=== PATIENT | female | born 1955 | race American Indian/Alaskan Native ===

== ENCOUNTER 2016-09-27 07:10 | Day surgery (SDC) | payer MEDICARE ==
[2016-09-22 13:48] LABS: Basophils % (Auto) 0.9 % (0.0-1.8); Eosinophils % (Auto) 2.9 % (0.0-4.3); Hematocrit 39.9 % (30.3-42.9); Hemoglobin 13.1 gm/dl (10.1-14.3); Mean Corpuscular HGB Conc 33 % (30-34); Mean Corpuscular Hemoglobin 26 pg (28-32); Mean Corpuscular Volume 81 fl (79-97); Platelet Count 230 K/mm3 (140-440); Red Blood Count 4.96 M/mm3 (3.65-5.03)
[2016-09-22 13:58] LABS: INR 0.98 (0.87-1.13); Partial Thromboplastin Time 24.5 Sec. (24.2-36.6)
--- NOTE | 2016-09-22 13:59 | Anesthesia Consultation ---
Anesthesia Consult and Med Hx Date of service: 09/22/16 - Airway Anesthetic Teeth Evaluation: Poor (multiple missing teeth), Caps (# 25-26 payne caps) ROM Head & Neck: Adequate Mental/Hyoid Distance: Adequate Mallampati Class: Class II Intubation Access Assessment: Probably Good - Pre-Operative Health Status ASA Pre-Surgery Classification: ASA3 Proposed Anesthetic Plan: General Nerve Block: IS - Pulmonary Hx Smoking: Yes (STOPPED X 10 YRS- 1/3 PPD X 15 YRS) Hx Asthma: No COPD: No Hx Pneumonia: No Hx Sleep Apnea: No (CARRIE PRE SCREEN HIGH RISK) - Cardiovascular System Hx Hypertension: Yes (2003, high cholesterol) Hx Coronary Artery Disease: Yes (2 block arteries on left side) Hx Heart Attack/AMI: Yes (12/2015, on plavix therapy) Hx Angina: Yes (>4METS) Hx Peripheral Vascular Disease: Yes - Central Nervous System Hx Neuromuscular Disorder: Yes (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
[2016-09-22 14:05] LABS: Alanine Aminotransferase 13 units/L (7-56); Albumin 3.9 g/dL (3.9-5); Albumin/Globulin Ratio 1.3 %; Alkaline Phosphatase 77 units/L (35-129); Anion Gap 15 mmol/L; BUN/Creatinine Ratio 18.33; Bilirubin,Total 0.5 mg/dL (0.1-1.2); Blood Urea Nitrogen 11 mg/dL (7-17); Calcium 9.4 mg/dL (8.4-10.2); Carbon Dioxide 27 mmol/L (22-30); Chloride 97.1 mmol/L (98-107); Glucose 195 mg/dL (65-100); Potassium 4.3 mmol/L (3.6-5.0); Sodium 135 mmol/L (137-145); Total Protein 6.9 g/dL (6.3-8.2)
[~2016-09-27 07:10] MED LIST: MARCAINE-EPI 0.5%-1:200,000 INFILTRATI ONE; NACL 0.9% 1000 ML 1,000 ML IV SCH; NACL 0.9% IR ONE; NEOSPORIN GU IR ONE; PEPCID IV NR; VANCOMYCIN/NS 1 GM/250 ML 1 GM/250 ML BAG IV NR; VERSED IV NR
[2016-09-27] MEDS ORDERED: XYLOCAINE 1% 20 mL ONE (08:21)
[2016-09-27] MEDS ORDERED: MARCAINE-EPI 0.5%-1:200,000 INFILTRATI ONE (08:22)
[2016-09-27] MEDS ORDERED: SUBLIMAZE ONE (08:23)
[2016-09-27] MEDS ORDERED: DIPRIVAN 10 MG/ML IV ONE (08:32)
[2016-09-27] MEDS ORDERED: DILAUDID ONE (08:32)
[2016-09-27] MEDS ORDERED: XYLOCAINE MPF 2% ONE (08:32)
[2016-09-27] MEDS ORDERED: NEOSPORIN GU IR ONE (10:26)
[2016-09-27] MEDS ORDERED: NACL 0.9% IR ONE (10:26)
[2016-09-27] MEDS ORDERED: ZOFRAN ONE (10:30)
[2016-09-27] MEDS ORDERED: ROBINUL ONE (10:30)
--- NOTE | 2016-09-27 10:49 | Short Stay Summary ---
Short Stay Documentation Date of service: 09/27/16 - History H&P: obtained from office - Allergies and Medications Current Medications: Allergies aspirin Allergy (Verified 08/01/16 11:51) Shortness of Breath Penicillins Allergy (Verified 08/01/16 11:51) Swelling Home Medications Medication Instructions Recorded Confirmed Last Taken Type Gabapentin [Neurontin] 800 mg PO TID 03/13/13 09/27/16 09/26/16 History metFORMIN [Glucophage] 800 mg PO BID 03/13/13 09/27/16 09/26/16 History traMADol [Ultram 50 MG tab] 50 mg PO Q6HR PRN #40 tablet 01/18/15 09/27/1609/26 Rx Lisinopril [Zestril TAB] 40 mg PO QDAY 11/24/15 09/27/16 09/26/16 History Clopidogrel [Plavix] 75 mg PO QDAY #30 tablet 11/26/15 09/27/16 09/20/16 Rx Famotidine [Pepcid] 20 mg PO BID #60 tablet 11/26/15 09/07/16 07/01/16 Rx ISOSORBIDE MONOnitrate [Imdur ER] 30 mg PO QDAY #30 tablet 11/26/15 09/27/16 Rx Cetirizine HCl [ZyrTEC] 10 mg PO DAILY #20 capsule 02/01/16 09/27/16 09/26/16 Rx Metoprolol Xl [Metoprolol 50 mg PO QDAY #30 tablet 05/14/16 09/27/16 09/26/16 Rx SUCCINATE ER TAB] diphenhydrAMINE [Benadryl CAP] 25 mg PO Q8HR PRN #20 capsule 07/05/16 09/07/16 07/01/16 Rx AtorvaSTATin [Lipitor] 20 mg PO QHS 08/01/16 09/27/16 09/26/16 History DULoxetine [Cymbalta] 30 mg PO BID 08/01/16 09/27/16 09/26/16 History Ranolazine [Ranexa] 1,000 mg PO BID 08/01/16 09/27/16 09/26/16 History amLODIPine [Norvasc] 10 mg PO QDAY 08/12/16 09/27/16 09/26/16 History HYDROcodone/APAP 5-325 [[place] 1 each PO Q6HR PRN 09/07/16 09/27/16 09/26/16 History 5/325] Active Medications Famotidine (Pepcid) 20 mg IV PREOP NR Stop: 09/27/16 23:59 Last Admin: 09/27/16 08:08 Dose: 20 mg Vancomycin HCl (Vancomycin/Ns 1 Gm/250 Ml) 1 gm in 250 mls @ 167.007 mls/hr IV PREOP NR PRN Reason: Protocol Stop: 09/27/16 23:59 Last Admin: 09/27/16 09:30 Dose: 167.007 mls/hr Sodium Chloride (Nacl 0.9% 1000 Ml) 1,000 mls @ 75 mls/hr IV DIRECT DEBRA Last Admin: 09/27/16 08:08 Dose: 75 mls/hr Midazolam HCl (Versed) 2 mg IV PREOP NR Stop: 09/27/16 23:59 Last Admin: 09/27/16 08:26 Dose: 2 mg - Brief post op/procedure progress note Date of procedure: 09/27/16 Pre-op diagnosis: rotator cuff tear and inpingment,left shoulder Post-op diagnosis: same Procedure: Acromioplasty, rotator cuff repair Anesthesia: regional Findings: 1.5 cm tear at supraspinatus tendon. Surgeon: GABRIELA SPEARS Track Maintainer: GORDON RIVAS Estimated blood loss: minimal Pathology: none Specimen disposition: discarded Condition: stable - Disposition Condition at discharge: Stable Disposition: DISCHARGED TO HOME OR SELFCARE - Discharge Diagnoses (1) Complete rotator cuff tear of left shoulder Status: Acute Short Stay Discharge Plan Follow up with: PRIMARY CARE, [Primary Care Provider] - 7 Days
--- NOTE | 2016-09-27 12:15 | Post Anesthesia Evaluation ---
- Post Anesthesia Evaluation Patient Participated: Yes Airway Patent: Yes Stable Respiratory Function: Yes Nausea/Vomiting: No Temp > 96.8F: Yes Pain Manageable: Yes Adequeate Hydration: Yes Anesthesia Complications: No Block Receding Appropriately: Not Applicable
[2016-09-27 12:20] VITALS: BP 135/62
--- NOTE | 2016-09-27 20:51 | Operative Report ---
PREOPERATIVE DIAGNOSIS: Rotator cuff tear, left shoulder. POSTOPERATIVE DIAGNOSIS: Rotator cuff tear, left shoulder. PROCEDURE: Acromioplasty and rotator cuff repair, left shoulder, mini open approach. SURGEON: Lluvia Lopez MD BAIL BONDING AGENT: Jerzy Guardado RN ANESTHESIA: Interscalene block, general. COMPLICATIONS: None. FINDINGS: The patient had 1 to 1.5 cm tear of the rotator cuff at the supraspinatus tendon insertion without retraction. PROCEDURE IN DETAIL: Once the patient was in surgical room, a time-out was carried out to identify the patient and procedure, prepping and draping of the patient was done in usual fashion. The procedure was carried out with the patient in a semi-seated position. The procedure was carried out by making an incision about 2 cm in length in line with acromion. Dissection was carried out to subcutaneous tissues. The dissection was carried out to allow full exposure of the deltoid muscle. The interval between the anterior medial deltoid muscles was developed, this allowed for the insertion of Gelpi retractor. Once this was done, an elevator was placed underneath the acromion, release of the acromion was carried out for about distance of 5-6 mm proximally and distally. Once this was done, using a saw, resection of the acromion was carried out by making a vertical cut and also a horizontal cut removing about 8-9 mm of the anterior edge of the acromion. Once this was done, the bone fragments were removed. At this point, using Blankenship scissors and pickups, bursectomy of the shoulder was done. Once the bursectomy was carried out, the patient was found to have the above-mentioned findings. The biceps tendon was found to be intact. The procedure was continued at this point by using a small mallet and a chisel to be able to remove some of the cortex of the bone and the area of the greater tuberosity, this was cleaned out without any problems. Following that, using a FiberTape suture was placed with two limbs through the rotator cuff, this was connected to type ankle from the eSNF, this anchor was inserted into the upper portion of the shoulder using a mallet and a route driver. Once the ankle was in place, the FiberTape had been placed through the ankle prior to the insertion. The FiberTape was then twisted into the bone without any problems, creating tension and repairing the cuff. The ankle instrumentation was removed. The ankle was deep inside the shoulder, and the rotator cuff was well repaired. The procedure was terminated. The wound was irrigated using #2-0 Ethibond suture and multiple sutures were placed to reconstruct the soft tissues. Once this was carried out, the procedure was terminated. The wound was closed with 2-0 Vicryl and subcuticular closure with Steri-Strips and Dermabond. There were no complications. JOB# [id number] COURT/ELLA
== END 2016-09-27 13:06 | disposition home or self-care (01) ==
LOC: OR 07:10
DX: S46.012A Strain of muscle(s) and tendon(s) of the rotator cuff of left shoulder, initial encounter (principal); E11.9 Type 2 diabetes mellitus without complications; I10 Essential (primary) hypertension; I25.10 Atherosclerotic heart disease of native coronary artery without angina pectoris; I25.2 Old myocardial infarction; F32.9 Major depressive disorder, single episode, unspecified; K21.9 Gastro-esophageal reflux disease without esophagitis; E78.00 Pure hypercholesterolemia, unspecified; E66.9 Obesity, unspecified; Z68.36 Body mass index [BMI] 36.0-36.9, adult; Z87.891 Personal history of nicotine dependence; Z79.01 Long term (current) use of anticoagulants; Z90.710 Acquired absence of both cervix and uterus; Z83.3 Family history of diabetes mellitus; Z82.61 Family history of arthritis; Z82.3 Family history of stroke; Z82.49 Family history of ischemic heart disease and other diseases of the circulatory system; X58.XXXA Exposure to other specified factors, initial encounter
CPT/HCPCS: 23130; 23410; 36415; 80053; 82962; 85025; 85610; 85730; C1713; J1170; J2250; J2405; J2704; J3370; J7030; J3010

== ENCOUNTER 2018-03-17 15:40 | Inpatient (IN) | payer MEDICARE ==
[2018-03-17] MEDS ORDERED: ACTIDOSE-AQUA PO ONE (15:49)
[2018-03-17] MEDS ORDERED: NACL 0.9% 1000 ML 1,000 ML IV ONE ×2 (15:50→19:05)
--- NOTE | 2018-03-17 16:11 | Emergency Department Report ---
HPI - General Time Seen by Provider: 03/17/18 15:44 - HPI HPI: 62-year-old female presents to the emergency department by EMS from home after what appears to be a suicide attempt by overdose taking multiple 25 mg metoprolol and 10 mg amlodipine pills. The patient is groggy but is arousable and answering questions. When asked how many pills she took she says "a lot" and she took them just prior to presentation here. She denies any discomfort. She is tearful. It appears that family found her taking these medications and were able to pry a few of these pills out of her mouth. She does appear to have a past medical history of hypertension. These medications are from about 1 year ago but they were about half full prior to this event. ED Past Medical Hx - Past Medical History Hx Hypertension: Yes (2003, high cholesterol) Hx Heart Attack/AMI: Yes (12/2015, on plavix therapy) Hx Diabetes: Yes Hx Liver Disease: No Hx Renal Disease: No Hx Sickle Cell Disease: No Hx Arthritis: Yes Hx Seizures: No Hx Psychiatric Treatment: Yes (depression) Hx Asthma: No Hx COPD: No Hx HIV: No Additional medical history: nerve damage to hands and feet - Surgical History Additional Surgical History: hysterectomy-2002, R shoulder surgery (2014) - Social History Smoking Status: Former Smoker Substance Use Type: None - Medications Home Medications: Home Medications Medication Instructions Recorded Confirmed Last Taken Type Gabapentin [Neurontin] 800 mg PO TID 03/13/13 09/27/16 09/26/16 History metFORMIN [Glucophage] 800 mg PO BID 03/13/13 09/27/16 09/26/16 History traMADol [Ultram 50 MG tab] 50 mg PO Q6HR PRN #40 tablet 01/18/15 09/27/1609/26 Rx Lisinopril [Zestril TAB] 40 mg PO QDAY 11/24/15 09/27/16 09/26/16 History Clopidogrel [Plavix] 75 mg PO QDAY #30 tablet 11/26/15 09/27/16 09/20/16 Rx Famotidine [Pepcid] 20 mg PO BID #60 tablet 11/26/15 09/07/16 07/01/16 Rx ISOSORBIDE MONOnitrate [Imdur ER] 30 mg PO QDAY #30 tablet 11/26/15 09/27/16 Rx Cetirizine HCl [ZyrTEC] 10 mg PO DAILY #20 capsule 02/01/16 09/27/16 09/26/16 Rx Metoprolol Xl [Metoprolol 50 mg PO QDAY #30 tablet 05/14/16 09/27/16 09/26/16 Rx SUCCINATE ER TAB] diphenhydrAMINE [Benadryl CAP] 25 mg PO Q8HR PRN #20 capsule 07/05/16 09/07/16 07/01/16 Rx AtorvaSTATin [Lipitor] 20 mg PO QHS 08/01/16 09/27/16 09/26/16 History DULoxetine [Cymbalta] 30 mg PO BID 08/01/16 09/27/16 09/26/16 History Ranolazine [Ranexa] 1,000 mg PO BID 08/01/16 09/27/16 09/26/16 History amLODIPine [Norvasc] 10 mg PO QDAY 08/12/16 09/27/16 09/26/16 History HYDROcodone/APAP 5-325 [[place] 1 each PO Q6HR PRN 09/07/16 09/27/16 09/26/16 History 5/325] ED Review of Systems ROS: Stated complaint: OVERDOSE Other details as noted in HPI Comment: All other systems reviewed and negative Constitutional: other (fatigue). denies: chills, fever Eyes: denies: eye pain, eye discharge, vision change ENT: denies: ear pain, throat pain Respiratory: denies: cough, shortness of breath, wheezing Cardiovascular: denies: chest pain, palpitations Gastrointestinal: denies: abdominal pain, nausea, diarrhea Genitourinary: denies: urgency, dysuria, discharge Musculoskeletal: denies: back pain, joint swelling, arthralgia Skin: denies: rash, lesions Neurological: denies: headache, weakness, paresthesias Psychiatric: depression, suicidal thoughts Physical Exam - Physical Exam Vital Signs: Vital Signs 03/17/18 15:48 Temperature 98.4 F Pulse Rate 58 L Respiratory 14 Rate Blood Pressure 149/67 O2 Sat by Pulse 98 Oximetry Physical Exam: GENERAL: The patient is well-developed well-nourished. HENT: Normocephalic. Atraumatic. Patient has moist mucous membranes. EYES: Extraocular motions are intact. Pupils equal reactive to light bilaterally. NECK: Supple. Trachea is midline. CHEST/LUNGS: Clear to auscultation. There is no respiratory distress noted. HEART/CARDIOVASCULAR: Regular. There is some mild bradycardia. There is no murmur. ABDOMEN: Abdomen is soft, nontender. Patient has normal bowel sounds. There is no abdominal distention. SKIN: Skin is warm and dry. NEURO: Patient is very sleepy but is arousable. Once awake she is oriented to person, place and time. MUSCULOSKELETAL: There is no tenderness or deformity. There is no limitation range of motion. There is no evidence of acute injury. PSYCH: Patient is tearful. ED Course Vital Signs 03/17/18 15:48 Temperature 98.4 F Pulse Rate 58 L Respiratory 14 Rate Blood Pressure 149/67 O2 Sat by Pulse 98 Oximetry - Reevaluation(s) Reevaluation #1: 03/17/18 22:20 I called and spoke with the night time hospitalist, Dr Bailon, about increasing the insulin gtt to the high dose insulin parameters of 1 unit / kg instead of the 0.1 units per kg she had been placed at. He was also made aware about my conversations with poison control and their treatment recommendations and packet that was sent. - Consultations Consultation #1: 03/17/18 20:28 I spoke with the security officer supervisor, Dr. Day, who listened to the case presentation and feels that with this patient's current status we should be able to keep her at our facility. He recommends giving a few doses of glucagon. He agrees with the high-dose insulin therapy, IV fluid resuscitation. He will see the patient in the ICU and is open to any further follow-up calls. - Central Line Placement Right Femoral Consent Obtained: verbal consent Time Out Performed: Yes Patient Placed on Monitor/Pulse Ox: Yes MD Prep: mask, gown, gloves Central Line Prep: Chlorhexidine scrub, sterile drapes applied Local Anesthesia Used: Lidocaine 1% Amount of Anesthesia Used (mls): 3 Ultrasound Used for Placement: Yes Central Line Lumen Inserted: triple Bloods Obtained for Lab: Yes Central Line Position: good blood return, all ports aspirated, flus, sutured in place with nyl Dressing Applied: Tegaderm, sterile gauze/tape Patient Tolerated Procedure: well Complications: none ED Medical Decision Making - Lab Data Result diagrams: 03/18/18 04:40 03/18/18 04:40 - EKG Data -: EKG Interpreted by Me EKG shows normal: sinus rhythm, axis (left axis deviation), intervals, QRS complexes (LVH), ST-T waves Rate: bradycardia (43 bpm) - EKG Data When compared to previous EKG there are: previous EKG unavailable Interpretation: other (sinus bradycardia at 43 bpm, LVH) - Medical Decision Making This patient presented after taking at least 20 metoprolol and 20 over pain shortly prior to arrival. She was given some activated charcoal . The patient got nauseated and began vomiting up the charcoal and some other gastric contents. At first the patient had a normal heart rate and blood pressure but a little after arrival it appears that these medications have started to get systemic and the patient began having bradycardia and hypotension. She did not have much response to IV fluid so a central line was placed in the right femoral vein and the patient was started on Levophed. The patient had some response to the vasopressor once the Levophed was at maximum dose. We were in touch with poison control who recommended giving glucagon, high-dose insulin. They recommended looking into the ability to give lipid emulsion therapy. If available, it is recommended to give at 1.5 mL per KG. They also recommended that calcium chloride and/or gluconate to be given to aim for an ionized calcium level of 2. If necessary 1 amp to be given every 15-30 minutes to achieve this number. If all these treatments fail that it is possible the patient would require ECMO. I spoke to the security officer supervisor and admitting hospitalist who agreed that since the patient has a normal mentation and since there has been some response with the blood pressure that we do not need to transfer at this moment for ECMO but will continue to monitor. poison control gave/faxed their list of treatment options for beta blockers and calcium channel blockers. Patient was accepted for admission by the hospitalist, Dr. Bloom. When I left the hospital at the end of my shift, the patient was sleepy but easily arousable and AAO x 3. At that time she seemed to have some improvement in her vitals with a HR of 50 and a SBP of about 100. During my time in the ED with this patient, she had a median HR of about 45 and SBP of about 90. Upon reviewing the chart shortly afterwards around 10 PM, I noticed that the patient may need high dose insulin therapy instead of the standard dose she was currently receiving. Since I was no longer in the emergency department, I called and spoke with Dr Downey (ED) and Dr Bailon (Hospitalist) to ask them to re-assess the patient, explain that there is high dose insulin protocol sent by poison control that is on the chart, and to re-contact poison control if necessary. - Differential Diagnosis bradycardia, overdose BB and CCB, Dysrythmia, sepsis Critical Care Time: Yes Critical care time in (mins) excluding proc time.: 35 Critical care attestation.: If time is entered above; I have spent that time in minutes in the direct care of this critically ill patient, excluding procedure time. Critical care time was spent on this patient in doing her initial evaluation, multiple re- evaluations, ordering and interpretation of labs and imaging, discussions with family, security officer supervisor, poison control. This does not include the time spent doing the central line procedure. Critical Care Time: 35 minutes ED Disposition Clinical Impression: Bradycardia Suicide attempt by beta tr overdose Qualifiers: Encounter type: initial encounter Qualified Code(s): T44.7X2A - Poisoning by beta-adrenoreceptor antagonists, intentional self-harm, initial encounter Overdose of calcium-channel tr Qualifiers: Encounter type: initial encounter Injury intent: intentional self-harm Qualified Code(s): T46.1X2A - Poisoning by calcium-channel blockers, intentional self-harm, initial encounter Suicide attempt by drug ingestion Qualifiers: Encounter type: initial encounter Qualified Code(s): T50.902A - Poisoning by unspecified drugs, medicaments and biological substances, intentional self-harm , initial encounter Hypotension Qualifiers: Hypotension type: unspecified hypotension type Qualified Code(s): I95.9 - Hypotension, unspecified Disposition: DC-09 OP ADMIT IP TO THIS HOSP Is pt being admited?: Yes Condition: Serious
[2018-03-17] MEDS ORDERED: ATROPINE 0.1% (CARDIAC) ONE ×2 (16:21→16:49)
[2018-03-17] MEDS ORDERED: ZOFRAN ONE ×3 (16:28→20:49)
[2018-03-17] MEDS ORDERED: LEVOPHED DRIP 4 MG/NS 250 ML 4 MG/250 ML BAG IV ONE (16:34)
[2018-03-17] MEDS: LEVOPHED DRIP 4 MG/NS 250 ML 4 MG/250 ML BAG IV SCH ×3 (16:38→22:20)
[2018-03-17 16:40] LABS: Hematocrit 43.9 % (30.3-42.9); Hemoglobin 14.7 gm/dl (10.1-14.3); Mean Corpuscular HGB Conc 34 % (30-34); Mean Corpuscular Hemoglobin 27 pg (28-32); Mean Corpuscular Volume 80 fl (79-97); Platelet Count 299 K/mm3 (140-440); Red Blood Count 5.48 M/mm3 (3.65-5.03); Red Cell Distribution Width 14.1 % (13.2-15.2)
[2018-03-17 16:45] LABS: Alanine Aminotransferase 11 units/L (7-56); BUN/Creatinine Ratio 15; Blood Urea Nitrogen 12 mg/dL (7-17); Calcium 8.9 mg/dL (8.4-10.2); Hemolysis Index 6
[2018-03-17] MEDS ORDERED: ZOFRAN IV ONE (16:49)
[2018-03-17] MEDS ORDERED: ATROPINE 0.1% (CARDIAC) IV ONE ×2 (16:50→16:51)
[2018-03-17 17:21] LABS: Basophils % (Manual) 0 % (0.0-1.8); Eosinophils % (Manual) 0 % (0.0-4.3); Giant Platelets Few; RBC Morphology Normal; Total Cells Counted 100
[2018-03-17] MEDS ORDERED: GLUCAGEN IV ONE ×2 (17:28→18:23)
[2018-03-17] MEDS ORDERED: HumuLIN R IV ONE ×2 (17:50→22:37)
[2018-03-17] MEDS ORDERED: REGLAN ONE (18:30)
[2018-03-17] MEDS ORDERED: NACL 0.9% 100 ML ONE (18:30)
[2018-03-17] MEDS: HumuLIN R 100 UNITS in NACL 0.9% 99 ML IV SCH (18:32)
[2018-03-17] MEDS ORDERED: D5NS 1,000 ML IV SCH (19:00)
[2018-03-17] MEDS ORDERED: REGLAN IV ONE (19:06)
[2018-03-17] MEDS ORDERED: NACL 0.9% IV ONE (19:08)
[2018-03-17] MEDS ORDERED: CALCIUM GLUCONATE 1,000 MG in NACL 0.9% 100 ML IV ONE (20:00)
[2018-03-17] MEDS ORDERED: GLUCAGEN ONE (20:31)
[2018-03-17 21:07] LABS: Bilirubin,Urine NEG (Negative); Blood,Urine NEG (Negative); Color,Urine Yellow (Yellow); Urobilinogen,Urine < 2.0 mg/dL (<2.0)
[2018-03-17 21:14] LABS: Calcium 8.9 mg/dL (8.4-10.2)
[2018-03-17 21:16] LABS: Amphetamine Screen,Urine PRESUMPTIVE NEGATIVE; Benzodiazepines Screen,Urine PRESUMPTIVE NEGATIVE; Cannabinoid Screen,Urine PRESUMPTIVE NEGATIVE; Cocaine Screen,Urine PRESUMPTIVE NEGATIVE; Methadone Screen,Urine PRESUMPTIVE NEGATIVE; Opiate Screen,Urine PRESUMPTIVE NEGATIVE
[2018-03-17] MEDS ORDERED: NACL 0.9% 500 ML 500 ML IV ONE (21:32)
--- NOTE | 2018-03-17 22:02 | History and Physical Report ---
History of Present Illness Date of examination: 03/17/18 Date of admission: 03/17/2018 Chief complaint: Chief complaint: Overdose on lisinopril and amlodipine few hours ago History of present illness: ESTELA 62-year-old black female comes in by EMS for taking multiple tablets of metoprolol and amlodipine. Patient blood pressure was very low. Patient apparently was suicidal and it was a suicide attempt. Patient is groggy but is arousable and answering questions. Patient not able to tell the number of pills she has taken. The family found her taking these medications and were able to take a few pills out of her mouth. 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 Surgical History Additional Surgical History: hysterectomy-2002, R shoulder surgery (2014) Social History Smoking Status: Former Smoker Substance Use Type: None Family history Htn - Medications Home Medications: Home Medications Medication Instructions Recorded Confirmed Last Taken Type Gabapentin [Neurontin] 800 mg PO TID 03/13/13 09/27/16 09/26/16 History metFORMIN [Glucophage] 800 mg PO BID 03/13/13 09/27/16 09/26/16 History traMADol [Ultram 50 MG tab] 50 mg PO Q6HR PRN #40 tablet 01/18/15 09/27/1609/26 Rx Lisinopril [Zestril TAB] 40 mg PO QDAY 11/24/15 09/27/16 09/26/16 History Clopidogrel [Plavix] 75 mg PO QDAY #30 tablet 11/26/15 09/27/16 09/20/16 Rx Famotidine [Pepcid] 20 mg PO BID #60 tablet 11/26/15 09/07/16 07/01/16 Rx ISOSORBIDE MONOnitrate [Imdur ER] 30 mg PO QDAY #30 tablet 11/26/15 09/27/16 Rx Cetirizine HCl [ZyrTEC] 10 mg PO DAILY #20 capsule 02/01/16 09/27/16 09/26/16 Rx Metoprolol Xl [Metoprolol 50 mg PO QDAY #30 tablet 05/14/16 09/27/16 09/26/16 Rx SUCCINATE ER TAB] diphenhydrAMINE [Benadryl CAP] 25 mg PO Q8HR PRN #20 capsule 07/05/16 09/07/16 07/01/16 Rx AtorvaSTATin [Lipitor] 20 mg PO QHS 08/01/16 09/27/16 09/26/16 History DULoxetine [Cymbalta] 30 mg PO BID 08/01/16 09/27/16 09/26/16 History Ranolazine [Ranexa] 1,000 mg PO BID 08/01/16 09/27/16 09/26/16 History amLODIPine [Norvasc] 10 mg PO QDAY 08/12/16 09/27/16 09/26/16 History HYDROcodone/APAP 5-325 [Rosalia 1 each PO Q6HR PRN 09/07/16 09/27/16 09/26/16 History 5/325] Review of Systems ROS: Stated complaint: OVERDOSE Other details as noted in HPI Comment: All other systems reviewed and negative Constitutional: denies: chills, fever Eyes: denies: eye pain, eye discharge, vision change ENT: denies: ear pain, throat pain Respiratory: denies: cough, shortness of breath, wheezing Cardiovascular: denies: chest pain, palpitations Gastrointestinal: denies: abdominal pain, nausea, diarrhea Genitourinary: denies: urgency, dysuria, discharge Musculoskeletal: denies: back pain, joint swelling, arthralgia Skin: denies: rash, lesions Neurological: denies: headache, weakness, paresthesias Psychiatric: depression, suicidal thoughts Medications and Allergies Allergies Allergy/AdvReac Type Severity Reaction Status Date / Time aspirin Allergy Shortness Verified 08/01/16 11:51 of Breath Penicillins Allergy Swelling Verified 08/01/16 11:51 Home Medications Medication Instructions Recorded Confirmed Last Taken Type Gabapentin [Neurontin] 800 mg PO TID 03/13/13 09/27/16 09/26/16 History metFORMIN [Glucophage] 800 mg PO BID 03/13/13 09/27/16 09/26/16 History traMADol [Ultram 50 MG tab] 50 mg PO Q6HR PRN #40 tablet 01/18/15 09/27/1609/26 Rx Lisinopril [Zestril TAB] 40 mg PO QDAY 11/24/15 09/27/16 09/26/16 History Clopidogrel [Plavix] 75 mg PO QDAY #30 tablet 11/26/15 09/27/16 09/20/16 Rx Famotidine [Pepcid] 20 mg PO BID #60 tablet 11/26/15 09/07/16 07/01/16 Rx ISOSORBIDE MONOnitrate [Imdur ER] 30 mg PO QDAY #30 tablet 11/26/15 09/27/16 Rx Cetirizine HCl [ZyrTEC] 10 mg PO DAILY #20 capsule 02/01/16 09/27/16 09/26/16 Rx Metoprolol Xl [Metoprolol 50 mg PO QDAY #30 tablet 05/14/16 09/27/16 09/26/16 Rx SUCCINATE ER TAB] diphenhydrAMINE [Benadryl CAP] 25 mg PO Q8HR PRN #20 capsule 07/05/16 09/07/16 07/01/16 Rx AtorvaSTATin [Lipitor] 20 mg PO QHS 08/01/16 09/27/16 09/26/16 History DULoxetine [Cymbalta] 30 mg PO BID 08/01/16 09/27/16 09/26/16 History Ranolazine [Ranexa] 1,000 mg PO BID 08/01/16 09/27/16 09/26/16 History amLODIPine [Norvasc] 10 mg PO QDAY 08/12/16 09/27/16 09/26/16 History HYDROcodone/APAP 5-325 [Rosalia 1 each PO Q6HR PRN 09/07/16 09/27/16 09/26/16 History 5/325] Active Meds: Active Medications Sodium Chloride (Nacl 0.9% 1000 Ml) 1,000 mls @ 125 mls/hr IV ONCE ONE Stop: 03/17/18 23:49 Last Admin: 03/17/18 16:05 Dose: 125 mls/hr Norepinephrine (Levophed Drip 4 Mg/Ns 250 Ml) 4 mg in 250 mls @ 7.5 mls/hr IV TITR DEBRA; Protocol Last Admin: 03/17/18 19:08 Dose: 20 mcg/min, 75 mls/hr Insulin Human Regular 100 (units/ Sodium Chloride) 100 mls @ 8 mls/hr IV TITR DEBRA; Protocol Last Admin: 03/17/18 18:32 Dose: 8 units/hr, 8 mls/hr Dextrose/Sodium Chloride (D5ns) 1,000 mls @ 125 mls/hr IV DIRECT DEBRA Last Admin: 03/17/18 19:02 Dose: 125 mls/hr Sodium Chloride (Nacl 0.9% 500 Ml) 500 mls @ 999 mls/hr IV ONCE ONE Stop: 03/17/18 22:02 Exam - Physical Exam Narrative exam: Patient lying in bed in slight discomfort - Constitutional Vitals: Temp Pulse Resp BP Pulse Ox 98.4 F 47 L 12 89/60 96 03/17/18 15:48 03/17/18 21:10 03/17/18 21:10 03/17/18 21:10 03/17/18 21:10 General appearance: Present: mild distress, well-nourished - EENT Eyes: Present: PERRL ENT: hearing intact, clear oral mucosa - Neck Neck: Present: supple, normal ROM - Respiratory Respiratory effort: normal Respiratory: bilateral: CTA - Cardiovascular Heart rate: 96 Rhythm: regular Heart Sounds: Present: S1 & S2. Absent: rub, click - Extremities Extremities: no ischemia, pulses intact, pulses symmetrical, No edema Peripheral Pulses: within normal limits - Abdominal General gastrointestinal: Present: soft, non-tender, non-distended, normal bowel sounds Female genitourinary: Present: normal - Integumentary Integumentary: Present: clear, warm, dry - Musculoskeletal Musculoskeletal: generalized weakness - Psychiatric Psychiatric: appropriate mood/affect, intact judgment & insight - Neurologic Neurologic: CNII-XII intact, moves all extremities - Allied Health Allied health notes reviewed: nursing, case management Results - Labs CBC & Chem 7: 03/17/18 16:18 03/17/18 20:52 Labs: Laboratory Last Values WBC 12.7 K/mm3 (4.5-11.0) H 03/17/18 16:18 RBC 5.48 M/mm3 (3.65-5.03) H 03/17/18 16:18 Hgb 14.7 gm/dl (10.1-14.3) H 03/17/18 16:18 Hct 43.9 % (30.3-42.9) H 03/17/18 16:18 MCV 80 fl (79-97) 03/17/18 16:18 MCH 27 pg (28-32) L 03/17/18 16:18 MCHC 34 % (30-34) 03/17/18 16:18 RDW 14.1 % (13.2-15.2) 03/17/18 16:18 Plt Count 299 K/mm3 (140-440) 03/17/18 16:18 Lymph # Tunnel Man 03/17/18 16:18 Add Manual Diff Complete 03/17/18 16:18 Total Counted 100 03/17/18 16:18 Seg Neuts % (Manual) 40.0 % (40.0-70.0) 03/17/18 16:18 Band Neutrophils % 0 % 03/17/18 16:18 Lymphocytes % (Manual) 50.0 % (13.4-35.0) H 03/17/18 16:18 Reactive Lymphs % (Man) 0 % 03/17/18 16:18 Monocytes % (Manual) 10.0 % (0.0-7.3) H 03/17/18 16:18 Eosinophils % (Manual) 0 % (0.0-4.3) 03/17/18 16:18 Basophils % (Manual) 0 % (0.0-1.8) 03/17/18 16:18 Metamyelocytes % 0 % 03/17/18 16:18 Myelocytes % 0 % 03/17/18 16:18 Promyelocytes % 0 % 03/17/18 16:18 Blast Cells % 0 % 03/17/18 16:18 Nucleated RBC % Not Reportable 03/17/18 16:18 Seg Neutrophils # Man 5.1 K/mm3 (1.8-7.7) 03/17/18 16:18 Band Neutrophils # 0.0 K/mm3 03/17/18 16:18 Lymphocytes # (Manual) 6.4 K/mm3 (1.2-5.4) H 03/17/18 16:18 Abs React Lymphs (Man) 0.0 K/mm3 03/17/18 16:18 Monocytes # (Manual) 1.3 K/mm3 (0.0-0.8) H 03/17/18 16:18 Eosinophils # (Manual) 0.0 K/mm3 (0.0-0.4) 03/17/18 16:18 Basophils # (Manual) 0.0 K/mm3 (0.0-0.1) 03/17/18 16:18 Metamyelocytes # 0.0 K/mm3 03/17/18 16:18 Myelocytes # 0.0 K/mm3 03/17/18 16:18 Promyelocytes # 0.0 K/mm3 03/17/18 16:18 Blast Cells # 0.0 K/mm3 03/17/18 16:18 WBC Morphology Not Reportable 03/17/18 16:18 Hypersegmented Neuts Not Reportable 03/17/18 16:18 Hyposegmented Neuts Not Reportable 03/17/18 16:18 Hypogranular Neuts Not Reportable 03/17/18 16:18 Smudge Cells Not Reportable 03/17/18 16:18 Toxic Granulation Not Reportable 03/17/18 16:18 Toxic Vacuolation Not Reportable 03/17/18 16:18 Dohle Bodies Not Reportable 03/17/18 16:18 Pelger-Huet Anomaly Not Reportable 03/17/18 16:18 Deneen Rods Not Reportable 03/17/18 16:18 Platelet Estimate Appears normal 03/17/18 16:18 Clumped Platelets Not Reportable 03/17/18 16:18 Plt Clumps, EDTA Not Reportable 03/17/18 16:18 Large Platelets Not Reportable 03/17/18 16:18 Giant Platelets Few 03/17/18 16:18 Platelet Satelliting Not Reportable 03/17/18 16:18 Plt Morphology Comment Not Reportable 03/17/18 16:18 RBC Morphology Normal 03/17/18 16:18 Dimorphic RBCs Not Reportable 03/17/18 16:18 Polychromasia Not Reportable 03/17/18 16:18 Hypochromasia Not Reportable 03/17/18 16:18 Poikilocytosis Not Reportable 03/17/18 16:18 Anisocytosis Not Reportable 03/17/18 16:18 Microcytosis Not Reportable 03/17/18 16:18 Macrocytosis Not Reportable 03/17/18 16:18 Spherocytes Not Reportable 03/17/18 16:18 Pappenheimer Bodies Not Reportable 03/17/18 16:18 Sickle Cells Not Reportable 03/17/18 16:18 Target Cells Not Reportable 03/17/18 16:18 Tear Drop Cells Not Reportable 03/17/18 16:18 Ovalocytes Not Reportable 03/17/18 16:18 Helmet Cells Not Reportable 03/17/18 16:18 [place] Bodies Not Reportable 03/17/18 16:18 [place] Rings Not Reportable 03/17/18 16:18 Dale Cells Not Reportable 03/17/18 16:18 Bite Cells Not Reportable 03/17/18 16:18 Crenated Cell Not Reportable 03/17/18 16:18 Elliptocytes Not Reportable 03/17/18 16:18 Acanthocytes (Spur) Not Reportable 03/17/18 16:18 Rouleaux Not Reportable 03/17/18 16:18 Hemoglobin C Crystals Not Reportable 03/17/18 16:18 Schistocytes Not Reportable 03/17/18 16:18 Malaria parasites Not Reportable 03/17/18 16:18 Henry Bodies Not Reportable 03/17/18 16:18 Hem Pathologist Commnt No 03/17/18 16:18 VBG pH 7.341 (7.320-7.420) 03/17/18 16:18 Sodium 143 mmol/L (137-145) D 03/17/18 20:52 Potassium 4.2 mmol/L (3.6-5.0) 03/17/18 20:52 Chloride 103.2 mmol/L (98-107) 03/17/18 20:52 Carbon Dioxide 20 mmol/L (22-30) L 03/17/18 20:52 Anion Gap 24 mmol/L 03/17/18 20:52 BUN 17 mg/dL (7-17) 03/17/18 20:52 Creatinine 1.5 mg/dL (0.7-1.2) H D 03/17/18 20:52 Estimated GFR 42 ml/min 03/17/18 20:52 BUN/Creatinine Ratio 11 % 03/17/18 20:52 Glucose 247 mg/dL (65-100) H 03/17/18 20:52 POC Glucose 275 (70-105) H 03/17/18 21:05 Calcium 8.9 mg/dL (8.4-10.2) 03/17/18 20:52 Total Bilirubin 0.20 mg/dL (0.1-1.2) 03/17/18 16:18 AST 12 units/L (5-40) 03/17/18 16:18 ALT 11 units/L (7-56) 03/17/18 16:18 Alkaline Phosphatase 89 units/L (35-129) 03/17/18 16:18 Troponin T < 0.010 ng/mL (0.00-0.029) 03/17/18 16:18 Total Protein 6.8 g/dL (6.3-8.2) 03/17/18 16:18 Albumin 4.0 g/dL (3.9-5) 03/17/18 16:18 Albumin/Globulin Ratio 1.4 % 03/17/18 16:18 Urine Color Yellow (Yellow) 03/17/18 20:56 Urine Turbidity Slightly-cloudy (Clear) 03/17/18 20:56 Urine pH 5.0 (5.0-7.0) 03/17/18 20:56 Ur Specific Walls 1.007 (1.003-1.030) 03/17/18 20:56 Urine Protein 100 mg/dl mg/dL (Negative) 03/17/18 20:56 Urine Glucose (UA) >=500 mg/dL (Negative) 03/17/18 20:56 Urine Ketones Neg mg/dL (Negative) 03/17/18 20:56 Urine Blood Neg (Negative) 03/17/18 20:56 Urine Nitrite Neg (Negative) 03/17/18 20:56 Urine Bilirubin Neg (Negative) 03/17/18 20:56 Urine Urobilinogen < 2.0 mg/dL (<2.0) 03/17/18 20:56 Ur Leukocyte Esterase Neg (Negative) 03/17/18 20:56 Urine WBC (Auto) 0.0 /HPF (0.0-6.0) 03/17/18 20:56 Urine RBC (Auto) 1.0 /HPF (0.0-6.0) 03/17/18 20:56 U Epithel Cells (Auto) < 1.0 /HPF (0-13.0) 03/17/18 20:56 Salicylates < 0.3 mg/dL (2.8-20.0) L 03/17/18 16:18 Urine Opiates Screen Presumptive negative 03/17/18 20:56 Urine Methadone Screen Presumptive negative 03/17/18 20:56 Acetaminophen < 5.0 ug/mL (10.0-30.0) L 03/17/18 16:18 Ur Barbiturates Screen Presumptive negative 03/17/18 20:56 Ur Phencyclidine Scrn Presumptive negative 03/17/18 20:56 Ur Amphetamines Screen Presumptive negative 03/17/18 20:56 U Benzodiazepines Scrn Presumptive negative 03/17/18 20:56 Urine Cocaine Screen Presumptive negative 03/17/18 20:56 U Marijuana (THC) Screen Presumptive negative 03/17/18 20:56 Drugs of Abuse Note Disclamer 03/17/18 20:56 Plasma/Serum Alcohol < 0.01 % (0-0.07) 03/17/18 16:18 - Imaging and Cardiology EKG: report reviewed (sinus bradycardia heart rate of 43/m) Assessment and Plan Assessment and plan: Critical care Statement: The high probability of a clinically significant, sudden or life threatening deterioration of the [Pulmonary, cadiac, renal] system(s) required my full and direct attention, intervention and personal management. The aggregate critical care time was [35] minutes. This time is in addition to time spent performing reported procedures but includes the following: [x] Data Review and interpretation [x] Patient assessment and monitoring of vital signs [x] Documentation [x] Medication orders and management Advance Directives: Yes (full code) VTE prophylaxis?: Chemical Plan of care discussed with patient/family: Yes - Patient Problems (1) Overdose of calcium-channel tr Current Visit: Yes Status: Acute Qualifiers: Encounter type: initial encounter Injury intent: intentional self-harm Qualified Code(s): T46.1X2A - Poisoning by calcium-channel blockers, intentional self-harm, initial encounter Plan to address problem: IV fluids IV levophed IV calcium gluconate IV insulin and D50 W as per poison control (2) Suicide attempt by beta tr overdose Current Visit: Yes Status: Acute Qualifiers: Encounter type: initial encounter Qualified Code(s): T44.7X2A - Poisoning by beta-adrenoreceptor antagonists, intentional self-harm, initial encounter Plan to address problem: high dose insulin parameters of 1 unit / kg IV Fluids IV levo fed (3) Bradycardia Current Visit: Yes Status: Acute Plan to address problem: Secondary to beta blockers IV fluids Calcium gluconate And insulin drip (4) Hypotension Current Visit: Yes Status: Acute Qualifiers: Hypotension type: unspecified hypotension type Qualified Code(s): I95.9 - Hypotension, unspecified Plan to address problem: IV fluids and IV Levophed (5) Type 2 diabetes mellitus Current Visit: Yes Status: Chronic Plan to address problem: Coverage as necessary Patient currently on insulin drip as recommended by poison control for the overdose with calcium channel blockers and beta blockers (6) Hypertension Current Visit: Yes Status: Chronic Qualifiers: Hypertension type: essential hypertension Qualified Code(s): I10 - Essential (primary) hypertension Plan to address problem: We will hold her antihypertensives (7) Coronary artery disease Current Visit: Yes Status: Chronic Qualifiers: Coronary Disease-Associated Artery/Lesion type: [place] artery [place] vs. transplanted heart: [place] heart Plan to address problem: Hold the Plavix and Ranexa (8) Peripheral neuropathy Current Visit: Yes Status: Chronic Qualifiers: Peripheral neuropathy type: polyneuropathy, unspecified Qualified Code(s): G62.9 - Polyneuropathy, unspecified Plan to address problem: We will hold the gabapentin (9) DVT prophylaxis Current Visit: Yes Status: Acute Plan to address problem: On Lovenox
[2018-03-17] MEDS ORDERED: ZOFRAN IV PRN (22:03)
[2018-03-17] MEDS ORDERED: SODIUM CHLORIDE FLUSH SYRINGE 10 ML IV PRN (22:03)
[2018-03-17] MEDS ORDERED: TYLENOL PO PRN (22:03)
[2018-03-17] MEDS ORDERED: CALCIUM GLUCONATE 2,000 MG in NACL 0.9% 100 ML IV ONE (22:07)
--- NOTE | 2018-03-17 23:48 | Event Note ---
Date: 03/17/18 DR. QIU'S REQUEST TO CHANGE THE INSULIN DRIP DOSE AND GLUCOSE MONITORING WITH I.V DEXTROSE ORDER WHICH HE SAID HE MISTAKENLY PUT IN 0.1UNIT/KG/HR INSTEAD OF 0.5 -1UNIT/KG/HR RECOMMENDED BY POISON CONTROL DISCUSSED WITH DR. RENDON WHO ADMITTED PATIENT AND HE ACCEPTED TO REVALUATE PATIENT AND HANDLE THE ISSUE AND DO ALL NECESSARY ADJUSTMENTS. PLAN; I WILL CONTINUE TO MONITOR PATIENT AND TREAT ACCORDINGLY.
[2018-03-18 01:08] LABS: Calcium 7.6 mg/dL (8.4-10.2)
--- NOTE | 2018-03-18 01:42 | Emergency Department Report ---
Blank Doc - Documentation Documentation: I was contacted by my colleague Dr. Galeana who previously treated the patient in the ED. He is concerned that the patient required high-dose insulin. He mistakenly ordered IV small dose infusion. He requested that I reassess the patient. I spoke extensively with the charge nurse and the treating nurse. I arranged for therapy. Also ordered high-dose insulin 80 unit bolus. Reassessed patient. Patient was protecting airway with purposeful Movements. Oxygen Saturation Was 94% with Nasal Cannula. Patient Did Have Hypotension. Map = 63 mm Hg on Levophed drip. I was contacted by the personnel adviser who recommended addition of dopamine as needed. Also recommended cardiac pacing if necessary. I reviewed insulin dextrose protocol provided per fax. I gave the information to CCU staff. 40 minutes of critical care time excluding procedures were used in the care of the patient.
--- NOTE | 2018-03-18 01:48 | Emergency Department Report ---
Blank Doc - Documentation Documentation: I was asked by the ER charge nurse to replace femoral central line. During transfer, the CVL slipped out. Considering patient's severe illness, emergency replacement was required. Procedure note: I did not obtain consent from family members considering patient was critically ill and needed immediate central venous access Indication: Severe hypotension, intentional overdose Using sterile gown, mask, Gloves, drape, chlorhexidine, sterile ultrasound probe cover, I was able to visualize the femoral vein using ultrasound. I was able to insert triple lumen CVL using Seldinger technique. Minimal blood loss. Venous return from all 3 ports, I was able to flush all 3 ports
[2018-03-18] MEDS ORDERED: D50W (25GM) Syringe IV ONE (04:20)
[2018-03-18] MEDS ORDERED: D50W (25GM) Syringe IV PRN (04:25)
[2018-03-18 04:53] LABS: Mean Corpuscular HGB Conc 31 % (30-34); Mean Corpuscular Hemoglobin 26 pg (28-32); Mean Corpuscular Volume 86 fl (79-97); Platelet Count 191 K/mm3 (140-440); Red Cell Distribution Width 14.8 % (13.2-15.2)
[2018-03-18] MEDS ORDERED: GLUCAGEN IV STA (04:57)
[2018-03-18 04:58] LABS: Hematocrit 40.2 % (30.3-42.9); Hemoglobin 12.4 gm/dl (10.1-14.3)
--- NOTE | 2018-03-18 04:58 | Progress Note ---
Subjective Date of service: 03/18/18 Principal diagnosis: Acute respiratory failure Interval history: Called to ICU for intubation of patient admitted from ED with hypotension and bradycardia 2/2 overdose of amlodipine and metoprolol. Upon my arrival to unit, patient was noted to be bradycardic to 40s, hypotensive with MAP 50s-60s on norepinephrine gtt @ 24mcg/min, SpO2 >90%, unresponsive with agonal breathing being assisted with Ambu bag by RT. After brief review of labs/medical history, etomidate 10mg IV and succinylcholine 120mg IV were administered. Intubation was acheived with glidescope blade 3, 7.5 ETT, grade 1 view of vocal chords, x 1 attempt, dentition unchanged. Appropriate placement was confirmed with + CO2 color change and equal breath sounds bilaterally. She was placed on the ventilator by RT with settings Vt [id number], Peep 10 (increased from 8 initially) and FiO2 100% (increased from 50% initially). There was hypoxia to SpO2 87% for approx. 20 secs immediately following intubation which improved to mid-90s on the vent settings listed. Objective - Constitutional Vitals: Vital Signs - 12hr 03/17/18 03/17/18 03/17/18 17:00 17:05 17:10 Pulse Rate 49 L 41 L 42 L Respiratory 18 11 L 15 Rate Blood Pressure 83/41 93/44 93/44 O2 Sat by Pulse 94 96 Oximetry 03/17/18 03/17/18 03/17/18 17:15 17:20 17:25 Pulse Rate 41 L 41 L 42 L Respiratory 13 16 17 Rate Blood Pressure 101/53 100/46 97/50 O2 Sat by Pulse 93 93 95 Oximetry 03/17/18 03/17/18 03/17/18 17:30 17:36 17:40 Pulse Rate 50 L 41 L 41 L Respiratory 9 L 15 13 Rate Blood Pressure 115/54 93/50 89/46 O2 Sat by Pulse 95 93 88 Oximetry 03/17/18 03/17/18 03/17/18 17:46 17:50 17:56 Pulse Rate 41 L 43 L 42 L Respiratory 10 L 15 8 L Rate Blood Pressure 89/46 86/52 O2 Sat by Pulse 96 90 96 Oximetry 03/17/18 03/17/18 03/17/18 18:00 18:06 18:10 Pulse Rate 42 L 42 L 42 L Respiratory 12 16 12 Rate Blood Pressure 86/52 84/33 100/40 O2 Sat by Pulse 94 99 89 Oximetry 03/17/18 03/17/18 03/17/18 18:16 18:20 18:26 Pulse Rate 42 L 42 L 53 L Respiratory 14 20 16 Rate Blood Pressure 95/45 102/44 104/62 O2 Sat by Pulse 93 89 94 Oximetry 03/17/18 03/17/18 03/17/18 18:30 18:36 18:40 Pulse Rate 49 L 46 L 41 L Respiratory 15 15 22 Rate Blood Pressure 101/72 94/45 93/39 O2 Sat by Pulse 83 L 96 95 Oximetry 03/17/18 03/17/18 03/17/18 18:46 18:50 18:55 Pulse Rate 43 L 45 L 44 L Respiratory 11 L 13 17 Rate Blood Pressure 103/24 78/36 78/39 O2 Sat by Pulse 95 93 94 Oximetry 03/17/18 03/17/18 03/17/18 19:00 19:05 19:10 Pulse Rate 45 L 47 L 46 L Respiratory 33 H 17 10 L Rate Blood Pressure 85/41 85/42 88/46 O2 Sat by Pulse 95 93 90 Oximetry 03/17/18 03/17/18 03/17/18 19:16 19:20 19:26 Pulse Rate 47 L 47 L 48 L Respiratory 14 11 L 16 Rate Blood Pressure 88/46 88/46 91/65 O2 Sat by Pulse 95 92 97 Oximetry 03/17/18 03/17/18 03/17/18 19:30 19:35 19:40 Pulse Rate 47 L 48 L 47 L Respiratory 13 14 15 Rate Blood Pressure 80/43 81/43 82/34 O2 Sat by Pulse 96 94 93 Oximetry 03/17/18 03/17/18 03/17/18 19:46 19:50 19:56 Pulse Rate 47 L 47 L 49 L Respiratory 16 13 21 Rate Blood Pressure 105/60 105/60 105/60 O2 Sat by Pulse 93 97 Oximetry 03/17/18 03/17/18 03/17/18 20:00 20:06 20:10 Pulse Rate 46 L 46 L 46 L Respiratory 15 20 17 Rate Blood Pressure 86/45 81/27 92/56 O2 Sat by Pulse 91 95 88 Oximetry 09/03/17/18 03/17/18 20:15 20:20 20:26 Pulse Rate 46 L 45 L 46 L Respiratory 15 17 14 Rate Blood Pressure 96/45 96/45 72/36 O2 Sat by Pulse 92 97 96 Oximetry 03/17/18 03/17/18 03/17/18 20:30 20:35 20:40 Pulse Rate 46 L 46 L 47 L Respiratory 8 L 17 16 Rate Blood Pressure 72/36 106/51 109/55 O2 Sat by Pulse 92 92 92 Oximetry 03/17/18 03/17/18 03/17/18 20:45 20:50 20:56 Pulse Rate 51 L 48 L 47 L Respiratory 15 18 20 Rate Blood Pressure 109/60 100/50 95/46 O2 Sat by Pulse 93 86 Oximetry 03/17/18 03/17/18 03/17/18 21:00 21:05 21:10 Pulse Rate 46 L 46 L 47 L Respiratory 11 L 16 12 Rate Blood Pressure 86/59 94/46 89/60 O2 Sat by Pulse 93 87 96 Oximetry 03/17/18 23:04 Pulse Rate Respiratory Rate Blood Pressure O2 Sat by Pulse 96 Oximetry - Labs CBC & Chem 7: 03/18/18 04:40 03/17/18 23:40 Labs: Abnormal lab results 03/17/18 03/17/18 03/17/18 Range/Units 16:18 16:18 16:18 WBC 12.7 H (4.5-11.0) K/mm3 RBC 5.48 H (3.65-5.03) M/mm3 Hgb 14.7 H (10.1-14.3) gm/dl Hct 43.9 H (30.3-42.9) % MCH 27 L (28-32) pg Lymphocytes % (Manual) 50.0 H (13.4-35.0) % Monocytes % (Manual) 10.0 H (0.0-7.3) % Lymphocytes # (Manual) 6.4 H (1.2-5.4) K/mm3 Monocytes # (Manual) 1.3 H (0.0-0.8) K/mm3 POC ABG pH (7.35-7.45) POC ABG pO2 (80-105) Sodium 135 L (137-145) mmol/L Carbon Dioxide (22-30) mmol/L BUN (7-17) mg/dL Creatinine (0.7-1.2) mg/dL Glucose 242 H (65-100) mg/dL POC Glucose (70-105) Hemoglobin A1c (4-6) % Lactic Acid (0.7-2.0) mmol/L Calcium (8.4-10.2) mg/dL Salicylates < 0.3 L (2.8-20.0) mg/dL Acetaminophen (10.0-30.0) ug/mL 03/17/18 03/17/18 03/17/18 Range/Units 16:18 18:22 19:01 WBC (4.5-11.0) K/mm3 RBC (3.65-5.03) M/mm3 Hgb (10.1-14.3) gm/dl Hct (30.3-42.9) % MCH (28-32) pg Lymphocytes % (Manual) (13.4-35.0) % Monocytes % (Manual) (0.0-7.3) % Lymphocytes # (Manual) (1.2-5.4) K/mm3 Monocytes # (Manual) (0.0-0.8) K/mm3 POC ABG pH (7.35-7.45) POC ABG pO2 (80-105) Sodium (137-145) mmol/L Carbon Dioxide (22-30) mmol/L BUN (7-17) mg/dL Creatinine (0.7-1.2) mg/dL Glucose (65-100) mg/dL POC Glucose 351 H 469 H (70-105) Hemoglobin A1c (4-6) % Lactic Acid (0.7-2.0) mmol/L Calcium (8.4-10.2) mg/dL Salicylates (2.8-20.0) mg/dL Acetaminophen < 5.0 L (10.0-30.0) ug/mL 03/17/18 03/17/18 03/17/18 Range/Units 19:45 20:52 21:05 WBC (4.5-11.0) K/mm3 RBC (3.65-5.03) M/mm3 Hgb (10.1-14.3) gm/dl Hct (30.3-42.9) % MCH (28-32) pg Lymphocytes % (Manual) (13.4-35.0) % Monocytes % (Manual) (0.0-7.3) % Lymphocytes # (Manual) (1.2-5.4) K/mm3 Monocytes # (Manual) (0.0-0.8) K/mm3 POC ABG pH (7.35-7.45) POC ABG pO2 (80-105) Sodium (137-145) mmol/L Carbon Dioxide 20 L (22-30) mmol/L BUN (7-17) mg/dL Creatinine 1.5 H D (0.7-1.2) mg/dL Glucose 247 H (65-100) mg/dL POC Glucose 318 H 275 H (70-105) Hemoglobin A1c (4-6) % Lactic Acid (0.7-2.0) mmol/L Calcium (8.4-10.2) mg/dL Salicylates (2.8-20.0) mg/dL Acetaminophen (10.0-30.0) ug/mL 03/17/18 03/17/18 03/17/18 Range/Units 22:16 22:20 22:53 WBC (4.5-11.0) K/mm3 RBC (3.65-5.03) M/mm3 Hgb (10.1-14.3) gm/dl Hct (30.3-42.9) % MCH (28-32) pg Lymphocytes % (Manual) (13.4-35.0) % Monocytes % (Manual) (0.0-7.3) % Lymphocytes # (Manual) (1.2-5.4) K/mm3 Monocytes # (Manual) (0.0-0.8) K/mm3 POC ABG pH 7.203 L (7.35-7.45) POC ABG pO2 61 L (80-105) Sodium (137-145) mmol/L Carbon Dioxide (22-30) mmol/L BUN (7-17) mg/dL Creatinine (0.7-1.2) mg/dL Glucose (65-100) mg/dL POC Glucose 352 H (70-105) Hemoglobin A1c 11.9 H (4-6) % Lactic Acid (0.7-2.0) mmol/L Calcium (8.4-10.2) mg/dL Salicylates (2.8-20.0) mg/dL Acetaminophen (10.0-30.0) ug/mL 03/17/18 03/17/18 03/18/18 Range/Units 23:40 23:40 00:21 WBC (4.5-11.0) K/mm3 RBC (3.65-5.03) M/mm3 Hgb (10.1-14.3) gm/dl Hct (30.3-42.9) % MCH (28-32) pg Lymphocytes % (Manual) (13.4-35.0) % Monocytes % (Manual) (0.0-7.3) % Lymphocytes # (Manual) (1.2-5.4) K/mm3 Monocytes # (Manual) (0.0-0.8) K/mm3 POC ABG pH (7.35-7.45) POC ABG pO2 (80-105) Sodium (137-145) mmol/L Carbon Dioxide 18 L (22-30) mmol/L BUN 19 H (7-17) mg/dL Creatinine 1.7 H (0.7-1.2) mg/dL Glucose 251 H (65-100) mg/dL POC Glucose 283 H (70-105) Hemoglobin A1c (4-6) % Lactic Acid 4.60 H* (0.7-2.0) mmol/L Calcium 7.6 L (8.4-10.2) mg/dL Salicylates (2.8-20.0) mg/dL Acetaminophen (10.0-30.0) ug/mL 03/18/18 Range/Units 00:44 WBC (4.5-11.0) K/mm3 RBC (3.65-5.03) M/mm3 Hgb (10.1-14.3) gm/dl Hct (30.3-42.9) % MCH (28-32) pg Lymphocytes % (Manual) (13.4-35.0) % Monocytes % (Manual) (0.0-7.3) % Lymphocytes # (Manual) (1.2-5.4) K/mm3 Monocytes # (Manual) (0.0-0.8) K/mm3 POC ABG pH 7.205 L (7.35-7.45) POC ABG pO2 128 H (80-105) Sodium (137-145) mmol/L Carbon Dioxide (22-30) mmol/L BUN (7-17) mg/dL Creatinine (0.7-1.2) mg/dL Glucose (65-100) mg/dL POC Glucose (70-105) Hemoglobin A1c (4-6) % Lactic Acid (0.7-2.0) mmol/L Calcium (8.4-10.2) mg/dL Salicylates (2.8-20.0) mg/dL Acetaminophen (10.0-30.0) ug/mL
[2018-03-18] MEDS ORDERED: INTROPIN DRIP 800 MG/D5W 250 ML 800 MG/250 ML BAG IV SCH (05:00)
[2018-03-18] MEDS ORDERED: ADRENALIN ONE (05:00)
[2018-03-18] MEDS ORDERED: SODIUM BICARBONATE IV ONE ×5 (05:00→08:00)
[2018-03-18] MEDS ORDERED: QUELICIN ONE (05:00)
[2018-03-18] MEDS ORDERED: AMIDATE IV ONE (05:00)
[2018-03-18 05:03] LABS: Albumin 2.8 g/dL (3.9-5); Calcium 7.8 mg/dL (8.4-10.2)
[2018-03-18] MEDS ORDERED: VASELINE LIP THERAPY TP PRN (05:32)
[2018-03-18] MEDS ORDERED: ARTIFICIAL TEARS OPHTH OINT OU PRN (05:32)
[2018-03-18] MEDS ORDERED: NACL 0.9% 500 ML IV SCH (06:00)
[2018-03-18] MEDS ORDERED: D10W 1,000 ML IV SCH (06:00)
--- NOTE | 2018-03-18 06:09 | XRay Report ---
FINAL REPORT EXAM: XR CHEST 1V AP HISTORY: ETT placement TECHNIQUE: A portable semi-upright view the chest was obtained. FINDINGS: The tip of the ET tube is 2 cm above the debbie. The heart is mildly enlarged. The lungs appear mildly congested. There are no localized infiltrates or effusions. The bones and soft tissues reveal generalized osteoporosis. IMPRESSION: Cardiomegaly with mild congestion. Tip of the ET tube 2 cm above the debbie.
[2018-03-18 06:27] LABS: Basophils % (Manual) 0 % (0.0-1.8); Myelocytes # (Manual) 1.1 K/mm3; Platelet Estimate Consistent w Auto; RBC Morphology Normal; Total Cells Counted 100
[2018-03-18] MEDS: HumuLIN R 100 UNITS in NACL 0.9% 99 ML IV SCH (06:47)
[2018-03-18] MEDS ORDERED: VERSED IV NR (07:00)
[2018-03-18] MEDS ORDERED: CALCIUM GLUCONATE 2,000 MG in NACL 0.9% 100 ML IV ONE (07:06)
[2018-03-18] MEDS ORDERED: NACL 0.9% 1000 ML 2,000 ML IV ONE (07:18)
[2018-03-18 07:39] VITALS: BP 85/38
[2018-03-18] MEDS ORDERED: NEO-SYNEPHRINE 100 MG in NACL 0.9% 90 ML IV SCH (07:45)
[2018-03-18] MEDS ORDERED: SODIUM BICARBONATE 150 MEQ in D5W 1,000 ML IV SCH (08:00)
[2018-03-18] MEDS ORDERED: SODIUM BICARBONATE 100 MEQ in NACL 0.9% 1000 ML 1,000 ML IV SCH (08:00)
--- NOTE | 2018-03-18 09:07 | Event Note ---
Date: 03/18/18 PATIENT WENT INTO CARDIOPULMONARY ARREST WHILE RECEIVING I.V LEVOPHED, I.V INSULIN DRIP, I.V DEXTROSE SOLUTION. FULL ACLS WAS APPLIED AND PATIENT INTUBATED AND MECHANICALLY VENTILATED. CASE DISCUSSED WITH THE INTENSVIST [employer] ANALYST DR. GARZA WHO RECOMMENDED TRANSFERING PATIENT TO [facility] RECOMMENDED BY POISON CONTOL NEXT STEP TO FOLLOW IF PATIENT IS NOT RESPONDING TO THE TREATMENT FOR THE DRUG OVERDOSE. DR. PORTILLO AT [facility] CONTACTED AT ABOUT 5.25AM AND ACCEPTED TRANSFER. ORDER TO TRANSFER PATIENT GIVEN
[2018-03-18] MEDS ORDERED: SODIUM CHLORIDE FLUSH SYRINGE 10 ML IV SCH (10:00)
[2018-03-18] MEDS ORDERED: LOVENOX SUB-Q SCH (10:00)
== END 2018-03-18 13:27 | disposition short-term general hospital (02) | DRG 917 ==
LOC: ED 15:40 → CC1 22:03
PROVIDERS: ADMIT Internal Medicine; ATTEND Internal Medicine
PROC: 06HM33Z Insertion of Infusion Device into Right Femoral Vein, Percutaneous Approach (ICD-10-PCS; principal; 2018-03-18)
PROC: B54BZZA Ultrasonography of Right Lower Extremity Veins, Guidance (ICD-10-PCS; 2018-03-18)
PROC: 4A033R1 Measurement of Arterial Saturation, Peripheral, Percutaneous Approach (ICD-10-PCS; 2018-03-18)
PROC: 5A1935Z Respiratory Ventilation, Less than 24 Consecutive Hours (ICD-10-PCS; 2018-03-18)
PROC: 0BH17EZ Insertion of Endotracheal Airway into Trachea, Via Natural or Artificial Opening (ICD-10-PCS; 2018-03-18)
DX: T46.1X2A Poisoning by calcium-channel blockers, intentional self-harm, initial encounter (principal); I46.9 Cardiac arrest, cause unspecified; J96.01 Acute respiratory failure with hypoxia; T44.7X2A Poisoning by beta-adrenoreceptor antagonists, intentional self-harm, initial encounter; I10 Essential (primary) hypertension; M19.90 Unspecified osteoarthritis, unspecified site; R00.1 Bradycardia, unspecified; F32.9 Major depressive disorder, single episode, unspecified; I95.9 Hypotension, unspecified; I25.10 Atherosclerotic heart disease of native coronary artery without angina pectoris; E11.42 Type 2 diabetes mellitus with diabetic polyneuropathy; Z90.710 Acquired absence of both cervix and uterus; Z87.891 Personal history of nicotine dependence; I25.2 Old myocardial infarction; Z82.49 Family history of ischemic heart disease and other diseases of the circulatory system; Z79.899 Other long term (current) drug therapy; Z79.84 Long term (current) use of oral hypoglycemic drugs; Z88.0 Allergy status to penicillin; Z88.6 Allergy status to analgesic agent; Y92.098 Other place in other non-institutional residence as the place of occurrence of the external cause
CPT/HCPCS: 36415; 36600; 71045; 80048; 80053; 80307; 80320; 81001; 82140; 82803; 82805; 82962; 83036; 84484; 85007; 85025; 87070; 87205; 92950; 93005; 93010; 94002; 94003; 94760; 96361; 96374; 96375; G0480; J0171; J0330; J0461; J0610; J1265; J1610; J1815; J2250; J2370; J2405; J2765; J7030; J7040; J7042

== ENCOUNTER 2018-10-04 11:06 | Emergency (ER) | payer MEDICARE ==
[2018-10-04 11:20] VITALS: BP 197/78
--- NOTE | 2018-10-04 11:22 | Emergency Department Report ---
ED Recheck HPI - General Chief Complaint: Extremity Problem,Nontraumatic Stated Complaint: FEET PAIN Time Seen by Provider: 10/04/18 11:17 Source: patient Mode of arrival: Ambulatory Limitations: No Limitations - History of Present Illness Initial Comments: This is a 62-year-old female nontoxic well in appearnce with no signs of distress noted presents to the ED with complaint of generalized pain in bilateral feet. Patient stated that she takes Gabapentin and is out of her medications. Denies any injuries. Denies any calf pain or tenderness. Denies any other complaints or symptoms. Denies any fever chills, headachen, nausea vomiting chest pain or SOB. Patient stated she just took her B/P medicatoin prior to ED visit. MD Complaint: medication refill request Returns Today for: request for prescription Symptoms Since Prior Visit: no new symptoms Associated Symptoms: none. denies: fever, chills, chest pain, shortness of breath, rash, malaise, nasuea, abdominal pain - Related Data Previous Rx's Medication Instructions Recorded Last Taken Type Clopidogrel [Plavix] 75 mg PO QDAY #30 tablet 11/26/15 09/20/16 Rx AtorvaSTATin [Lipitor] 20 mg PO QHS 30 Days tablet 07/23/18 Unknown Rx DULoxetine [Cymbalta] 30 mg PO BID #60 capsule 07/23/18 Unknown Rx Lisinopril [Zestril] 10 mg PO DAILY #30 tablet 07/23/18 Unknown Rx Metoprolol Xl [Metoprolol 50 mg PO QDAY #30 tablet 07/23/18 Unknown Rx SUCCINATE ER TAB] Metoprolol [Lopressor TAB] 25 mg PO BID #60 tablet 07/23/18 Unknown Rx Ranolazine [Ranexa] 1,000 mg PO BID #60 tab.er.12h 07/23/18 Unknown Rx amLODIPine [Norvasc] 10 mg PO QDAY #30 tablet 07/23/18 Unknown Rx metFORMIN [Glucophage] 500 mg PO BID #60 tablet 07/23/18 Unknown Rx Gabapentin [Neurontin] 800 mg PO QHS #20 cap 10/04/18 Unknown Rx Allergies Allergy/AdvReac Type Severity Reaction Status Date / Time aspirin Allergy Shortness Verified 08/01/16 11:51 of Breath Penicillins Allergy Swelling Verified 08/01/16 11:51 ED Review of Systems ROS: Stated complaint: FEET PAIN Other details as noted in HPI Constitutional: denies: chills, fever Eyes: denies: eye pain, eye discharge, vision change ENT: denies: ear pain, throat pain Respiratory: denies: cough, shortness of breath, wheezing Cardiovascular: denies: chest pain, palpitations Endocrine: no symptoms reported Gastrointestinal: denies: abdominal pain, nausea, diarrhea Genitourinary: denies: urgency, dysuria, discharge Musculoskeletal: arthralgia. denies: back pain, joint swelling Skin: denies: rash, lesions Neurological: denies: headache, weakness, paresthesias Psychiatric: denies: anxiety, depression Hematological/Lymphatic: denies: easy bleeding, easy bruising ED Past Medical Hx - Past Medical History Hx Hypertension: Yes (2003, high cholesterol) Hx CVA: Yes (03-20) Hx Heart Attack/AMI: Yes (12/2015, on plavix therapy) Hx Congestive Heart Failure: Yes (on ranexa) Hx Diabetes: Yes Hx Deep Vein Thrombosis: Yes (thrombus RLE) Hx GERD: Yes Hx Liver Disease: No Hx Renal Disease: No Hx Sickle Cell Disease: No Hx Arthritis: Yes Hx Seizures: No Hx Psychiatric Treatment: Yes (depression w SI) Hx Asthma: No Hx COPD: No Hx Tuberculosis: No Hx Dementia: No Hx HIV: No Additional medical history: 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 BLE stent placement - Social History Smoking Status: Never Smoker Substance Use Type: None - Medications Home Medications: Home Medications Medication Instructions Recorded Confirmed Last Taken Type Clopidogrel [Plavix] 75 mg PO QDAY #30 tablet 11/26/15 09/27/16 09/20/16 Rx AtorvaSTATin [Lipitor] 20 mg PO QHS 30 Days tablet 07/23/18 Unknown Rx DULoxetine [Cymbalta] 30 mg PO BID #60 capsule 07/23/18 Unknown Rx Lisinopril [Zestril] 10 mg PO DAILY #30 tablet 07/23/18 Unknown Rx Metoprolol Xl [Metoprolol 50 mg PO QDAY #30 tablet 07/23/18 Unknown Rx SUCCINATE ER TAB] Metoprolol [Lopressor TAB] 25 mg PO BID #60 tablet 07/23/18 Unknown Rx Ranolazine [Ranexa] 1,000 mg PO BID #60 tab.er.12h 07/23/18 Unknown Rx amLODIPine [Norvasc] 10 mg PO QDAY #30 tablet 07/23/18 Unknown Rx metFORMIN [Glucophage] 500 mg PO BID #60 tablet 07/23/18 Unknown Rx Gabapentin [Neurontin] 800 mg PO QHS #20 cap 10/04/18 Unknown Rx ED Physical Exam - General Limitations: No Limitations General appearance: alert, in no apparent distress - Head Head exam: Present: atraumatic, normocephalic - Eye Eye exam: Present: normal appearance - Neck Neck exam: Present: normal inspection, full ROM. Absent: tenderness, meningismus, lymphadenopathy - Respiratory Respiratory exam: Present: normal lung sounds bilaterally. Absent: respiratory distress, wheezes, rales, rhonchi, stridor, chest wall tenderness, accessory muscle use, decreased breath sounds, prolonged expiratory - Cardiovascular Cardiovascular Exam: Present: regular rate, normal rhythm, normal heart sounds. Absent: bradycardia, tachycardia, irregular rhythm, systolic murmur, diastolic murmur, rubs, gallop - GI/Abdominal GI/Abdominal exam: Present: soft, normal bowel sounds. Absent: distended, tenderness, guarding, rebound, rigid, diminished bowel sounds - Extremities Exam Extremities exam: Present: normal inspection, full ROM, normal capillary refill. Absent: tenderness, joint swelling, calf tenderness - Back Exam Back exam: Present: normal inspection, full ROM - Neurological Exam Neurological exam: Present: alert, oriented X3 - Psychiatric Psychiatric exam: Present: normal affect, normal mood - Skin Skin exam: Present: warm, dry, intact, normal color. Absent: rash ED Course Vital Signs 10/04/18 11:10 Temperature 98.3 F Pulse Rate 86 Respiratory 16 Rate Blood Pressure 192/79 O2 Sat by Pulse 98 Oximetry - Reevaluation(s) Reevaluation #1: 10/04/18 11:20 Patient is speaking in full sentences with no signs of distress nmoted. Critical care attestation.: If time is entered above; I have spent that time in minutes in the direct care of this critically ill patient, excluding procedure time. ED Disposition Clinical Impression: Medication refill Diabetic nephropathy Qualifiers: Diabetes mellitus type: type 2 Qualified Code(s): E11.21 - Type 2 diabetes mellitus with diabetic nephropathy Disposition: TO HOME OR SELFCARE Is pt being admited?: No Does the pt Need Aspirin: No Condition: Stable Instructions: Gabapentin (By mouth) Additional Instructions: Follow-up with a primary care doctor in 3-5 days or if symptoms worsen and continue return to emergency room as soon as possible. Prescriptions: Gabapentin [Neurontin] 800 mg PO QHS #20 cap Referrals: PRIMARY CARE, [Referring] - 3-5 Days KATHRIN MCCAIN MD [Staff Physician] - 3-5 Days [facility] [Outside] - 3-5 Days [facility] [Outside] - 3-5 Days
== END 2018-10-04 11:32 | disposition home or self-care (01) ==
LOC: ED 11:06
DX: E11.21 Type 2 diabetes mellitus with diabetic nephropathy (principal); M79.672 Pain in left foot; M79.671 Pain in right foot; Z76.0 Encounter for issue of repeat prescription; I11.0 Hypertensive heart disease with heart failure; I50.9 Heart failure, unspecified; E11.9 Type 2 diabetes mellitus without complications; F32.9 Major depressive disorder, single episode, unspecified
CPT/HCPCS: 99282

== ENCOUNTER 2018-12-28 09:35 | Inpatient (IN) | payer MEDICARE ==
[2018-12-28] MEDS ORDERED: TESSALON PERLES PO ONE (09:56)
[2018-12-28] MEDS ORDERED: ATROVENT IH ONE ×2 (09:56→09:57)
[2018-12-28] MEDS ORDERED: PROVENTIL IH ONE ×2 (09:56→09:57)
[2018-12-28] MEDS ORDERED: SOLU-Medrol IV ONE (09:56)
--- NOTE | 2018-12-28 10:16 | XRay Report ---
PORTABLE CHEST INDICATION: Shortness of breath. COMPARISON: 03/18/2018 FINDINGS: Portable, frontal chest radiograph demonstrates interval extubation with resolution of perihilar prominence/congestion. Improved cardiomediastinal silhouette. Clear lungs without pleural effusions or CHF. Stay suture overlies the left shoulder. CONCLUSION: No acute chest process at this time with various other findings, as detailed above. Please correlate. Thank you for the opportunity to participate in this patient's care.
[2018-12-28 10:32] LABS: INR 0.97 (0.87-1.13); Partial Thromboplastin Time 23.3 Sec. (24.2-36.6)
[2018-12-28 10:38] LABS: Alanine Aminotransferase 10 units/L (7-56); Albumin 4.2 g/dL (3.9-5); BUN/Creatinine Ratio 15; Blood Urea Nitrogen 15 mg/dL (7-17); Calcium 9.6 mg/dL (8.4-10.2); Hemolysis Index 6
[2018-12-28 10:47] LABS: Hemoglobin 12.4 gm/dl (10.1-14.3); Mean Corpuscular HGB Conc 34 % (30-34); Mean Corpuscular Volume 82 fl (79-97); Platelet Count 339 K/mm3 (140-440); Red Blood Count 4.49 M/mm3 (3.65-5.03)
--- NOTE | 2018-12-28 10:47 | Emergency Department Report ---
ED Shortness of Breath HPI - General Chief Complaint: Dyspnea/Respdistress Stated Complaint: SOB Time Seen by Provider: 12/28/18 09:43 Source: patient Mode of arrival: Ambulatory Limitations: No Limitations - History of Present Illness Initial Comments: 63-year-old female with a past medical history of CHF, CVA, previous DVT, diabetes, GERD, CAD, elevated cholesterol, hypertension, and PAD with bilateral leg stent placement visits to the hospital with complaints of shortness of breath since being discharged from rehabilitation facility in August. Patient states she has been prescribed an inhaler and has been using the medication without improvement. She denies a diagnosis of COPD, asthma, or current smoking. Patient is noted to have a frequent dry cough at the bedside. She reports a cough productive of white sputum. She denies chest pain or fever. Shortness of breath worsened today. She is compliant with her medications and takes Plavix. She is not currently on steroids. Patient also requested medication for "neuropathy pain" because she ran out of her gabapentin 800 mg qhs 2 days ago. PMD: Dr. 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 - Related Data Previous Rx's Medication Instructions Recorded Last Taken Type RX: Clopidogrel [Plavix] 75 mg PO QDAY #30 tablet 11/26/15 09/20/16 Rx DULoxetine [Cymbalta] 30 mg PO BID #60 capsule 07/23/18 Unknown Rx RX: AtorvaSTATin [Lipitor] 20 mg PO QHS 30 Days tablet 07/23/18 Unknown Rx RX: Lisinopril [Zestril] 10 mg PO DAILY #30 tablet 07/23/18 Unknown Rx RX: Metoprolol Xl [Metoprolol 50 mg PO QDAY #30 tablet 07/23/18 Unknown Rx SUCCINATE ER TAB] RX: Metoprolol [Lopressor TAB] 25 mg PO BID #60 tablet 07/23/18 Unknown Rx RX: amLODIPine [Norvasc] 10 mg PO QDAY #30 tablet 07/23/18 Unknown Rx RX: metFORMIN [Glucophage] 500 mg PO BID #60 tablet 07/23/18 Unknown Rx Ranolazine [Ranexa] 1,000 mg PO BID #60 tab.er.12h 07/23/18 Unknown Rx RX: Gabapentin [Neurontin] 800 mg PO QHS #20 cap 10/04/18 Unknown Rx Allergies Allergy/AdvReac Type Severity Reaction Status Date / Time aspirin Allergy Shortness Verified 12/28/18 09:36 of Breath Penicillins Allergy Swelling Verified 12/28/18 09:36 ED Review of Systems ROS: Stated complaint: SOB Other details as noted in HPI Comment: All other systems reviewed and negative ED Past Medical Hx - Past Medical History Hx Hypertension: Yes (2003, high cholesterol) Hx CVA: Yes (03-20) Hx Heart Attack/AMI: Yes (12/2015, on plavix therapy) Hx Congestive Heart Failure: Yes (on ranexa) Hx Diabetes: Yes Hx Deep Vein Thrombosis: Yes (thrombus RLE) Hx GERD: Yes Hx Liver Disease: No Hx Renal Disease: No Hx Sickle Cell Disease: No Hx Arthritis: Yes Hx Seizures: No Hx Psychiatric Treatment: Yes (depression w SI) Hx Asthma: No Hx COPD: No Hx Tuberculosis: No Hx Dementia: No Hx HIV: No Additional medical history: 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 BLE stent placement - Social History Smoking Status: Never Smoker - Medications Home Medications: Home Medications Medication Instructions Recorded Confirmed Last Taken Type RX: Clopidogrel [Plavix] 75 mg PO QDAY #30 tablet 11/26/15 09/27/16 09/20/16 Rx DULoxetine [Cymbalta] 30 mg PO BID #60 capsule 07/23/18 Unknown Rx RX: AtorvaSTATin [Lipitor] 20 mg PO QHS 30 Days tablet 07/23/18 Unknown Rx RX: Lisinopril [Zestril] 10 mg PO DAILY #30 tablet 07/23/18 Unknown Rx RX: Metoprolol Xl [Metoprolol 50 mg PO QDAY #30 tablet 07/23/18 Unknown Rx SUCCINATE ER TAB] RX: Metoprolol [Lopressor TAB] 25 mg PO BID #60 tablet 07/23/18 Unknown Rx RX: amLODIPine [Norvasc] 10 mg PO QDAY #30 tablet 07/23/18 Unknown Rx RX: metFORMIN [Glucophage] 500 mg PO BID #60 tablet 07/23/18 Unknown Rx Ranolazine [Ranexa] 1,000 mg PO BID #60 tab.er.12h 07/23/18 Unknown Rx RX: Gabapentin [Neurontin] 800 mg PO QHS #20 cap 04/04/19 Unknown Rx ED Physical Exam - General Limitations: No Limitations - Other Other exam information: General: Mild respiratory distress Head exam: Atraumatic, normocephalic Eyes exam: Normal appearance ENT: Moist mucous membrane Neck exam: Normal inspection, full range of motion, no meningismus nontender Respiratory exam: Tachypnea, bilateral wheezing, frequent dry cough, mild accessory muscle use Cardiovascular: Normal rate and rhythm Abdomen: Soft, nondistended, and nontender, with normal bowel sounds, no rebound, or guarding Extremity: Full range of motion normal inspection no deformity, tenderness or edema Back: Normal Inspection, full range of motion, no tenderness Neurologic: Alert, oriented x3, cranial nerves intact, no motor or sensory deficit Psychiatric: normal affect, normal mood Skin: Warm, dry, intact ED Course Vital Signs 12/28/18 12/28/18 12/28/18 09:39 10:01 10:38 Temperature 97.7 F Pulse Rate 75 108 H Pulse Rate [ 69 Anterior Bilateral Throughout] Respiratory 20 Rate Respiratory 22 Rate [Anterior Bilateral Throughout] Blood Pressure 161/75 O2 Sat by Pulse 98 Oximetry ED Medical Decision Making - Lab Data Result diagrams: 12/28/18 09:52 12/28/18 09:52 Lab Results 12/28/18 12/28/18 12/28/18 Range/Units 09:52 09:52 09:52 WBC 9.7 (4.5-11.0) K/mm3 RBC 4.49 (3.65-5.03) M/mm3 Hgb 12.4 (10.1-14.3) gm/dl Hct 37.0 (30.3-42.9) % MCV 82 (79-97) fl MCH 28 (28-32) pg MCHC 34 (30-34) % RDW 15.0 (13.2-15.2) % Plt Count 339 (140-440) K/mm3 Lymph # Front End Architect Add Manual Diff Complete Total Counted 100 Seg Neuts % (Manual) 43.0 (40.0-70.0) % Band Neutrophils % 0 % Lymphocytes % (Manual) 50.0 H (13.4-35.0) % Reactive Lymphs % (Man) 0 % Monocytes % (Manual) 4.0 (0.0-7.3) % Eosinophils % (Manual) 3.0 (0.0-4.3) % Basophils % (Manual) 0 (0.0-1.8) % Metamyelocytes % 0 % Myelocytes % 0 % Promyelocytes % 0 % Blast Cells % 0 % Nucleated RBC % Not Reportable Seg Neutrophils # Man 4.2 (1.8-7.7) K/mm3 Band Neutrophils # 0.0 K/mm3 Lymphocytes # (Manual) 4.9 (1.2-5.4) K/mm3 Abs React Lymphs (Man) 0.0 K/mm3 Monocytes # (Manual) 0.4 (0.0-0.8) K/mm3 Eosinophils # (Manual) 0.3 (0.0-0.4) K/mm3 Basophils # (Manual) 0.0 (0.0-0.1) K/mm3 Metamyelocytes # 0.0 K/mm3 Myelocytes # 0.0 K/mm3 Promyelocytes # 0.0 K/mm3 Blast Cells # 0.0 K/mm3 WBC Morphology Not Reportable Hypersegmented Neuts Not Reportable Hyposegmented Neuts Not Reportable Hypogranular Neuts Not Reportable Smudge Cells Not Reportable Toxic Granulation Not Reportable Toxic Vacuolation Not Reportable Dohle Bodies Not Reportable Pelger-Huet Anomaly Not Reportable Deneen Rods Not Reportable Platelet Estimate Consistent w auto Clumped Platelets Not Reportable Plt Clumps, EDTA Not Reportable Large Platelets Not Reportable Giant Platelets Not Reportable Platelet Satelliting Not Reportable Plt Morphology Comment Not Reportable RBC Morphology Normal Dimorphic RBCs Not Reportable Polychromasia Not Reportable Hypochromasia Not Reportable Poikilocytosis Not Reportable Anisocytosis Not Reportable Microcytosis Not Reportable Macrocytosis Not Reportable Spherocytes Not Reportable Pappenheimer Bodies Not Reportable Sickle Cells Not Reportable Target Cells Not Reportable Tear Drop Cells Not Reportable Ovalocytes Not Reportable Helmet Cells Not Reportable [place] Bodies Not Reportable [place] Rings Not Reportable [place] Cells Not Reportable Bite Cells Not Reportable Crenated Cell Not Reportable Elliptocytes Not Reportable Acanthocytes (Spur) Not Reportable Rouleaux Not Reportable Hemoglobin C Crystals Not Reportable Schistocytes Not Reportable Malaria parasites Not Reportable Henry Bodies Not Reportable Hem Pathologist Commnt No PT 12.6 (12.2-14.9) Sec. INR 0.97 (0.87-1.13) APTT 23.3 L (24.2-36.6) Sec. Sodium 141 (137-145) mmol/L Potassium 3.7 (3.6-5.0) mmol/L Chloride 105.3 (98-107) mmol/L Carbon Dioxide 22 (22-30) mmol/L Anion Gap 17 mmol/L BUN 15 (7-17) mg/dL Creatinine 1.0 (0.7-1.2) mg/dL Estimated GFR > 60 ml/min BUN/Creatinine Ratio 15 % Glucose 134 H (65-100) mg/dL Calcium 9.6 (8.4-10.2) mg/dL Total Bilirubin 0.30 (0.1-1.2) mg/dL AST 11 (5-40) units/L ALT 10 (7-56) units/L Alkaline Phosphatase 63 (35-129) units/L Troponin T < 0.010 (0.00-0.029) ng/mL NT-Pro-B Natriuret Pep (0-900) pg/mL Total Protein 7.1 (6.3-8.2) g/dL Albumin 4.2 (3.9-5) g/dL Albumin/Globulin Ratio 1.4 % 12/28/18 Range/Units 09:52 WBC (4.5-11.0) K/mm3 RBC (3.65-5.03) M/mm3 Hgb (10.1-14.3) gm/dl Hct (30.3-42.9) % MCV (79-97) fl MCH (28-32) pg MCHC (30-34) % RDW (13.2-15.2) % Plt Count (140-440) K/mm3 Lymph # Add Manual Diff Total Counted Seg Neuts % (Manual) (40.0-70.0) % Band Neutrophils % % Lymphocytes % (Manual) (13.4-35.0) % Reactive Lymphs % (Man) % Monocytes % (Manual) (0.0-7.3) % Eosinophils % (Manual) (0.0-4.3) % Basophils % (Manual) (0.0-1.8) % Metamyelocytes % % Myelocytes % % Promyelocytes % % Blast Cells % % Nucleated RBC % Seg Neutrophils # Man (1.8-7.7) K/mm3 Band Neutrophils # K/mm3 Lymphocytes # (Manual) (1.2-5.4) K/mm3 Abs React Lymphs (Man) K/mm3 Monocytes # (Manual) (0.0-0.8) K/mm3 Eosinophils # (Manual) (0.0-0.4) K/mm3 Basophils # (Manual) (0.0-0.1) K/mm3 Metamyelocytes # K/mm3 Myelocytes # K/mm3 Promyelocytes # K/mm3 Blast Cells # K/mm3 WBC Morphology Hypersegmented Neuts Hyposegmented Neuts Hypogranular Neuts Smudge Cells Toxic Granulation Toxic Vacuolation Dohle Bodies Pelger-Huet Anomaly Deneen Rods Platelet Estimate Clumped Platelets Plt Clumps, EDTA Large Platelets Giant Platelets Platelet Satelliting Plt Morphology Comment RBC Morphology Dimorphic RBCs Polychromasia Hypochromasia Poikilocytosis Anisocytosis Microcytosis Macrocytosis Spherocytes Pappenheimer Bodies Sickle Cells Target Cells Tear Drop Cells Ovalocytes Helmet Cells [place] Bodies [place] Rings [place] Cells Bite Cells Crenated Cell Elliptocytes Acanthocytes (Spur) Rouleaux Hemoglobin C Crystals Schistocytes Malaria parasites Henry Bodies Hem Pathologist Commnt PT (12.2-14.9) Sec. INR (0.87-1.13) APTT (24.2-36.6) Sec. Sodium (137-145) mmol/L Potassium (3.6-5.0) mmol/L Chloride (98-107) mmol/L Carbon Dioxide (22-30) mmol/L Anion Gap mmol/L BUN (7-17) mg/dL Creatinine (0.7-1.2) mg/dL Estimated GFR ml/min BUN/Creatinine Ratio % Glucose (65-100) mg/dL Calcium (8.4-10.2) mg/dL Total Bilirubin (0.1-1.2) mg/dL AST (5-40) units/L ALT (7-56) units/L Alkaline Phosphatase (35-129) units/L Troponin T (0.00-0.029) ng/mL NT-Pro-B Natriuret Pep 1177 H (0-900) pg/mL Total Protein (6.3-8.2) g/dL Albumin (3.9-5) g/dL Albumin/Globulin Ratio % - EKG Data -: EKG Interpreted by Me EKG shows normal: sinus rhythm, axis (qrs -23), QRS complexes (qrsd 90), ST-T waves (no stemi) Rate: normal (73) - Radiology Data Radiology results: report reviewed PORTABLE CHEST INDICATION: Shortness of breath. COMPARISON: 03/18/2018 FINDINGS: Portable, frontal chest radiograph demonstrates interval extubation with resolution of perihilar prominence/congestion. Improved cardiomediastinal silhouette. Clear lungs without pleural effusions or CHF. Stay suture overlies the left shoulder. CONCLUSION: No acute chest process at this time with various other findings, as detailed above. Please correlate. - Medical Decision Making Pt is improving with mild persistant wheezing Treated with Solu-Medrol and nebs. Will be admitted to the hospital for further management - Differential Diagnosis COPD, asthma, CHF, pneumonia, bronchitis Critical Care Time: No Critical care attestation.: If time is entered above; I have spent that time in minutes in the direct care of this critically ill patient, excluding procedure time. ED Disposition Clinical Impression: Reactive airway disease with wheezing with acute exacerbation Disposition: OP ADMIT IP TO THIS HOSP Is pt being admited?: Yes Condition: Stable Time of Disposition: 12:27 (Dr Renae/hosp)
[2018-12-28] MEDS ORDERED: NEURONTIN PO ONE (11:03)
[2018-12-28 11:25] LABS: Basophils % (Manual) 0 % (0.0-1.8); Total Cells Counted 100
[2018-12-28 11:26] LABS: Platelet Estimate Consistent w Auto; RBC Morphology Normal
--- NOTE | 2018-12-28 12:37 | History and Physical Report ---
History of Present Illness Chief complaint: I cant breathe History of present illness: 63 YO Female with HTN, AR, DM, CHF, OA, Depression, DVT not currently on therapeutic anticoagulation, Neuropathy,HLD presents to ED for evaluation. Pt states that she has experienced shortness of breath over the past 1 week with worsening symptoms over the past 2 days. Pt acknowledges increased productive cough with clear sputum, increased nebulizer use without improvement in symptoms, decreased exercise tolerance, dypsnea on exertion, and dypsnea at rest. Pt is short of breath with audible wheezing, and cannot speak in complete sentences. Pt transported to [facility] via private vehicle. Pt seen and evaluated in ED and found to have COPD Exacerbation complicated by Acute Hypoxemic Respiratory Failure. Pt treated with supportive care with mild improvement in ED. Pt denies fever, chills, CP, Palpitations, NVD, Skin rash, unilateral leg swelling, calf pain, or recent ill contacts. PMD: Dr. Kendell Phillips . Prior admission on 03/17/18 reviewed. All listed mediation reconciled at time of admission. Past History Past Medical History: acute AR, arthritis, diabetes, DVT, GERD, heart failure, hypertension, hyperlipidemia, PVD, other (Neuropathy, Depression) Past Surgical History: hysterectomy Social history: , lives with family. denies: smoking, alcohol abuse, prescription drug abuse Family history: diabetes, hypertension Medications and Allergies Allergies Allergy/AdvReac Type Severity Reaction Status Date / Time aspirin Allergy Shortness Verified 12/28/18 09:36 of Breath Penicillins Allergy Swelling Verified 12/28/18 09:36 Home Medications Medication Instructions Recorded Confirmed Last Taken Type Clopidogrel [Plavix] 75 mg PO QDAY #30 tablet 11/26/15 12/28/18 12/27/18 Rx Ranolazine [Ranexa] 1,000 mg PO BID #60 tab.er.12h 07/23/18 12/28/18 12/27/18 Rx metFORMIN [Glucophage] 500 mg PO BID #60 tablet 07/23/18 12/28/18 12/27/18 Rx Gabapentin [Neurontin] 800 mg PO QHS #20 cap 10/04/18 12/28/18 12/27/18 Rx ALBUTEROL Inhaler (OR & NICU) 2 puff IH QID PRN 06/28/19 06/28/19 06/27/19 Histo ry [Proair] Lisinopril [Zestril] 20 mg PO QDAY 12/28/18 12/28/18 12/27/18 History traMADol [Ultram] 50 mg PO Q6HR PRN 12/28/18 12/28/18 12/27/18 History Review of Systems Constitutional: no weight loss, no weight gain, no fever, no chills Ears, nose, mouth and throat: no ear pain, no ear discharge, no tinnitis, no decreased hearing, no nose pain Breasts: no change in shape, no swelling, no mass Cardiovascular: no chest pain, no orthopnea, no palpitations, no rapid/irregular heart beat, no edema Respiratory: cough, cough with sputum, excessive sputum, shortness of breath Gastrointestinal: no abdominal pain, no nausea, no vomiting, no diarrhea, no constipation Genitourinary Female: no pelvic pain, no flank pain, no menorrhagia, no dysuria, no urinary frequency, no urgency Rectal: no pain, no incontinence, no bleeding Musculoskeletal: no neck stiffness, no neck pain, no shooting arm pain, no arm numbness/tingling, no low back pain, no shooting leg pain Integumentary: no rash, no pruritis, no redness, no sores, no wounds Neurological: no transient paralysis, no paralysis, no weakness, no parathesias, no numbness, no tingling Psychiatric: no anxiety, no memory loss, no change in sleep habits, no sleep disturbances, no hypersomnia Endocrine: no cold intolerance, no heat intolerance, no excessive thirst, no polydipsia, no polyuria Hematologic/Lymphatic: no easy bruising, no easy bleeding, no lymphadenopathy Allergic/Immunologic: no urticaria, no allergic rhinitis, no wheezing, no persistent infections Exam - Constitutional Vitals: Temp Pulse Resp BP Pulse Ox 97.7 F 79 17 166/74 99 12/28/18 09:39 12/28/18 12:29 12/28/18 12:29 12/28/18 12:29 12/28/18 12:29 General appearance: Present: no acute distress, well-nourished - EENT Eyes: Present: PERRL ENT: hearing intact, clear oral mucosa - Neck Neck: Present: supple, normal ROM - Respiratory Respiratory effort: normal Respiratory: bilateral: CTA - Cardiovascular Heart Sounds: Present: S1 & S2. Absent: rub, click - Extremities Extremities: pulses symmetrical, No edema Peripheral Pulses: within normal limits - Abdominal General gastrointestinal: Present: soft, non-tender, non-distended, normal bowel sounds Female genitourinary: Present: normal - Integumentary Integumentary: Present: clear, warm, dry - Musculoskeletal Musculoskeletal: gait normal, strength equal bilaterally - Psychiatric Psychiatric: appropriate mood/affect, intact judgment & insight - Neurologic Neurologic: CNII-XII intact, moves all extremities Results - Labs CBC & Chem 7: 12/28/18 09:52 12/28/18 09:52 Labs: Abnormal lab results 12/28/18 12/28/18 12/28/18 Range/Units 09:52 09:52 09:52 Lymphocytes % (Manual) 50.0 H (13.4-35.0) % APTT 23.3 L (24.2-36.6) Sec. Glucose 134 H (65-100) mg/dL NT-Pro-B Natriuret Pep (0-900) pg/mL 12/28/18 Range/Units 09:52 Lymphocytes % (Manual) (13.4-35.0) % APTT (24.2-36.6) Sec. Glucose (65-100) mg/dL NT-Pro-B Natriuret Pep 1177 H (0-900) pg/mL Assessment and Plan - Patient Problems (1) COPD with exacerbation Current Visit: Yes Status: Acute Plan to address problem: Admit to medical floor, supplemental oxygen, nebulizer therapy, IV steroid therapy, IV antibiotic therapy, NIPPV as clinically indicated, [place]xt x ray, pulse oximetry, ABG. (2) Respiratory failure Current Visit: Yes Status: Acute Qualifiers: Chronicity: acute Respiratory failure complication: hypoxia Qualified Code(s): J96.01 - Acute respiratory failure with hypoxia Plan to address problem: Chest x ray, ABG, supplemental oxygen, nebulizer therapy, NIPPV as clinically indicated, (3) HTN (hypertension) Current Visit: Yes Status: Acute Qualifiers: Hypertension type: essential hypertension Qualified Code(s): I10 - [place] l (primary) hypertension Plan to address problem: Monitor BP q shift, continue medical management (4) CHF (congestive heart failure) Current Visit: Yes Status: Acute Qualifiers: Heart failure type: diastolic Plan to address problem: Blood pressure control, strict I/O, daily weight, afterload reduction, supplemental oxygen, continue medical management, (5) Depression Current Visit: Yes Status: Acute Qualifiers: Depression Type: other depression Qualified Code(s): F32.89 - Other specified depressive episodes Plan to address problem: Supportive care, Outpatient Physhiatry F/U. POA. (6) Osteoarthritis Current Visit: Yes Status: Acute Qualifiers: Laterality: unspecified laterality Plan to address problem: Pain control, supportive care, POA (7) DVT (deep venous thrombosis) Current Visit: Yes Status: Chronic Plan to address problem: Not currently on anticoagulation, supportive care. POA (8) DVT prophylaxis Current Visit: Yes Status: Acute Plan to address problem: SCD to BLE while in bed,
[2018-12-28] MEDS ORDERED: SODIUM CHLORIDE FLUSH SYRINGE 10 ML IV PRN (12:40)
[2018-12-28] MEDS ORDERED: ZOFRAN IV PRN (12:40)
[2018-12-28] MEDS ORDERED: PROVENTIL IH PRN (12:40)
--- NOTE | 2018-12-28 14:04 | Cat Scan Report ---
CTA CHEST INDICATION: Dyspnea. COMPARISON: None similar at this institution. FINDINGS: Chest CTA performed following intravenous administration of 100 cc of Omnipaque 350. Rotational MIP's also obtained. Normal heart size. No effusions. No aortic aneurysm or dissection. Few coronary and aortic atherosclerotic changes. Borderline pulmonary arterial hypertension without definite focal suspicious filling defect centrally, to the extent assessed with evaluation of some peripheral lower lobe branches technically suboptimal. Patent central airway. No size significant adenopathy. Grossly normal size thyroid with approximately 1.2 cm bulbous prominence on the right inferiorly, axial image 11, series 2. Approximately 3.5 cm left lower lobe opacity/infiltrate as on axial image 90, not entirely excluded old/scarring, though of uncertain etiology or chronicity. Nonspecific distal esophageal wall prominence/thickening, not excluded for gastroesophageal reflux and/or hiatal hernia, amongst others. No significant abnormality in the imaged upper abdomen. Demineralized bones with few mild degenerative changes. Left humeral head post surgical density also noted. CONCLUSION: 1. Approximately 3.5 cm left lower lobe infiltrate, not excluded old/scarring. Please also correlate clinically and with prior relevant imaging, if available. 2. Few other incidental findings, as above. Thank you for the opportunity to participate in this patient's care.
[2018-12-28] MEDS: TYLENOL PO PRN (19:55)
[2018-12-28] MEDS ORDERED: NON-FORMULARY (Ranolazine [Ranexa] 1,000 MG) PO SCH (22:00)
[2018-12-28] MEDS: CYMBALTA PO SCH (22:41)
[2018-12-28] MEDS: NEURONTIN PO SCH (22:41)
[2018-12-28] MEDS: SODIUM CHLORIDE FLUSH SYRINGE 10 ML IV SCH (22:42)
[2018-12-28] MEDS: RANEXA ER PO SCH (22:42)
[2018-12-29] MEDS ORDERED: APRESOLINE IV PRN (02:54)
[2018-12-29 05:55] LABS: Basophils # (Auto) 0.1 K/mm3 (0.0-0.1); Basophils % (Auto) 0.6 % (0.0-1.8); Eosinophils # (Auto) 0.1 K/mm3 (0.0-0.4); Eosinophils % (Auto) 0.5 % (0.0-4.3); Hematocrit 36.9 % (30.3-42.9); Hemoglobin 12.3 gm/dl (10.1-14.3); Lymphocytes # (Auto) 4.4 K/mm3 (1.2-5.4); Lymphocytes % (Auto) 29.3 % (13.4-35.0); Mean Corpuscular HGB Conc 33 % (30-34); Mean Corpuscular Volume 82 fl (79-97); Monocytes # (Auto) 1.2 K/mm3 (0.0-0.8); Monocytes % (Auto) 7.8 % (0.0-7.3); Platelet Count 320 K/mm3 (140-440); Red Blood Count 4.51 M/mm3 (3.65-5.03); Red Cell Distribution Width 15.2 % (13.2-15.2)
[2018-12-29 06:19] LABS: Alanine Aminotransferase 8 units/L (7-56); BUN/Creatinine Ratio 20; Blood Urea Nitrogen 14 mg/dL (7-17); Calcium 9.6 mg/dL (8.4-10.2); Hemolysis Index 19
[2018-12-29] MEDS ORDERED: ZITHROMAX 500 MG in NACL 0.9% 250ML 250 ML IV SCH (08:00)
[2018-12-29] MEDS: ZESTRIL PO SCH (09:12)
[2018-12-29] MEDS: PLAVIX PO SCH (09:12)
[2018-12-29] MEDS: NORVASC PO SCH (09:12)
[2018-12-29] MEDS: CYMBALTA PO SCH ×2 (09:12→21:26)
[2018-12-29] MEDS: SODIUM CHLORIDE FLUSH SYRINGE 10 ML IV SCH ×2 (09:13→22:30)
[2018-12-29] MEDS: RANEXA ER PO SCH ×2 (09:15→21:26)
[2018-12-29] MEDS ORDERED: SOLU-Medrol IV SCH (10:00)
--- NOTE | 2018-12-29 15:46 | Consultation ---
History of Present Illness Consult date: 12/29/18 Requesting physician: JETT WALLACE Reason for consult: dyspnea History of present illness: 63 y/o female, who was recently seen in our ED in [place] for overdose, transferred to [facility] given the nature of the overdose and certain therapies that we could not provide. Per patient went from [place] to rehab and during that time she was placed on oxygen. Per patient she has on and off periods of shortness of breath. Yesterday was different as she started coughing and was not able to catch her breath. Cough is productive of white sputum. Denies hempotysis or actual chest pain. Patient smoked for greater than 20 years but quit about 10 years ago. She has never seen a lung physician and has never been hospitalized because of breathing. Remainder of the review is negative. Past History Past Medical History: acute OH, arthritis, diabetes, DVT, GERD, heart failure, hypertension, hyperlipidemia, PVD, other (Neuropathy, Depression) Past Surgical History: hysterectomy Social history: , lives with family. denies: smoking, alcohol abuse, prescription drug abuse Family history: diabetes, hypertension Medications and Allergies Allergies Allergy/AdvReac Type Severity Reaction Status Date / Time aspirin Allergy Shortness Verified 12/28/18 09:36 of Breath Penicillins Allergy Swelling Verified 12/28/18 09:36 Home Medications Medication Instructions Recorded Confirmed Last Taken Type Clopidogrel [Plavix] 75 mg PO QDAY #30 tablet 11/26/15 12/28/18 12/27/18 Rx Ranolazine [Ranexa] 1,000 mg PO BID #60 tab.er.12h 07/23/18 12/28/18 12/27/18 Rx metFORMIN [Glucophage] 500 mg PO BID #60 tablet 07/23/18 12/28/18 12/27/18 Rx Gabapentin [Neurontin] 800 mg PO QHS #20 cap 10/04/18 12/28/18 12/27/18 Rx ALBUTEROL Inhaler (OR & NICU) 2 puff IH QID PRN 12/28/18 12/28/18 12/27/18 History [Proair] Lisinopril [Zestril] 20 mg PO QDAY 12/28/18 12/28/18 12/27/18 History traMADol [Ultram] 50 mg PO Q6HR PRN 12/28/18 12/28/18 12/27/18 History Active Meds: Active Medications Acetaminophen (Tylenol) 650 mg PO Q4H PRN PRN Reason: Pain MILD(1-3)/Fever >100.5/BARBOZA Last Admin: 12/28/18 19:55 Dose: 650 mg Documented by: Albuterol (Proventil) 2.5 mg IH Q4HRT PRN PRN Reason: Shortness Of Breath Amlodipine Besylate (Norvasc) 10 mg PO QDAY [facility] Last Admin: 12/29/18 09:12 Dose: 10 mg Documented by: Atorvastatin Calcium (Lipitor) 20 mg PO QHS [facility] Clopidogrel Bisulfate (Plavix) 75 mg PO QDAY [facility] Last Admin: 12/29/18 09:12 Dose: 75 mg Documented by: Duloxetine HCl (Cymbalta) 30 mg PO BID [facility] Last Admin: 12/29/18 09:12 Dose: 30 mg Documented by: Furosemide (Lasix) 40 mg IV ONCE ONE Stop: 12/29/18 16:01 Gabapentin (Neurontin) 800 mg PO QHS [facility] Last Admin: 12/28/18 22:41 Dose: 800 mg Documented by: Hydralazine HCl (Apresoline) 10 mg IV Q4H PRN PRN Reason: Hypertension Last Admin: 12/29/18 03:48 Dose: 10 mg Documented by: Azithromycin 500 mg/ Sodium (Chloride) 250 mls @ 250 mls/hr IV Q24H [facility]; Protocol Last Infusion: 12/29/18 10:21 Dose: Infused Documented by: Lisinopril (Zestril) 10 mg PO DAILY [facility] Last Admin: 12/29/18 09:12 Dose: 10 mg Documented by: Ondansetron HCl (Zofran) 4 mg IV Q8H PRN PRN Reason: Nausea And Vomiting Ranolazine (Ranexa Er) 1,000 mg PO BID [facility] Last Admin: 12/29/18 09:15 Dose: 1,000 mg Documented by: Sodium Chloride (Sodium Chloride Flush Syringe 10 Ml) 10 ml IV BID [facility] Last Admin: 12/29/18 09:13 Dose: 10 ml Documented by: Sodium Chloride (Sodium Chloride Flush Syringe 10 Ml) 10 ml IV PRN PRN PRN Reason: LINE FLUSH Review of Systems All systems: negative Physical Examination Vital signs: Vital Signs Temp Pulse Resp BP Pulse Ox 97.7 F 75 20 161/75 98 12/28/18 09:39 12/28/18 09:39 12/28/18 09:39 12/28/18 09:39 12/28/18 09:39 General appearance: no acute distress, alert Eyes: non-icteric ENT: oropharynx moist Neck: supple, no lymphadenopathy, no JVD Effort: normal Ascultation: Bilateral: diminished breath sounds, rales (faint at the bases) Percussion: Bilateral: not dull Tactile fremitus: Bilateral: normal Cardiovascular: regular rate and rhythm Gastrointestinal: normoactive bowel sounds, soft Extremities: no edema, pink and warm, pulses normal normal mental status other (flat affect) Results - Laboratory Findings CBC and BMP: 12/29/18 05:20 12/29/18 05:20 ABG POC ABG pH 7.399 (7.35-7.45) 12/28/18 14:02 POC ABG pCO2 31.5 (35-45) L 12/28/18 14:02 POC ABG pO2 59 (80-105) L 12/28/18 14:02 POC ABG HCO3 19.5 (22-26 mml/L) 12/28/18 14:02 POC ABG Total CO2 20 (23-27mmol/L) 12/28/18 14:02 POC ABG O2 Sat 90 12/28/18 14:02 PT/INR, D-dimer PT 12.6 Sec. (12.2-14.9) 12/28/18 09:52 INR 0.97 (0.87-1.13) 12/28/18 09:52 Abnormal lab findings: Abnormal Labs 12/28/18 12/28/18 12/28/18 09:52 09:52 09:52 WBC MCH [place] % (Auto) [place] # Lymphocytes % (Manual) 50.0 H Seg Neutrophils # APTT 23.3 L POC ABG pCO2 POC ABG pO2 Chloride Carbon Dioxide Glucose 134 H NT-Pro-B Natriuret Pep 12/28/18 12/28/18 12/29/18 09:52 14:02 05:20 WBC 15.2 H MCH 27 L [place] % (Auto) 7.8 H [place] # 1.2 H Lymphocytes % (Manual) Seg Neutrophils # 9.4 H APTT POC ABG pCO2 31.5 L POC ABG pO2 59 L Chloride Carbon Dioxide Glucose NT-Pro-B Natriuret Pep 1177 H 12/29/18 05:20 WBC MCH [place] % (Auto) [place] # Lymphocytes % (Manual) Seg Neutrophils # APTT POC ABG pCO2 POC ABG pO2 Chloride 109.5 H Carbon Dioxide 20 L Glucose 115 H NT-Pro-B Natriuret Pep - Diagnostic Findings CT scan - chest: image reviewed (no radiographic evidence of COPD. Does appear to be some GGO's present throughout, relatively uniform, some atelectasis as well, no PE) Assessment and Plan 63 y/o female, former smoker, admitted with hypoxic respiratory failure and acute on chronic respiratory failure based on history. 1. Poor historian but does not appear very consistent with COPD. Currently no wheeze on my exam and patient states that her breathing does not feel any better today. Given elevated BNP and evidence of GGO's. Will give a one time dose of IV lasix 40. Stop steroids. Abx are +/- but I dont feel the patient is i nfected. Her white count today can be explained by steroids given yesterday. 2. Patient needs outpatient follow up with full PFT. Will arrange prior to discharge. 3. BP control per primary 4. Would be reasonable to obtain an echo to evaluate for pulmonary hypertension as well. Thanks for the consult.
[2018-12-29] MEDS ORDERED: LASIX IV ONE (16:00)
[2018-12-29] MEDS: NEURONTIN PO SCH (21:26)
[2018-12-29] MEDS: TYLENOL PO PRN (21:27)
--- NOTE | 2018-12-30 07:31 | Progress Note ---
Assessment and Plan Assessment and plan: 3 YO Female with HTN, ME, DM, CHF, OA, Depression, DVT not currently on therapeutic anticoagulation, Neuropathy,HLD presents to ED for evaluation. Pt states that she has experienced shortness of breath over the past 1 week with worsening symptoms over the past 2 days. Pt acknowledges increased productive cough with clear sputum, increased nebulizer use without improvement in symptoms, decreased exercise tolerance, dypsnea on exertion, and dypsnea at rest. Pt is short of breath with audible wheezing, and cannot speak in complete sentences. Pt transported to [facility] via private vehicle. Pt seen and evaluated in ED and found to have COPD Exacerbation complicated by Acute Hypoxemic Respiratory Failure. Pt denies fever, chills, CP, Palpitations, NVD, Skin rash, unilateral leg swelling, calf pain, or recent ill contacts. * Pt treated with supportive care and steriods in the ED with mild improvement in ED. * PMD: Dr. Kendell Phillips . * On presentation patient is requesting refill of her Gabapentin which she ran out of 2 days ago. Reivew of prior ED visit includes noted pre-occupation for the said medication for neuropathic pain * Labs show elevated Pro BNP * CT chest shows Approximately 3.5 cm left lower lobe infiltrate, not excluded old/scarring. Please also correlate clinically and with prior relevant imaging, if available. unfortunately not noted on xray and no prior CT is available for my review Acute Hypoxic Respiratory failure-Present on admission- PO2 of 57-POA: Differential include Congestive heart failure, likely diastolic. Prior cath in 2016 showed preseved EF and Medical management recommended Also possible Underlying COPD with exacerbation, however will be a new diagnosis, Pulmonary thinks not for the purpose of this admissioN Diabeties Mellitus-poa: Diabetic Neuropathy with aggravated pain: HTN: Leukocytosis Lung lesion: ? SCARING. Depression-POA: Hx of DVT: PLAN Continue supportive care Pulmonary and cardiology consult Continue current management Reassess in AM Will discontinue abx after today, No evidence of Sepsis or SIRS Will discuss lung lesion with Pulmonary, This needs to be followed. Check Echocardiogram Plan discussed with the patient History Interval history: Late entry. Patient seen and examined this afternoon, reports some improvement but not quite, when seen patient was with slight wheezing and was lying supine, encouraged to raise head of bed up. She denies any fever but reports cough and some rhinorrhea. She reports prior tobacco use but quit more than 7 years ago. Hospitalist Physical - Constitutional Vitals: Temp Pulse Resp BP Pulse Ox 98.9 F 64 20 127/56 99 12/30/18 07:09 12/30/18 07:09 12/30/18 07:09 12/30/18 07:09 12/30/18 07:09 General appearance: Present: mild distress, well-nourished - EENT Eyes: Present: PERRL, EOM intact ENT: hearing intact, clear oral mucosa - Neck Neck: Present: supple, normal ROM - Respiratory Respiratory effort: normal Respiratory: bilateral: wheezing (mild expiratory) - Cardiovascular Rhythm: regular Heart Sounds: Present: S1 & S2. Absent: systolic murmur - Extremities Extremities: no ischemia, pulses intact, pulses symmetrical, No edema, Full ROM Peripheral Pulses: within normal limits - Abdominal General gastrointestinal: soft, non-tender, non-distended, normal bowel sounds, other (enlarged pannus) - Integumentary Integumentary: Present: clear, warm - Psychiatric Psychiatric: appropriate mood/affect, intact judgment & insight - Neurologic Neurologic: CNII-XII intact, moves all extremities - Allied Health Allied health notes reviewed: nursing Results - Labs CBC & Chem 7: 12/29/18 05:20 12/29/18 05:20 Labs: Laboratory Last Values WBC 15.2 K/mm3 (4.5-11.0) H 12/29/18 05:20 RBC 4.51 M/mm3 (3.65-5.03) 12/29/18 05:20 Hgb 12.3 gm/dl (10.1-14.3) 12/29/18 05:20 Hct 36.9 % (30.3-42.9) 12/29/18 05:20 MCV 82 fl (79-97) 12/29/18 05:20 MCH 27 pg (28-32) L 12/29/18 05:20 MCHC 33 % (30-34) 12/29/18 05:20 RDW 15.2 % (13.2-15.2) 12/29/18 05:20 Plt Count 320 K/mm3 (140-440) 12/29/18 05:20 Lymph % (Auto) 29.3 % (13.4-35.0) 12/29/18 05:20 [place] % (Auto) 7.8 % (0.0-7.3) H 12/29/18 05:20 Eos % (Auto) 0.5 % (0.0-4.3) 12/29/18 05:20 Baso % (Auto) 0.6 % (0.0-1.8) 12/29/18 05:20 Lymph # 4.4 K/mm3 (1.2-5.4) 12/29/18 05:20 [place] # 1.2 K/mm3 (0.0-0.8) H 12/29/18 05:20 Eos # 0.1 K/mm3 (0.0-0.4) 12/29/18 05:20 Baso # 0.1 K/mm3 (0.0-0.1) 12/29/18 05:20 Add Manual Diff Complete 12/28/18 09:52 Total Counted 100 12/28/18 09:52 Seg Neutrophils % 61.8 % (40.0-70.0) 12/29/18 05:20 Seg Neuts % (Manual) 43.0 % (40.0-70.0) 12/28/18 09:52 0 % 12/28/18 09:52 50.0 % (13.4-35.0) H 12/28/18 09:52 Reactive Lymphs % (Man) 0 % 12/28/18 09:52 4.0 % (0.0-7.3) 12/28/18 09:52 3.0 % (0.0-4.3) 12/28/18 09:52 0 % (0.0-1.8) 12/28/18 09:52 0 % 12/28/18 09:52 0 % 12/28/18 09:52 0 % 12/28/18 09:52 0 % 12/28/18 09:52 Nucleated RBC % Not Reportable 12/28/18 09:52 Seg Neutrophils # 9.4 K/mm3 (1.8-7.7) H 12/29/18 05:20 Seg Neutrophils # Man 4.2 K/mm3 (1.8-7.7) 12/28/18 09:52 Band Neutrophils # 0.0 K/mm3 12/28/18 09:52 4.9 K/mm3 (1.2-5.4) 12/28/18 09:52 Abs React Lymphs (Man) 0.0 K/mm3 12/28/18 09:52 0.4 K/mm3 (0.0-0.8) 12/28/18 09:52 0.3 K/mm3 (0.0-0.4) 12/28/18 09:52 0.0 K/mm3 (0.0-0.1) 12/28/18 09:52 0.0 K/mm3 12/28/18 09:52 0.0 K/mm3 12/28/18 09:52 0.0 K/mm3 12/28/18 09:52 Blast Cells # 0.0 K/mm3 12/28/18 09:52 WBC Morphology Not Reportable 12/28/18 09:52 Hypersegmented Neuts Not Reportable 12/28/18 09:52 Hyposegmented Neuts Not Reportable 12/28/18 09:52 Hypogranular Neuts Not Reportable 12/28/18 09:52 Not Reportable 12/28/18 09:52 Not Reportable 12/28/18 09:52 Not Reportable 12/28/18 09:52 Not Reportable 12/28/18 09:52 Not Reportable 12/28/18 09:52 Not Reportable 12/28/18 09:52 Consistent w auto 12/28/18 09:52 Not Reportable 12/28/18 09:52 Plt Clumps, EDTA Not Reportable 12/28/18 09:52 Not Reportable 12/28/18 09:52 Not Reportable 12/28/18 09:52 Not Reportable 12/28/18 09:52 Plt Morphology Comment Not Reportable 12/28/18 09:52 RBC Morphology Normal 12/28/18 09:52 Dimorphic RBCs Not Reportable 12/28/18 09:52 Not Reportable 12/28/18 09:52 Not Reportable 12/28/18 09:52 Not Reportable 12/28/18 09:52 Not Reportable 12/28/18 09:52 Not Reportable 12/28/18 09:52 Not Reportable 12/28/18 09:52 Not Reportable 12/28/18 09:52 Not Reportable 12/28/18 09:52 Not Reportable 12/28/18 09:52 Not Reportable 12/28/18 09:52 Not Reportable 12/28/18 09:52 Not Reportable 12/28/18 09:52 Not Reportable 12/28/18 09:52 Not Reportable 12/28/18 09:52 Not Reportable 12/28/18 09:52 Not Reportable 12/28/18 09:52 Not Reportable 12/28/18 09:52 Not Reportable 12/28/18 09:52 Not Reportable 12/28/18 09:52 Acanthocytes (Spur) Not Reportable 12/28/18 09:52 Rouleaux Not Reportable 12/28/18 09:52 Not Reportable 12/28/18 09:52 Not Reportable 12/28/18 09:52 Not Reportable 12/28/18 09:52 Not Reportable 12/28/18 09:52 Hem Pathologist Commnt No 12/28/18 09:52 PT 12.6 Sec. (12.2-14.9) 12/28/18 09:52 INR 0.97 (0.87-1.13) 12/28/18 09:52 APTT 23.3 Sec. (24.2-36.6) L 12/28/18 09:52 POC ABG pH 7.399 (7.35-7.45) 12/28/18 14:02 POC ABG pCO2 31.5 (35-45) L 12/28/18 14:02 POC ABG pO2 59 (80-105) L 12/28/18 14:02 POC ABG HCO3 19.5 (22-26 mml/L) 12/28/18 14:02 POC ABG Total CO2 20 (23-27mmol/L) 12/28/18 14:02 POC ABG O2 Sat 90 12/28/18 14:02 POC ABG Base Excess -5 ((-2) - (+3)mmol/L) 12/28/18 14:02 21 % 12/28/18 14:02 Sodium 141 mmol/L (137-145) 12/29/18 05:20 Potassium 4.1 mmol/L (3.6-5.0) 12/29/18 05:20 Chloride 109.5 mmol/L (98-107) H 12/29/18 05:20 Carbon Dioxide 20 mmol/L (22-30) L 12/29/18 05:20 16 mmol/L 12/29/18 05:20 BUN 14 mg/dL (7-17) 12/29/18 05:20 0.7 mg/dL (0.7-1.2) 12/29/18 05:20 Estimated GFR > 60 ml/min 12/29/18 05:20 20 % 12/29/18 05:20 Glucose 115 mg/dL (65-100) H 12/29/18 05:20 Calcium 9.6 mg/dL (8.4-10.2) 12/29/18 05:20 0.30 mg/dL (0.1-1.2) 12/29/18 05:20 AST 11 units/L (5-40) 12/29/18 05:20 ALT 8 units/L (7-56) 12/29/18 05:20 60 units/L (35-129) 12/29/18 05:20 < 0.010 ng/mL (0.00-0.029) 12/28/18 16:01 NT-Pro-B Natriuret Pep 1177 pg/mL (0-900) H 12/28/18 09:52 6.8 g/dL (6.3-8.2) 12/29/18 05:20 4.0 g/dL (3.9-5) 12/29/18 05:20 1.4 % 12/29/18 05:20 Active Medications - Current Medications Current Medications: Generic Name Dose Route Start Last Admin Trade Name Freq PRN Reason Stop Dose Admin Acetaminophen 650 mg 12/28/18 12:40 12/29/18 21:27 Tylenol PO 650 mg Q4H PRN Administration Pain MILD(1-3)/Fever >100.5/BARBOZA Albuterol 2.5 mg 12/28/18 12:40 Proventil IH Q4HRT PRN Shortness Of Breath Amlodipine Besylate 10 mg 12/29/18 10:00 12/29/18 09:12 Norvasc PO 10 mg QDAY DEBRA Administration Atorvastatin Calcium 20 mg 12/29/18 22:00 12/29/18 21:26 Lipitor PO 20 mg QHS DEB[facility] Administration Clopidogrel Bisulfate 75 mg 12/29/18 10:00 12/29/18 09:12 Plavix PO 75 mg QDAY DEBRA Administration Duloxetine HCl 30 mg 12/28/18 22:00 12/29/18 21:26 Cymbalta PO 30 mg BID DEBRA Administration Gabapentin 800 mg 12/28/18 22:00 12/29/18 21:26 Neurontin PO 800 mg QHS DEB[facility] Administration Hydralazine HCl 10 mg 12/29/18 02:54 12/29/18 03:48 Apresoline IV 10 mg Q4H PRN Administration Hypertension Azithromycin 500 mg/ Sodium 250 mls @ 250 mls/hr 12/29/18 08:00 12/29/18 10:21 Chloride IV Infused Q24H DEB[facility] Infusion Protocol Lisinopril 10 mg 12/29/18 10:00 12/29/18 09:12 Zestril PO 10 mg DAILY [facility] Administration Ondansetron HCl 4 mg 12/28/18 12:40 Zofran IV Q8H PRN Nausea And Vomiting Ranolazine 1,000 mg 12/28/18 22:00 12/29/18 21:26 Ranexa Er PO 1,000 mg BID DEBRA Administration Sodium Chloride 10 ml 12/28/18 22:00 12/29/18 22:30 Sodium Chloride Flush Syringe 10 Ml IV Not Given BID DEBRA Sodium Chloride 10 ml 12/28/18 12:40 Sodium Chloride Flush Syringe 10 Ml IV PRN PRN LINE FLUSH Nutrition/Malnutrition Assess - Dietary Evaluation Nutrition/Malnutrition Findings: Nutrition Notes Start: 12/29/18 12:59 Freq: Status: Active Protocol: Document 12/29/18 12:59 JUSTIN (Rec: 12/29/18 13:07 JUSTIN [email or web address]) Nutrition Notes Need for Assessment generated from: MD Order,customer account specialist,MST Initial or Follow up Assessment Current Diagnosis Diabetes,Hypertension,Heart Failure,Hyperlipidemia Other Pertinent Diagnosis COPD exacerbation Current Diet Cardiac/Consistent CHO Labs/Tests Reviewed Pertinent Medications Solumedrol Height 5 ft 4 in Weight 72.5 kg Usual Body Weight 95.45 kg [place] Body Weight (kg) 54.54 BMI 27.4 Intake Prior to Admission Poor Weight change and time frame Pt reports unintentional 24% wt loss over past five months Weight Status Overweight Subjective/Other Information RD consulted for poor oral intake and recent wt loss; pt also screened for malnutrition risk (wt loss, poor appetite) . Pt reports slowly improving appetite; consumed 100% dinner last pm. Has been drinking Glucerna and wants to continue. She reports she takes Megace to increase appetite, but she has not been taking it lately. 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 No Is Patient Ambulatory and/or Out of Bed Yes REE-([facility]-ambulatory/OOB) [ 1631.500 [id number]] Calculation Used for Recommendations [facility] Additional Notes Pro needs 1-1.2g/k-87g/ day Fluid needs 1ml/kcal Nutrition Intervention Change Diet Order: Continue current diet order Education Handouts Provided Pt given D/C instruction sheet for ONS Goal #1 PO intake of meals plus ONS to meet at least 75% energy and pro needs Anticipated Discharge Needs: Continue Glucerna (or equivalent) once daily if PO intake suboptimal Follow-Up By: 01/02/19 Additional Comments F/U: intakes - Attestation Statement I have reviewed and agreed w/ Malnutrition eval & tx plan: Yes
--- NOTE | 2018-12-30 07:53 | Progress Note ---
Assessment and Plan Assessment and plan: 3 YO Female with HTN, DE, DM, CHF, OA, Depression, DVT not currently on therapeutic anticoagulation, Neuropathy,HLD presents to ED for evaluation. Pt states that she has experienced shortness of breath over the past 1 week with worsening symptoms over the past 2 days. Pt acknowledges increased productive cough with clear sputum, increased nebulizer use without improvement in symptoms, decreased exercise tolerance, dypsnea on exertion, and dypsnea at rest. Pt is short of breath with audible wheezing, and cannot speak in complete sentences. Pt transported to [facility] via private vehicle. Pt seen and evaluated in ED and found to have COPD Exacerbation complicated by Acute Hypoxemic Respiratory Failure. Pt denies fever, chills, CP, Palpitations, NVD, Skin rash, unilateral leg swelling, calf pain, or recent ill contacts. * Pt treated with supportive care and steriods in the ED with mild improvement in ED. * PMD: Dr. Kendell Phillips . * On presentation patient is requesting refill of her Gabapentin which she ran out of 2 days ago. Reivew of prior ED visit includes noted pre-occupation for the said medication for neuropathic pain * Labs show elevated Pro BNP * CT chest shows Approximately 3.5 cm left lower lobe infiltrate, not excluded old/scarring. Please also correlate clinically and with prior relevant imaging, if available. unfortunately not noted on xray and no prior CT is available for my review * Occluded RCA with collateral was being treated medically with antianginal Unstable Angina Acute Hypoxic Respiratory failure-Present on admission- PO2 of 57-POA: Differential include Congestive heart failure, likely diastolic. Prior cath in 2016 showed preserved EF and Medical management recommended Also possible Underlying COPD with exacerbation, however will be a new diag nosis, Pulmonary thinks not for the purpose of this admission Diabeties Mellitus-poa: Diabetic Neuropathy with aggravated pain: poa. Continue gabapentin HTN: CONTROLLED Leukocytosis- Secondary to steroids Lung lesion: ? SCARING. Depression-POA: Hx of DVT: PLAN Continue supportive care Pulmonary and cardiology consult- Per cardiology, UNSTABLE angina, Heparin drip started, CATH PLANNED FOR AM Continue current management Reassess in AM Will discontinue abx after today, No evidence of Sepsis or SIRS Will discuss lung lesion with Pulmonary, This needs to be followed. Check Echocardiogram dvt/gi PROPHY Plan discussed with the patient History Interval history: Patient seen and examined this afternoon, reports some improvement today with the lasix yesterday. Hospitalist Physical - Physical exam Narrative exam: General appearance: Present: mild distress, well-nourished - EENT Eyes: Present: PERRL, EOM intact ENT: hearing intact, clear oral mucosa - Neck Neck: Present: supple, normal ROM - Respiratory Respiratory effort: normal Respiratory: bilateral: wheezing (mild expiratory) - Cardiovascular Rhythm: regular Heart Sounds: Present: S1 & S2. Absent: systolic murmur - Extremities Extremities: no ischemia, pulses intact, pulses symmetrical, No edema, Full ROM Peripheral Pulses: within normal limits - Abdominal General gastrointestinal: soft, non-tender, non-distended, normal bowel sounds, other (enlarged pannus) - Integumentary Integumentary: Present: clear, warm - Psychiatric Psychiatric: appropriate mood/affect, intact judgment & insight - Neurologic Neurologic: CNII-XII intact, moves all extremities - Allied Health Allied health notes reviewed: nursing - Constitutional Vitals: Temp Pulse Resp BP Pulse Ox 98.9 F 64 20 127/56 99 12/30/18 07:09 12/30/18 07:09 12/30/18 07:38 12/30/18 07:09 12/30/18 07:09 General appearance: Present: mild distress, well-nourished Results - Labs CBC & Chem 7: 12/30/18 10:25 12/29/18 05:20 Labs: Laboratory Last Values WBC 15.2 K/mm3 (4.5-11.0) H 12/29/18 05:20 RBC 4.51 M/mm3 (3.65-5.03) 12/29/18 05:20 Hgb 12.3 gm/dl (10.1-14.3) 12/29/18 05:20 Hct 36.9 % (30.3-42.9) 12/29/18 05:20 MCV 82 fl (79-97) 12/29/18 05:20 MCH 27 pg (28-32) L 12/29/18 05:20 MCHC 33 % (30-34) 12/29/18 05:20 RDW 15.2 % (13.2-15.2) 12/29/18 05:20 Plt Count 320 K/mm3 (140-440) 12/29/18 05:20 Lymph % (Auto) 29.3 % (13.4-35.0) 12/29/18 05:20 Henry % (Auto) 7.8 % (0.0-7.3) H 12/29/18 05:20 Eos % (Auto) 0.5 % (0.0-4.3) 12/29/18 05:20 Baso % (Auto) 0.6 % (0.0-1.8) 12/29/18 05:20 Lymph # 4.4 K/mm3 (1.2-5.4) 12/29/18 05:20 Henry # 1.2 K/mm3 (0.0-0.8) H 12/29/18 05:20 Eos # 0.1 K/mm3 (0.0-0.4) 12/29/18 05:20 Baso # 0.1 K/mm3 (0.0-0.1) 12/29/18 05:20 Add Manual Diff Complete 12/28/18 09:52 Total Counted 100 12/28/18 09:52 Seg Neutrophils % 61.8 % (40.0-70.0) 12/29/18 05:20 Seg Neuts % (Manual) 43.0 % (40.0-70.0) 12/28/18 09:52 0 % 12/28/18 09:52 50.0 % (13.4-35.0) H 12/28/18 09:52 Reactive Lymphs % (Man) 0 % 12/28/18 09:52 4.0 % (0.0-7.3) 12/28/18 09:52 3.0 % (0.0-4.3) 12/28/18 09:52 0 % (0.0-1.8) 12/28/18 09:52 0 % 12/28/18 09:52 0 % 12/28/18 09:52 0 % 12/28/18 09:52 0 % 12/28/18 09:52 Nucleated RBC % Not Reportable 12/28/18 09:52 Seg Neutrophils # 9.4 K/mm3 (1.8-7.7) H 12/29/18 05:20 Seg Neutrophils # Man 4.2 K/mm3 (1.8-7.7) 12/28/18 09:52 Band Neutrophils # 0.0 K/mm3 12/28/18 09:52 4.9 K/mm3 (1.2-5.4) 12/28/18 09:52 Abs React Lymphs (Man) 0.0 K/mm3 12/28/18 09:52 0.4 K/mm3 (0.0-0.8) 12/28/18 09:52 0.3 K/mm3 (0.0-0.4) 12/28/18 09:52 0.0 K/mm3 (0.0-0.1) 12/28/18 09:52 0.0 K/mm3 12/28/18 09:52 0.0 K/mm3 12/28/18 09:52 0.0 K/mm3 12/28/18 09:52 Blast Cells # 0.0 K/mm3 12/28/18 09:52 WBC Morphology Not Reportable 12/28/18 09:52 Hypersegmented Neuts Not Reportable 12/28/18 09:52 Hyposegmented Neuts Not Reportable 12/28/18 09:52 Hypogranular Neuts Not Reportable 12/28/18 09:52 Not Reportable 12/28/18 09:52 Not Reportable 12/28/18 09:52 Not Reportable 12/28/18 09:52 Not Reportable 12/28/18 09:52 Not Reportable 12/28/18 09:52 Not Reportable 12/28/18 09:52 Consistent w auto 12/28/18 09:52 Not Reportable 12/28/18 09:52 Plt Clumps, EDTA Not Reportable 12/28/18 09:52 Not Reportable 12/28/18 09:52 Not Reportable 12/28/18 09:52 Not Reportable 12/28/18 09:52 Plt Morphology Comment Not Reportable 12/28/18 09:52 RBC Morphology Normal 12/28/18 09:52 Dimorphic RBCs Not Reportable 12/28/18 09:52 Not Reportable 12/28/18 09:52 Not Reportable 12/28/18 09:52 Not Reportable 12/28/18 09:52 Not Reportable 12/28/18 09:52 Not Reportable 12/28/18 09:52 Not Reportable 12/28/18 09:52 Not Reportable 12/28/18 09:52 Not Reportable 12/28/18 09:52 Not Reportable 12/28/18 09:52 Not Reportable 12/28/18 09:52 Not Reportable 12/28/18 09:52 Not Reportable 12/28/18 09:52 Not Reportable 12/28/18 09:52 Not Reportable 12/28/18 09:52 Not Reportable 12/28/18 09:52 Not Reportable 12/28/18 09:52 Not Reportable 12/28/18 09:52 Not Reportable 12/28/18 09:52 Not Reportable 12/28/18 09:52 Acanthocytes (Spur) Not Reportable 12/28/18 09:52 Rouleaux Not Reportable 12/28/18 09:52 Not Reportable 12/28/18 09:52 Not Reportable 12/28/18 09:52 Not Reportable 12/28/18 09:52 Not Reportable 12/28/18 09:52 Hem Pathologist Commnt No 12/28/18 09:52 PT 12.6 Sec. (12.2-14.9) 12/28/18 09:52 INR 0.97 (0.87-1.13) 12/28/18 09:52 APTT 23.3 Sec. (24.2-36.6) L 12/28/18 09:52 POC ABG pH 7.399 (7.35-7.45) 12/28/18 14:02 POC ABG pCO2 31.5 (35-45) L 12/28/18 14:02 POC ABG pO2 59 (80-105) L 12/28/18 14:02 POC ABG HCO3 19.5 (22-26 mml/L) 12/28/18 14:02 POC ABG Total CO2 20 (23-27mmol/L) 12/28/18 14:02 POC ABG O2 Sat 90 12/28/18 14:02 POC ABG Base Excess -5 ((-2) - (+3)mmol/L) 12/28/18 14:02 21 % 12/28/18 14:02 Sodium 141 mmol/L (137-145) 12/29/18 05:20 Potassium 4.1 mmol/L (3.6-5.0) 12/29/18 05:20 Chloride 109.5 mmol/L (98-107) H 12/29/18 05:20 Carbon Dioxide 20 mmol/L (22-30) L 12/29/18 05:20 16 mmol/L 12/29/18 05:20 BUN 14 mg/dL (7-17) 12/29/18 05:20 0.7 mg/dL (0.7-1.2) 12/29/18 05:20 Estimated GFR > 60 ml/min 12/29/18 05:20 20 % 12/29/18 05:20 Glucose 115 mg/dL (65-100) H 12/29/18 05:20 Calcium 9.6 mg/dL (8.4-10.2) 12/29/18 05:20 0.30 mg/dL (0.1-1.2) 12/29/18 05:20 AST 11 units/L (5-40) 12/29/18 05:20 ALT 8 units/L (7-56) 12/29/18 05:20 60 units/L (35-129) 12/29/18 05:20 < 0.010 ng/mL (0.00-0.029) 12/28/18 16:01 NT-Pro-B Natriuret Pep 1177 pg/mL (0-900) H 12/28/18 09:52 6.8 g/dL (6.3-8.2) 12/29/18 05:20 4.0 g/dL (3.9-5) 12/29/18 05:20 1.4 % 12/29/18 05:20 Active Medications - Current Medications Current Medications: Generic Name Dose Route Start Last Admin Trade Name Freq PRN Reason Stop Dose Admin Acetaminophen 650 mg 12/28/18 12:40 12/29/18 21:27 Tylenol PO 650 mg Q4H PRN Administration Pain MILD(1-3)/Fever >100.5/BARBOZA Albuterol 2.5 mg 12/28/18 12:40 Proventil IH Q4HRT PRN Shortness Of Breath Amlodipine Besylate 10 mg 12/29/18 10:00 12/29/18 09:12 Norvasc PO 10 mg QDAY DEBRA Administration Atorvastatin Calcium 20 mg 12/29/18 22:00 12/29/18 21:26 Lipitor PO 20 mg QHS DEBRA Administration Clopidogrel Bisulfate 75 mg 12/29/18 10:00 12/29/18 09:12 Plavix PO 75 mg QDAY DEBRA Administration Duloxetine HCl 30 mg 12/28/18 22:00 12/29/18 21:26 Cymbalta PO 30 mg BID DEBRA Administration Gabapentin 800 mg 12/28/18 22:00 12/29/18 21:26 Neurontin PO 800 mg QHS DEBRA Administration Heparin Sodium (Porcine) 5,000 unit 12/30/18 10:00 Heparin SUB-Q Q12HR DEBRA Hydralazine HCl 10 mg 12/29/18 02:54 12/29/18 03:48 Apresoline IV 10 mg Q4H PRN Administration Hypertension Lisinopril 10 mg 12/29/18 10:00 12/29/18 09:12 Zestril PO 10 mg DAILY DEBRA Administration Ondansetron HCl 4 mg 12/28/18 12:40 Zofran IV Q8H PRN Nausea And Vomiting Ranolazine 1,000 mg 12/28/18 22:00 12/29/18 21:26 Ranexa Er PO 1,000 mg BID DEBRA Administration Sodium Chloride 10 ml 12/28/18 22:00 12/29/18 22:30 Sodium Chloride Flush Syringe 10 Ml IV Not Given BID DEBRA Sodium Chloride 10 ml 12/28/18 12:40 Sodium Chloride Flush Syringe 10 Ml IV PRN PRN LINE FLUSH Nutrition/Malnutrition Assess - Dietary Evaluation Nutrition/Malnutrition Findings: Nutrition Notes Start: 12/29/18 12:59 Freq: Status: Active Protocol: Document 12/29/18 12:59 JUSTIN (Rec: 12/29/18 13:07 JUSTIN [email or web address]) Nutrition Notes Need for Assessment generated from: 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,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,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 Initial or Follow up Assessment Current Diagnosis Diabetes,Hypertension,Heart Failure,Hyperlipidemia Other Pertinent Diagnosis COPD exacerbation Current Diet Cardiac/Consistent CHO Labs/Tests Reviewed Pertinent Medications Solumedrol Height 5 ft 4 in Weight 72.5 kg Usual Body Weight 95.45 kg [place] Body Weight (kg) 54.54 BMI 27.4 Intake Prior to Admission Poor Weight change and time frame Pt reports unintentional 24% wt loss over past five months Weight Status Overweight Subjective/Other Information RD consulted for poor oral intake and recent wt loss; pt also screened for malnutrition risk (wt loss, poor appetite) . Pt reports slowly improving appetite; consumed 100% dinner last pm. Has been drinking Glucerna and wants to continue. She reports she takes Megace to increase appetite, but she has not been taking it lately. 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 No Is Patient Ambulatory and/or Out of Bed Yes REE-([facility]-ambulatory/OOB) [ 1631.500 [id number]] Calculation Used for Recommendations [facility] Additional Notes Pro needs 1-1.2g/k-87g/ day Fluid needs 1ml/kcal Nutrition Intervention Change Diet Order: Continue current diet order Education Handouts Provided Pt given D/C instruction sheet for ONS Goal #1 PO intake of meals plus ONS to meet at least 75% energy and pro needs Anticipated Discharge Needs: Continue Glucerna (or equivalent) once daily if PO intake suboptimal Follow-Up By: 01/02/19 Additional Comments F/U: intakes
[2018-12-30] MEDS: ZESTRIL PO SCH (09:49)
[2018-12-30] MEDS: NORVASC PO SCH (09:49)
[2018-12-30] MEDS: RANEXA ER PO SCH ×2 (09:49→21:44)
[2018-12-30] MEDS: PLAVIX PO SCH (09:49)
[2018-12-30] MEDS: CYMBALTA PO SCH ×2 (09:49→21:45)
[2018-12-30] MEDS: SODIUM CHLORIDE FLUSH SYRINGE 10 ML IV SCH ×2 (09:50→21:46)
--- NOTE | 2018-12-30 09:56 | Consultation ---
History of Present Illness Consult date: 12/30/18 Consult reason: chest pain History of present illness: 63 year old female presenting with worsening shortness of breath and shoulder pain. Patient is known to have chronic angina type symptoms but according to her these symptoms have worsened. ECG showing no ischemic changes and troponin is negative. Past History Past Medical History: acute NH, arthritis, diabetes, DVT, GERD, heart failure, hypertension, hyperlipidemia, PVD, other (Neuropathy, Depression) Past Surgical History: hysterectomy Social history: , lives with family. denies: smoking, alcohol abuse, prescription drug abuse Family history: diabetes, hypertension Medications and Allergies Allergies Allergy/AdvReac Type Severity Reaction Status Date / Time aspirin Allergy Shortness Verified 12/28/18 09:36 of Breath Penicillins Allergy Swelling Verified 12/28/18 09:36 Home Medications Medication Instructions Recorded Confirmed Last Taken Type Clopidogrel [Plavix] 75 mg PO QDAY #30 tablet 11/26/15 12/28/18 12/27/18 Rx Ranolazine [Ranexa] 1,000 mg PO BID #60 tab.er.12h 07/23/18 12/28/18 12/27/18 Rx metFORMIN [Glucophage] 500 mg PO BID #60 tablet 07/23/18 12/28/18 12/27/18 Rx Gabapentin [Neurontin] 800 mg PO QHS #20 cap 10/04/18 12/28/18 12/27/18 Rx ALBUTEROL Inhaler (OR & NICU) 2 puff IH QID PRN 12/28/18 12/28/18 12/27/18 History [Proair] Lisinopril [Zestril] 20 mg PO QDAY 12/28/18 12/28/18 12/27/18 History traMADol [Ultram] 50 mg PO Q6HR PRN 12/28/18 12/28/18 12/27/18 History Active Meds: Active Medications Acetaminophen (Tylenol) 650 mg PO Q4H PRN PRN Reason: Pain MILD(1-3)/Fever >100.5/BARBOZA Last Admin: 12/29/18 21:27 Dose: 650 mg Documented by: Albuterol (Proventil) 2.5 mg IH Q4HRT PRN PRN Reason: Shortness Of Breath Amlodipine Besylate (Norvasc) 10 mg PO QDAY [facility] Last Admin: 12/30/18 09:49 Dose: 10 mg Documented by: Atorvastatin Calcium (Lipitor) 20 mg PO QHS [facility] Last Admin: 12/29/18 21:26 Dose: 20 mg Documented by: Clopidogrel Bisulfate (Plavix) 75 mg PO QDAY [facility] Last Admin: 12/30/18 09:49 Dose: 75 mg Documented by: Duloxetine HCl (Cymbalta) 30 mg PO BID [facility] Last Admin: 12/30/18 09:49 Dose: 30 mg Documented by: Gabapentin (Neurontin) 800 mg PO QHS [facility] Last Admin: 12/29/18 21:26 Dose: 800 mg Documented by: Heparin Sodium (Porcine) (Heparin) 5,000 unit SUB-Q Q12HR [facility] Hydralazine HCl (Apresoline) 10 mg IV Q4H PRN PRN Reason: Hypertension Last Admin: 12/29/18 03:48 Dose: 10 mg Documented by: Lisinopril (Zestril) 10 mg PO DAILY [facility] Last Admin: 12/30/18 09:49 Dose: 10 mg Documented by: Ondansetron HCl (Zofran) 4 mg IV Q8H PRN PRN Reason: Nausea And Vomiting Ranolazine (Ranexa Er) 1,000 mg PO BID [facility] Last Admin: 12/30/18 09:49 Dose: 1,000 mg Documented by: Sodium Chloride (Sodium Chloride Flush Syringe 10 Ml) 10 ml IV BID [facility] Last Admin: 12/29/18 22:30 Dose: Not Given Documented by: Sodium Chloride (Sodium Chloride Flush Syringe 10 Ml) 10 ml IV PRN PRN PRN Reason: LINE FLUSH Review of Systems All systems: negative Physical Examination Vital Signs Temp Pulse Resp BP Pulse Ox 97.7 F 75 20 161/75 98 12/28/18 09:39 12/28/18 09:39 12/28/18 09:39 12/28/18 09:39 12/28/18 09:39 General appearance: no acute distress HEENT: Positive: PERRL Neck: Positive: neck supple Cardiac: Positive: Reg Rate and Rhythm Lungs: Positive: Normal Exam Neuro: Positive: Grossly Intact Abdomen: Positive: Soft Extremities: Present: normal Results 12/29/18 05:20 12/29/18 05:20 - EKG Interpretation EKG: sinus rhythm EKG interpretations - Telemetry EKG Rhythm: Sinus Rhythm Assessment and Plan Unstable angina Coronary artery disease 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 left sided infiltrates noted on CT yet pulmonary doubts that patient has pneumonia or is infected. WBC explained by the dose of steroids she received yesterday Recommendations: Continue current management Start IV heparin Coronary angio in am
[2018-12-30] MEDS ORDERED: HEPARIN SUB-Q SCH (10:00)
[2018-12-30] MEDS ORDERED: HEPARIN/ 0.45% NACL-25,000 UNIT/500 ML 25,000 UNIT/500 ML BAG IV SCH (10:00)
[2018-12-30 10:46] LABS: Hematocrit 35.8 % (30.3-42.9); Hemoglobin 12.1 gm/dl (10.1-14.3)
[2018-12-30 10:56] LABS: INR 1.08 (0.87-1.13); Partial Thromboplastin Time 21.7 Sec. (24.2-36.6)
[2018-12-30] MEDS ORDERED: NACL 0.9% 500 ML 500 ML IV SCH (11:00)
[2018-12-30] MEDS ORDERED: HEPARIN 10,000 UNITS/10 ML IV ONE (11:00)
--- NOTE | 2018-12-30 13:25 | Progress Note ---
Assessment and Plan 63 y/o female, former smoker, admitted with hypoxic respiratory failure and acute on chronic respiratory failure based on history. Today: Will given an additional 40 of lasix and check Stat labs to follow up cr and k levels. 1. Poor historian but does not appear very consistent with COPD. Currently no wheeze on my exam and patient states that her breathing does not feel any better today. Given elevated BNP and evidence of GGO's. Will give a one time dose of IV lasix 40. Stop steroids. Abx are +/- but I dont feel the patient is infected. Her white count today can be explained by steroids given yesterday. 2. Patient needs outpatient follow up with full PFT. Will arrange prior to discharge. 3. BP control per primary 4. Would be reasonable to obtain an echo to evaluate for pulmonary hypertension as well. Thanks for the consult. Subjective Date of service: 12/30/18 Interval history: Feels better today after lasix. I/O not accurate in chart. Cards has seen and plan for cath in am. No labs drawn today. Objective Vital Signs - 12hr 12/30/18 12/30/18 12/30/18 02:22 07:09 07:38 Temperature 99.3 F 98.9 F Pulse Rate 64 64 Respiratory 18 20 20 Rate Blood Pressure 147/61 127/56 O2 Sat by Pulse 100 99 Oximetry Constitutional: no acute distress, alert Eyes: non-icteric ENT: oropharynx moist Neck: supple, no lymphadenopathy, no JVD Effort: normal Ascultation: Bilateral: diminished breath sounds, rales (faint at the bases) Percussion: Bilateral: not dull Tactile fremitus: Bilateral: normal Cardiovascular: regular rate and rhythm Gastrointestinal: normoactive bowel sounds, soft Extremities: no edema, pink and warm, pulses normal Neurologic: normal mental status Psychiatric: other (flat affect) CBC and BMP: 12/30/18 10:25 12/29/18 05:20 ABG, PT/INR, D-dimer: ABG POC ABG pH 7.399 (7.35-7.45) 12/28/18 14:02 POC ABG pCO2 31.5 (35-45) L 12/28/18 14:02 POC ABG pO2 59 (80-105) L 12/28/18 14:02 POC ABG HCO3 19.5 (22-26 mml/L) 12/28/18 14:02 POC ABG Total CO2 20 (23-27mmol/L) 12/28/18 14:02 POC ABG O2 Sat 90 12/28/18 14:02 PT/INR, D-dimer PT 13.7 Sec. (12.2-14.9) 12/30/18 10:25 INR 1.08 (0.87-1.13) 12/30/18 10:25 Abnormal lab findings: Abnormal Labs 12/28/18 12/28/18 12/28/18 09:52 09:52 09:52 WBC MCH [place] % (Auto) [place] # Lymphocytes % (Manual) 50.0 H Seg Neutrophils # APTT 23.3 L POC ABG pCO2 POC ABG pO2 Chloride Carbon Dioxide Glucose 134 H POC Glucose NT-Pro-B Natriuret Pep 12/28/18 12/28/18 12/29/18 09:52 14:02 05:20 WBC 15.2 H MCH 27 L [place] % (Auto) 7.8 H [place] # 1.2 H Lymphocytes % (Manual) Seg Neutrophils # 9.4 H APTT POC ABG pCO2 31.5 L POC ABG pO2 59 L Chloride Carbon Dioxide Glucose POC Glucose NT-Pro-B Natriuret Pep 1177 H 12/29/18 12/30/18 12/30/18 05:20 10:14 10:25 WBC MCH [place] % (Auto) [place] # Lymphocytes % (Manual) Seg Neutrophils # APTT 21.7 L POC ABG pCO2 POC ABG pO2 Chloride 109.5 H Carbon Dioxide 20 L Glucose 115 H POC Glucose 163 H NT-Pro-B Natriuret Pep
[2018-12-30] MEDS ORDERED: LASIX IV ONE (14:00)
[2018-12-30 14:01] LABS: Hematocrit 35.9 % (30.3-42.9); Hemoglobin 11.9 gm/dl (10.1-14.3); Mean Corpuscular HGB Conc 33 % (30-34); Mean Corpuscular Volume 82 fl (79-97); Platelet Count 305 K/mm3 (140-440); Red Blood Count 4.37 M/mm3 (3.65-5.03); Red Cell Distribution Width 15.1 % (13.2-15.2)
[2018-12-30 14:20] LABS: BUN/Creatinine Ratio 23; Blood Urea Nitrogen 23 mg/dL (7-17); Hemolysis Index 9
[2018-12-30] MEDS: NEURONTIN PO SCH (21:45)
[2018-12-31] MEDS: PLAVIX PO SCH ×2 (08:16→09:33)
[2018-12-31] MEDS: ZESTRIL PO SCH ×2 (08:16→09:33)
[2018-12-31] MEDS: NORVASC PO SCH ×2 (08:17→09:33)
[2018-12-31] MEDS: SODIUM CHLORIDE FLUSH SYRINGE 10 ML IV SCH ×2 (09:34→21:28)
[2018-12-31] MEDS ORDERED: HEPARIN/NS 5000 UNIT/500ML(CATH LAB) 1,000 ML IR ONE ×2 (09:55→11:25)
[2018-12-31] MEDS ORDERED: CALAN ONE (09:56)
[2018-12-31] MEDS ORDERED: NITROGLYCERIN SYRINGE 3 ML ONE (09:57)
[2018-12-31] MEDS ORDERED: NACL 0.9% 500 ML 500 ML ONE (09:58)
[2018-12-31] MEDS: XYLOCAINE 2% INFILTRATI ONE ×3 (10:36→10:57)
[2018-12-31] MEDS: SUBLIMAZE ONE ×2 (10:36→10:54)
[2018-12-31] MEDS: VERSED ONE ×2 (10:36→10:54)
[2018-12-31] MEDS: HEPARIN 10,000 UNITS/10 ML ONE ×3 (11:20→11:53)
--- NOTE | 2018-12-31 12:07 | Progress Note ---
Assessment and Plan 63 y/o female, former smoker, admitted with hypoxic respiratory failure and acute on chronic respiratory failure based on history. TODAY: Follow up cath results. Would check labs today. Will not give lasix today as patient will receive a contrast load. Will reassess tomorrow or later this afternoon. Otherwise continue current medical therapy from a pulmonary standpoint. Follow up echo results as well. 1. Poor historian but does not appear very consistent with COPD. Currently no wheeze on my exam and patient states that her breathing does not feel any better today. Given elevated BNP and evidence of GGO's. Will give a one time dose of IV lasix 40. Stop steroids. Abx are +/- but I dont feel the patient is infected. Her white count today can be explained by steroids given yesterday. 2. Patient needs outpatient follow up with full PFT. Will arrange prior to discharge. 3. BP control per primary 4. Would be reasonable to obtain an echo to evaluate for pulmonary hypertension as well. Thanks for the consult. Subjective Date of service: 12/31/18 Interval history: Patient off floor for cath. Labs I ordered yesterday were stable. none drawn this morning. I/O still not accurate. No calls about worsening breathing overnight. Objective Vital Signs - 12hr 12/31/18 12/31/18 12/31/18 01:50 07:31 08:16 Temperature 98.9 F 98.9 F Pulse Rate 66 66 66 Respiratory 18 20 Rate Blood Pressure 138/64 146/62 146/62 O2 Sat by Pulse 97 99 Oximetry 12/31/18 12/31/18 08:44 09:15 Temperature Pulse Rate Respiratory 20 Rate Blood Pressure O2 Sat by Pulse 100 100 Oximetry Constitutional: no acute distress, alert Eyes: non-icteric ENT: oropharynx moist Neck: supple, no lymphadenopathy, no JVD Effort: normal Ascultation: Bilateral: diminished breath sounds, rales (faint at the bases) Percussion: Bilateral: not dull Tactile fremitus: Bilateral: normal Cardiovascular: regular rate and rhythm Gastrointestinal: normoactive bowel sounds, soft Extremities: no edema, pink and warm, pulses normal Neurologic: normal mental status Psychiatric: other (flat affect) CBC and BMP: 12/30/18 13:42 12/30/18 13:42 ABG, PT/INR, D-dimer: ABG POC ABG pH 7.399 (7.35-7.45) 12/28/18 14:02 POC ABG pCO2 31.5 (35-45) L 12/28/18 14:02 POC ABG pO2 59 (80-105) L 12/28/18 14:02 POC ABG HCO3 19.5 (22-26 mml/L) 12/28/18 14:02 POC ABG Total CO2 20 (23-27mmol/L) 12/28/18 14:02 POC ABG O2 Sat 90 12/28/18 14:02 PT/INR, D-dimer PT 13.7 Sec. (12.2-14.9) 12/30/18 10:25 INR 1.08 (0.87-1.13) 12/30/18 10:25 Abnormal lab findings: Abnormal Labs 12/28/18 12/28/18 12/28/18 09:52 09:52 09:52 WBC MCH [place] % (Auto) [place] # Lymphocytes % (Manual) 50.0 H Seg Neutrophils # APTT 23.3 L Heparin Anti-Xa Level POC ABG pCO2 POC ABG pO2 Chloride Carbon Dioxide BUN Glucose 134 H POC Glucose NT-Pro-B Natriuret Pep 12/28/18 12/28/18 12/29/18 09:52 14:02 05:20 WBC 15.2 H MCH 27 L [place] % (Auto) 7.8 H [place] # 1.2 H Lymphocytes % (Manual) Seg Neutrophils # 9.4 H APTT Heparin Anti-Xa Level POC ABG pCO2 31.5 L POC ABG pO2 59 L Chloride Carbon Dioxide BUN Glucose POC Glucose NT-Pro-B Natriuret Pep 1177 H 12/29/18 12/30/18 12/30/18 05:20 10:14 10:25 WBC MCH [place] % (Auto) [place] # Lymphocytes % (Manual) Seg Neutrophils # APTT 21.7 L Heparin Anti-Xa Level POC ABG pCO2 POC ABG pO2 Chloride 109.5 H Carbon Dioxide 20 L BUN Glucose 115 H POC Glucose 163 H NT-Pro-B Natriuret Pep 12/30/18 12/30/18 12/30/18 13:42 13:42 15:06 WBC 13.5 H MCH 27 L [place] % (Auto) [place] # Lymphocytes % (Manual) Seg Neutrophils # APTT Heparin Anti-Xa Level POC ABG pCO2 POC ABG pO2 Chloride Carbon Dioxide BUN 23 H Glucose 154 H POC Glucose 127 H NT-Pro-B Natriuret Pep 12/30/18 12/30/18 18:32 19:08 WBC MCH [place] % (Auto) [place] # Lymphocytes % (Manual) Seg Neutrophils # APTT Heparin Anti-Xa Level 0.26 L POC ABG pCO2 POC ABG pO2 Chloride Carbon Dioxide BUN Glucose POC Glucose 232 H NT-Pro-B Natriuret Pep
[2018-12-31] MEDS ORDERED: PLAVIX ONE (12:09)
--- NOTE | 2018-12-31 12:16 | Event Note ---
Date: 12/31/18 Left heart catheterization performed, with successful angioplasty and stenting of the proximal LAD. Please see dictated cardiac catheterization report for details.
[2018-12-31] MEDS ORDERED: ALUM-MAG HYDROX-SIMETH 200-200-20MG/5ML ONE (12:18)
--- NOTE | 2018-12-31 12:54 | Cardiac Catherization Report ---
CARDIAC CATHETERIZATION AND CORONARY ANGIOPLASTY REPORT REASON FOR PROCEDURE: The patient is a 63-year-old woman with coronary artery disease, several years ago, determined to have a chronic total occlusion of the right coronary artery, with moderate nonocclusive disease of the LAD, recommended for medical therapy. Due to recurrent and worsening chest pain, she was referred for a re-cardiac catheterization at this time. The patient also has shortness of breath, with underlying COPD, we elected to perform a right and left heart catheterization. PROCEDURES: 1. Right heart catheterization. 2. Left heart catheterization. 3. Selective left and right coronary angiography. 4. Left ventricular angiography. 5. Intravascular ultrasound interrogation of the proximal left anterior descending artery. 6. Coronary angioplasty and stenting of the LAD. The patient was prepped and draped in a sterile fashion after informed consent. Right femoral artery and vein were both entered using Seldinger technique. A 6-Iraqi sheath was placed in the artery and an 8-Iraqi sheath in the vein. [place] catheter was then advanced to the pulmonary artery position. The pigtail catheter was advanced into the left ventricle. Simultaneous right and left heart filling pressures were measured. Following this, cardiac output was measured using the thermodilution method. A [place] catheter was then withdrawn and right heart pressures recorded on pullback. We then performed a left ventricle angiography, following which the pigtail catheter was withdrawn across the aortic valve and transaortic pressures recorded. Selective left and right coronary angiography was then performed using #4 left Alex and #4 right Alex. The angiograms were then reviewed. FINDINGS: HEMODYNAMICS: The mean right atrial pressure was 8. Right ventricular pressure 38/10. Pulmonary artery pressure 35/20. The mean pulmonary artery wedge pressure was 10. Left ventricular end-diastolic pressure was 12. Ascending aortic pressure was 143/61. There was no significant pressure gradient on pullback across the aortic valve. Cardiac output was 5.3 liters per minute. CORONARY ANGIOGRAPHY: There was moderate diffuse calcification, chiefly of the left coronary system. Left main coronary artery was short, free of significant disease. The left anterior descending artery contained a hazy irregular stenosis of its proximal segment, difficult to quantify angiographically on multiple views, but appeared significant. Following that, there was diffuse mild to moderate atherosclerosis of the mid and distal segments of the LAD. The circumflex artery and its obtuse marginal branches contained mild luminal irregularities. The right coronary artery was a small caliber vessel, chronically totally occluded in its mid segment. There was faint collateralization of small vessel distal right coronary segments. There was very mild left ventricular systolic dysfunction, ejection fraction 45-50%. INTRAVASCULAR ULTRASOUND: After review of the angiograms, we elected to perform intravascular ultrasound interrogation of the hazy proximal LAD. We selected a #3.5 XB LAD guiding catheter and advanced to the left coronary ostium. A 0.014 inch [employer] guidewire was transitioned into the LAD, across the lesional segment. After wire placement in the distal LAD, an intravascular ultrasound catheter was then introduced into the lesional segment of the proximal LAD. We found severe concentric plaque, with a 75% area stenosis, minimum lumen diameter of the LAD was 2.2 mm. This appeared to be consistent with a severe stenosis, not readily apparent on angiographic views. CORONARY ANGIOPLASTY: After intravascular ultrasound, we then proceeded with coronary intervention, selected a 3.0 mm drug-eluting stent, in a primary stenting maneuver, deployed across the lesional segment of the LAD. This stent was inflated to optimal pressures and sized to a 3.5 mm diameter. Following stenting, there was an excellent angiographic result at the treated site, we found mild ostial narrowing of a medium sized diagonal branch, which originated from the lesional segment. Procedure was well tolerated by the patient, the catheters and the wires were removed, and she was returned to the postprocedure unit in stable condition. There were no complications. CONCLUSIONS: 1. Normal right and left heart filling pressures, mild pulmonary hypertension with pulmonary artery systolic pressure of 35. 2. Multivessel coronary artery disease with chronic total occlusion of the right coronary artery, previously described on a cardiac catheterization 3 years ago. 3. Severe disease of the proximal LAD as revealed on intravascular ultrasound imaging. 4. Mild left ventricular systolic dysfunction, ejection fraction 45-50%. 5. Successful angioplasty and stenting of the proximal LAD, following deployment of a 3.0 mm drug-eluting stent, inflated to a 3.5 mm diameter. JOB# [id number] CA/NTS
[2018-12-31] MEDS ORDERED: NACL 0.9% 1000 ML 1,000 ML IV SCH (13:00)
--- NOTE | 2018-12-31 14:46 | Progress Note ---
Assessment and Plan Assessment and plan: 3 YO Female with HTN, SD, DM, CHF, OA, Depression, DVT not currently on therapeutic anticoagulation, Neuropathy,HLD presents to ED for evaluation. Pt states that she has experienced shortness of breath over the past 1 week with worsening symptoms over the past 2 days. Pt acknowledges increased productive cough with clear sputum, increased nebulizer use without improvement in symptoms, decreased exercise tolerance, dypsnea on exertion, and dypsnea at rest. Pt is short of breath with audible wheezing, and cannot speak in complete sentences. Pt transported to [facility] via private vehicle. Pt seen and evaluated in ED and found to have COPD Exacerbation complicated by Acute Hypoxemic Respiratory Failure. Pt denies fever, chills, CP, Palpitations, NVD, Skin rash, unilateral leg swelling, calf pain, or recent ill contacts. * Pt treated with supportive care and steriods in the ED with mild improvement in ED. * PMD: Dr. Kendell Phillips . * On presentation patient is requesting refill of her Gabapentin which she ran out of 2 days ago. Reivew of prior ED visit includes noted pre-occupation for the said medication for neuropathic pain * Labs show elevated Pro BNP * CT chest shows Approximately 3.5 cm left lower lobe infiltrate, not excluded old/scarring. Please also correlate clinically and with prior relevant imaging, if available. unfortunately not noted on xray and no prior CT is available for my review * Occluded RCA with collateral was being treated medically with antianginal- on prior cath. * Patient underwent repeat cardiac cath today 12/31/18 Left heart catheterization performed, with successful angioplasty and stenting of the proximal LAD. POST PCI management per cardiology Unstable Angina s/p PCI to Proximal LAD Acute Hypoxic Respiratory failure-Present on admission- PO2 of 57-POA: Differential include Congestive heart failure, likely diastolic. Prior cath in 2016 showed preserved EF and Medical management recommended Also possible Underlying COPD with exacerbation, however will be a new diagnosis, Pulmonary thinks not for the purpose of this admission Diabeties Mellitus-poa: Diabetic Neuropathy with aggravated pain: poa. Continue gabapentin HTN: CONTROLLED Leukocytosis- Secondary to steroids Lung lesion: ? SCARING. Depression-POA: Hx of DVT: PLAN Continue supportive care Pulmonary and cardiology consult- Transfer to Telemetry for post PCI management Plavix, ASA, STain on discharge. Discussed Lung lesion with Pulmonary, Not of concern at this time. Advised cong ent to have follow up in 6 -8 weeks for repeat study dvt/gi PROPHY Plan discussed with the patient Anticipate discharge in am History Interval history: Patient seen and examined continues to report improvement, she was going for cardiac cath today Hospitalist Physical - Physical exam Narrative exam: General appearance: Present: well-nourished - EENT Eyes: Present: PERRL, EOM intact ENT: hearing intact, clear oral mucosa - Neck Neck: Present: supple, normal ROM - Respiratory Respiratory effort: normal Respiratory: bilateral: wheezing (mild expiratory) - Cardiovascular Rhythm: regular Heart Sounds: Present: S1 & S2. Absent: systolic murmur - Extremities Extremities: no ischemia, pulses intact, pulses symmetrical, No edema, Full ROM Peripheral Pulses: within normal limits - Abdominal General gastrointestinal: soft, non-tender, non-distended, normal bowel sounds, other (enlarged pannus) - Integumentary Integumentary: Present: clear, warm - Psychiatric Psychiatric: appropriate mood/affect, intact judgment & insight - Neurologic Neurologic: CNII-XII intact, moves all extremities - Allied Health Allied health notes reviewed: nursing - Constitutional Vitals: Temp Pulse Resp BP Pulse Ox 98.4 F 69 12 125/55 97 12/31/18 12:15 12/31/18 13:45 12/31/18 13:45 12/31/18 13:45 12/31/18 13:45 General appearance: Present: mild distress, well-nourished Results - Labs CBC & Chem 7: 12/30/18 13:42 12/30/18 13:42 Labs: Laboratory Last Values WBC 13.5 K/mm3 (4.5-11.0) H 12/30/18 13:42 RBC 4.37 M/mm3 (3.65-5.03) 12/30/18 13:42 Hgb 11.9 gm/dl (10.1-14.3) 12/30/18 13:42 Hct 35.9 % (30.3-42.9) 12/30/18 13:42 MCV 82 fl (79-97) 12/30/18 13:42 MCH 27 pg (28-32) L 12/30/18 13:42 MCHC 33 % (30-34) 12/30/18 13:42 RDW 15.1 % (13.2-15.2) 12/30/18 13:42 Plt Count 305 K/mm3 (140-440) 12/30/18 13:42 Lymph % (Auto) 29.3 % (13.4-35.0) 12/29/18 05:20 [place] % (Auto) 7.8 % (0.0-7.3) H 12/29/18 05:20 Eos % (Auto) 0.5 % (0.0-4.3) 12/29/18 05:20 Baso % (Auto) 0.6 % (0.0-1.8) 12/29/18 05:20 Lymph # 4.4 K/mm3 (1.2-5.4) 12/29/18 05:20 [place] # 1.2 K/mm3 (0.0-0.8) H 12/29/18 05:20 Eos # 0.1 K/mm3 (0.0-0.4) 12/29/18 05:20 Baso # 0.1 K/mm3 (0.0-0.1) 12/29/18 05:20 Add Manual Diff Complete 12/28/18 09:52 Total Counted 100 12/28/18 09:52 Seg Neutrophils % 61.8 % (40.0-70.0) 12/29/18 05:20 Seg Neuts % (Manual) 43.0 % (40.0-70.0) 12/28/18 09:52 0 % 12/28/18 09:52 50.0 % (13.4-35.0) H 12/28/18 09:52 Reactive Lymphs % (Man) 0 % 12/28/18 09:52 4.0 % (0.0-7.3) 12/28/18 09:52 3.0 % (0.0-4.3) 12/28/18 09:52 0 % (0.0-1.8) 12/28/18 09:52 0 % 12/28/18 09:52 0 % 12/28/18 09:52 0 % 12/28/18 09:52 0 % 12/28/18 09:52 Nucleated RBC % Not Reportable 12/28/18 09:52 Seg Neutrophils # 9.4 K/mm3 (1.8-7.7) H 12/29/18 05:20 Seg Neutrophils # Man 4.2 K/mm3 (1.8-7.7) 12/28/18 09:52 Band Neutrophils # 0.0 K/mm3 12/28/18 09:52 4.9 K/mm3 (1.2-5.4) 12/28/18 09:52 Abs React Lymphs (Man) 0.0 K/mm3 12/28/18 09:52 0.4 K/mm3 (0.0-0.8) 12/28/18 09:52 0.3 K/mm3 (0.0-0.4) 12/28/18 09:52 0.0 K/mm3 (0.0-0.1) 12/28/18 09:52 0.0 K/mm3 12/28/18 09:52 0.0 K/mm3 12/28/18 09:52 0.0 K/mm3 12/28/18 09:52 Blast Cells # 0.0 K/mm3 12/28/18 09:52 WBC Morphology Not Reportable 12/28/18 09:52 Hypersegmented Neuts Not Reportable 12/28/18 09:52 Hyposegmented Neuts Not Reportable 12/28/18 09:52 Hypogranular Neuts Not Reportable 12/28/18 09:52 Not Reportable 12/28/18 09:52 Not Reportable 12/28/18 09:52 Not Reportable 12/28/18 09:52 Not Reportable 12/28/18 09:52 Not Reportable 12/28/18 09:52 Not Reportable 12/28/18 09:52 Consistent w auto 12/28/18 09:52 Not Reportable 12/28/18 09:52 Plt Clumps, EDTA Not Reportable 12/28/18 09:52 Not Reportable 12/28/18 09:52 Not Reportable 12/28/18 09:52 Not Reportable 12/28/18 09:52 Plt Morphology Comment Not Reportable 12/28/18 09:52 RBC Morphology Normal 12/28/18 09:52 Dimorphic RBCs Not Reportable 12/28/18 09:52 Not Reportable 12/28/18 09:52 Not Reportable 12/28/18 09:52 Not Reportable 12/28/18 09:52 Not Reportable 12/28/18 09:52 Not Reportable 12/28/18 09:52 Not Reportable 12/28/18 09:52 Not Reportable 12/28/18 09:52 Not Reportable 12/28/18 09:52 Not Reportable 12/28/18 09:52 Not Reportable 12/28/18 09:52 Not Reportable 12/28/18 09:52 Not Reportable 12/28/18 09:52 Not Reportable 12/28/18 09:52 Not Reportable 12/28/18 09:52 Not Reportable 12/28/18 09:52 Not Reportable 12/28/18 09:52 Not Reportable 12/28/18 09:52 Not Reportable 12/28/18 09:52 Not Reportable 12/28/18 09:52 Acanthocytes (Spur) Not Reportable 12/28/18 09:52 Rouleaux Not Reportable 12/28/18 09:52 Not Reportable 12/28/18 09:52 Not Reportable 12/28/18 09:52 Not Reportable 12/28/18 09:52 Not Reportable 12/28/18 09:52 Hem Pathologist Commnt No 12/28/18 09:52 PT 13.7 Sec. (12.2-14.9) 12/30/18 10:25 INR 1.08 (0.87-1.13) 12/30/18 10:25 APTT 21.7 Sec. (24.2-36.6) L 12/30/18 10:25 Heparin Anti-Xa Level 0.43 U.I./ml (0.3-0.7) 12/31/18 03:56 POC ABG pH 7.399 (7.35-7.45) 12/28/18 14:02 POC ABG pCO2 31.5 (35-45) L 12/28/18 14:02 POC ABG pO2 59 (80-105) L 12/28/18 14:02 POC ABG HCO3 19.5 (22-26 mml/L) 12/28/18 14:02 POC ABG Total CO2 20 (23-27mmol/L) 12/28/18 14:02 POC ABG O2 Sat 90 12/28/18 14:02 POC ABG Base Excess -5 ((-2) - (+3)mmol/L) 12/28/18 14:02 21 % 12/28/18 14:02 Sodium 138 mmol/L (137-145) 12/30/18 13:42 Potassium 3.8 mmol/L (3.6-5.0) 12/30/18 13:42 Chloride 100.8 mmol/L (98-107) 12/30/18 13:42 Carbon Dioxide 25 mmol/L (22-30) 12/30/18 13:42 16 mmol/L 12/30/18 13:42 BUN 23 mg/dL (7-17) H 12/30/18 13:42 1.0 mg/dL (0.7-1.2) 12/30/18 13:42 Estimated GFR > 60 ml/min 12/30/18 13:42 23 % 12/30/18 13:42 Glucose 154 mg/dL (65-100) H 12/30/18 13:42 POC Glucose 119 (70-105) H 12/31/18 12:59 Calcium 9.0 mg/dL (8.4-10.2) 12/30/18 13:42 Phosphorus 3.90 mg/dL (2.5-4.5) 12/30/18 13:42 Magnesium 1.90 mg/dL (1.7-2.3) 12/30/18 13:42 0.30 mg/dL (0.1-1.2) 12/29/18 05:20 AST 11 units/L (5-40) 12/29/18 05:20 ALT 8 units/L (7-56) 12/29/18 05:20 60 units/L (35-129) 12/29/18 05:20 < 0.010 ng/mL (0.00-0.029) 12/28/18 16:01 NT-Pro-B Natriuret Pep 1177 pg/mL (0-900) H 12/28/18 09:52 6.8 g/dL (6.3-8.2) 12/29/18 05:20 4.0 g/dL (3.9-5) 12/29/18 05:20 1.4 % 12/29/18 05:20 Active Medications - Current Medications Current Medications: Generic Name Dose Route Start Last Admin Trade Name Nisha PRN Reason Stop Dose Admin Acetaminophen 650 mg 12/28/18 12:40 12/29/18 21:27 Tylenol PO 650 mg Q4H PRN Administration Pain MILD(1-3)/Fever >100.5/BARBOZA Albuterol 2.5 mg 12/28/18 12:40 Proventil IH Q4HRT PRN Shortness Of Breath Amlodipine Besylate 10 mg 12/29/18 10:00 12/31/18 09:33 Norvasc PO Not Given QDAY [facility] Atorvastatin Calcium 40 mg 12/31/18 22:00 Lipitor PO QHS [facility] Clopidogrel Bisulfate 75 mg 12/29/18 10:00 12/31/18 09:33 Plavix PO Not Given QDAY [facility] Duloxetine HCl 30 mg 12/28/18 22:00 12/30/18 21:45 Cymbalta PO 30 mg BID DEBRA Administration Gabapentin 800 mg 12/28/18 22:00 12/30/18 21:45 Neurontin PO 800 mg QHS DEBRA Administration Hydralazine HCl 10 mg 12/29/18 02:54 12/29/18 03:48 Apresoline IV 10 mg Q4H PRN Administration Hypertension Sodium Chloride 1,000 mls @ 100 mls/hr 12/31/18 13:00 Nacl 0.9% 1000 Ml IV 01/01/19 00:59 DIRECT [facility] Isosorbide Mononitrate 30 mg 12/31/18 13:00 Imdur PO QDAY [facility] Lisinopril 10 mg 12/29/18 10:00 12/31/18 09:33 Zestril PO Not Given DAILY [facility] Ondansetron HCl 4 mg 12/28/18 12:40 Zofran IV Q8H PRN Nausea And Vomiting Ranolazine 1,000 mg 12/28/18 22:00 12/30/18 21:44 Ranexa Er PO 1,000 mg BID DEBRA Administration Sodium Chloride 10 ml 12/28/18 22:00 12/31/18 09:34 Sodium Chloride Flush Syringe 10 Ml IV 10 ml BID DEBRA Administration Sodium Chloride 10 ml 12/28/18 12:40 Sodium Chloride Flush Syringe 10 Ml IV PRN PRN LINE FLUSH Nutrition/Malnutrition Assess - Dietary Evaluation Nutrition/Malnutrition Findings: Nutrition Notes Start: 12/29/18 12 :59 Freq: Status: Active Protocol: Document 12/29/18 12:59 NHALL (Rec: 12/29/18 13:07 JUSTIN [email or web address]) Nutrition Notes Need for Assessment generated from: MD Order,lead java programmer,MST Initial or Follow up Assessment Current Diagnosis Diabetes,Hypertension,Heart Failure,Hyperlipidemia Other Pertinent Diagnosis COPD exacerbation Current Diet Cardiac/Consistent CHO Labs/Tests Reviewed Pertinent Medications Solumedrol Height 5 ft 4 in Weight 72.5 kg Usual Body Weight 95.45 kg [place] Body Weight (kg) 54.54 BMI 27.4 Intake Prior to Admission Poor Weight change and time frame Pt reports unintentional 24% wt loss over past five months Weight Status Overweight Subjective/Other Information RD consulted for poor oral intake and recent wt loss; pt also screened for malnutrition risk (wt loss, poor appetite) . Pt reports slowly improving appetite; consumed 100% dinner last pm. Has been drinking Glucerna and wants to continue. She reports she takes Megace to increase appetite, but she has not been taking it lately. 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 No Is Patient Ambulatory and/or Out of Bed Yes REE-([facility]-ambulatory/OOB) [ 1631.500 [id number]] Calculation Used for Recommendations [facility] Additional Notes Pro needs 1-1.2g/k-87g/ day Fluid needs 1ml/kcal Nutrition Intervention Change Diet Order: Continue current diet order Education Handouts Provided Pt given D/C instruction sheet for ONS Goal #1 PO intake of meals plus ONS to meet at least 75% energy and pro needs Anticipated Discharge Needs: Continue Glucerna (or equivalent) once daily if PO intake suboptimal Follow-Up By: 01/02/19 Additional Comments F/U: intakes
[2018-12-31 17:22] LABS: BUN/Creatinine Ratio 23; Blood Urea Nitrogen 18 mg/dL (7-17); Hemolysis Index 8
[2018-12-31] MEDS: CYMBALTA PO SCH ×2 (17:44→21:28)
[2018-12-31] MEDS: RANEXA ER PO SCH ×2 (17:44→21:28)
[2018-12-31] MEDS: IMDUR PO SCH (17:45)
[2018-12-31] MEDS: NEURONTIN PO SCH (21:28)
[2019-01-01 06:00] LABS: Basophils # (Auto) 0.1 K/mm3 (0.0-0.1); Basophils % (Auto) 1.1 % (0.0-1.8); Eosinophils # (Auto) 0.4 K/mm3 (0.0-0.4); Eosinophils % (Auto) 3.8 % (0.0-4.3); Hematocrit 38.2 % (30.3-42.9); Hemoglobin 12.7 gm/dl (10.1-14.3); Lymphocytes # (Auto) 3.6 K/mm3 (1.2-5.4); Lymphocytes % (Auto) 36.9 % (13.4-35.0); Mean Corpuscular HGB Conc 33 % (30-34); Mean Corpuscular Volume 82 fl (79-97); Monocytes % (Auto) 9.7 % (0.0-7.3); Platelet Count 327 K/mm3 (140-440); Red Blood Count 4.65 M/mm3 (3.65-5.03)
[2019-01-01 06:23] LABS: BUN/Creatinine Ratio 24; Blood Urea Nitrogen 19 mg/dL (7-17); Calcium 9.3 mg/dL (8.4-10.2); Hemolysis Index 9
[2019-01-01 06:26] LABS: Creatine Kinase MB < 1.0 ng/mL (0.0-4.0)
--- NOTE | 2019-01-01 09:22 | Progress Note ---
Assessment and Plan 63 y/o female, former smoker, admitted with hypoxic respiratory failure and acute on chronic respiratory failure based on history. TODAY: Echo unremarkable from a lung standpoint. But evidence of pulmonary hypertension on RHC. Mild. Also multivessel coronary disease. Patient will need follow up in our office for full PFT and base line CXR. Can see one-two weeks post discharge. Ok to send with PRN rescue inhaler (albuterol). Call if questions. Will sign off now. 1. Poor historian but does not appear very consistent with COPD. Currently no wheeze on my exam and patient states that her breathing does not feel any better today. Given elevated BNP and evidence of GGO's. Will give a one time dose of IV lasix 40. Stop steroids. Abx are +/- but I dont feel the patient is infected. Her white count today can be explained by steroids given yesterday. 2. Patient needs outpatient follow up with full PFT. Will arrange prior to discharge. 3. BP control per primary 4. Would be reasonable to obtain an echo to evaluate for pulmonary hypertension as well. Thanks for the consult. Subjective Date of service: 01/01/19 Interval history: patient s/p left and right heart cath on yesterday. Found to have multi-vessel coronary disease with stent to LAD. Also found to have mild pulmonary hypertension. No acute events. Cr is normal on labs this am. Was satting 99% on room air last night. Current sats not documented yet for today. Objective Vital Signs - 12hr 12/31/18 01/01/19 01/01/19 22:47 03:09 06:00 Temperature 99.0 F 99.1 F Pulse Rate 72 69 82 Respiratory 20 18 Rate Blood Pressure 143/56 135/62 O2 Sat by Pulse 94 94 Oximetry 01/01/19 07:26 Temperature 98.6 F Pulse Rate 77 Respiratory 18 Rate Blood Pressure 128/57 O2 Sat by Pulse 97 Oximetry Constitutional: no acute distress, alert Eyes: non-icteric ENT: oropharynx moist Neck: supple, no lymphadenopathy, no JVD Effort: normal Ascultation: Bilateral: diminished breath sounds, rales (faint at the bases) Percussion: Bilateral: not dull Tactile fremitus: Bilateral: normal Cardiovascular: regular rate and rhythm Gastrointestinal: normoactive bowel sounds, soft Extremities: no edema, pink and warm, pulses normal Neurologic: normal mental status Psychiatric: other (flat affect) CBC and BMP: 01/01/19 05:20 01/01/19 05:20 ABG, PT/INR, D-dimer: ABG POC ABG pH 7.399 (7.35-7.45) 12/28/18 14:02 POC ABG pCO2 31.5 (35-45) L 12/28/18 14:02 POC ABG pO2 59 (80-105) L 12/28/18 14:02 POC ABG HCO3 19.5 (22-26 mml/L) 12/28/18 14:02 POC ABG Total CO2 20 (23-27mmol/L) 12/28/18 14:02 POC ABG O2 Sat 90 12/28/18 14:02 PT/INR, D-dimer PT 13.7 Sec. (12.2-14.9) 12/30/18 10:25 INR 1.08 (0.87-1.13) 12/30/18 10:25 Abnormal lab findings: Abnormal Labs 12/28/18 12/28/18 12/28/18 09:52 09:52 09:52 WBC MCH Lymph % (Auto) [place] % (Auto) [place] # Lymphocytes % (Manual) 50.0 H Seg Neutrophils # APTT 23.3 L Activated Clotting Time Heparin Anti-Xa Level POC ABG pCO2 POC ABG pO2 Chloride Carbon Dioxide BUN Glucose 134 H POC Glucose NT-Pro-B Natriuret Pep 12/28/18 12/28/18 12/29/18 09:52 14:02 05:20 WBC 15.2 H MCH 27 L Lymph % (Auto) [place] % (Auto) 7.8 H [place] # 1.2 H Lymphocytes % (Manual) Seg Neutrophils # 9.4 H APTT Activated Clotting Time Heparin Anti-Xa Level POC ABG pCO2 31.5 L POC ABG pO2 59 L Chloride Carbon Dioxide BUN Glucose POC Glucose NT-Pro-B Natriuret Pep 1177 H 12/29/18 12/30/18 12/30/18 05:20 10:14 10:25 WBC MCH Lymph % (Auto) [place] % (Auto) [place] # Lymphocytes % (Manual) Seg Neutrophils # APTT 21.7 L Activated Clotting Time Heparin Anti-Xa Level POC ABG pCO2 POC ABG pO2 Chloride 109.5 H Carbon Dioxide 20 L BUN Glucose 115 H POC Glucose 163 H NT-Pro-B Natriuret Pep 12/30/18 12/30/18 12/30/18 13:42 13:42 15:06 WBC 13.5 H MCH 27 L Lymph % (Auto) [place] % (Auto) [place] # Lymphocytes % (Manual) Seg Neutrophils # APTT Activated Clotting Time Heparin Anti-Xa Level POC ABG pCO2 POC ABG pO2 Chloride Carbon Dioxide BUN 23 H Glucose 154 H POC Glucose 127 H NT-Pro-B Natriuret Pep 12/30/18 12/30/18 12/31/18 18:32 19:08 12:59 WBC MCH Lymph % (Auto) [place] % (Auto) [place] # Lymphocytes % (Manual) Seg Neutrophils # APTT Activated Clotting Time Heparin Anti-Xa Level 0.26 L POC ABG pCO2 POC ABG pO2 Chloride Carbon Dioxide BUN Glucose POC Glucose 232 H 119 H NT-Pro-B Natriuret Pep 12/31/18 12/31/18 01/01/19 13:51 16:41 05:20 WBC MCH 27 L Lymph % (Auto) 36.9 H [place] % (Auto) 9.7 H [place] # 1.0 H Lymphocytes % (Manual) Seg Neutrophils # APTT Activated Clotting Time 180 H Heparin Anti-Xa Level POC ABG pCO2 POC ABG pO2 Chloride Carbon Dioxide BUN 18 H Glucose 140 H POC Glucose NT-Pro-B Natriuret Pep 01/01/19 01/01/19 05:20 05:20 WBC MCH Lymph % (Auto) [place] % (Auto) [place] # Lymphocytes % (Manual) Seg Neutrophils # APTT Activated Clotting Time Heparin Anti-Xa Level 0.10 L POC ABG pCO2 POC ABG pO2 Chloride Carbon Dioxide BUN 19 H Glucose 122 H POC Glucose NT-Pro-B Natriuret Pep
[2019-01-01] MEDS: RANEXA ER PO SCH (09:51)
[2019-01-01] MEDS: CYMBALTA PO SCH (09:51)
[2019-01-01] MEDS: NORVASC PO SCH (09:51)
[2019-01-01] MEDS: ZESTRIL PO SCH (09:51)
[2019-01-01] MEDS: PLAVIX PO SCH (09:51)
[2019-01-01] MEDS: SODIUM CHLORIDE FLUSH SYRINGE 10 ML IV SCH (09:52)
[2019-01-01] MEDS: IMDUR PO SCH (09:52)
--- NOTE | 2019-01-01 10:50 | Progress Note ---
Assessment and Plan Unstable angina s/p PCI of the proximal LAD using JASON. normal LVEF 50-55% by echo this admission. ASA allergy (hives, itching) Hx of CAD Hx of Diabetes Recommendations: Resume metformin 48hr post cardiac cath. Due to aspirin allergy, we recommend the patient take plavix 75mg twice a day. Continue medical therapy for coronary artery disease. Stable for discharge home today. Patient will follow up with [facility]. as scheduled January 09. Subjective Date of service: 01/01/19 Interval history: Patient is resting comfortably in bed. She denies chest pain and shortness of breath. Cardiac cath site is soft and intact. No hematoma noted. Objective Vital Signs Temp Pulse Resp BP Pulse Ox 01/01/19 09:52 77 128/57 01/01/19 09:51 77 128/57 01/01/19 07:26 98.6 F 77 18 128/57 97 01/01/19 06:00 82 01/01/19 03:09 99.1 F 69 18 135/62 94 12/31/18 22:47 99.0 F 72 20 143/56 94 12/31/18 19:53 99 12/31/18 18:59 98.4 F 72 16 153/53 96 12/31/18 15:39 67 100 12/31/18 15:38 98.5 F 67 18 141/42 99 12/31/18 14:15 68 12 112/39 99 12/31/18 14:00 70 12 151/55 100 12/31/18 13:45 69 12 125/55 97 12/31/18 13:30 67 11 L 115/67 98 12/31/18 13:14 72 11 L 118/64 98 12/31/18 13:03 66 14 150/58 96 12/31/18 12:45 67 10 L 146/70 97 12/31/18 12:30 66 13 157/70 97 12/31/18 12:15 98.4 F 67 15 157/78 100 - Physical Examination General: No Apparent Distress HEENT: Positive: PERRL Neck: Positive: neck supple Cardiac: Positive: Reg Rate and Rhythm Lungs: Positive: Decreased Breath Sounds Neuro: Positive: Grossly Intact Abdomen: Positive: Soft Extremities: Present: normal - Labs and Meds Cardiac Enzymes 01/01/19 Range/Units 05:20 CK-MB (CK-2) < 1.0 (0.0-4.0) ng/mL CBC 01/01/19 Range/Units 05:20 WBC 9.8 (4.5-11.0) K/mm3 RBC 4.65 (3.65-5.03) M/mm3 Hgb 12.7 (10.1-14.3) gm/dl Hct 38.2 (30.3-42.9) % Plt Count 327 (140-440) K/mm3 Lymph # 3.6 (1.2-5.4) K/mm3 [place] # 1.0 H (0.0-0.8) K/mm3 Eos # 0.4 (0.0-0.4) K/mm3 Baso # 0.1 (0.0-0.1) K/mm3 Comprehensive Metabolic Panel 12/31/18 01/01/19 Range/Units 16:41 05:20 Sodium 137 140 (137-145) mmol/L Potassium 4.0 4.7 (3.6-5.0) mmol/L Chloride 102.5 102.4 (98-107) mmol/L Carbon Dioxide 25 24 (22-30) mmol/L BUN 18 H 19 H (7-17) mg/dL Creatinine 0.8 0.8 (0.7-1.2) mg/dL Glucose 140 H 122 H (65-100) mg/dL Calcium 9.0 9.3 (8.4-10.2) mg/dL
--- NOTE | 2019-01-01 12:12 | Discharge Summary ---
Providers - Providers Date of Admission: 12/28/18 12:40 Date of discharge: 01/01/19 Attending physician: ALOK LAM 12/28/18 16:30 Consult to Dietitian/Nutrition [CONS] Routine Physician Instructions: Reason For Exam: recent weight lost. Reason for Consult: Poor oral intake 12/29/18 11:46 Consult to Physician [CONS] Routine Comment: Consulting Provider: EDMAR THAPA Physician Instructions: Reason For Exam: CHF 12/29/18 11:49 Consult to Physician [CONS] Routine Comment: Consulting Provider: SHASHA DAY Physician Instructions: Reason For Exam: COPD EXACERBATION 12/31/18 Consult to Cardiac Rehabilitation [CONS] Routine Reason For Exam: post pci Primary care physician: KATHRIN SMITH Hospitalization Condition: Fair Hospital course: patient is 63 YO Female with HTN, IN, DM, CHF, OA, Depression, DVT not currently on therapeutic anticoagulation, Neuropathy,HLD presents to ED for evaluation of shortness of breath over the past 1 week with worsening symptoms over the past 2 days. Pt acknowledges increased productive cough with clear sputum, increased nebulizer use without improvement in symptoms, decreased exercise tolerance, dypsnea on exertion, and dypsnea at rest. Pt is short of breath with audible wheezing, and cannot speak in complete sentences. Patient transported to [facility] via private vehicle. Patient seen and evaluated in ED and found to have COPD Exacerbation complicated by Acute Hypoxemic Respiratory Failure. She was admitted and diagnosed with unstable angina and had PCI to proximal LAD. She is re-evaluated 01/01/19 and cardiology recommends stable to discharge home. * CT chest shows Approximately 3.5 cm left lower lobe infiltrate, not excluded old/scarring. Please also correlate clinically and with prior relevant imaging, if available. unfortunately not noted on xray and no prior CT is available for my review * Occluded RCA with collateral was being treated medically with antianginal- on prior cath. * Patient underwent repeat cardiac cath 12/31/18 Left heart catheterization performed, with successful angioplasty and stenting of the proximal LAD. POST PCI management per cardiology Unstable Angina s/p PCI to Proximal LAD - aspirin, Plavix,statin Acute Hypoxic Respiratory failure-Present on admission- PO2 of 57-POA: Diabeties Mellitus Type 2 Diabetic Neuropathy with aggravated pain: poa. Continue gabapentin HTN: CONTROLLED Leukocytosis- Secondary to steroids Lung lesion: ? SCARING. to follow up with Pulm as outpatient Depression-POA: Hx of DVT: Disposition: DC/TX-06 HOME UNDER HOME HLTH - Discharge Diagnoses (1) HTN (hypertension) Status: Acute Qualifiers: Hypertension type: essential hypertension Qualified Code(s): I10 - Essential (primary) hypertension (2) Unstable angina Status: Acute (3) CAD (coronary artery disease) Status: Acute (4) Hyperlipidemia Status: Acute (5) Diabetes mellitus type 2 in obese Status: Chronic (6) Hypertension Status: Chronic Qualifiers: (7) Obesity (BMI 30-39.9) Status: Chronic (8) Lung anomaly Status: Acute (9) Acute respiratory failure Status: Acute Core Measure Documentation - Palliative Care Palliative Care/ Comfort Measures: Not Applicable - Core Measures Any of the following diagnoses?: none Exam - Constitutional Vitals: Temp Pulse Resp BP Pulse Ox 98.6 F 77 18 128/57 98 01/01/19 07:26 01/01/19 09:52 01/01/19 10:00 01/01/19 09:52 01/01/19 10:00 Plan Activity: advance as tolerated Diet: low fat, low cholesterol, low salt Additional Instructions: 1.Follow up with Dr. Smith in 1 week. 2.Follow up with Dr. Rabago in 1 week. 3.Resume Metformin on 01/03/19. 4.Follow up with Dr. Day, Pulmonology in 2 weeks Follow up with: SHERWIN RABAGO MD [Staff Physician] - 7 Days KATHRIN SMITH MD [Primary Care Provider] - 3-5 Days Prescriptions: ISOSORBIDE MONOnitrate [Imdur ER] 30 mg PO QDAY #30 tablet AtorvaSTATin [Lipitor] 40 mg PO QHS #30 tablet Metoprolol Xl [Metoprolol SUCCINATE ER TAB] 25 mg PO QDAY #30 tablet Clopidogrel [Plavix] 75 mg PO BID #60 tablet Lisinopril [Zestril TAB] 10 mg PO DAILY #30 tablet
[2019-01-01 12:26] VITALS: BP 111/52
[2019-01-01] MEDS ORDERED: TOPROL XL PO SCH (13:00)
[2019-01-01] MEDS ORDERED: PLAVIX PO SCH (22:00)
== END 2019-01-01 17:20 | disposition home health service (06) | DRG 246 ==
LOC: ED 09:35 → 2B-ACE 12:40 → 4A 12-31 15:40
PROVIDERS: ADMIT Internal Medicine; ATTEND Internal Medicine
PROC: 4A033R1 Measurement of Arterial Saturation, Peripheral, Percutaneous Approach (ICD-10-PCS; 2018-12-28)
PROC: 027034Z Dilation of Coronary Artery, One Artery with Drug-eluting Intraluminal Device, Percutaneous Approach (ICD-10-PCS; principal; 2018-12-31)
PROC: 4A023N8 Measurement of Cardiac Sampling and Pressure, Bilateral, Percutaneous Approach (ICD-10-PCS; 2018-12-31)
PROC: B2111ZZ Fluoroscopy of Multiple Coronary Arteries using Low Osmolar Contrast (ICD-10-PCS; 2018-12-31)
PROC: B2151ZZ Fluoroscopy of Left Heart using Low Osmolar Contrast (ICD-10-PCS; 2018-12-31)
PROC: B241ZZ3 Ultrasonography of Multiple Coronary Arteries, Intravascular (ICD-10-PCS; 2018-12-31)
DX: I25.110 Atherosclerotic heart disease of native coronary artery with unstable angina pectoris (principal); J96.01 Acute respiratory failure with hypoxia; I50.31 Acute diastolic (congestive) heart failure; J44.1 Chronic obstructive pulmonary disease with (acute) exacerbation; I11.0 Hypertensive heart disease with heart failure; M19.90 Unspecified osteoarthritis, unspecified site; F32.9 Major depressive disorder, single episode, unspecified; E11.40 Type 2 diabetes mellitus with diabetic neuropathy, unspecified; K21.9 Gastro-esophageal reflux disease without esophagitis; D72.829 Elevated white blood cell count, unspecified; I25.2 Old myocardial infarction; Z86.718 Personal history of other venous thrombosis and embolism; Z90.710 Acquired absence of both cervix and uterus; Z82.49 Family history of ischemic heart disease and other diseases of the circulatory system; Z83.3 Family history of diabetes mellitus; Z88.6 Allergy status to analgesic agent; Z88.0 Allergy status to penicillin; Z79.899 Other long term (current) drug therapy; Z86.73 Personal history of transient ischemic attack (TIA), and cerebral infarction without residual deficits
CPT/HCPCS: 36415; 36600; 71045; 71275; 80048; 80053; 82550; 82553; 82803; 82962; 83735; 83880; 84100; 84484; 85007; 85014; 85018; 85025; 85027; 85049; 85347; 85520; 85610; 85730; 92928; 92978; 93005; 93010; 93306; 93460; 94640; 94760; 96374; G0378; A9270-GY; C1725; C1753; C1769; C1874; C1887; C1894; C9600; J0360; J0456; J1644; J1940; J2250; J2920; J2930; J3010; J7040; J7050; Q9967

== ENCOUNTER 2019-05-05 15:37 | Emergency (ER) | payer MEDICARE ==
[2019-05-05] MEDS ORDERED: dexAMETHasone 20 MG/5 ML VIAL IV ONE (16:53)
[2019-05-05] MEDS ORDERED: HYDROmorphone 1 MG/1 ML INJ IM ONE (16:53)
[2019-05-05] MEDS ORDERED: ONDANSETRON 4 MG/2 ML INJ IV ONE (16:53)
[2019-05-05] MEDS ORDERED: CLINDAMYCIN 600 MG/50 mL 600 MG/50 ML BAG IV ONE (16:54)
--- NOTE | 2019-05-05 17:03 | Emergency Department Report ---
<CHASE SANDOVAL - Last Filed: 05/05/19 16:58> ED General Adult HPI - General Chief complaint: Dyspnea/Respdistress Stated complaint: YULI/SOB/WEAK Time Seen by Provider: 05/05/19 16:52 Source: patient Mode of arrival: Wheelchair Limitations: No Limitations - History of Present Illness Initial comments: 63-year-old -Mac[place] female presents to the emergency room for shortness of breath for 3 days. Patient reports that she has sore throat with pain on her right ear and worsening with swallowing. Patient has a past medical history of IL, hypertension, diabetes, CHF, osteoarthritis. Patient denies any fever or chills no nausea no vomiting. Onset/Timin -: days(s) Location: neck Radiation: neck (right side of neck just under the neck) Severity scale (0 -10): 9 Quality: stabbing, aching, sharp, constant Consistency: constant Improves with: none Worsens with: other (swallowing) Associated Symptoms: shortness of breath. denies: chest pain, cough, diaphoresi s, fever/chills, headaches, loss of appetite, nausea/vomiting Treatments Prior to Arrival: none - Related Data Home Medications Medication Instructions Recorded Confirmed Last Taken ALBUTEROL Inhaler (OR & NICU) 2 puff IH QID PRN 12/28/18 12/28/18 12/27/18 [ProAir HFA Inhaler] traMADol [Ultram 50 MG tab] 50 mg PO Q6HR PRN 12/28/18 12/28/18 12/27/18 Previous Rx's Medication Instructions Recorded Last Taken Type Ranolazine [Ranexa] 1,000 mg PO BID #60 tab.er.12h 07/23/18 12/27/18 Rx metFORMIN [Glucophage] 500 mg PO BID #60 tablet 07/23/18 12/27/18 Rx Gabapentin 800 mg PO QHS #20 cap 10/04/18 12/27/18 Rx AtorvaSTATin [Lipitor] 40 mg PO QHS #30 tablet 01/01/19 Unknown Rx Clopidogrel [Plavix] 75 mg PO BID #60 tablet 01/01/19 Unknown Rx DULoxetine [Cymbalta] 30 mg PO BID capsule 01/01/19 Unknown Rx ISOSORBIDE MONOnitrate [Imdur ER] 30 mg PO QDAY #30 tablet 01/01/19 Unknown Rx Lisinopril [Zestril TAB] 10 mg PO DAILY #30 tablet 01/01/19 Unknown Rx Metoprolol Xl [Metoprolol 25 mg PO QDAY #30 tablet 01/01/19 Unknown Rx SUCCINATE ER TAB] Allergies Allergy/AdvReac Type Severity Reaction Status Date / Time aspirin Allergy Shortness Verified 05/05/19 15:37 of Breath Penicillins Allergy Swelling Verified 05/05/19 15:37 ED Review of Systems Comment: All other systems reviewed and negative ED Past Medical Hx - Past Medical History Hx Hypertension: Yes (2003, high cholesterol) Hx CVA: Yes (-) Hx Heart Attack/AMI: Yes Hx Congestive Heart Failure: Yes (on ranexa) Hx Diabetes: Yes Hx Deep Vein Thrombosis: Yes (thrombus RLE) Hx GERD: Yes Hx Liver Disease: No Hx Renal Disease: No Hx Sickle Cell Disease: No Hx Arthritis: Yes Hx Seizures: No Hx Psychiatric Treatment: Yes (depression w SI) Hx Asthma: No Hx COPD: No Hx Tuberculosis: No Hx Dementia: No Hx HIV: No Additional medical history: 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 BLE stent placement - Social History Smoking Status: Never Smoker Substance Use Type: None - Medications Home Medications: Home Medications Medication Instructions Recorded Confirmed Last Taken Type Ranolazine [Ranexa] 1,000 mg PO BID #60 tab.er.12h 07/23/18 12/28/18 12/27/18 Rx metFORMIN [Glucophage] 500 mg PO BID #60 tablet 07/23/18 12/28/18 12/27/18 Rx Gabapentin 800 mg PO QHS #20 cap 10/04/18 12/28/18 12/27/18 Rx ALBUTEROL Inhaler (OR & NICU) 2 puff IH QID PRN 12/28/18 12/28/18 12/27/18 History [ProAir HFA Inhaler] traMADol [Ultram 50 MG tab] 50 mg PO Q6HR PRN 12/28/18 12/28/18 12/27/18 History AtorvaSTATin [Lipitor] 40 mg PO QHS #30 tablet 01/01/19 Unknown Rx Clopidogrel [Plavix] 75 mg PO BID #60 tablet 01/01/19 Unknown Rx DULoxetine [Cymbalta] 30 mg PO BID capsule 01/01/19 Unknown Rx ISOSORBIDE MONOnitrate [Imdur ER] 30 mg PO QDAY #30 tablet 01/01/19 Unknown Rx Lisinopril [Zestril TAB] 10 mg PO DAILY #30 tablet 01/01/19 Unknown Rx Metoprolol Xl [Metoprolol 25 mg PO QDAY #30 tablet 01/01/19 Unknown Rx SUCCINATE ER TAB] ED Physical Exam - General Limitations: No Limitations General appearance: alert, in no apparent distress - Head Head exam: Present: atraumatic, normocephalic - Eye Eye exam: Present: normal appearance - Expanded ENT Exam Expanded Throat exam: Positive: R peritonsillar mass - Neck Neck exam: Present: tenderness, lymphadenopathy (right side) - Respiratory Respiratory exam: Present: rhonchi. Absent: respiratory distress - Cardiovascular Cardiovascular Exam: Present: regular rate, normal rhythm. Absent: systolic murmur, diastolic murmur, rubs, gallop - GI/Abdominal GI/Abdominal exam: Present: soft, normal bowel sounds - Neurological Exam Neurological exam: Present: alert, oriented X3 - Psychiatric Psychiatric exam: Present: normal affect, normal mood - Skin Skin exam: Present: warm, dry, intact, normal color. Absent: rash ED Medical Decision Making - Medical Decision Making 63-year-old -Macanese female presents to the emergency room for shortness of breath for 3 days. Patient reports that she has sore throat with pain on her right ear and worsening with swallowing. Patient has a past medical history of IL, hypertension, diabetes, CHF, osteoarthritis. Patient denies any fever or chills no nausea no vomiting. Labs have been ordered CT with contrast of neck, dexamethasone 10 mg IV, Dilaudid 0.5 mg, clindamycin 600 mg IV, Zofran 4 mg IV. ED Disposition Clinical Impression: Tonsillar abscess, Narrowing of airway Disposition: DC/TX-70 ANOTHER TYPE HLTHCARE Condition: Stable <MARIA DEL ROSARIO VIVEROS - Last Filed: 05/05/19 22:14> ED Review of Systems ROS: Stated complaint: YULI/SOB/WEAK Other details as noted in HPI ED Course Vital Signs 05/05/19 05/05/19 05/05/19 15:55 18:41 19:15 Temperature 98.6 F Pulse Rate 77 84 79 Respiratory 32 H 19 20 Rate Blood Pressure 185/72 Blood Pressure 175/67 170/73 [Left] O2 Sat by Pulse 99 97 97 Oximetry 05/05/19 05/05/19 21:00 21:17 Temperature 98.0 F Pulse Rate 77 Respiratory 18 20 Rate Blood Pressure Blood Pressure 177/74 [Left] O2 Sat by Pulse 98 98 Oximetry - Reevaluation(s) Reevaluation #1: 05/05/19 19:29 pt stable, received Decadron, clindamycin, dilaudid, and zofran. Reevaluation #2: 05/05/19 21:48 ambulance is here to take pt to [place] pt states she had an episode of sharp cp cp left lower chest no distress noted ekg ordered med record reviewed. pt had a cath 01/18 and had stening of proximal LAD. report will be included with transfer paperwork incase pt continues to c/o cp. 05/05/19 21:58 EKG reviewed and shows LVH there is a T-wave inversion in I and aVL which is new compared to previous. Patient states she had one episodic episode left-sided sharp chest pain that then went away. She denies shortness of breath, nausea, vomiting, or diaphoresis. She also states that this is different from from previous cardiac chest pain and is currently pain-free. - Consultations Consultation #1: 05/05/19 19:28 case d/w Dr Eric Mercado ENT with [facility]. Pt will be transferred to [facility] [place] ED for 23 hrs obs. 05/05/19 19:[address] [facility] ED MD [address] Sierra ED accepted pt 05/05/19 22:10 Case we discussed with [facility] ED [place]. They were updated about patient's episodic sharp chest pain EKG. Patient will be sent with cath report can be reassessed upon arrival. ED Medical Decision Making - Lab Data Result diagrams: 05/05/19 17:01 05/05/19 17:01 Lab Results 05/05/19 05/05/19 05/05/19 Range/Units 17:01 17:01 17:01 WBC 20.2 H (4.5-11.0) K/mm3 RBC 4.59 (3.65-5.03) M/mm3 Hgb 12.5 (10.1-14.3) gm/dl Hct 38.4 (30.3-42.9) % MCV 84 (79-97) fl MCH 27 L (28-32) pg MCHC 33 (30-34) % RDW 15.2 (13.2-15.2) % Plt Count 249 (140-440) K/mm3 Add Manual Diff Complete Total Counted 100 Seg Neuts % (Manual) 72.0 H (40.0-70.0) % Band Neutrophils % 0 % Lymphocytes % (Manual) 14.0 (13.4-35.0) % Reactive Lymphs % (Man) 0 % Monocytes % (Manual) 12.0 H (0.0-7.3) % Eosinophils % (Manual) 1.0 (0.0-4.3) % Basophils % (Manual) 1.0 (0.0-1.8) % Metamyelocytes % 0 % Myelocytes % 0 % Promyelocytes % 0 % Blast Cells % 0 % Nucleated RBC % Not Reportable Seg Neutrophils # Man 14.5 H (1.8-7.7) K/mm3 Band Neutrophils # 0.0 K/mm3 Lymphocytes # (Manual) 2.8 (1.2-5.4) K/mm3 Abs React Lymphs (Man) 0.0 K/mm3 Monocytes # (Manual) 2.4 H (0.0-0.8) K/mm3 Eosinophils # (Manual) 0.2 (0.0-0.4) K/mm3 Basophils # (Manual) 0.2 H (0.0-0.1) K/mm3 Metamyelocytes # 0.0 K/mm3 Myelocytes # 0.0 K/mm3 Promyelocytes # 0.0 K/mm3 Blast Cells # 0.0 K/mm3 WBC Morphology Not Reportable Hypersegmented Neuts Not Reportable Hyposegmented Neuts Not Reportable Hypogranular Neuts Not Reportable Smudge Cells Not Reportable Toxic Granulation Not Reportable Toxic Vacuolation Not Reportable Dohle Bodies Not Reportable Pelger-Huet Anomaly Not Reportable Deneen Rods Not Reportable Platelet Estimate Not Reportable Clumped Platelets Not Reportable Plt Clumps, EDTA Not Reportable Large Platelets Not Reportable Giant Platelets Not Reportable Platelet Satelliting Not Reportable Plt Morphology Comment Not Reportable RBC Morphology Normal Dimorphic RBCs Not Reportable Polychromasia Not Reportable Hypochromasia Not Reportable Poikilocytosis Not Reportable Anisocytosis Not Reportable Microcytosis Not Reportable Macrocytosis Not Reportable Spherocytes Not Reportable Pappenheimer Bodies Not Reportable Sickle Cells Not Reportable Target Cells Not Reportable Tear Drop Cells Not Reportable Ovalocytes Not Reportable Helmet Cells Not Reportable [place] Bodies Not Reportable [place] Rings Not Reportable [place]angel[place] Cells Not Reportable Bite Cells Not Reportable Crenated Cell Not Reportable Elliptocytes Not Reportable Acanthocytes (Spur) Not Reportable Rouleaux Not Reportable Hemoglobin C Crystals Not Reportable Schistocytes Not Reportable Malaria parasites Not Reportable Henry Bodies Not Reportable Hem Pathologist Commnt No Sodium 140 (137-145) mmol/L Potassium 4.6 (3.6-5.0) mmol/L Chloride 108.3 H (98-107) mmol/L Carbon Dioxide 18 L (22-30) mmol/L Anion Gap 18 mmol/L BUN 17 (7-17) mg/dL Creatinine 0.9 (0.7-1.2) mg/dL Estimated GFR > 60 ml/min BUN/Creatinine Ratio 19 % Glucose 190 H (65-100) mg/dL Calcium 9.4 (8.4-10.2) mg/dL Total Bilirubin 0.30 (0.1-1.2) mg/dL Direct Bilirubin < 0.2 (0-0.2) mg/dL Indirect Bilirubin 0.1 mg/dL AST 20 (5-40) units/L ALT 17 (7-56) units/L Alkaline Phosphatase 74 (35-129) units/L Total Protein 7.3 (6.3-8.2) g/dL Albumin 3.7 L (3.9-5) g/dL Albumin/Globulin Ratio 1.0 % - EKG Data -: EKG Interpreted by Mo EKG shows normal: sinus rhythm, ST-T waves (t wave inv I and AVL) - Radiology Data Radiology results: report reviewed INDICATION / CLINICAL INFORMATION: 63 years Female; . Difficulty breathing for the last 3 days; right peritonsillar swelling TECHNIQUE: Contiguous thin cut axial images obtained through the neck following IV injection of 100 mL of Omnipaque 300. Sagittal and coronal reconstructions performed by the technologist. All CT scans at this location are performed using CT dose reduction for ALARA by means of automated exposure control. COMPARISON: None available. FINDINGS: Both faucial tonsils are markedly enlarged more on the right side than the left side. Low density area measuring 13 mm (sagittal) x 7 mm (transverse) x 9 mm (height) sized low density areas seen laterally within the enlarged right tonsil,. I do not see enhancing rim around this low density area. Though it has progressed from the phlegmon stage, it has not yet totally matured into right tonsillar abscess. Left tonsil is more in the phlegmon stage. Airway is narrowed. Reactive lymph nodes are seen in the internal jugular chain bilaterally. LARYNX: Supraglottic, glottic and subglottic larynx are normal LYMPH NODES: Reactive lymph nodes SALIVARY GLANDS: Parotid, submandibular, and visualized sublingual glands are within normal limits. THYROID GLAND: Unremarkable. PARANASAL SINUSES: Visualized paranasal sinuses and mastoid air cells are essentially clear. SPINE: No significant abnormality of the cervical spine appreciated. BLOOD VESSELS IN THE CAROTID SPACE: Vascular structures are grossly normal in appearance. OTHER: Patchy opacities seen in the left upper lung field. Surrounding soft tissues are otherwise grossly normal. IMPRESSION: 1. Both faucial tonsils are markedly enlarged. The right tonsil is larger than the left tonsil, low density areas seen; I do not see definite rim enhancement to suggest peritonsillar abscess on the right Phlegmon in the left tonsil Airway is narrowed in oropharynx CHEST 1 VIEW, 05/05/2019 7:36 PM CLINICAL INFORMATION/INDICATION: Shortness of breath for 3 days COMPARISON: Chest radiograph, 12/28/2018 FINDINGS: SUPPORT DEVICES: None. HEART: The cardiac silhouette is within normal limits in size. LUNGS/PLEURA: There is faint bilateral interstitial prominence without evidence of overt pulmonary edema. ADDITIONAL FINDINGS: No additional acute findings. IMPRESSION: 1. Mild interstitial prominence suggesting mild venous hypertension. No evidence of overt pulmonary edema. - Medical Decision Making Pt was evaluated by MD. Able to swallow secretions and airway stable at this time [facility] ED MD Dr Sierra ED accepted pt IVF ordered by midlevel canceled due to chf hx and htn in ed. - Differential Diagnosis tonsillar abscess, tonsillar abscess, strep pharyngitis Critical Care Time: No Critical care attestation.: If time is entered above; I have spent that time in minutes in the direct care of this critically ill patient, excluding procedure time. ED Disposition Is pt being admited?: No Time of Disposition: 19:34 (tx to [facility] ED)
[2019-05-05 17:21] LABS: Hematocrit 38.4 % (30.3-42.9); Hemoglobin 12.5 gm/dl (10.1-14.3); Mean Corpuscular HGB Conc 33 % (30-34); Mean Corpuscular Volume 84 fl (79-97); Platelet Count 249 K/mm3 (140-440); Red Blood Count 4.59 M/mm3 (3.65-5.03); Red Cell Distribution Width 15.2 % (13.2-15.2)
[2019-05-05 17:44] LABS: BUN/Creatinine Ratio 19; Blood Urea Nitrogen 17 mg/dL (7-17); Calcium 9.4 mg/dL (8.4-10.2); Hemolysis Index 113
[2019-05-05 17:53] LABS: Alanine Aminotransferase 17 units/L (7-56); Albumin 3.7 g/dL (3.9-5)
[2019-05-05 17:55] LABS: Bilirubin,Direct < 0.2 mg/dL (0-0.2)
[2019-05-05] MEDS ORDERED: SODIUM CHLORIDE 0.9% 100 ML IVPB IV ONE (18:12)
[2019-05-05 18:20] LABS: RBC Morphology Normal; Total Cells Counted 100
--- NOTE | 2019-05-05 18:49 | Cat Scan Report ---
Contrast-enhanced CT scan of the neck: INDICATION / CLINICAL INFORMATION: 63 years Female; . Difficulty breathing for the last 3 days; right peritonsillar swelling TECHNIQUE: Contiguous thin cut axial images obtained through the neck following IV injection of 100 mL of Omnipa que 300. Sagittal and coronal reconstructions performed by the technologist. All CT scans at this [facility] ation are performed using CT dose reduction for ALARA by means of automated exposure control. COMPARISON: None available. FINDINGS: Both faucial tonsils are markedly enlarged more on the right side than the left side. Low d ensity area measuring 13 mm (sagittal) x 7 mm (transverse) x 9 mm (height) sized low density areas se en laterally within the enlarged right tonsil,. I do not see enhancing rim around this low density ar ea. Though it has progressed from the phlegmon stage, it has not yet totally matured into right tons illar abscess. Left tonsil is more in the phlegmon stage. Airway is narrowed. Reactive lymph nodes are seen in the internal jugular chain bilaterally. LARYNX: Supraglottic, glottic and subglottic larynx are normal LYMPH NODES: Reactive lymph nodes SALIVARY GLANDS: Parotid, submandibular, and visualized sublingual glands are within normal limits. THYROID GLAND: Unremarkable. PARANASAL SINUSES: Visualized paranasal sinuses and mastoid air cells are essentially clear. SPINE: No significant abnormality of the cervical spine appreciated. BLOOD VESSELS IN THE CAROTID SPACE: Vascular structures are grossly normal in appearance. OTHER: Patchy opacities seen in the left upper lung field. Surrounding soft tissues are otherwise grossly normal. IMPRESSION: 1. Both faucial tonsils are markedly enlarged. The right tonsil is larger than the left tonsil, low density areas seen; I do not see definite rim en hancement to suggest peritonsillar abscess on the right Phlegmon in the left tonsil Airway is narrowed in oropharynx Signer Name: Stan Flores MD Signed: 05/05/2019 6:42 PM Workstation Name: [id number]
--- NOTE | 2019-05-05 20:15 | XRay Report ---
CHEST 1 VIEW, 05/05/2019 7:36 PM CLINICAL INFORMATION/INDICATION: Shortness of breath for 3 days COMPARISON: Chest radiograph, 12/28/2018 FINDINGS: SUPPORT DEVICES: None. HEART: The cardiac silhouette is within normal limits in size. LUNGS/PLEURA: There is faint bilateral interstitial prominence without evidence of overt pulmonary ed zaida. ADDITIONAL FINDINGS: No additional acute findings. IMPRESSION: 1. Mild interstitial prominence suggesting mild venous hypertension. No evidence of overt pulmonary e divina. Signer Name: Lydia Kee MD Signed: 05/05/2019 8:11 PM Workstation Name: [id number]
[2019-05-05 21:06] VITALS: BP 177/74
== END 2019-05-05 22:31 | disposition other institution (70) ==
LOC: ED 15:37
DX: J36 Peritonsillar abscess (principal); I11.0 Hypertensive heart disease with heart failure; I50.9 Heart failure, unspecified; E11.9 Type 2 diabetes mellitus without complications; M19.90 Unspecified osteoarthritis, unspecified site; Z90.710 Acquired absence of both cervix and uterus
CPT/HCPCS: 36415; 70491; 71045; 80048; 80076; 85007; 85025; 93005; 93010; 96365; 96372; 96375; 99285; J1100; J1170; J2405; Q9967

== ENCOUNTER 2019-07-21 14:56 | Observation (INO) | payer MEDICARE ==
--- NOTE | 2019-07-21 15:10 | Emergency Department Report ---
Blank Doc - Documentation Documentation: 63-year-old female that presents with chest pain and SOB. This initial assessment/diagnostic orders/clinical plan/treatment(s) is/are subject to change based on patient's health status, clinical progression and re- assessment by fellow clinical providers in the ED. Further treatment and workup at subsequent clinical providers discretion. Patient/guardians urged not to elope from the ED as their condition may be serious if not clinically assessed and managed. Initial orders include: 1- Patient sent to MAIN ED for further evaluation and treatment 2- labs 3- EKG 4- cXR
--- NOTE | 2019-07-21 15:38 | XRay Report ---
CHEST 2 VIEWS INDICATION / CLINICAL INFORMATION: Chest Pain. COMPARISON: 05/05/2019 FINDINGS: SUPPORT DEVICES: None. HEART / MEDIASTINUM: No significant abnormality. LUNGS / PLEURA: No significant pulmonary or pleural abnormality. No pneumothorax. ADDITIONAL FINDINGS: No significant additional findings. IMPRESSION: 1. No acute findings. Signer Name: Warner Barroso MD Signed: 07/21/2019 3:34 PM Workstation Name: [id number]
--- NOTE | 2019-07-21 17:14 | Emergency Department Report ---
ED Chest Pain HPI - General Chief Complaint: Chest Pain Stated Complaint: CP/NEPHROPATHY Time Seen by Provider: 07/21/19 15:08 Source: patient Mode of arrival: Ambulatory Limitations: No Limitations - History of Present Illness Initial Comments: 63-year-old female with history of hypertension, CAD with stents, diabetes, CHF, depression, neuropathy, DVT, COPD presents to ED with chest pain since last night. Patient states pain is left-sided, radiating into the left neck and arm. She denies nausea, vomiting. Reports mild shortness of breath. Denies cough or fever. Patient had LAD stent placed 6 months ago. Currently takes Plavix. Followed by Dr Trujillo. Pt also complaining of neuropathic pain to her feet because she ran out of gabapentin. PCP: Dr Alan DSOUZA Complaint: chest pain -: Last night Onset: during rest Pain Location: left chest Pain Radiation: LUE, neck Severity: moderate Quality: tightness Consistency: now resolved Worsens With: nothing re: dyspnea. denies: nausea, vomting, diaphoresis Other Symptoms: denies: cough, fever, leg swelling - Related Data Home Medications Medication Instructions Recorded Confirmed Last Taken Albuterol INH(or & Nicu Only) 2 puff IH QID PRN 12/28/18 07/21/19 12/27/18 [ProAir HFA Inhaler] traMADoL [Ultram 50 MG tab] 50 mg PO Q6HR PRN 12/28/18 07/21/19 12/27/18 Clopidogrel [Plavix] 75 mg PO DAILY 07/21/19 Unknown Gabapentin 800 mg PO BID 07/21/19 Unknown Allergies Allergy/AdvReac Type Severity Reaction Status Date / Time aspirin Allergy Shortness Verified 05/05/19 15:37 of Breath Penicillins Allergy Swelling Verified 05/05/19 15:37 Heart Score - HEART Score History: Moderately suspicious EKG: Normal Age: 45-65 Risk factors: > 3 risk factors or hx of atherosclerotic disease Troponin: < normal limit HEART Score: 4 ED Review of Systems ROS: Stated complaint: CP/NEPHROPATHY Other details as noted in HPI Comment: All other systems reviewed and negative Constitutional: denies: chills, fever Respiratory: shortness of breath. denies: cough Cardiovascular: chest pain ED Past Medical Hx - Past Medical History Hx Hypertension: Yes (2003, high cholesterol) Hx CVA: Yes (-18) Hx Heart Attack/AMI: Yes Hx Congestive Heart Failure: Yes (on ranexa) Hx Diabetes: Yes Hx Deep Vein Thrombosis: Yes (thrombus RLE) Hx GERD: Yes Hx Liver Disease: No Hx Renal Disease: No Hx Sickle Cell Disease: No Hx Arthritis: Yes Hx Seizures: No Hx Psychiatric Treatment: Yes (depression w SI) Hx Asthma: No Hx COPD: No Hx Tuberculosis: No Hx Dementia: No Hx HIV: No Additional medical history: 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 BLE stent placement - Social History Smoking Status: Former Smoker Substance Use Type: None - Medications Home Medications: Home Medications Medication Instructions Recorded Confirmed Last Taken Type Albuterol INH(or & Nicu Only) 2 puff IH QID PRN 12/28/18 07/21/19 12/27/18 History [ProAir HFA Inhaler] traMADoL [Ultram 50 MG tab] 50 mg PO Q6HR PRN 12/28/18 07/21/19 12/27/18 History Clopidogrel [Plavix] 75 mg PO DAILY 07/21/19 Unknown History Gabapentin 800 mg PO BID 07/21/19 Unknown History ED Physical Exam - General Limitations: No Limitations General appearance: alert, in no apparent distress - Head Head exam: Present: atraumatic, normocephalic - Eye Eye exam: Present: normal appearance, EOMI - ENT ENT exam: Present: mucous membranes moist - Neck Neck exam: Present: normal inspection - Respiratory Respiratory exam: Present: normal lung sounds bilaterally. Absent: respiratory distress - Cardiovascular Cardiovascular Exam: Present: regular rate, normal rhythm - GI/Abdominal GI/Abdominal exam: Present: soft. Absent: distended, tenderness - Extremities Exam Extremities exam: Present: normal inspection - Neurological Exam Neurological exam: Present: alert, oriented X3 - Psychiatric Psychiatric exam: Present: normal affect, normal mood - Skin Skin exam: Present: warm, dry, intact, normal color ED Course Vital Signs 07/21/19 07/21/19 07/21/19 15:08 16:46 16:58 Temperature 98.7 F 98.3 F Pulse Rate 74 65 64 Respiratory 18 10 L 14 Rate Blood Pressure 192/94 Blood Pressure 176/74 [Left] O2 Sat by Pulse 100 96 Oximetry 07/21/19 07/21/19 07/21/19 17:01 17:15 17:31 Temperature Pulse Rate 64 63 64 Respiratory 15 15 13 Rate Blood Pressure 176/74 168/74 176/66 Blood Pressure [Left] O2 Sat by Pulse 96 95 92 Oximetry 07/21/19 07/21/19 07/21/19 17:45 18:01 18:15 Temperature Pulse Rate 64 63 64 Respiratory 12 15 12 Rate Blood Pressure 195/79 178/67 189/72 Blood Pressure [Left] O2 Sat by Pulse 96 95 96 Oximetry 07/21/19 07/21/19 07/21/19 18:31 18:53 19:26 Temperature Pulse Rate 64 Respiratory 13 20 Rate Blood Pressure 199/71 189/72 Blood Pressure [Left] O2 Sat by Pulse 93 Oximetry 07/21/19 07/21/19 07/21/19 19:31 19:45 20:01 Temperature Pulse Rate 74 76 79 Respiratory 13 16 12 Rate Blood Pressure 173/78 170/57 164/68 Blood Pressure [Left] O2 Sat by Pulse 94 98 95 Oximetry 07/21/19 07/21/19 07/21/19 20:15 20:30 20:45 Temperature Pulse Rate 76 76 74 Respiratory 15 19 16 Rate Blood Pressure 172/77 164/67 154/58 Blood Pressure [Left] O2 Sat by Pulse 91 96 94 Oximetry SHLOMO score - Shlomo Score Age > 65: (0) No Aspirin use within the Past 7 Days: (0) No 3 or more CAD Risk Factors: (0) No 2 or more Angina events in past 24 hrs: (0) No Known CAD with more than 50% Stenosis: (0) No Elevated Cardiac Markers: (0) No ST Deviation Greater than 0.5mm: (0) No SHLOMO Score: 0 ED Medical Decision Making - Lab Data Result diagrams: 07/21/19 17:16 07/21/19 17:16 - EKG Data -: EKG Interpreted by Nm EKG shows normal: sinus rhythm, axis, intervals, QRS complexes, ST-T waves Rate: normal - EKG Data Interpretation: no acute changes, LVH - Radiology Data Radiology results: report reviewed, image reviewed - Medical Decision Making 63 yo F w/ CAD, LAD stent placed 6 months ago. Pt complaining of chest pain. EKG shows no ST elevations, first troponin normal. BNP elevated, however, CXR normal. Will admit to hospitalist , Dr Bloom, for further evaluation. - Differential Diagnosis ACS, CHF, COPD Critical care attestation.: If time is entered above; I have spent that time in minutes in the direct care of this critically ill patient, excluding procedure time. ED Disposition Clinical Impression: Acute chest pain Disposition: DC-[id number] OP ADMIT IP TO THIS HOSP Is pt being admited?: Yes Condition: Stable Time of Disposition: 18:42
[2019-07-21 17:45] LABS: Basophils # (Auto) 0.1 K/mm3 (0.0-0.1); Basophils % (Auto) 0.9 % (0.0-1.8); Eosinophils # (Auto) 0.2 K/mm3 (0.0-0.4); Eosinophils % (Auto) 1.7 % (0.0-4.3); Hematocrit 38.5 % (30.3-42.9); Hemoglobin 12.8 gm/dl (10.1-14.3); Lymphocytes # (Auto) 3.7 K/mm3 (1.2-5.4); Lymphocytes % (Auto) 40.8 % (13.4-35.0); Mean Corpuscular HGB Conc 33 % (30-34); Mean Corpuscular Volume 81 fl (79-97); Monocytes # (Auto) 0.7 K/mm3 (0.0-0.8); Monocytes % (Auto) 7.3 % (0.0-7.3); Platelet Count 292 K/mm3 (140-440); Red Blood Count 4.77 M/mm3 (3.65-5.03); Red Cell Distribution Width 14.8 % (13.2-15.2)
[2019-07-21 17:55] LABS: INR 0.96 (0.87-1.13)
[2019-07-21 17:56] LABS: Partial Thromboplastin Time 26.7 Sec. (24.2-36.6)
[2019-07-21 18:04] LABS: Alanine Aminotransferase 6 units/L (7-56); BUN/Creatinine Ratio 20; Blood Urea Nitrogen 16 mg/dL (7-17); Calcium 9.8 mg/dL (8.4-10.2); Hemolysis Index 6
--- NOTE | 2019-07-21 18:07 | XRay Report ---
CHEST 1 VIEW 07/21/2019 5:14 PM INDICATION / CLINICAL INFORMATION: chest pain. COMPARISON: 3:26 PM FINDINGS: SUPPORT DEVICES: None. HEART / MEDIASTINUM: Heart is upper normal size for AP portable technique and stable. LUNGS / PLEURA: No significant pulmonary or pleural abnormality. No pneumothorax. ADDITIONAL FINDINGS: No significant additional findings. IMPRESSION: 1. No acute findings. No significant change. Signer Name: Basia Bates MD Signed: 07/21/2019 6:02 PM Workstation Name: [id number]
[2019-07-21] MEDS ORDERED: GABAPENTIN 400 MG CAP ONE (19:47)
[2019-07-21] MEDS ORDERED: GABAPENTIN 400 MG CAP PO ONE (19:56)
[2019-07-21] MEDS ORDERED: ALBUTEROL 2.5 MG/3 ML NEBU IH PRN (20:12)
[2019-07-21] MEDS ORDERED: ACETAMINOPHEN 325 MG TAB PO PRN (20:12)
[2019-07-21] MEDS ORDERED: oxyCODONE /ACETAMINOPHEN 5-325MG TAB PO PRN (20:12)
[2019-07-21] MEDS ORDERED: DEXTROSE 50% IN WATER (25GM) 50 ML SYRINGE IV PRN (20:12)
[2019-07-21] MEDS ORDERED: ONDANSETRON 4 MG/2 ML INJ IV PRN (20:12)
[2019-07-21] MEDS ORDERED: NITROGLYCERIN 0.4 MG TAB SUBL SL PRN (20:21)
--- NOTE | 2019-07-21 20:39 | History and Physical Report ---
History of Present Illness Date of examination: 07/21/19 Date of admission: 07/21/19 18:43 Chief complaint: chest pain History of present illness: 63-year-old -[place] female with history of arthritis, CHF with EF 50 to 55%, CVA, DVT, DM, GERD, [place], HTN, HLD, depression with SI who presents to [facility] ED with complaints of chest pain x1 day. Patient states she started experiencing left-sided chest pain last night (07/20/2019). The pain radiates to her back and she describes it as sharp. She rates the pain 6/10. Patient admits to mild shortness of breath with chest pain. She denies nausea, emesis, or diaphoresis. Additionally patient complains of neuropathic foot pain after running out of her gabapentin 1 week ago. Review of medical record shows p atient had echo done on 12/30/2018 with a EF of 50 to 55%, and [facility] with stent x1 to proximal LAD on 12/31/2018. Her insurance assistant is Dr. Trujillo. Past History Past Medical History: arthritis, diabetes (with neuropathy), DVT, GERD, heart failure (EF 50-55%), hypertension, hyperlipidemia, PVD, stroke (03/2018), other (depression with SI) Past Surgical History: hysterectomy (2002), Other (s/p stent x1, R shoulder surgery (2014). BLE stent placement) Social history: lives with family Family history: no significant family history Medications and Allergies Allergies Allergy/AdvReac Type Severity Reaction Status Date / Time aspirin Allergy Shortness Verified 05/05/19 15:37 of Breath Penicillins Allergy Swelling Verified 05/05/19 15:37 Home Medications Medication Instructions Recorded Confirmed Last Taken Type Albuterol INH(or & Nicu Only) 2 puff IH QID PRN 12/28/18 07/21/19 12/27/18 Histo ry [ProAir HFA Inhaler] traMADoL [Ultram 50 MG tab] 50 mg PO Q6HR PRN 12/28/18 07/21/19 12/27/18 History Clopidogrel [Plavix] 75 mg PO DAILY 07/21/19 Unknown History Gabapentin 800 mg PO BID 07/21/19 Unknown History Review of Systems All systems: negative Cardiovascular: chest pain, shortness of breath (mild ) Psychiatric: no suicidal ideation Exam - Physical Exam Narrative exam: Physical exam General appearance: Present: No acute distress, alert and oriented 3, adult female - EENT Eyes: Present: PERRL, EOM intact ENT: hearing intact, missing teeth - Neck Neck: Present: supple, normal ROM - Respiratory Respiratory effort: Non-labored Respiratory: Diminished bases - Cardiovascular Heart rate: 64 (bpm) Rhythm: Sinus rhythm Heart Sounds: Present: S1 & S2. Absent: rub, click - Extremities Extremities: no ischemia, pulses intact, - Peripheral Assessment Peripheral Pulses: within normal limits - Abdominal General gastrointestinal: soft, non-tender, normal bowel sounds - Integumentary Integumentary: Present: warm, dry - Musculoskeletal Musculoskeletal: Able to move all extremities -Neurological Neurological: CN II-XII intact - Psychiatric Psychiatric: cooperative - Constitutional Vitals: Temp Pulse Resp BP Pulse Ox 98.3 F 64 20 176/74 96 07/21/19 16:58 07/21/19 16:58 07/21/19 18:53 07/21/19 16:58 07/21/19 16:58 SHLOMO score - Shlomo Score Age > 65: (0) No Aspirin use within the Past 7 Days: (0) No 3 or more CAD Risk Factors: (0) No 2 or more Angina events in past 24 hrs: (0) No Known CAD with more than 50% Stenosis: (0) No Elevated Cardiac Markers: (0) No ST Deviation Greater than 0.5mm: (0) No SHLOMO Score: 0 Results - Labs CBC & Chem 7: 07/21/19 17:16 07/21/19 17:16 Labs: Laboratory Last Values WBC 9.0 K/mm3 (4.5-11.0) 07/21/19 17:16 RBC 4.77 M/mm3 (3.65-5.03) 07/21/19 17:16 Hgb 12.8 gm/dl (10.1-14.3) 07/21/19 17:16 Hct 38.5 % (30.3-42.9) 07/21/19 17:16 MCV 81 fl (79-97) 07/21/19 17:16 MCH 27 pg (28-32) L 07/21/19 17:16 MCHC 33 % (30-34) 07/21/19 17:16 RDW 14.8 % (13.2-15.2) 07/21/19 17:16 Plt Count 292 K/mm3 (140-440) 07/21/19 17:16 Lymph % (Auto) 40.8 % (13.4-35.0) H 07/21/19 17:16 [place] % (Auto) 7.3 % (0.0-7.3) 07/21/19 17:16 Eos % (Auto) 1.7 % (0.0-4.3) 07/21/19 17:16 Baso % (Auto) 0.9 % (0.0-1.8) 07/21/19 17:16 Lymph # 3.7 K/mm3 (1.2-5.4) 07/21/19 17:16 [place] # 0.7 K/mm3 (0.0-0.8) 07/21/19 17:16 Eos # 0.2 K/mm3 (0.0-0.4) 07/21/19 17:16 Baso # 0.1 K/mm3 (0.0-0.1) 07/21/19 17:16 Seg Neutrophils % 49.3 % (40.0-70.0) 07/21/19 17:16 Seg Neutrophils # 4.5 K/mm3 (1.8-7.7) 07/21/19 17:16 PT 12.9 Sec. (12.2-14.9) 07/21/19 17:16 INR 0.96 (0.87-1.13) 07/21/19 17:16 APTT 26.7 Sec. (24.2-36.6) 07/21/19 17:16 Sodium 141 mmol/L (137-145) 07/21/19 17:16 Potassium 3.8 mmol/L (3.6-5.0) 07/21/19 17:16 Chloride 104.7 mmol/L (98-107) 07/21/19 17:16 Carbon Dioxide 24 mmol/L (22-30) 07/21/19 17:16 Anion Gap 16 mmol/L 07/21/19 17:16 BUN 16 mg/dL (7-17) 07/21/19 17:16 Creatinine 0.8 mg/dL (0.7-1.2) 07/21/19 17:16 Estimated GFR > 60 ml/min 07/21/19 17:16 BUN/Creatinine Ratio 20 % 07/21/19 17:16 Glucose 93 mg/dL (65-100) 07/21/19 17:16 Calcium 9.8 mg/dL (8.4-10.2) 07/21/19 17:16 Total Bilirubin 0.20 mg/dL (0.1-1.2) 07/21/19 17:16 AST 11 units/L (5-40) 07/21/19 17:16 ALT 6 units/L (7-56) L 07/21/19 17:16 Alkaline Phosphatase 72 units/L (35-129) 07/21/19 17:16 Troponin T < 0.010 ng/mL (0.00-0.029) 07/21/19 17:16 NT-Pro-B Natriuret Pep 1129 pg/mL (0-900) H 07/21/19 17:16 Total Protein 6.9 g/dL (6.3-8.2) 07/21/19 17:16 Albumin 4.0 g/dL (3.9-5) 07/21/19 17:16 Albumin/Globulin Ratio 1.4 % 07/21/19 17:16 - Imaging and Cardiology Imaging and Cardiology: CXR: FINDINGS: SUPPORT DEVICES: None. HEART / MEDIASTINUM: Heart is upper normal size for AP portable technique and stable. LUNGS / PLEURA: No significant pulmonary or pleural abnormality. No pneumothorax. ADDITIONAL FINDINGS: No significant additional findings. IMPRESSION: 1. No acute findings. No significant change. Assessment and Plan Assessment and plan: 63-year-old -[place] female with history of arthritis, CHF with EF 50 to 55%, CVA, DVT, DM, GERD, [place], HTN, HLD, depression with SI who presents to [facility] ED with complaints of chest pain x1 day. Acute Atypical Chest Pain -Hx CHF with EF 50-55% on Echo 12/30/18 -Initiate chest pain protocol -Continuous telemetry monitoring -Continue supportive care -Pain mgmt -Troponin negative x2 , will continue to trend -EKG unrevealing for acute ischemic abnormalities -Will defer additional cardiac workup to cardiology -Cardiology consulted Hypertensive urgency -BP on admission 192/94 -Hx Hypertension -Continue to monitor BP -Resume home antihypertensive meds to optimize BP once medication reconciliation has been completed -IV antihypertensive when necessary DM -with neuropathy -Continue gabapentin -POC BG monitoring -SSI coverage prn CHF -S/p LHC with stent x1 (12/31/18) -EF 50-55% on Echo 12/30/18 -BNP 1129 -CXR shows No significant pulmonary or pleural abnormality -ASA allergy on Plavix -Cardiology consulted GERD -PPI BID DVT PPX -on Plavix and SCD's Advance Directives: No VTE prophylaxis?: Chemical Plan of care discussed with patient/family: Yes
[2019-07-21] MEDS ORDERED: hydrALAZINE 20 MG/1 ML INJ IV PRN (21:16)
[2019-07-21] MEDS: DOCUSATE SODIUM 100 MG CAP PO SCH (23:00)
[2019-07-21] MEDS: GABAPENTIN 400 MG CAP PO SCH (23:00)
[2019-07-21] MEDS: PANTOPRAZOLE 40 MG TAB PO SCH (23:00)
[2019-07-21] MEDS: INSULIN LISPRO 100 UNIT/ML SUB-Q SCH (23:30)
[2019-07-22 06:24] LABS: Basophils # (Auto) 0.1 K/mm3 (0.0-0.1); Basophils % (Auto) 0.6 % (0.0-1.8); Eosinophils # (Auto) 0.2 K/mm3 (0.0-0.4); Eosinophils % (Auto) 1.8 % (0.0-4.3); Hematocrit 37.6 % (30.3-42.9); Hemoglobin 12.5 gm/dl (10.1-14.3); Lymphocytes # (Auto) 3.6 K/mm3 (1.2-5.4); Lymphocytes % (Auto) 37.9 % (13.4-35.0); Mean Corpuscular HGB Conc 33 % (30-34); Mean Corpuscular Volume 82 fl (79-97); Monocytes # (Auto) 0.7 K/mm3 (0.0-0.8); Monocytes % (Auto) 6.9 % (0.0-7.3); Platelet Count 301 K/mm3 (140-440); Red Blood Count 4.59 M/mm3 (3.65-5.03); Red Cell Distribution Width 14.8 % (13.2-15.2)
[2019-07-22 06:45] LABS: BUN/Creatinine Ratio 21; Blood Urea Nitrogen 17 mg/dL (7-17); Calcium 9.5 mg/dL (8.4-10.2); Hemolysis Index 10
--- NOTE | 2019-07-22 08:26 | Progress Note ---
Assessment and Plan Assessment and plan: 63-year-old -[place] female with history of arthritis, CHF with EF 50 to 55%, CVA, DVT, DM, GERD, [place], HTN, HLD, depression with SI who presents to [facility] ED with complaints of chest pain x1 day. Patient states she started experiencing left-sided chest pain last night (07/20/2019). The pain radiates to her back and she describes it as sharp. She rates the pain 6/10. Patient admits to mild shortness of breath with chest pain. She denies nausea, emesis, or diaphoresis. Additionally patient complains of neuropathic foot pain after running out of her gabapentin 1 week ago. Review of medical record shows patient had echo done on 12/30/2018 with a EF of 50 to 55%, and C with stent x1 to proximal LAD on 12/31/2018. Her drum printer is Dr. Trujillo. Past History Past Medical History: arthritis, diabetes (with neuropathy), DVT, GERD, heart failure (EF 50-55%), hypertension, hyperlipidemia, PVD, stroke (03/2018), other (depression with SI) 63-year-old -[place] female with history of arthritis, CHF with EF 50 to 55%, CVA, DVT, DM, GERD, [place], HTN, HLD, depression with SI who presents to [facility] ED with complaints of chest pain x1 day. Acute Atypical Chest Pain, history of CAD -Hx CHF with EF 50-55% on Echo 12/30/18 Cardiology consult pending -Unclear if patient has a history of CHF. Preserved EF on echo however is been documented multiple times. Defer to cardiology Hypertensive urgency Improving with meds\ DM -with neuropathy Continue insulins and gabapentin GERD -PPI BID DVT PPX -on Plavix and SCD's History Interval history: Review of systems Constitutional: No fevers, no malaise, no joint pains CVS: No chest pain, no orthopnea, no pedal edema GI: No abdominal pain, no diarrhea, no vomiting, no constipation Respiratory: , no wheezing, no coughing Hospitalist Physical - Physical exam Narrative exam: General.: Appears well, no distress, nontoxic HEENT: Moist mucous membranes, extraocular muscles intact, no lymphadenopathy Neck: supple Cardiac: S1-S2 heard Lungs: clear to auscultation bilaterally Abdomen: soft , nontender, nondistended, bowel sounds positive Extremities: no edema clubbing or cyanosis Skin: no rash or lesions Neurologic: no gross focal deficits Psych: calm, and cooperative - Constitutional Vitals: Temp Pulse Resp BP Pulse Ox 98.0 F 61 18 171/53 98 07/22/19 08:06 07/22/19 08:06 07/22/19 08:06 07/22/19 08:06 07/22/19 08:06 SHLOMO score - Shlomo Score Age > 65: (0) No Aspirin use within the Past 7 Days: (0) No 3 or more CAD Risk Factors: (0) No 2 or more Angina events in past 24 hrs: (0) No Known CAD with more than 50% Stenosis: (0) No Elevated Cardiac Markers: (0) No ST Deviation Greater than 0.5mm: (0) No SHLOMO Score: 0 Results - Labs CBC & Chem 7: 07/22/19 06:01 07/22/19 06:01 Labs: Laboratory Last Values WBC 9.5 K/mm3 (4.5-11.0) 07/22/19 06:01 RBC 4.59 M/mm3 (3.65-5.03) 07/22/19 06:01 Hgb 12.5 gm/dl (10.1-14.3) 07/22/19 06:01 Hct 37.6 % (30.3-42.9) 07/22/19 06:01 MCV 82 fl (79-97) 07/22/19 06:01 MCH 27 pg (28-32) L 07/22/19 06:01 MCHC 33 % (30-34) 07/22/19 06:01 RDW 14.8 % (13.2-15.2) 07/22/19 06:01 Plt Count 301 K/mm3 (140-440) 07/22/19 06:01 Lymph % (Auto) 37.9 % (13.4-35.0) H 07/22/19 06:01 [place] % (Auto) 6.9 % (0.0-7.3) 07/22/19 06:01 Eos % (Auto) 1.8 % (0.0-4.3) 07/22/19 06:01 Baso % (Auto) 0.6 % (0.0-1.8) 07/22/19 06:01 Lymph # 3.6 K/mm3 (1.2-5.4) 07/22/19 06:01 [place] # 0.7 K/mm3 (0.0-0.8) 07/22/19 06:01 Eos # 0.2 K/mm3 (0.0-0.4) 07/22/19 06:01 Baso # 0.1 K/mm3 (0.0-0.1) 07/22/19 06:01 Seg Neutrophils % 52.8 % (40.0-70.0) 07/22/19 06:01 Seg Neutrophils # 5.0 K/mm3 (1.8-7.7) 07/22/19 06:01 PT 12.9 Sec. (12.2-14.9) 07/21/19 17:16 INR 0.96 (0.87-1.13) 07/21/19 17:16 APTT 26.7 Sec. (24.2-36.6) 07/21/19 17:16 Sodium 142 mmol/L (137-145) 07/22/19 06:01 Potassium 3.7 mmol/L (3.6-5.0) 07/22/19 06:01 Chloride 103.5 mmol/L (98-107) 07/22/19 06:01 Carbon Dioxide 24 mmol/L (22-30) 07/22/19 06:01 Anion Gap 18 mmol/L 07/22/19 06:01 BUN 17 mg/dL (7-17) 07/22/19 06:01 Creatinine 0.8 mg/dL (0.7-1.2) 07/22/19 06:01 Estimated GFR > 60 ml/min 07/22/19 06:01 BUN/Creatinine Ratio 21 % 07/22/19 06:01 Glucose 98 mg/dL (65-100) 07/22/19 06:01 POC Glucose 154 (70-105) H 07/22/19 08:13 Calcium 9.5 mg/dL (8.4-10.2) 07/22/19 06:01 Total Bilirubin 0.20 mg/dL (0.1-1.2) 07/21/19 17:16 AST 11 units/L (5-40) 07/21/19 17:16 ALT 6 units/L (7-56) L 07/21/19 17:16 Alkaline Phosphatase 72 units/L (35-129) 07/21/19 17:16 Troponin T < 0.010 ng/mL (0.00-0.029) 07/21/19 22:57 NT-Pro-B Natriuret Pep 1129 pg/mL (0-900) H 07/21/19 17:16 Total Protein 6.9 g/dL (6.3-8.2) 07/21/19 17:16 Albumin 4.0 g/dL (3.9-5) 07/21/19 17:16 Albumin/Globulin Ratio 1.4 % 07/21/19 17:16 Active Medications - Current Medications Current Medications: Generic Name Dose Route Start Last Admin Trade Name Freq PRN Reason Stop Dose Admin Acetaminophen 650 mg 07/21/19 20:12 Tylenol PO Q4H PRN Pain MILD(1-3)/Fever >100.5/BARBOZA Albuterol 2.5 mg 07/21/19 20:12 Proventil IH Q3HRT PRN Shortness Of Breath Clopidogrel Bisulfate 75 mg 07/22/19 10:00 Plavix PO DAILY DEBRA Dextrose 50 ml 07/21/19 20:12 D50w (25gm) Syringe IV Q30MIN PRN Hypoglycemia Protocol Docusate Sodium 100 mg 07/21/19 22:00 07/21/19 23:00 Colace PO 100 mg BID DEBRA Administration Gabapentin 800 mg 07/21/19 22:00 07/21/19 23:00 Gabapentin PO 800 mg BID DEBRA Administration Hydralazine HCl 10 mg 07/21/19 21:16 Apresoline IV Q4HR PRN Blood Pressure Insulin Human Lispro 0 unit 07/21/19 22:00 07/21/19 23:30 Humalog SUB-Q Not Given ACHS DEBRA Protocol Nitroglycerin 0.4 mg 07/21/19 20:21 Nitrostat SL .Q5MIN PRN Chest Pain Ondansetron HCl 4 mg 07/21/19 20:12 Zofran IV Q6H PRN Nausea And Vomiting Oxycodone/Acetaminophen 1 tab 07/21/19 20:12 Percocet 5/325 PO Q6H PRN Pain, Moderate (4-6) Pantoprazole Sodium 40 mg 07/21/19 22:00 07/21/19 23:00 Protonix PO 40 mg BID DEBRA Administration Sodium Chloride 10 ml 07/21/19 22:00 07/21/19 23:01 Sodium Chloride Flush Syringe 10 Ml IV 10 ml BID DEBRA Administration Sodium Chloride 10 ml 07/21/19 20:12 Sodium Chloride Flush Syringe 10 Ml IV PRN PRN LINE FLUSH
[2019-07-22] MEDS: INSULIN LISPRO 100 UNIT/ML SUB-Q SCH ×4 (09:38→22:09)
[2019-07-22] MEDS: PANTOPRAZOLE 40 MG TAB PO SCH ×2 (09:38→22:11)
[2019-07-22] MEDS: GABAPENTIN 400 MG CAP PO SCH ×2 (09:39→22:10)
[2019-07-22] MEDS: DOCUSATE SODIUM 100 MG CAP PO SCH ×2 (09:39→22:10)
[2019-07-22] MEDS: METOPROLOL SUCCINATE XL 25 MG TAB PO SCH (09:51)
[2019-07-22] MEDS: CLOPIDOGREL 75 MG TAB PO SCH ×2 (09:51→22:10)
[2019-07-22] MEDS: LISINOPRIL 10 MG TAB PO SCH (09:52)
[2019-07-22] MEDS: RANOLAZINE ER 500 MG TAB 12HR PO SCH ×2 (09:52→22:10)
[2019-07-22] MEDS ORDERED: CLOPIDOGREL 75 MG TAB PO SCH (10:00)
--- NOTE | 2019-07-22 11:31 | Consultation ---
History of Present Illness Consult date: 07/22/19 Consult reason: chest pain History of present illness: Patient is a 63-year old woman with a coronary artery disease. 6 months ago a re-cardiac catheterization showed multi-vessel coronary artery disease with chronic total occlusion of the RCA and severe disease of the proximal LAD. Ejection fraction 45-50%. Patient underwent angioplasty and stenting of the proximal LAD using drug eluting stents. Due to aspirin allergy patient was recommended mono-therapy with plavix twice a day. Patient presents to this hospital with complaints of chest pain. Patient associates chest pain with coughs. Patient denies unusual shortness of breath and palpitations. She remains afebrile. A chest x-ray done the the emergency department is normal. Cycled troponins are normal. An ECG is sinus rhythm with LVH. A cardiac consultation has been requested for further evaluation. Past History Past Medical History: arthritis, diabetes (with neuropathy), DVT, GERD, hypertension, hyperlipidemia, PVD, stroke (03/2018), other (depression with SI) Past Surgical History: hysterectomy (2002), Other (R shoulder surgery (2014). BLE stent placement) Social history: lives with family Family history: no significant family history Medications and Allergies Allergies Allergy/AdvReac Type Severity Reaction Status Date / Time aspirin Allergy Shortness Verified 05/05/19 15:37 of Breath Penicillins Allergy Swelling Verified 05/05/19 15:37 Home Medications Medication Instructions Recorded Confirmed Last Taken Type Albuterol INH(or & Nicu Only) 2 puff IH QID PRN 12/28/18 07/21/19 12/27/18 History [ProAir HFA Inhaler] traMADoL [Ultram 50 MG tab] 50 mg PO Q6HR PRN 12/28/18 07/21/19 12/27/18 History Clopidogrel [Plavix] 75 mg PO DAILY 07/21/19 Unknown History Gabapentin 800 mg PO BID 07/21/19 Unknown History Active Meds: Active Medications Acetaminophen (Tylenol) 650 mg PO Q4H PRN PRN Reason: Pain MILD(1-3)/Fever >100.5/BARBOZA Albuterol (Proventil) 2.5 mg IH Q3HRT PRN PRN Reason: Shortness Of Breath Atorvastatin Calcium (Lipitor) 40 mg PO QHS DEBRA Clopidogrel Bisulfate (Plavix) 75 mg PO BID [facility] Last Admin: 07/22/19 09:51 Dose: 75 mg Documented by: Dextrose (D50w (25gm) Syringe) 50 ml IV Q30MIN PRN; Protocol PRN Reason: Hypoglycemia Docusate Sodium (Colace) 100 mg PO BID [facility] Last Admin: 07/22/19 09:39 Dose: 100 mg Documented by: Gabapentin (Gabapentin) 800 mg PO BID [facility] Last Admin: 07/22/19 09:39 Dose: 800 mg Documented by: Hydralazine HCl (Apresoline) 10 mg IV Q4HR PRN PRN Reason: Blood Pressure Insulin Human Lispro (Humalog) 0 unit SUB-Q ACHS [facility]; Protocol Last Admin: 07/22/19 09:38 Dose: 2 unit Documented by: Isosorbide Mononitrate (Imdur) 30 mg PO QDAY [facility] Last Admin: 07/22/19 09:52 Dose: 30 mg Documented by: Lisinopril (Zestril) 10 mg PO QDAY [facility] Last Admin: 07/22/19 09:52 Dose: 10 mg Documented by: Metoprolol Succinate (Metoprolol Xl) 25 mg PO QDAY [facility] Last Admin: 07/22/19 09:51 Dose: 25 mg Documented by: Nitroglycerin (Nitrostat) 0.4 mg SL .Q5MIN PRN PRN Reason: Chest Pain Ondansetron HCl (Zofran) 4 mg IV Q6H PRN PRN Reason: Nausea And Vomiting Oxycodone/Acetaminophen (Percocet 5/325) 1 tab PO Q6H PRN PRN Reason: Pain, Moderate (4-6) Pantoprazole Sodium (Protonix) 40 mg PO BID [facility] Last Admin: 07/22/19 09:38 Dose: 40 mg Documented by: Ranolazine (Ranexa Er) 1,000 mg PO BID [facility] Last Admin: 07/22/19 09:52 Dose: 1,000 mg Documented by: Sodium Chloride (Sodium Chloride Flush Syringe 10 Ml) 10 ml IV BID [facility] Last Admin: 07/22/19 09:40 Dose: 10 ml Documented by: Sodium Chloride (Sodium Chloride Flush Syringe 10 Ml) 10 ml IV PRN PRN PRN Reason: LINE FLUSH Physical Examination Vital Signs Temp Pulse Resp BP Pulse Ox 98.7 F 74 18 192/94 100 07/21/19 15:08 07/21/19 15:08 07/21/19 15:08 07/21/19 15:08 07/21/19 15:08 General appearance: no acute distress HEENT: Positive: PERRL Neck: Positive: trachea midline Cardiac: Positive: Reg Rate and Rhythm Lungs: Positive: Decreased Breath Sounds Neuro: Positive: Grossly Intact Extremities: Absent: edema Results 07/22/19 06:01 07/22/19 06:01 Cardiac Enzymes 07/21/19 Range/Units 17:16 AST 11 (5-40) units/L Coagulation 07/21/19 Range/Units 17:16 PT 12.9 (12.2-14.9) Sec. INR 0.96 (0.87-1.13) APTT 26.7 (24.2-36.6) Sec. CBC 07/21/19 07/22/19 Range/Units 17:16 06:01 WBC 9.0 9.5 (4.5-11.0) K/mm3 RBC 4.77 4.59 (3.65-5.03) M/mm3 Hgb 12.8 12.5 (10.1-14.3) gm/dl Hct 38.5 37.6 (30.3-42.9) % Plt Count 292 301 (140-440) K/mm3 Lymph # 3.7 3.6 (1.2-5.4) K/mm3 [place] # 0.7 0.7 (0.0-0.8) K/mm3 Eos # 0.2 0.2 (0.0-0.4) K/mm3 Baso # 0.1 0.1 (0.0-0.1) K/mm3 Comprehensive Metabolic Panel 07/21/19 07/22/19 Range/Units 17:16 06:01 Sodium 141 142 (137-145) mmol/L Potassium 3.8 3.7 (3.6-5.0) mmol/L Chloride 104.7 103.5 (98-107) mmol/L Carbon Dioxide 24 24 (22-30) mmol/L BUN 16 17 (7-17) mg/dL Creatinine 0.8 0.8 (0.7-1.2) mg/dL Glucose 93 98 (65-100) mg/dL Calcium 9.8 9.5 (8.4-10.2) mg/dL AST 11 (5-40) units/L ALT 6 L (7-56) units/L Alkaline Phosphatase 72 (35-129) units/L Total Protein 6.9 (6.3-8.2) g/dL Albumin 4.0 (3.9-5) g/dL Assessment and Plan Chest pain Hx of CAD s/p PCI of the proximal LAD using JASON 12/2018. CARDIOTHORACIC PHYSIOTHERAPIST of the RCA recommended for medical therapy. normal LVEF 50-55% by echo 12/2018. ASA allergy (hives, itching). On plavix twice a day. Hx of Diabetes Hypertension Stress thallium test for further cardiac evaluation. This will be done tomorrow morning.
[2019-07-22] MEDS ORDERED: FLU VACC QUAD 2019-20 (3 YR UP)/PF 60 MCG/0.5 ML SYRINGE IM ONE (12:00)
[2019-07-23] MEDS ORDERED: REGADENOSON 0.4 MG/5 ML INJ IV ONE (08:40)
[2019-07-23] MEDS: INSULIN LISPRO 100 UNIT/ML SUB-Q SCH ×2 (09:22→14:39)
--- NOTE | 2019-07-23 10:49 | Discharge Summary ---
Providers - Providers Date of Admission: 07/21/19 18:43 Attending physician: BOSTON ROLLINS MD 07/21/19 20:12 Consult to Physician [CONS] Routine Comment: Consulting Provider: SHERWIN RABAGO Physician Instructions: Reason For Exam: chest pain, est pt with CHF s/p stent Primary care physician: KATHRIN SMITH Hospitalization Condition: Stable Hospital course: 63-year-old -Swiss female with history of arthritis, CHF with EF 50 to 55%, CVA, DVT, DM, GERD, [place], HTN, HLD, depression with SI who presents to [facility] ED with complaints of chest pain x1 day. Past History Past Medical History: arthritis, diabetes (with neuropathy), DVT, GERD, heart failure (EF 50-55%), hypertension, hyperlipidemia, PVD, stroke (03/2018), other (depression with SI) 63-year-old -Swiss female with history of arthritis, CHF with EF 50 to 55%, CVA, DVT, DM, GERD, [place], HTN, HLD, depression with SI who presents to [facility] ED with complaints of chest pain x1 day. Acute Atypical Chest Pain likely due to stable angina, history of CAD -Hx CHF with EF 50-55% on Echo 12/30/18 Cardiology consult appreciated, mpi showed only a small defect. Medical management was recommended. Preventative health counseling performed for 17 minutes Mild chronic sytolic CHF, ef 50 meds optimized, judy and bb Hypertensive urgency Improving with meds DM -with neuropathy Continue insulins and gabapentin Disposition: TO HOME OR SELFCARE Time spent for discharge: 33 mins Core Measure Documentation - Palliative Care Palliative Care/ Comfort Measures: Not Applicable - Core Measures Any of the following diagnoses?: heart failure - Heart Failure Discharge Requirements JUDY/ARB for LVSD if EF <40%: Not Applicable Beta tr at discharge: Yes Exam - Constitutional Vitals: Temp Pulse Resp BP Pulse Ox 98.0 F 63 18 113/83 97 07/23/19 07:51 07/23/19 03:29 07/23/19 07:51 07/23/19 07:51 07/23/19 03:29 General appearance: Present: no acute distress, well-nourished - EENT Eyes: Present: PERRL ENT: hearing intact, clear oral mucosa - Neck Neck: Present: supple, normal ROM - Respiratory Respiratory effort: normal Respiratory: bilateral: CTA - Cardiovascular Heart Sounds: Present: S1 & S2. Absent: rub, click - Extremities Extremities: pulses symmetrical, No edema Peripheral Pulses: within normal limits - Abdominal General gastrointestinal: Present: soft, non-tender, non-distended, normal bowel sounds Female genitourinary: Present: normal - Integumentary Integumentary: Present: clear, warm, dry - Musculoskeletal Musculoskeletal: gait normal, strength equal bilaterally - Psychiatric Psychiatric: appropriate mood/affect, intact judgment & insight - Neurologic Neurologic: CNII-XII intact, moves all extremities Plan Follow up with: KATHRIN SMITH MD [Primary Care Provider] - 3-5 Days Prescriptions: ISOSORBIDE MONOnitrate [Imdur ER] 30 mg PO QDAY #30 tablet Metoprolol Xl [Metoprolol SUCCINATE ER TAB] 25 mg PO QDAY #30 tablet Nitroglycerin [Nitrostat] 0.4 mg SL .Q5MIN PRN #30 tablet PRN Reason: Chest Pain Ranolazine ER [Ranexa ER] 1,000 mg PO BID #120 tablet lisinopriL [Zestril TAB] 10 mg PO QDAY #30 tablet
--- NOTE | 2019-07-23 11:31 | Event Note ---
Date: 07/23/19 Patient underwent a Lexiscan thallium stress test, test has been completed and the results are pending. Otherwise, no cardiac complaints, patient looks and feels well.
--- NOTE | 2019-07-23 13:14 | Event Note ---
Date: 07/23/19 Thallium perfusion images show a small fixed basal inferior defect with minimal reversibility. These findings appear consistent with her chronic total occlusion of the right coronary artery which is under medical management. No perfusion defects identified in the left anterior descending artery distribution. Patient is stable for cardiac discharge on guideline directed medical therapy for coronary artery disease including dual oral antiplatelet therapy.
[2019-07-23] MEDS: RANOLAZINE ER 500 MG TAB 12HR PO SCH (13:52)
[2019-07-23] MEDS: DOCUSATE SODIUM 100 MG CAP PO SCH (13:53)
[2019-07-23] MEDS: METOPROLOL SUCCINATE XL 25 MG TAB PO SCH (13:53)
[2019-07-23] MEDS: CLOPIDOGREL 75 MG TAB PO SCH (13:53)
[2019-07-23] MEDS: LISINOPRIL 10 MG TAB PO SCH (13:53)
[2019-07-23] MEDS: PANTOPRAZOLE 40 MG TAB PO SCH (13:53)
[2019-07-23] MEDS: GABAPENTIN 400 MG CAP PO SCH (13:53)
[2019-07-23 15:29] VITALS: BP 157/60
--- NOTE | 2019-07-23 20:04 | Treadmill Report ---
THALLIUM STRESS TEST LEFT VENTRICLE: Left ventricular chamber size at the upper limits of normal. Perfusion study demonstrates a small, mostly fixed basal inferior defect. On the resting study, there is a minimal degree of reversibility. Gated analysis suggests mild left ventricular systolic dysfunction with ejection fraction calculated at 47%. CONCLUSION: Evidence of a mild cardiomyopathy, fixed basal inferior defect appears consistent with prior inferior myocardial infarction. Cannot exclude a minimal degree of periinfarct reversible ischemia. Clinical correlation is recommended. JOB# [id number] CA/NTS
== END 2019-07-23 15:15 | disposition home or self-care (01) ==
LOC: ED 14:56 → 4A 18:43
PROVIDERS: ADMIT Internal Medicine; ATTEND Internal Medicine
DX: R07.89 Other chest pain (principal); I16.0 Hypertensive urgency; E11.9 Type 2 diabetes mellitus without complications; I11.0 Hypertensive heart disease with heart failure; I50.9 Heart failure, unspecified; K21.9 Gastro-esophageal reflux disease without esophagitis; M19.90 Unspecified osteoarthritis, unspecified site; Z79.02 Long term (current) use of antithrombotics/antiplatelets; Z86.73 Personal history of transient ischemic attack (TIA), and cerebral infarction without residual deficits; Z86.718 Personal history of other venous thrombosis and embolism; Z90.710 Acquired absence of both cervix and uterus
CPT/HCPCS: 36415; 71045; 71046; 78452; 80048; 80053; 82962; 83880; 84484; 85025; 85610; 85730; 90686; 93005; 93010; 93017; 94760; 96372; 99284; A9270; A9502; G0378; J2785; J1815

== ENCOUNTER 2019-07-28 21:07 | Emergency (ER) | payer MEDICARE ==
[2019-07-28 22:08] LABS: Basophils # (Auto) 0.2 K/mm3 (0.0-0.1); Basophils % (Auto) 1.6 % (0.0-1.8); Eosinophils # (Auto) 0.2 K/mm3 (0.0-0.4); Eosinophils % (Auto) 1.5 % (0.0-4.3); Hematocrit 39.5 % (30.3-42.9); Lymphocytes # (Auto) 3.9 K/mm3 (1.2-5.4); Lymphocytes % (Auto) 38.5 % (13.4-35.0); Mean Corpuscular HGB Conc 33 % (30-34); Mean Corpuscular Volume 83 fl (79-97); Monocytes # (Auto) 0.7 K/mm3 (0.0-0.8); Monocytes % (Auto) 6.5 % (0.0-7.3); Platelet Count 272 K/mm3 (140-440); Red Blood Count 4.76 M/mm3 (3.65-5.03); Red Cell Distribution Width 14.8 % (13.2-15.2)
--- NOTE | 2019-07-28 22:26 | XRay Report ---
CHEST 2 VIEWS 2207 INDICATION / CLINICAL INFORMATION: Chest Pain COMPARISON: 07/21/2019 FINDINGS: SUPPORT DEVICES: None. HEART / MEDIASTINUM: Cardiomegaly LUNGS / PLEURA: Pulmonary vascularity appears within normal limits. No pleural effusions are seen. No areas of consolidation are noted. Mild chronic changes are again seen. No pneumothorax. ADDITIONAL FINDINGS: No significant additional findings. IMPRESSION: No significant acute abnormality Signer Name: Corey Pérez MD Signed: 07/28/2019 10:21 PM Workstation Name: Why Not Give [id number]
[2019-07-28 22:31] LABS: Alanine Aminotransferase 11 units/L (7-56); Albumin 3.9 g/dL (3.9-5); BUN/Creatinine Ratio 16; Blood Urea Nitrogen 14 mg/dL (7-17); Calcium 9.2 mg/dL (8.4-10.2); Hemolysis Index 13
--- NOTE | 2019-07-28 23:21 | Emergency Department Report ---
ED Chest Pain HPI - General Chief Complaint: Chest Pain Stated Complaint: YULI Time Seen by Provider: 07/28/19 22:13 Source: EMS, old records reviewed Mode of arrival: Ambulatory Limitations: No Limitations - History of Present Illness Initial Comments: 63-year-old female with a past medical history CAD less than, CHF with EF of 45- 50%, DVT (not on anticoagulation), GERD, hypertension, diabetes, hyperlipidemia, and CVA presents with complaints of left-sided chest pain started 20 minutes prior to arrival. Pain is described as a toothache that started in the left shoulder, left jaw, left-sided chest radiating to the back. No Aggravating factors reported. Positive shortness of breath without nausea, vomiting, diaphoresis, calf tenderness tenderness, or leg edema. Patient does not currently smoke cigarettes. Patient received a albuterol 5 mg neb treatment in route to the hospital with improvement in symptoms and states she is currently pain-free. Mild productive cough reported. Patient was recently admitted to the hospital and discharged on July 23 for chest pain complaints and had a stress test. Patient states that the chest pain today is similar in character but more severe. As per medical record she had a cardiac cath in December 2018 with stent placement. Pt is compliant with her meds. cardiogist Dr Rabago, PMD: Dr Hans haines She had a stress test 07/23/19. As per Dr Rabago note: Thallium perfusion images show a small fixed basal inferior defect with minimal reversibility. These findings appear consistent with her chronic total occlusion of the right coronary artery which is under medical management. No perfusion defects identified in the left anterior descending artery distribution. Patient is stable for cardiac discharge on guideline directed medical therapy for coronary artery disease including dual oral antiplatelet therapy. Severity scale (0 -10): 6 - Related Data Home Medications Medication Instructions Recorded Confirmed Last Taken Albuterol INH(or & Nicu Only) 2 puff IH QID PRN 12/28/18 07/21/19 12/27/18 [ProAir HFA Inhaler] traMADoL [Ultram 50 MG tab] 50 mg PO Q6HR PRN 12/28/18 07/21/19 12/27/18 Clopidogrel [Plavix] 75 mg PO DAILY 07/21/19 Unknown Gabapentin 800 mg PO BID 07/21/19 Unknown Previous Rx's Medication Instructions Recorded Last Taken Type ISOSORBIDE MONOnitrate [Imdur ER] 30 mg PO QDAY #30 tablet 07/23/19 Unknown Rx Metoprolol Xl [Metoprolol 25 mg PO QDAY #30 tablet 07/23/19 Unknown Rx SUCCINATE ER TAB] Nitroglycerin [Nitrostat] 0.4 mg SL .Q5MIN PRN #30 tablet 07/23/19 Unknown Rx Ranolazine ER [Ranexa ER] 1,000 mg PO BID #120 tablet 07/23/19 Unknown Rx lisinopriL [Zestril TAB] 10 mg PO QDAY #30 tablet 07/23/19 Unknown Rx Allergies Allergy/AdvReac Type Severity Reaction Status Date / Time aspirin Allergy Shortness Verified 05/05/19 15:37 of Breath Penicillins Allergy Swelling Verified 05/05/19 15:37 Heart Score - HEART Score History: Slightly suspicious EKG: Non-specific Age: 45-65 Risk factors: > 3 risk factors or hx of atherosclerotic disease Troponin: < normal limit HEART Score: 4 ED Review of Systems ROS: Stated complaint: YULI Other details as noted in HPI Comment: All other systems reviewed and negative ED Past Medical Hx - Past Medical History Hx Hypertension: Yes Hx CVA: Yes (-18) Hx Heart Attack/AMI: Yes Hx Congestive Heart Failure: Yes (on ranexa) Hx Diabetes: Yes Hx Deep Vein Thrombosis: Yes (thrombus RLE) Hx GERD: Yes Hx Liver Disease: No Hx Renal Disease: No Hx Sickle Cell Disease: No Hx Arthritis: Yes Hx Seizures: No Hx Psychiatric Treatment: Yes (depression w SI) Hx Asthma: No Hx COPD: No Hx Tuberculosis: No Hx Dementia: No Hx HIV: No Additional medical history: 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 BLE stent placement - Social History Smoking Status: Never Smoker Substance Use Type: None - Medications Home Medications: Home Medications Medication Instructions Recorded Confirmed Last Taken Type Albuterol INH(or & Nicu Only) 2 puff IH QID PRN 12/28/18 07/21/19 12/27/18 History [ProAir HFA Inhaler] traMADoL [Ultram 50 MG tab] 50 mg PO Q6HR PRN 12/28/18 07/21/19 12/27/18 History Clopidogrel [Plavix] 75 mg PO DAILY 07/21/19 Unknown History Gabapentin 800 mg PO BID 07/21/19 Unknown History ISOSORBIDE MONOnitrate [Imdur ER] 30 mg PO QDAY #30 tablet 07/23/19 Unknown Rx Metoprolol Xl [Metoprolol 25 mg PO QDAY #30 tablet 07/23/19 Unknown Rx SUCCINATE ER TAB] Nitroglycerin [Nitrostat] 0.4 mg SL .Q5MIN PRN #30 tablet 07/23/19 Unknown Rx Ranolazine ER [Ranexa ER] 1,000 mg PO BID #120 tablet 07/23/19 Unknown Rx lisinopriL [Zestril TAB] 10 mg PO QDAY #30 tablet 07/23/19 Unknown Rx ED Physical Exam - General Limitations: No Limitations - Other Other exam information: General: No limitations, patient is alert in no acute distress Head exam: Atraumatic, normocephalic Eyes exam: Normal appearance ENT: Moist mucous membrane Neck exam: Normal inspection, full range of motion Respiratory exam: Clear to auscultation bilateral, no wheezes, rales, crackles Cardiovascular: Normal rate and rhythm Abdomen: Soft, nondistended, and nontender, with normal bowel sounds, no rebound, or guarding, Extremity: No deformity, no calf tenderness or leg edema Back: Normal Inspection Neurologic: Alert, oriented x3, speech clear, no gross motor or sensory deficit Psychiatric: Normal mood, affect Skin: No rash ED Course Vital Signs 07/28/19 07/28/19 07/28/19 21:09 21:44 22:37 Temperature 98.1 F Pulse Rate 72 67 Respiratory 20 16 14 Rate Blood Pressure 171/73 135/77 [Left] O2 Sat by Pulse 98 97 97 Oximetry 07/29/19 01:45 Temperature Pulse Rate 59 L Respiratory 14 Rate Blood Pressure 135/65 [Left] O2 Sat by Pulse 99 Oximetry - Reevaluation(s) Reevaluation #1: 07/29/19 01:44 pt remains pain free since breathing treatment. - Consultations Consultation #1: 07/29/19 01:49 case d/w DR Yanez cardiolgy, given recent cardiac workup and unremakable ed workup, rec outpt f/u with Dr rabago PALOMO score - Palomo Score Age > 65: (1) Yes Aspirin use within the Past 7 Days: (0) No 3 or more CAD Risk Factors: (1) Yes 2 or more Angina events in past 24 hrs: (0) No Known CAD with more than 50% Stenosis: (1) Yes Elevated Cardiac Markers: (0) No ST Deviation Greater than 0.5mm: (0) No PALOMO Score: 3 ED Medical Decision Making - Lab Data Result diagrams: 07/28/19 21:51 07/28/19 21:51 Lab Results 07/28/19 07/28/19 07/28/19 Range/Units 21:51 21:51 22:50 WBC 10.1 (4.5-11.0) K/mm3 RBC 4.76 (3.65-5.03) M/mm3 Hgb 13.0 (10.1-14.3) gm/dl Hct 39.5 (30.3-42.9) % MCV 83 (79-97) fl MCH 27 L (28-32) pg MCHC 33 (30-34) % RDW 14.8 (13.2-15.2) % Plt Count 272 (140-440) K/mm3 Lymph % (Auto) 38.5 H (13.4-35.0) % [place] % (Auto) 6.5 (0.0-7.3) % Eos % (Auto) 1.5 (0.0-4.3) % Baso % (Auto) 1.6 (0.0-1.8) % Lymph # 3.9 (1.2-5.4) K/mm3 [place] # 0.7 (0.0-0.8) K/mm3 Eos # 0.2 (0.0-0.4) K/mm3 Baso # 0.2 H (0.0-0.1) K/mm3 Seg Neutrophils % 51.9 (40.0-70.0) % Seg Neutrophils # 5.2 (1.8-7.7) K/mm3 D-Dimer 278.82 H (0-234) ng/mlDDU Sodium 141 (137-145) mmol/L Potassium 3.6 (3.6-5.0) mmol/L Chloride 103.6 (98-107) mmol/L Carbon Dioxide 23 (22-30) mmol/L Anion Gap 18 mmol/L BUN 14 (7-17) mg/dL Creatinine 0.9 (0.7-1.2) mg/dL Estimated GFR > 60 ml/min BUN/Creatinine Ratio 16 % Glucose 188 H (65-100) mg/dL Calcium 9.2 (8.4-10.2) mg/dL Total Bilirubin 0.20 (0.1-1.2) mg/dL AST 14 (5-40) units/L ALT 11 (7-56) units/L Alkaline Phosphatase 75 (35-129) units/L Troponin T < 0.010 (0.00-0.029) ng/mL Total Protein 6.6 (6.3-8.2) g/dL Albumin 3.9 (3.9-5) g/dL Albumin/Globulin Ratio 1.4 % 07/29/19 Range/Units 00:47 WBC (4.5-11.0) K/mm3 RBC (3.65-5.03) M/mm3 Hgb (10.1-14.3) gm/dl Hct (30.3-42.9) % MCV (79-97) fl MCH (28-32) pg MCHC (30-34) % RDW (13.2-15.2) % Plt Count (140-440) K/mm3 Lymph % (Auto) (13.4-35.0) % [place] % (Auto) (0.0-7.3) % Eos % (Auto) (0.0-4.3) % Baso % (Auto) (0.0-1.8) % Lymph # (1.2-5.4) K/mm3 [place] # (0.0-0.8) K/mm3 Eos # (0.0-0.4) K/mm3 Baso # (0.0-0.1) K/mm3 Seg Neutrophils % (40.0-70.0) % Seg Neutrophils # (1.8-7.7) K/mm3 D-Dimer (0-234) ng/mlDDU Sodium (137-145) mmol/L Potassium (3.6-5.0) mmol/L Chloride (98-107) mmol/L Carbon Dioxide (22-30) mmol/L Anion Gap mmol/L BUN (7-17) mg/dL Creatinine (0.7-1.2) mg/dL Estimated GFR ml/min BUN/Creatinine Ratio % Glucose (65-100) mg/dL Calcium (8.4-10.2) mg/dL Total Bilirubin (0.1-1.2) mg/dL AST (5-40) units/L ALT (7-56) units/L Alkaline Phosphatase (35-129) units/L Troponin T < 0.010 (0.00-0.029) ng/mL Total Protein (6.3-8.2) g/dL Albumin (3.9-5) g/dL Albumin/Globulin Ratio % - EKG Data -: EKG Interpreted by [facility] EKG shows normal: sinus rhythm, ST-T waves (no stemi) Rate: normal - EKG Data When compared to previous EKG there are: no significant change 07/29/19 01:46 repeat ekg 1:41a without acute findings. similar to previous - Radiology Data Radiology results: report reviewed CHEST 2 VIEWS 2207 INDICATION / CLINICAL INFORMATION: Chest Pain COMPARISON: 07/21/2019 FINDINGS: SUPPORT DEVICES: None. HEART / MEDIASTINUM: Cardiomegaly LUNGS / PLEURA: Pulmonary vascularity appears within normal limits. No pleural effusions are seen. No areas of consolidation are noted. Mild chronic changes are again seen. No pneumothorax. ADDITIONAL FINDINGS: No significant additional findings. IMPRESSION: No significant acute abnormality CTA of the chest with 3D Reconstruction Indication: ,left cp, sob, mild ddimer elevation Technique: TECHNIQUE: Axial CT images were obtained through the chest after injection of 100 cc of Omnipaque 350 IV contrast. 3 plane MIP reconstructions were produced. All CT scans at this location are performed using CT dose reduction for ALARA by means of automated exposure control. COMPARISON: CT scan dated 12/28/2018 Automatic exposure control was utilized in an attempt to reduce radiation dose. Findings: Pulmonary arteries: The main pulmonary artery and right and left pulmonary artery branches fill satisfactorily with contrast. No pulmonary embolus is seen. Lungs: There is mild peripheral interstitial disease. No focal infiltrate is seen. No pneumothorax is seen. Mediastinum: Heart size is normal. No adenopathy is seen. Aorta: Normal in diameter. No dissection seen within limits of this exam. There is cholelithiasis. Impression: No pulmonary embolus is seen There is cholelithiasis - Medical Decision Making Patient presents to the hospital was sharp left-sided chest pain radiating to n alexandro and jaw similar to previous episode of chest pain when she was admitted here last week. Patient had a stress test at that time which was consistent with her known coronary artery disease as per cardiology note. During ED evaluation here patient has 2 EKGs that are similar without ischemic changes in her similar to previous EKG on record. She also has troponins that are negative 2 and has been pain-free since arrival and after receiving a nebulized treatment. Lungs clear upon arrival. Patient had mild elevation of d-dimer with history of DVT. CT angiogram negative for pulmonary embolism or acute pathology. Case discussed with cardiology and patient be discharged home to continue her current medications and follow with Dr. Rabago as an outpatient. - Differential Diagnosis mi, pe, unstable angina, copd, pneumonia Critical Care Time: No Critical care attestation.: If time is entered above; I have spent that time in minutes in the direct care of this critically ill patient, excluding procedure time. ED Disposition Clinical Impression: Atypical chest pain, CAD (coronary artery disease) Disposition: TO HOME OR SELFCARE Is pt being admited?: No Does the pt Need Aspirin: No Condition: Stable Instructions: Chest Pain (ED) Additional Instructions: Continue your current medication as prescribed. Follow-up with your doctor or with the doctor/clinic provided. Return if symptoms worsen as indicated by your discharge instructions. Referrals: KATHRIN HAINES MD [Staff Physician] - 3-5 Days SHERWIN RABAGO MD [Staff Physician] - 2-3 Days Time of Disposition: 01:54
--- NOTE | 2019-07-29 00:45 | Cat Scan Report ---
CTA of the chest with 3D Reconstruction Indication: ,left cp, sob, mild ddimer elevation Technique: TECHNIQUE: Axial CT images were obtained through the chest after injection of 100 cc of Omnipaque 350 IV contrast. 3 plane MIP reconstructions were produced. All CT scans at this location are performed using CT dose reduction for ALARA by means of automated exposure control. COMPARISON: CT scan dated 12/28/2018 Automatic exposure control was utilized in an attempt to reduce radiation dose. Findings: Pulmonary arteries: The main pulmonary artery and right and left pulmonary artery branches fill satis factorily with contrast. No pulmonary embolus is seen. Lungs: There is mild peripheral interstitial disease. No focal infiltrate is seen. No pneumothorax is seen. Mediastinum: Heart size is normal. No adenopathy is seen. Aorta: Normal in diameter. No dissection seen within limits of this exam. There is cholelithiasis. Impression: No pulmonary embolus is seen There is cholelithiasis Signer Name: Tyrell Ly MD Signed: 07/29/2019 12:41 AM Workstation Name: [id number]
[2019-07-29 01:46] VITALS: BP 135/65
== END 2019-07-29 01:00 | disposition home or self-care (01) ==
LOC: ED 21:07
DX: I25.10 Atherosclerotic heart disease of native coronary artery without angina pectoris (principal); R07.89 Other chest pain; I11.0 Hypertensive heart disease with heart failure; I50.9 Heart failure, unspecified; F32.9 Major depressive disorder, single episode, unspecified; E11.51 Type 2 diabetes mellitus with diabetic peripheral angiopathy without gangrene; K21.9 Gastro-esophageal reflux disease without esophagitis; Z86.73 Personal history of transient ischemic attack (TIA), and cerebral infarction without residual deficits; Z90.710 Acquired absence of both cervix and uterus; Z95.5 Presence of coronary angioplasty implant and graft; Z98.890 Other specified postprocedural states; Z79.899 Other long term (current) drug therapy; Z88.8 Allergy status to other drugs, medicaments and biological substances; Z88.0 Allergy status to penicillin
CPT/HCPCS: 36415; 71046; 71275; 80048; 80053; 84484; 85025; 85379; 93005; 93010; 99284; Q9967

== ENCOUNTER 2020-02-21 13:59 | Outpatient (CLI) | payer MEDICARE ==
--- NOTE | 2020-02-21 15:56 | Vascular Lab Report ---
DUPLEX DOPPLER LOWER EXTREMITY VEINS, BILATERAL INDICATION / CLINICAL INFORMATION: EDEMA. TECHNIQUE: Duplex doppler imaging was performed through the veins of both lower extremities using venous migel renan and other maneuvers. COMPARISON: None available. FINDINGS: RIGHT COMMON FEMORAL VEIN: Negative. RIGHT FEMORAL VEIN: Negative. RIGHT POPLITEAL VEIN: Negative. RIGHT CALF VEINS: Negative. LEFT COMMON FEMORAL VEIN: Negative. LEFT FEMORAL VEIN: Negative. LEFT POPLITEAL VEIN: Negative. LEFT CALF VEINS: Negative. ADDITIONAL FINDINGS: None. IMPRESSION: 1. No sonographic evidence for DVT in either lower extremity. Signer Name: Nader Francis MD Signed: 02/21/2020 3:51 PM Workstation Name: [id number]
== END 2020-02-21 14:00 | disposition home or self-care (01) ==
LOC: VAS 13:59
PROVIDERS: ATTEND Internal Medicine Cardiovascular Disease
DX: R60.0 Localized edema (principal)
CPT/HCPCS: 93970

== ENCOUNTER 2020-08-17 01:16 | Emergency (ER) | payer MEDICARE ==
--- NOTE | 2020-08-17 01:47 | Emergency Department Report ---
ED Shortness of Breath HPI - General Chief Complaint: Dyspnea/Respdistress Stated Complaint: YULI Time Seen by Provider: 08/17/20 01:41 Source: patient, EMS Mode of arrival: Stretcher Limitations: No Limitations - History of Present Illness Initial Comments: 64-year-old female, history of COPD, CHF, presents to ED with chest pain or shortness of breath, onset this evening. Patient reports tightness in her chest shortness of breath while watching TV. Patient states she used her inhaler without relief. EMS was called by patient's daughter. Per EMS, O2 sats 87% on room air. Patient states she does not wear home O2. Patient was given albuterol 7.5 mg. Patient currently reports resolution of her chest pain and improvement of her difficulty breathing. Patient denies any cough, fever, loss of smell or taste. MD Complaint: shortness of breath, chest pain -: This evening Severity: moderate Consistency: constant, now resolved Improves With: nothing Worsens With: exertion Known History Of: COPD Associated Symptoms: chest pain Treatments Prior to Arrival: bronchodilator - Related Data Home Oxygen Therapy: No Home Medications Medication Instructions Recorded Confirmed Last Taken Albuterol Mdi (or & Nicu Only) 2 puff IH QID PRN 12/28/18 07/21/19 12/27/18 [ProAir HFA Inhaler] traMADoL [Ultram 50 MG tab] 50 mg PO Q6HR PRN 12/28/18 07/21/19 12/27/18 Clopidogrel [Plavix] 75 mg PO DAILY 07/21/19 Unknown Gabapentin 800 mg PO BID 07/21/19 Unknown Previous Rx's Medication Instructions Recorded Last Taken Type ISOSORBIDE MONOnitrate [Imdur ER] 30 mg PO QDAY #30 tablet 07/23/19 Unknown Rx Metoprolol Xl [Metoprolol 25 mg PO QDAY #30 tablet 07/23/19 Unknown Rx SUCCINATE ER TAB] Nitroglycerin [Nitrostat] 0.4 mg SL .Q5MIN PRN #30 tablet 07/23/19 Unknown Rx Ranolazine ER [Ranexa ER] 1,000 mg PO BID #120 tablet 07/23/19 Unknown Rx lisinopriL [Zestril TAB] 10 mg PO QDAY #30 tablet 07/23/19 Unknown Rx Albuterol Sulfate [Proventil Hfa] 2 puff IH Q4HR PRN #1 hfa.aer.ad 08/17/20 Unknown Rx predniSONE [Deltasone] 50 mg PO QDAY #5 tab 08/17/20 Unknown Rx Allergies Allergy/AdvReac Type Severity Reaction Status Date / Time aspirin Allergy Shortness Verified 05/05/19 15:37 of Breath Penicillins Allergy Swelling Verified 05/05/19 15:37 ED Review of Systems ROS: Stated complaint: YULI Other details as noted in HPI Comment: All other systems reviewed and negative Constitutional: denies: fever Respiratory: shortness of breath. denies: cough Cardiovascular: chest pain. denies: edema Musculoskeletal: other (Denies lower extremity pain or swelling) ED Past Medical Hx - Past Medical History Previous Medical History?: Yes Hx Hypertension: Yes Hx CVA: Yes (03-20) Hx Heart Attack/AMI: Yes Hx Congestive Heart Failure: Yes (on ranexa) Hx Diabetes: Yes Hx Deep Vein Thrombosis: Yes (thrombus RLE) Hx GERD: Yes Hx Liver Disease: No Hx Renal Disease: No Hx Sickle Cell Disease: No Hx Arthritis: Yes Hx Seizures: No Hx Psychiatric Treatment: Yes (depression w SI) Hx Asthma: No Hx COPD: No Hx Tuberculosis: No Hx Dementia: No Hx HIV: No Additional medical history: neuropathy secondary to her DM; PVD - Surgical History Past Surgical History?: Yes Additional Surgical History: hysterectomy-2002, R shoulder surgery (2014). BLE stent placement - Social History Smoking Status: Never Smoker - Medications Home Medications: Home Medications Medication Instructions Recorded Confirmed Last Taken Type Albuterol Mdi (or & Nicu Only) 2 puff IH QID PRN 12/28/18 07/21/19 12/27/18 History [ProAir HFA Inhaler] traMADoL [Ultram 50 MG tab] 50 mg PO Q6HR PRN 12/28/18 07/21/19 12/27/18 History Clopidogrel [Plavix] 75 mg PO DAILY 07/21/19 Unknown History Gabapentin 800 mg PO BID 07/21/19 Unknown History ISOSORBIDE MONOnitrate [Imdur ER] 30 mg PO QDAY #30 tablet 07/23/19 Unknown Rx Metoprolol Xl [Metoprolol 25 mg PO QDAY #30 tablet 07/23/19 Unknown Rx SUCCINATE ER TAB] Nitroglycerin [Nitrostat] 0.4 mg SL .Q5MIN PRN #30 tablet 07/23/19 Unknown Rx Ranolazine ER [Ranexa ER] 1,000 mg PO BID #120 tablet 07/23/19 Unknown Rx lisinopriL [Zestril TAB] 10 mg PO QDAY #30 tablet 07/23/19 Unknown Rx Albuterol Sulfate [Proventil Hfa] 2 puff IH Q4HR PRN #1 hfa.aer.ad 08/17/20 Unknown Rx predniSONE [Deltasone] 50 mg PO QDAY #5 tab 08/17/20 Unknown Rx ED Physical Exam - General Limitations: No Limitations General appearance: alert, in no apparent distress - Head Head exam: Present: atraumatic, normocephalic - Eye Eye exam: Present: normal appearance, EOMI - ENT ENT exam: Present: mucous membranes moist - Neck Neck exam: Present: normal inspection - Respiratory Respiratory exam: Present: normal lung sounds bilaterally. Absent: respiratory distress - Cardiovascular Cardiovascular Exam: Present: regular rate, normal rhythm - GI/Abdominal GI/Abdominal exam: Present: soft. Absent: distended, tenderness - Extremities Exam Extremities exam: Present: normal inspection. Absent: pedal edema - Neurological Exam Neurological exam: Present: alert, oriented X3 - Psychiatric Psychiatric exam: Present: normal affect, normal mood - Skin Skin exam: Present: warm, dry, intact, normal color ED Course Vital Signs 08/17/20 08/17/20 08/17/20 01:32 02:15 03:00 Temperature 98.2 F Pulse Rate 75 74 Respiratory 19 16 17 Rate Blood Pressure 164/73 166/68 Blood Pressure 200/83 [Left] O2 Sat by Pulse 94 94 96 Oximetry 08/17/20 08/17/20 08/17/20 04:00 05:00 05:44 Temperature 98 F Pulse Rate 74 75 64 Respiratory 15 14 20 Rate Blood Pressure 155/71 160/76 Blood Pressure 162/72 [Left] O2 Sat by Pulse 96 93 94 Oximetry ED Medical Decision Making - Lab Data Result diagrams: 08/17/20 01:46 08/17/20 01:46 - Radiology Data Radiology results: report reviewed, image reviewed - Medical Decision Making Patient presents to the ED with COPD exacerbation. Albuterol nebulizer treatment given by EMS prior to ED arrival. Patient received another 5 mg-year-old treatment here in the ED. Along with oral prednisone. Patient feeling much better at this time. Has been sleeping comfortably during most of her ED stay. O2 sats 94% on room air. Chest x-ray is negative for any acute findings. EKG shows no ST changes. Troponin is negative. Patient reports chest pain relieved with nebs. Will discharge at this time. Outpatient follow- up advised, return precautions given. - Differential Diagnosis COPD, pneumonia, ACS Critical care attestation.: If time is entered above; I have spent that time in minutes in the direct care of this critically ill patient, excluding procedure time. ED Disposition Clinical Impression: COPD with acute exacerbation Disposition: TO HOME OR SELFCARE Is pt being admited?: No Condition: Stable Instructions: Chronic Obstructive Pulmonary Disease Exacerbation, Ibun-[id number], Chronic Obstructive Pulmonary Disease (ED) Prescriptions: predniSONE [Deltasone] 50 mg PO QDAY #5 tab Albuterol Sulfate [Proventil Hfa] 2 puff IH Q4HR PRN #1 hfa.aer.ad PRN Reason: Wheezing Referrals: KATHRIN SMITH MD [Primary Care Provider] - 3-5 Days Time of Disposition: 05:34
--- NOTE | 2020-08-17 02:20 | XRay Report ---
CHEST 1 VIEW 08/17/2020 1:58 AM INDICATION / CLINICAL INFORMATION: chest pain, SOB. COMPARISON: 07/28/2019 FINDINGS: SUPPORT DEVICES: None. HEART / MEDIASTINUM: Borderline cardiomegaly, unchanged. LUNGS / PLEURA: No significant pulmonary or pleural abnormality. No pneumothorax. ADDITIONAL FINDINGS: No significant additional findings. IMPRESSION: 1. No acute findings. Signer Name: Nader Francis MD Signed: 08/17/2020 2:15 AM Workstation Name: [id number]
[2020-08-17 02:29] LABS: Basophils # (Auto) 0.1 K/mm3 (0.0-0.1); Basophils % (Auto) 0.6 % (0.0-1.8); Eosinophils # (Auto) 0.2 K/mm3 (0.0-0.4); Eosinophils % (Auto) 1.7 % (0.0-4.3); Hematocrit 41.9 % (30.3-42.9); Hemoglobin 13.5 gm/dl (10.1-14.3); Lymphocytes # (Auto) 3.3 K/mm3 (1.2-5.4); Lymphocytes % (Auto) 30.1 % (13.4-35.0); Mean Corpuscular HGB Conc 32 % (30-34); Mean Corpuscular Volume 81 fl (79-97); Monocytes # (Auto) 0.8 K/mm3 (0.0-0.8); Monocytes % (Auto) 7.6 % (0.0-7.3); Platelet Count 204 K/mm3 (140-440); Red Blood Count 5.16 M/mm3 (3.65-5.03); Red Cell Distribution Width 15.5 % (13.2-15.2)
[2020-08-17 02:40] LABS: INR 0.91 (0.87-1.13)
[2020-08-17 02:41] LABS: Partial Thromboplastin Time 24.2 Sec. (24.2-36.6)
[2020-08-17 02:51] LABS: BUN/Creatinine Ratio 17; Blood Urea Nitrogen 19 mg/dL (7-17); Calcium 9.1 mg/dL (8.4-10.2); Hemolysis Index 4
[2020-08-17] MEDS ORDERED: predniSONE 20 MG TAB PO ONE (02:56)
[2020-08-17] MEDS ORDERED: IPRATROPIUM 0.02% NEBU 2.5 ML IH ONE (03:12)
[2020-08-17] MEDS ORDERED: ALBUTEROL 2.5 MG/3 ML NEBU IH ONE (03:12)
[2020-08-17 05:45] VITALS: BP 162/72
== END 2020-08-17 05:47 | disposition home or self-care (01) ==
LOC: ED 01:16
DX: J44.1 Chronic obstructive pulmonary disease with (acute) exacerbation (principal); I11.0 Hypertensive heart disease with heart failure; I50.9 Heart failure, unspecified; E11.9 Type 2 diabetes mellitus without complications; K21.9 Gastro-esophageal reflux disease without esophagitis; M19.91 Primary osteoarthritis, unspecified site; F32.9 Major depressive disorder, single episode, unspecified; Z86.73 Personal history of transient ischemic attack (TIA), and cerebral infarction without residual deficits; Z90.710 Acquired absence of both cervix and uterus; Z98.890 Other specified postprocedural states; Z79.899 Other long term (current) drug therapy; Z88.0 Allergy status to penicillin; Z88.6 Allergy status to analgesic agent
CPT/HCPCS: 36415; 71045; 80048; 83880; 84484; 85025; 85610; 85730; 93005; 94640; 99284; J7512

== ENCOUNTER 2020-10-27 00:40 | Emergency (ER) | payer MEDICARE ==
[2020-10-27] MEDS ORDERED: ACETAMINOPHEN 500 MG TAB PO ONE ×2 (01:03→03:30)
[2020-10-27 01:30] LABS: Basophils # (Auto) 0.1 K/mm3 (0.0-0.1); Basophils % (Auto) 1.2 % (0.0-1.8); Eosinophils # (Auto) 0.3 K/mm3 (0.0-0.4); Eosinophils % (Auto) 2.9 % (0.0-4.3); Hematocrit 39.6 % (30.3-42.9); Hemoglobin 13.2 gm/dl (10.1-14.3); Lymphocytes # (Auto) 3.4 K/mm3 (1.2-5.4); Lymphocytes % (Auto) 35.6 % (13.4-35.0); Mean Corpuscular HGB Conc 33 % (30-34); Mean Corpuscular Volume 78 fl (79-97); Monocytes # (Auto) 0.6 K/mm3 (0.0-0.8); Monocytes % (Auto) 6.7 % (0.0-7.3); Platelet Count 265 K/mm3 (140-440); Red Blood Count 5.05 M/mm3 (3.65-5.03); Red Cell Distribution Width 14.6 % (13.2-15.2)
[2020-10-27 02:18] LABS: Alanine Aminotransferase 7 units/L (7-56); Albumin 3.7 g/dL (3.9-5); BUN/Creatinine Ratio 15; Blood Urea Nitrogen 17 mg/dL (7-17); Calcium 8.9 mg/dL (8.4-10.2); Hemolysis Index 2
--- NOTE | 2020-10-27 02:21 | XRay Report ---
PA CHEST AND RIGHT RIB DETAIL INDICATION / CLINICAL INFORMATION: Fall with right lateral rib pain. Difficulty breathing. COMPARISON: 08/17/20. FINDINGS: The heart size is borderline. There is mild chronic interstitial lung disease. I see no evidence of p leural effusion or pneumothorax. There is no evidence of acute rib fracture or other abnormality. Signer Name: Benny Diamond MD Signed: 10/27/2020 2:16 AM Workstation Name: [id number]
--- NOTE | 2020-10-27 02:37 | Emergency Department Report ---
ED Fall HPI - General Chief Complaint: Fall Stated Complaint: FELL/PAIN RT SIDE Source: patient Mode of arrival: Ambulatory - History of Present Illness Initial Comments: Patient is a 64-year-old -Malaysian female with a history of hypertension, CVA, CHF, zer-sekkckb-axyhdfcdh diabetes, anxiety and depression, DVT, chronic diabetic lower extremity neuropathy, GERD and chronic osteoarthritis who p resents to the ED with complaint of acute onset severe right lateral rib pain after she tripped on a curb and fell down landing on her right lateral rib cage 5 days ago. Patient states that the pain has been constant and worse with any deep inhalation or any movement. Patient states that she has also had shortness of breath due to severe right lateral rib pain. Patient denies dizziness, syncope, seizures, headache, neck injury, back pain, abdominal pain, hip pain, numbness and tingling or weakness of upper and lower extremities bilaterally, mopped assist, change in vision or loss of consciousness. MD Complaint: fall, other (right lateral rib pain; dyspnea) -: Sudden, days(s) (5) Fall From: standing, other (tripped on a cub and fell down on her right side) When Fall Occurred: # days [employer] (5) Fall Witnessed: yes, by family, yes, by bystander Place Fall Occurred: street Loss of Consciousness: none Prolonged Down Time?: no Symptoms Prior to Fall: none Location: chest (right lateral chest pain) Severity: severe Severity scale (0 -10): 8 Quality: sharp, aching Context: tripped/slipped Associated Symptoms: chest paint (right lateral rib pain), shortness of breath. denies: headache, neck pain, numbness, weakness, abdominal pain, hematuria, unable to walk, lightheaded, vertigo, confusion, other - Related Data Home Medications Medication Instructions Recorded Confirmed Last Taken Albuterol Mdi (or & Nicu Only) 2 puff IH QID PRN 12/28/18 07/21/19 12/27/18 [ProAir HFA Inhaler] traMADoL [Ultram 50 MG tab] 50 mg PO Q6HR PRN 12/28/18 07/21/19 12/27/18 Clopidogrel [Plavix] 75 mg PO DAILY 07/21/19 Unknown Gabapentin 800 mg PO BID 07/21/19 Unknown Previous Rx's Medication Instructions Recorded Last Taken Type ISOSORBIDE MONOnitrate [Imdur ER] 30 mg PO QDAY #30 tablet 07/23/19 Unknown Rx Metoprolol Xl [Metoprolol 25 mg PO QDAY #30 tablet 07/23/19 Unknown Rx SUCCINATE ER TAB] Nitroglycerin [Nitrostat] 0.4 mg SL .Q5MIN PRN #30 tablet 07/23/19 Unknown Rx Ranolazine ER [Ranexa ER] 1,000 mg PO BID #120 tablet 07/23/19 Unknown Rx lisinopriL [Zestril TAB] 10 mg PO QDAY #30 tablet 07/23/19 Unknown Rx Albuterol Sulfate [Proventil Hfa] 2 puff IH Q4HR PRN #1 hfa.aer.ad 08/17/20 Unknown Rx predniSONE [Deltasone] 50 mg PO QDAY #5 tab 08/17/20 Unknown Rx Acetaminophen [Tylenol] 500 mg PO Q6HR PRN #30 tablet 10/27/20 Unknown Rx Allergies Allergy/AdvReac Type Severity Reaction Status Date / Time aspirin Allergy Shortness Verified 05/05/19 15:37 of Breath Penicillins Allergy Swelling Verified 05/05/19 15:37 ED Review of Systems ROS: Stated complaint: FELL/PAIN RT SIDE Other details as noted in HPI Constitutional: denies: chills, fever Eyes: denies: eye pain, eye discharge, vision change ENT: denies: ear pain, throat pain Respiratory: shortness of breath. denies: cough, wheezing Cardiovascular: chest pain (right lateral rib pain ). denies: palpitations Endocrine: no symptoms reported Gastrointestinal: denies: abdominal pain, nausea, vomiting, diarrhea Genitourinary: denies: urgency, dysuria, discharge Musculoskeletal: denies: back pain, joint swelling, arthralgia Skin: denies: rash, lesions Neurological: denies: headache, weakness, paresthesias Psychiatric: denies: anxiety, depression Hematological/Lymphatic: denies: easy bleeding, easy bruising ED Past Medical Hx - Past Medical History Previous Medical History?: Yes Hx Hypertension: Yes Hx CVA: Yes (9-18) Hx Heart Attack/AMI: Yes Hx Congestive Heart Failure: Yes (on ranexa) Hx Diabetes: Yes Hx Deep Vein Thrombosis: Yes (thrombus RLE) Hx GERD: Yes Hx Liver Disease: No Hx Renal Disease: No Hx Sickle Cell Disease: No Hx Arthritis: Yes Hx Seizures: No Hx Psychiatric Treatment: Yes (depression w SI) Hx Asthma: No Hx COPD: No Hx Tuberculosis: No Hx Dementia: No Hx HIV: No Additional medical history: neuropathy secondary to her DM; PVD - Surgical History Past Surgical History?: Yes Additional Surgical History: hysterectomy-2002, R shoulder surgery (2014). BLE stent placement - Social History Smoking Status: Former Smoker Substance Use Type: None - Medications Home Medications: Home Medications Medication Instructions Recorded Confirmed Last Taken Type Albuterol Mdi (or & Nicu Only) 2 puff IH QID PRN 12/28/18 07/21/19 12/27/18 History [ProAir HFA Inhaler] traMADoL [Ultram 50 MG tab] 50 mg PO Q6HR PRN 12/28/18 07/21/19 12/27/18 History Clopidogrel [Plavix] 75 mg PO DAILY 07/21/19 Unknown History Gabapentin 800 mg PO BID 07/21/19 Unknown History ISOSORBIDE MONOnitrate [Imdur ER] 30 mg PO QDAY #30 tablet 07/23/19 Unknown Rx Metoprolol Xl [Metoprolol 25 mg PO QDAY #30 tablet 07/23/19 Unknown Rx SUCCINATE ER TAB] Nitroglycerin [Nitrostat] 0.4 mg SL .Q5MIN PRN #30 tablet 07/23/19 Unknown Rx Ranolazine ER [Ranexa ER] 1,000 mg PO BID #120 tablet 07/23/19 Unknown Rx lisinopriL [Zestril TAB] 10 mg PO QDAY #30 tablet 07/23/19 Unknown Rx Albuterol Sulfate [Proventil Hfa] 2 puff IH Q4HR PRN #1 hfa.aer.ad 08/17/20 Unknown Rx predniSONE [Deltasone] 50 mg PO QDAY #5 tab 08/17/20 Unknown Rx Acetaminophen [Tylenol] 500 mg PO Q6HR PRN #30 tablet 10/27/20 Unknown Rx ED Physical Exam - General Limitations: No Limitations General appearance: alert, in no apparent distress - Head Head exam: Present: atraumatic, normocephalic, normal inspection - Eye Eye exam: Present: normal appearance, PERRL, EOMI Pupils: Present: normal accommodation - ENT ENT exam: Present: normal exam, normal orophraynx, mucous membranes moist, TM's normal bilaterally, normal external ear exam - Neck Neck exam: Present: normal inspection, full ROM. Absent: tenderness - Respiratory Respiratory exam: Present: wheezes (Mildly diffuse coarse wheezes throughout), c hest wall tenderness (Palpable reproducible severe right lateral rib tenderness). Absent: respiratory distress, rales, rhonchi, accessory muscle use, decreased breath sounds, prolonged expiratory - Cardiovascular Cardiovascular Exam: Present: regular rate, normal rhythm, normal heart sounds. Absent: systolic murmur, diastolic murmur, rubs, gallop - GI/Abdominal GI/Abdominal exam: Present: soft, normal bowel sounds. Absent: tenderness, guarding, hyperactive bowel sounds, hypoactive bowel sounds, organomegaly - Extremities Exam Extremities exam: Present: normal inspection, full ROM, normal capillary refill - Back Exam Back exam: Present: normal inspection, full ROM. Absent: tenderness, CVA tenderness (R), muscle spasm, paraspinal tenderness - Neurological Exam Neurological exam: Present: alert, oriented X3, CN II-XII intact, normal gait, reflexes normal - Psychiatric Psychiatric exam: Present: normal affect, normal mood, anxious - Skin Skin exam: Present: warm, dry, intact, normal color. Absent: rash ED Course Vital Signs 10/27/20 00:56 Temperature 98.7 F Pulse Rate 76 Respiratory 20 Rate Blood Pressure 198/88 O2 Sat by Pulse 96 Oximetry ED Medical Decision Making - Lab Data Result diagrams: 10/27/20 01:14 10/27/20 01:14 - Radiology Data Radiology results: report reviewed, image reviewed [facility] [address] [place] [address] XRay Report Signed Patient: SOURAV RECIO MR#: [id number] : 1955 Acct:[id number] Age/Sex: 64 / F ADM Date: 10/27/20 Loc: ED Attending Dr: Ordering Physician: ARUNA HATFIELD Date of Service: 10/27/20 Procedure(s): XR ribs UNI w PA Chest 3+V RT Accession Number(s): [id number] cc: ARUNA HATFIELD Fluoro Time In Minutes: PA CHEST AND RIGHT RIB DETAIL INDICATION / CLINICAL INFORMATION: Fall with right lateral rib pain. Difficulty breathing. COMPARISON: 08/17/20. FINDINGS: The heart size is borderline. There is mild chronic interstitial lung disease. I see no evidence of pleural effusion or pneumothorax. There is no evidence of acute rib fracture or other abnormality. Signer Name: Benny Diamond MD Signed: 10/27/2020 2:16 AM Workstation Name: [id number] Transcribed By: RT Dictated By: Benny Diamond MD Electronically Authenticated By: Benny Diamond MD Signed Date/Time: 10/27/20215 DD/ 3 TD/TT: - Medical Decision Making This is a 64-year-old -Malaysian female with a history of hypertension, CVA, CHF, [id number]-esdhyqufo diabetes, anxiety and depression, DVT, chronic diabetic lower extremity neuropathy, GERD and chronic osteoarthritis who presents to the ED with complaint of acute onset severe right lateral rib pain after she tripped on a curb and fell down landing on her right lateral rib cage 5 days ago. Patient states that the pain has been constant and worse with any deep inhalation or any movement. Patient states that she has also had shortness of breath due to severe right lateral rib pain. In the ED, patient is alert and oriented x3 and is not in any distress but appears to be in significant pain which is reproducible on physical exam on the right lateral rib cage. Patient was treated for pain in the ED and also given DuoNeb treatment in the ED. Right rib x-ray with 1 view of chest showed no evidence of pleural effusion or pneumothorax, acute rib fracture or other abnormality. On reevaluation, patient's pain is well controlled with medication. Patient wheezing resolved with treatment, and patient's oxygen saturation ranged from 96% to 97% in room air. Patient was therefore discharged home on pain medications and advised to follow-up with her primary care physician in 7 to 10 days for reevaluation. Patient was advised to return to the emergency department immediately if her symptoms get worse especially if she develops hemoptysis, worsening chest pain, cough with thick sputum, fever and chills, dizziness, or palpitations and syn cope. - Differential Diagnosis Rib fracture; rib contusion; muscle strain; pneumothorax; pleural effusion Critical care attestation.: If time is entered above; I have spent that time in minutes in the direct care of this critically ill patient, excluding procedure time. ED Disposition Clinical Impression: Right-sided chest wall pain, Contusion of right back wall of thorax, initial encounter Contusion of rib on right side Qualifiers: Encounter type: initial encounter Qualified Code(s): S20.211A - Contusion of right front wall of thorax, initial encounter Disposition: TO HOME OR SELFCARE Is pt being admited?: No Does the pt Need Aspirin: No Condition: Stable Instructions: Contusion, Ibsb-at-Hoqo, Chest Wall Pain, Wxva-sk-Aibe, Nonspecific Chest Pain, Adult, Teyr-fj-Yjny, Rib Contusion Additional Instructions: The chest x-ray showed no acute rib fractures or subluxations, pneumothorax, pleural effusion or any acute cardiopulmonary abnormalities or pneumonitis. Therefore your injury is due to rib or chest wall contusion from the fall. Therefore take medications as needed for pain, drink plenty of fluids and follow-up with your primary care physician in 5 to 7 days for reevaluation. Return to the ED immediately if symptoms get worse. Prescriptions: Acetaminophen [Tylenol] 500 mg PO Q6HR PRN #30 tablet PRN Reason: Pain , Severe (7-10) Referrals: [facility] [Provider Group] - 3-5 Days Time of Disposition: 02:43 Print Language: SINHALA
[2020-10-27 04:43] VITALS: BP 187/77
== END 2020-10-27 03:50 | disposition home or self-care (01) ==
LOC: ED 00:40
DX: S20.221A Contusion of right back wall of thorax, initial encounter (principal); S20.211A Contusion of right front wall of thorax, initial encounter; R07.89 Other chest pain; I11.0 Hypertensive heart disease with heart failure; I50.9 Heart failure, unspecified; E11.40 Type 2 diabetes mellitus with diabetic neuropathy, unspecified; F41.9 Anxiety disorder, unspecified; F32.9 Major depressive disorder, single episode, unspecified; K21.9 Gastro-esophageal reflux disease without esophagitis; I25.2 Old myocardial infarction; M19.90 Unspecified osteoarthritis, unspecified site; Z86.73 Personal history of transient ischemic attack (TIA), and cerebral infarction without residual deficits; Z79.899 Other long term (current) drug therapy; Z90.710 Acquired absence of both cervix and uterus; Z98.890 Other specified postprocedural states; Z87.891 Personal history of nicotine dependence; Z88.0 Allergy status to penicillin; Z88.6 Allergy status to analgesic agent; W18.39XA Other fall on same level, initial encounter; Y92.410 Unspecified street and highway as the place of occurrence of the external cause; Y93.89 Activity, other specified; Y99.8 Other external cause status
CPT/HCPCS: 36415; 80053; 84484; 85025; 99283

== ENCOUNTER 2021-02-13 08:25 | Emergency (ER) | payer MEDICARE ==
[2021-02-13 08:50] VITALS: BP 206/74
== END 2021-02-13 11:29 | disposition home or self-care (01) ==
LOC: ED 08:25
DX: M25.531 Pain in right wrist (principal); I11.0 Hypertensive heart disease with heart failure; I50.9 Heart failure, unspecified; E11.9 Type 2 diabetes mellitus without complications; K21.9 Gastro-esophageal reflux disease without esophagitis; M19.90 Unspecified osteoarthritis, unspecified site; F32.9 Major depressive disorder, single episode, unspecified; Z98.891 History of uterine scar from previous surgery; Z88.0 Allergy status to penicillin; Z88.6 Allergy status to analgesic agent; Z79.899 Other long term (current) drug therapy
CPT/HCPCS: 99283

== ENCOUNTER 2021-04-08 20:24 | Observation (INO) | payer MEDICARE ==
[2021-04-08] MEDS ORDERED: IPRATROPIUM/ALBUTEROL SULFATE 3 ML AMPUL.NEB IH ONE (22:46)
[2021-04-08] MEDS ORDERED: methylPREDNISolone Sod Succinate 125 MG/2 ML INJ IV ONE (22:46)
--- NOTE | 2021-04-08 22:48 | Emergency Department Report ---
ED Chest Pain HPI - General Chief Complaint: Chest Pain Stated Complaint: CHEST PAIN/COPD PUI?: No Time Seen by Provider: 04/08/21 22:22 Source: patient, EMS Mode of arrival: Stretcher Limitations: No Limitations - History of Present Illness Initial Comments: Patient is a 65-year-old female who presents emergency room with complaints of substernal chest pain. Patient states that she is also having shortness of breath. Patient dates her symptoms started at 630. Patient states her symptoms are worsening. Patient states they are worsening that she needs to call EMS. Patient brought in by EMS. Patient states they gave her nitro in route and her pain went from a 8 out of 10 down to a 3 out of 10. Patient's states right now her pain is a 5 out of 10. Patient states he is also having wheezing and cough. Patient states she feels like her COPD is also acting up. Patient states that her chest pain and shortness of breath are better with rest and worse with nursing. Patient states that her cough is better with rest and worse with exertion. Patient denies recent travel. Patient denies recent international travel. Patient denies exposure to the novel coronavirus. Patient denies sick contacts. Patient denies fever and chills. Patient denies cough. Patient denies diarrhea. Patient denies coming in contact with anybody with symptoms of the novel coronavirus. MD Complaint: chest pain -: Sudden Onset: during rest Pain Location: left chest Severity scale (0 -10): 5 Quality: heaviness, sharp Consistency: constant Improves With: rest Worsens With: exertion re: dyspnea, sense of impending doom. denies: nausea, vomting, diaphoresis Other Symptoms: cough. denies: fever, syncope, rash, acid taste in mouth, leg swelling, palpitations, burping Treatments Prior to Arrival: nitroglycerin Aspirin use within the Past 7 Days: (0) No - Related Data On Oral Contraceptives: No Home Medications Medication Instructions Recorded Confirmed Last Taken Clopidogrel [Plavix] 75 mg PO DAILY 07/21/19 03/12/21 02/23/21 Gabapentin 800 mg PO BID 07/21/19 03/12/21 02/23/21 Previous Rx's Medication Instructions Recorded Last Taken Type Metoprolol Xl [Metoprolol 25 mg PO QDAY #30 tablet 07/23/19 02/23/21 Rx SUCCINATE ER TAB] Albuterol Sulfate [Proventil Hfa] 2 puff IH Q4HR PRN #1 hfa.aer.ad 08/17/20 Unknown Rx Albuterol Mdi (or & Nicu Only) 2 puff IH QID PRN #1 03/13/21 Unknown Rx [ProAir HFA Inhaler] AtorvaSTATin [Lipitor] 40 mg PO QHS #30 tablet 03/13/21 Unknown Rx Clopidogrel [Plavix] 75 mg PO BID #60 tablet 03/13/21 Unknown Rx ISOSORBIDE MONOnitrate [Imdur ER] 30 mg PO QDAY #30 tablet 03/13/21 Unknown Rx Insulin NPH/Regular [NovoLIN 70/30] 25 unit SUB-Q BIDDIAB #7 units 03/13/21 Unknown Rx Metoprolol Xl [Metoprolol 50 mg PO BID #60 tablet 03/13/21 Unknown Rx SUCCINATE ER TAB] Nitroglycerin [Nitrostat] 0.4 mg SL .Q5MIN PRN #30 tablet 03/13/21 Unknown Rx Ranolazine ER [Ranexa ER] 1,000 mg PO BID #120 tablet 03/13/21 Unknown Rx amLODIPine 10 mg PO QDAY #30 tablet 03/13/21 Unknown Rx lisinopriL [Zestril TAB] 10 mg PO QDAY #30 tablet 03/13/21 Unknown Rx predniSONE [Deltasone] 40 mg PO QDAY #20 tablet 03/13/21 Unknown Rx traMADoL [Ultram 50 MG tab] 50 mg PO Q6HR PRN #12 tab 03/13/21 Unknown Rx Allergies Allergy/AdvReac Type Severity Reaction Status Date / Time aspirin Allergy Shortness Verified 05/05/19 15:37 of Breath Penicillins Allergy Swelling Verified 05/05/19 15:37 Heart Score - HEART Score History: Moderately suspicious EKG: Non-specific Age: > 65 Risk factors: > 3 risk factors or hx of atherosclerotic disease Troponin: < normal limit HEART Score: 6 - EKG Read Time Time EKG Completed: 23:59 EKG Read Time: 23:59 ED Review of Systems ROS: Stated complaint: CHEST PAIN/COPD Other details as noted in HPI Constitutional: denies: chills, fever Eyes: denies: eye pain, eye discharge, vision change ENT: denies: ear pain, throat pain Respiratory: see HPI, cough, shortness of breath, wheezing Cardiovascular: as per HPI, chest pain, dyspnea on exertion. denies: palpi tations Endocrine: no symptoms reported Gastrointestinal: denies: abdominal pain, nausea, diarrhea Genitourinary: denies: urgency, dysuria, discharge Musculoskeletal: denies: back pain, joint swelling, arthralgia Skin: denies: rash, lesions Neurological: denies: headache, weakness, paresthesias Psychiatric: denies: anxiety, depression Hematological/Lymphatic: denies: easy bleeding, easy bruising ED Past Medical Hx - Past Medical History Previous Medical History?: Yes Hx Hypertension: Yes Hx CVA: Yes (9-18) Hx Heart Attack/AMI: Yes Hx Congestive Heart Failure: Yes Hx Diabetes: Yes Hx Deep Vein Thrombosis: Yes Hx GERD: Yes Hx Liver Disease: No Hx Renal Disease: No Hx Sickle Cell Disease: No Hx Arthritis: Yes Hx Seizures: No Hx Psychiatric Treatment: Yes (depression w SI) Hx Asthma: No Hx COPD: No Hx Tuberculosis: No Hx Dementia: No Hx HIV: No Additional medical history: 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 BLE stent placement - Family History Family history: no significant - Social History Smoking Status: Never Smoker Substance Use Type: None - Medications Home Medications: Home Medications Medication Instructions Recorded Confirmed Last Taken Type Clopidogrel [Plavix] 75 mg PO DAILY 07/21/19 03/12/21 02/23/21 History Gabapentin 800 mg PO BID 07/21/19 03/12/21 02/23/21 History Metoprolol Xl [Metoprolol 25 mg PO QDAY #30 tablet 07/23/19 03/12/21 02/23/21 Rx SUCCINATE ER TAB] Albuterol Sulfate [Proventil Hfa] 2 puff IH Q4HR PRN #1 hfa.aer.ad 08/17/20 03/12/21 Unknown Rx Albuterol Mdi (or & Nicu Only) 2 puff IH QID PRN #1 03/13/21 Unknown Rx [ProAir HFA Inhaler] AtorvaSTATin [Lipitor] 40 mg PO QHS #30 tablet 03/13/21 Unknown Rx Clopidogrel [Plavix] 75 mg PO BID #60 tablet 03/13/21 Unknown Rx ISOSORBIDE MONOnitrate [Imdur ER] 30 mg PO QDAY #30 tablet 03/13/21 Unknown Rx Insulin NPH/Regular [NovoLIN 70/30] 25 unit SUB-Q BIDDIAB #7 units 03/13/21 Unknown Rx Metoprolol Xl [Metoprolol 50 mg PO BID #60 tablet 03/13/21 Unknown Rx SUCCINATE ER TAB] Nitroglycerin [Nitrostat] 0.4 mg SL .Q5MIN PRN #30 tablet 03/13/21 Unknown Rx Ranolazine ER [Ranexa ER] 1,000 mg PO BID #120 tablet 03/13/21 Unknown Rx amLODIPine 10 mg PO QDAY #30 tablet 03/13/21 Unknown Rx lisinopriL [Zestril TAB] 10 mg PO QDAY #30 tablet 03/13/21 Unknown Rx predniSONE [Deltasone] 40 mg PO QDAY #20 tablet 03/13/21 Unknown Rx traMADoL [Ultram 50 MG tab] 50 mg PO Q6HR PRN #12 tab 03/13/21 Unknown Rx ED Physical Exam - General Limitations: No Limitations General appearance: alert, in no apparent distress - Head Head exam: Present: atraumatic, normocephalic - Eye Eye exam: Present: normal appearance - ENT ENT exam: Present: mucous membranes moist - Neck Neck exam: Present: normal inspection - Respiratory Respiratory exam: Present: wheezes. Absent: respiratory distress - Cardiovascular Cardiovascular Exam: Present: regular rate, normal rhythm. Absent: systolic murmur, diastolic murmur, rubs, gallop - GI/Abdominal GI/Abdominal exam: Present: soft, normal bowel sounds - Extremities Exam Extremities exam: Present: normal inspection - Back Exam Back exam: Present: normal inspection - Neurological Exam Neurological exam: Present: alert, oriented X3 - Psychiatric Psychiatric exam: Present: normal affect, normal mood - Skin Skin exam: Present: warm, dry, intact, normal color. Absent: rash ED Course Vital Signs 04/08/21 20:57 Temperature 98.7 F Pulse Rate 68 Respiratory 18 Rate Blood Pressure 140/53 [Left] O2 Sat by Pulse 96 Oximetry - Reevaluation(s) Reevaluation #1: Patient wheezing has improved with DuoNeb and steroids. Patient states feeling a little bit better. But states she still short of breath. 04/08/21 23:18 Reevaluation #2: I discussed all results with patient. I discussed plan of care with patient. Patient agrees with plan of care and admission. Patient to be admitted to the hospitalist service. 04/09/21 00:18 - Consultations Consultation #1: Hospitalist consulted for admission. Hospitalist to admit patient. 04/09/21 00:18 SHLOMO score - Hslomo Score Age > 65: (1) Yes Aspirin use within the Past 7 Days: (0) No 3 or more CAD Risk Factors: (1) Yes 2 or more Angina events in past 24 hrs: (0) No Known CAD with more than 50% Stenosis: (1) Yes Elevated Cardiac Markers: (0) No ST Deviation Greater than 0.5mm: (0) No SHLOMO Score: 3 ED Medical Decision Making - Lab Data Result diagrams: 04/08/21 22:50 04/08/21 22:50 - EKG Data -: EKG Interpreted by Me EKG shows normal: sinus rhythm, axis, intervals, QRS complexes, ST-T waves Rate: normal - Radiology Data Radiology results: report reviewed, image reviewed interpreted by me: Chest x-ray: No pneumonia, no pneumothorax, no foreign body, no osseous findings, no acute findings CHEST 1 VIEW 04/08/2021 11:01 PM INDICATION / CLINICAL INFORMATION: Chest Pain. COMPARISON: 03/13/2021 FINDINGS: SUPPORT DEVICES: None. HEART / MEDIASTINUM: No significant abnormality. LUNGS / PLEURA: No significant pulmonary or pleural abnormality. No pneumothorax. ADDITIONAL FINDINGS: No significant additional findings. IMPRESSION: 1. No acute findings. - Medical Decision Making Patient is 65-year-old female who presents emergency room with complaints of chest pain shortness of breath. Patient was given nitro by this and her chest pain improved. Patient on exam found to have wheezing throughout. Patient given Solu-Medrol and DuoNeb and her shortness of breath and wheezing improved. Patient has significant cardiac history. Patient had a chest x-ray which was negative for acute finding. Personally reviewed the chest x-ray. Patient had an EKG which shows normal ST segment. Patient EKG is negative for STEMI. I personally reviewed the EKG. Patient had labs done which were essentially un remarkable except for hyperglycemia. Patient's troponin was negative. Patient admitted to the hospital service for further evaluation treatment and treatment of her COPD exacerbation and rule out ACS. Critical care time documented due to the multiple reassessments, prolonged time at the bedside, interpretation of diagnostics and labs. Critical care time documented due to the multiple reassessments, prolonged time at the bedside, interpretation of diagnostics and labs. - Differential Diagnosis ACS, chest pain, shortness of breath, COPD exacerbation, CHF, Critical Care Time: Yes Critical care time in (mins) excluding proc time.: 35 Critical care attestation.: If time is entered above; I have spent that time in minutes in the direct care of this critically ill patient, excluding procedure time. Critical Care Time: 35 minutes ED Disposition Clinical Impression: Shortness of breath, COPD exacerbation Chest pain Qualifiers: Chest pain type: unspecified Qualified Code(s): R07.9 - Chest pain, unspecified Disposition: 09 ADMITTED INPATIENT Is pt being admited?: Yes Does the pt Need Aspirin: No Condition: Critical Instructions: Chronic Obstructive Pulmonary Disease (ED) Time of Disposition: 00:18
--- NOTE | 2021-04-08 23:06 | XRay Report ---
CHEST 1 VIEW 04/08/2021 11:01 PM INDICATION / CLINICAL INFORMATION: Chest Pain. COMPARISON: 03/13/2021 FINDINGS: SUPPORT DEVICES: None. HEART / MEDIASTINUM: No significant abnormality. LUNGS / PLEURA: No significant pulmonary or pleural abnormality. No pneumothorax. ADDITIONAL FINDINGS: No significant additional findings. IMPRESSION: 1. No acute findings. Signer Name: Shayne Calixto DO Signed: 04/08/2021 11:02 PM Workstation Name: [id number]
[2021-04-08 23:15] LABS: Hematocrit 35.4 % (30.3-42.9); Hemoglobin 11.7 gm/dl (10.1-14.3); Mean Corpuscular HGB Conc 33 % (30-34); Mean Corpuscular Volume 78 fl (79-97); Platelet Count 232 K/mm3 (140-440); Red Blood Count 4.55 M/mm3 (3.65-5.03); Red Cell Distribution Width 17.1 % (13.2-15.2)
[2021-04-08 23:23] LABS: INR 0.88 (0.87-1.13); Partial Thromboplastin Time 24.9 Sec. (24.2-36.6)
[2021-04-08 23:38] LABS: Alanine Aminotransferase 13 units/L (7-56); Albumin 3.8 g/dL (3.9-5); BUN/Creatinine Ratio 17; Blood Urea Nitrogen 17 mg/dL (7-17); Calcium 9.6 mg/dL (8.4-10.2); Hemolysis Index 0
[2021-04-09 01:59] LABS: Total Cells Counted 100
[2021-04-09 02:00] LABS: Platelet Estimate Consistent w Auto; RBC Morphology Normal
[2021-04-09] MEDS ORDERED: ACETAMINOPHEN 325 MG TAB PO PRN (02:37)
[2021-04-09] MEDS ORDERED: NITROGLYCERIN 0.4 MG TAB SUBL SL PRN ×2 (02:37→02:41)
[2021-04-09] MEDS ORDERED: DEXTROSE 50% IN WATER (25GM) 50 ML SYRINGE IV PRN (02:37)
[2021-04-09] MEDS ORDERED: traMADol 50 MG TAB PO PRN ×2 (02:37→02:41)
[2021-04-09] MEDS ORDERED: MORPHINE 4 MG/1 ML INJ IV PRN (02:37)
[2021-04-09] MEDS ORDERED: ALBUTEROL 8.5 GM MDI INHALATION IH PRN ×2 (02:41)
[2021-04-09] MEDS ORDERED: SODIUM CHLORIDE 0.9% 1000 ML 1,000 ML IV SCH (02:45)
--- NOTE | 2021-04-09 02:47 | History and Physical Report ---
History of Present Illness Date of examination: 04/09/21 Date of admission: 04/09/21 02:32 Chief complaint: Chest pain History of present illness: 65 years old female with past medical history of COPD coronary artery disease was brought to the emergency room because of substernal chest pain which is left chest feels like heaviness sharp constant 02/09 Patient states that she is also having shortness of breath. Patient dates her symptoms started at 630. Patient states her symptoms are worsening. Patient states they are worsening that she needs to call EMS. Patient brought in by EMS. Patient states they gave her nitro in route and and her pain improves. P atient states he is also having wheezing and cough. Patient states she feels like her COPD is also acting up. Patient states that her chest pain and shortness of breath are better with rest and worse with exertion In the emergency room initial troponin is 0.010. Glucose 362 so going to put the patient on chest pain pathway will consult cardiology Med rec is done Past History Past Medical History: acute MA, arthritis, CAD, diabetes, GERD, heart failure, PVD, stroke Medications and Allergies Allergies Allergy/AdvReac Type Severity Reaction Status Date / Time aspirin Allergy Shortness Verified 05/05/19 15:37 of Breath Penicillins Allergy Swelling Verified 05/05/19 15:37 Home Medications Medication Instructions Recorded Confirmed Last Taken Type Clopidogrel [Plavix] 75 mg PO DAILY 07/21/19 03/12/21 02/23/21 History Gabapentin 800 mg PO BID 07/21/19 03/12/21 02/23/21 History Metoprolol Xl [Metoprolol 25 mg PO QDAY #30 tablet 07/23/19 03/12/21 02/23/21 Rx SUCCINATE ER TAB] Albuterol Sulfate [Proventil Hfa] 2 puff IH Q4HR PRN #1 hfa.aer.ad 08/17/20 03/12/21 Unknown Rx Albuterol Mdi (or & Nicu Only) 2 puff IH QID PRN #1 03/13/21 Unknown Rx [ProAir HFA Inhaler] AtorvaSTATin [Lipitor] 40 mg PO QHS #30 tablet 03/13/21 Unknown Rx Clopidogrel [Plavix] 75 mg PO BID #60 tablet 03/13/21 Unknown Rx ISOSORBIDE MONOnitrate [Imdur ER] 30 mg PO QDAY #30 tablet 03/13/21 Unknown Rx Insulin NPH/Regular [NovoLIN 70/30] 25 unit SUB-Q BIDDIAB #7 units 03/13/21 Unknown Rx Metoprolol Xl [Metoprolol 50 mg PO BID #60 tablet 03/13/21 Unknown Rx SUCCINATE ER TAB] Nitroglycerin [Nitrostat] 0.4 mg SL .Q5MIN PRN #30 tablet 03/13/21 Unknown Rx Ranolazine ER [Ranexa ER] 1,000 mg PO BID #120 tablet 03/13/21 Unknown Rx amLODIPine 10 mg PO QDAY #30 tablet 03/13/21 Unknown Rx lisinopriL [Zestril TAB] 10 mg PO QDAY #30 tablet 03/13/21 Unknown Rx predniSONE [Deltasone] 40 mg PO QDAY #20 tablet 03/13/21 Unknown Rx traMADoL [Ultram 50 MG tab] 50 mg PO Q6HR PRN #12 tab 03/13/21 Unknown Rx Review of Systems All systems: negative Cardiovascular: chest pain, shortness of breath, dyspnea on exertion Respiratory: shortness of breath, dyspnea on exertion Exam - Constitutional Vitals: Temp Pulse Resp BP Pulse Ox 98.7 F 63 17 133/85 95 04/08/21 20:57 04/09/21 01:01 04/09/21 01:01 04/09/21 01:01 04/09/21 01:01 General appearance: Present: no acute distress, mild distress, well-nourished - EENT Eyes: Present: PERRL ENT: hearing intact, clear oral mucosa - Neck Neck: Present: supple, normal ROM - Respiratory Respiratory effort: normal Respiratory: bilateral: diminished - Cardiovascular Heart Sounds: Present: S1 & S2. Absent: rub, click - Extremities Extremities: pulses symmetrical, No edema Peripheral Pulses: within normal limits - Abdominal General gastrointestinal: Present: soft, non-tender, non-distended, normal bowel sounds Female genitourinary: Present: normal - Integumentary Integumentary: Present: clear, warm, dry - Musculoskeletal Musculoskeletal: gait normal, strength equal bilaterally - Psychiatric Psychiatric: appropriate mood/affect, intact judgment & insight - Neurologic Neurologic: CNII-XII intact, moves all extremities HEART Score - HEART Score EKG: Non-specific Age: > 65 Risk factors: > 3 risk factors or hx of atherosclerotic disease Troponin: Troponin T < 0.010 ng/mL (0.00-0.029) 04/09/21 01:42 Troponin: < normal limit Results - Labs CBC & Chem 7: 04/08/21 22:50 04/08/21 22:50 Labs: Laboratory Last Values WBC 13.1 K/mm3 (4.5-11.0) H 04/08/21 22:50 RBC 4.55 M/mm3 (3.65-5.03) 04/08/21 22:50 Hgb 11.7 gm/dl (10.1-14.3) 04/08/21 22:50 Hct 35.4 % (30.3-42.9) 04/08/21 22:50 MCV 78 fl (79-97) L 04/08/21 22:50 MCH 26 pg (28-32) L 04/08/21 22:50 MCHC 33 % (30-34) 04/08/21 22:50 RDW 17.1 % (13.2-15.2) H 04/08/21 22:50 Plt Count 232 K/mm3 (140-440) 04/08/21 22:50 Add Manual Diff Complete 04/08/21 22:50 Total Counted 100 04/08/21 22:50 Seg Neuts % (Manual) 71.0 % (40.0-70.0) H 04/08/21 22:50 Lymphocytes % (Manual) 28.0 % (13.4-35.0) 04/08/21 22:50 Monocytes % (Manual) 1.0 % (0.0-7.3) 04/08/21 22:50 Nucleated RBC % Not Reportable 04/08/21 22:50 Seg Neutrophils # Man 9.3 K/mm3 (1.8-7.7) H 04/08/21 22:50 Band Neutrophils # 0.0 K/mm3 04/08/21 22:50 Lymphocytes # (Manual) 3.7 K/mm3 (1.2-5.4) 04/08/21 22:50 Abs React Lymphs (Man) 0.0 K/mm3 04/08/21 22:50 Monocytes # (Manual) 0.1 K/mm3 (0.0-0.8) 04/08/21 22:50 Eosinophils # (Manual) 0.0 K/mm3 (0.0-0.4) 04/08/21 22:50 Basophils # (Manual) 0.0 K/mm3 (0.0-0.1) 04/08/21 22:50 Metamyelocytes # 0.0 K/mm3 04/08/21 22:50 Myelocytes # 0.0 K/mm3 04/08/21 22:50 Promyelocytes # 0.0 K/mm3 04/08/21 22:50 Blast Cells # 0.0 K/mm3 04/08/21 22:50 WBC Morphology Not Reportable 04/08/21 22:50 Hypersegmented Neuts Not Reportable 04/08/21 22:50 Hyposegmented Neuts Not Reportable 04/08/21 22:50 Hypogranular Neuts Not Reportable 04/08/21 22:50 Smudge Cells Not Reportable 04/08/21 22:50 Toxic Granulation Not Reportable 04/08/21 22:50 Toxic Vacuolation Not Reportable 04/08/21 22:50 Dohle Bodies Not Reportable 04/08/21 22:50 Pelger-Huet Anomaly Not Reportable 04/08/21 22:50 Deneen Rods Not Reportable 04/08/21 22:50 Platelet Estimate Consistent w auto 04/08/21 22:50 Clumped Platelets Not Reportable 04/08/21 22:50 Plt Clumps, EDTA Not Reportable 04/08/21 22:50 Large Platelets Not Reportable 04/08/21 22:50 Giant Platelets Not Reportable 04/08/21 22:50 Platelet Satelliting Not Reportable 04/08/21 22:50 Plt Morphology Comment Not Reportable 04/08/21 22:50 RBC Morphology Normal 04/08/21 22:50 Dimorphic RBCs Not Reportable 04/08/21 22:50 Polychromasia Not Reportable 04/08/21 22:50 Hypochromasia Not Reportable 04/08/21 22:50 Poikilocytosis Not Reportable 04/08/21 22:50 Anisocytosis Not Reportable 04/08/21 22:50 Microcytosis Not Reportable 04/08/21 22:50 Macrocytosis Not Reportable 04/08/21 22:50 Spherocytes Not Reportable 04/08/21 22:50 Pappenheimer Bodies Not Reportable 04/08/21 22:50 Sickle Cells Not Reportable 04/08/21 22:50 Target Cells Not Reportable 04/08/21 22:50 Tear Drop Cells Not Reportable 04/08/21 22:50 Ovalocytes Not Reportable 04/08/21 22:50 Helmet Cells Not Reportable 04/08/21 22:50 [place] Bodies Not Reportable 04/08/21 22:50 [place] Rings Not Reportable 04/08/21 22:50 Dale Cells Not Reportable 04/08/21 22:50 Bite Cells Not Reportable 04/08/21 22:50 Crenated Cell Not Reportable 04/08/21 22:50 Elliptocytes Not Reportable 04/08/21 22:50 Acanthocytes (Spur) Not Reportable 04/08/21 22:50 Rouleaux Not Reportable 04/08/21 22:50 Hemoglobin C Crystals Not Reportable 04/08/21 22:50 Schistocytes Not Reportable 04/08/21 22:50 Malaria parasites Not Reportable 04/08/21 22:50 Henry Bodies Not Reportable 04/08/21 22:50 Hem Pathologist Commnt No 04/08/21 22:50 PT 12.4 Sec. (12.2-14.9) 04/08/21 22:50 INR 0.88 (0.87-1.13) 04/08/21 22:50 APTT 24.9 Sec. (24.2-36.6) 04/08/21 22:50 Sodium 138 mmol/L (137-145) 04/08/21 22:50 Potassium 4.1 mmol/L (3.6-5.0) 04/08/21 22:50 Chloride 100.2 mmol/L (98-107) 04/08/21 22:50 Carbon Dioxide 24 mmol/L (22-30) 04/08/21 22:50 Anion Gap 18 mmol/L 04/08/21 22:50 BUN 17 mg/dL (7-17) 04/08/21 22:50 Creatinine 1.0 mg/dL (0.6-1.2) 04/08/21 22:50 Estimated GFR > 60 ml/min 04/08/21 22:50 BUN/Creatinine Ratio 17 % 04/08/21 22:50 Glucose 362 mg/dL (65-100) H 04/08/21 22:50 Calcium 9.6 mg/dL (8.4-10.2) 04/08/21 22:50 Total Bilirubin 0.20 mg/dL (0.1-1.2) 04/08/21 22:50 AST 9 units/L (5-40) 04/08/21 22:50 ALT 13 units/L (7-56) 04/08/21 22:50 Alkaline Phosphatase 90 units/L (35-129) 04/08/21 22:50 Troponin T < 0.010 ng/mL (0.00-0.029) 04/09/21 01:42 Total Protein 6.3 g/dL (6.3-8.2) 04/08/21 22:50 Albumin 3.8 g/dL (3.9-5) L 04/08/21 22:50 Albumin/Globulin Ratio 1.5 % 04/08/21 22:50 - Imaging and Cardiology Chest x-ray: report reviewed Assessment and Plan VTE prophylaxis?: Chemical Plan of care discussed with patient/family: Yes - Patient Problems (1) Acute coronary syndrome Current Visit: Yes Status: Acute Plan to address problem: Admit the patient to the medical telemetry. Aspirin 81 mg p.o. daily. Plavix 75 mg p.o. daily. Lipitor 40 mg p.o. daily. Nitroglycerin as needed. Serial cardiac enzymes. Echocardiogram. Cardiology consult (2) CHF (congestive heart failure) Current Visit: No Status: Acute Qualifiers: Heart failure type: diastolic Plan to address problem: Stable. We'll continue the home medication. We'll monitor the patient closely. Echocardiogram. Cardiology consult (3) Diabetes mellitus type 2 in obese Current Visit: No Status: Chronic Plan to address problem: Put the patient on Humalog sliding scale moderate dose. Diabetic education. BMP in the morning (4) HTN (hypertension) Current Visit: No Status: Chronic Qualifiers: Hypertension type: essential hypertension Qualified Code(s): I10 - Essential (primary) hypertension Plan to address problem: Amlodipine 10 mg p.o. daily. Lisinopril 10 mg p.o. daily. Metoprolol 25 mg p.o. daily. We'll monitor the blood pressure closely (5) Shortness of breath Current Visit: Yes Status: Acute Plan to address problem: Oxygen by nasal cannula 3 L/min DuoNeb by nebulizer every 4 hours. Albuterol via nebulizer every 4 hours as needed (6) DVT prophylaxis Current Visit: No Status: Acute Plan to address problem: Heparin 5000 units subcu every 8 hours for DVT prophylaxis. Protonix 40 mg p.o. daily for GI prophylaxis (7) Full code status Current Visit: No Status: Acute Plan to address problem: Patient is a full code
[2021-04-09] MEDS ORDERED: ALBUTEROL 2.5 MG/3 ML NEBU IH PRN (02:57)
[2021-04-09] MEDS ORDERED: NITROGLYCERIN 0.4 MG TAB SUBL SL ONE (03:56)
[2021-04-09] MEDS ORDERED: LORazepam 2 MG/ML VIAL IV ONE (04:06)
[2021-04-09 05:44] LABS: Basophils # (Auto) 0.1 K/mm3 (0.0-0.1); Basophils % (Auto) 0.5 % (0.0-1.8); Hematocrit 39.1 % (30.3-42.9); Hemoglobin 12.9 gm/dl (10.1-14.3); Lymphocytes # (Auto) 1.1 K/mm3 (1.2-5.4); Lymphocytes % (Auto) 9.7 % (13.4-35.0); Mean Corpuscular HGB Conc 33 % (30-34); Mean Corpuscular Volume 79 fl (79-97); Monocytes # (Auto) 0.1 K/mm3 (0.0-0.8); Monocytes % (Auto) 0.7 % (0.0-7.3); Platelet Count 239 K/mm3 (140-440); Red Blood Count 4.94 M/mm3 (3.65-5.03)
[2021-04-09 05:55] LABS: BUN/Creatinine Ratio 20; Blood Urea Nitrogen 16 mg/dL (7-17); Calcium 9.5 mg/dL (8.4-10.2); Hemolysis Index 1
[2021-04-09 06:15] LABS: Creatine Kinase MB 1.6 ng/mL (0.0-4.0)
[2021-04-09] MEDS: HEPARIN 5,000 UNIT/1 ML VIAL SUB-Q SCH ×3 (06:46→23:39)
[2021-04-09] MEDS: INSULIN LISPRO 100 UNIT/ML SUB-Q SCH ×3 (06:46→18:54)
--- NOTE | 2021-04-09 08:35 | Electrocardiograph Report ---
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
[2021-04-09] MEDS ORDERED: METOPROLOL SUCCINATE XL 25 MG TAB PO SCH (10:00)
[2021-04-09] MEDS ORDERED: CLOPIDOGREL 75 MG TAB PO SCH ×2 (10:00→14:00)
[2021-04-09] MEDS: amLODIPine 10 MG TAB PO SCH (10:20)
[2021-04-09] MEDS: LISINOPRIL 10 MG TAB PO SCH (10:20)
[2021-04-09] MEDS: predniSONE 20 MG TAB PO SCH (10:20)
[2021-04-09] MEDS: GABAPENTIN 400 MG CAP PO SCH ×2 (10:20→23:38)
[2021-04-09] MEDS: PANTOPRAZOLE 40 MG TAB PO SCH (11:10)
[2021-04-09] MEDS: RANOLAZINE ER 500 MG TAB 12HR PO SCH ×2 (11:10→23:40)
--- NOTE | 2021-04-09 12:49 | Consultation ---
History of Present Illness Consult date: 04/09/21 Consult reason: chest pain History of present illness: Patient is a 65-year-old woman who presents to the with chest pain. She desc ribes a brief episode of chest pain which was not exertional, and had no associated symptoms. There was no shortness of breath or diaphoresis or nausea and vomiting. In the emergency room, her ECG was a mild sinus tachycardia, with no acute ischemic changes. Chest x-ray revealed borderline cardiomegaly, with clear lungs. Serial troponin levels x4 were negative. Patient has an extensive history of coronary artery disease. Her most a recent invasive evaluation was 2 years ago, when a cardiac catheterization revealed moderately severe disease of the LAD, that was treated with IVUS-guided in tervention with drug-eluting stents. At that time, she was described with a chronic total occlusion of the right coronary artery, unchanged on conservative medical therapy. 8 months ago, a thallium stress test done at this hospital showed an inferior wall defect consistent with the right coronary [employer], but no perfusion defects in the LAD territory. Last month, an echocardiogram showed well-preserved left ventricular systolic function with ejection fraction 50 to 55%. The patient is on medical therapy for chronic stable angina pectoris. Currently she remains in the emergency room, feels comfortable with no further chest pain, and is sinus rhythm with stable hemodynamics. Past History Past Medical History: arthritis, CAD, diabetes, GERD, heart failure, PVD, stroke Past Surgical History: PTCA Medications and Allergies Allergies Allergy/AdvReac Type Severity Reaction Status Date / Time aspirin Allergy ITCHING/HIV Verified 04/09/21 11:52 ES Penicillins Allergy ITCHING/HIV Verified 04/09/21 11:52 ES Home Medications Medication Instructions Recorded Confirmed Last Taken Type Clopidogrel [Plavix] 75 mg PO DAILY 07/21/19 04/09/21 02/23/21 History Gabapentin 800 mg PO BID 07/21/19 04/09/21 02/23/21 History Metoprolol Xl [Metoprolol 25 mg PO QDAY #30 tablet 07/23/19 04/09/21 02/23/21 Rx SUCCINATE ER TAB] Albuterol Mdi (or & Nicu Only) 2 puff IH QID PRN #1 03/13/21 04/09/21 Unknown Rx [ProAir HFA Inhaler] AtorvaSTATin [Lipitor] 40 mg PO QHS #30 tablet 03/13/21 04/09/21 Unknown Rx Insulin NPH/Regular [NovoLIN 70/30] 25 unit SUB-Q BIDDIAB #7 units 03/13/21 04/09/21 Unknown Rx Metoprolol Xl [Metoprolol 50 mg PO BID #60 tablet 03/13/21 04/09/21 Unknown Rx SUCCINATE ER TAB] Nitroglycerin [Nitrostat] 0.4 mg SL .Q5MIN PRN #30 tablet 03/13/21 04/09/21 04/08/21 Rx Ranolazine ER [Ranexa ER] 1,000 mg PO BID #120 tablet 03/13/21 04/09/21 04/08/21 Rx amLODIPine 10 mg PO QDAY #30 tablet 03/13/21 04/09/21 Unknown Rx lisinopriL [Zestril TAB] 10 mg PO QDAY #30 tablet 03/13/21 04/09/21 Unknown Rx predniSONE [Deltasone] 40 mg PO QDAY #20 tablet 03/13/21 04/09/21 Unknown Rx traMADoL [Ultram 50 MG tab] 50 mg PO Q6HR PRN #12 tab 03/13/21 04/09/21 04/08/21 Rx Advair Diskus 250-50 mcg 250 mcg IH BID 04/09/21 04/09/21 Unknown History ISOSORBIDE MONOnitrate [Imdur ER] 120 mg PO QDAY 04/09/21 04/09/21 04/08/21 History Pregabalin [Lyrica] 200 mg PO BID 04/09/21 04/09/21 Unknown History Active Meds: Active Medications Acetaminophen (Acetaminophen 325 Mg Tab) 650 mg PO Q6H PRN PRN Reason: Pain, Mild (1-3) Albuterol (Albuterol 2.5 Mg/3 Ml Nebu) 2.5 mg IH Q4HRT PRN PRN Reason: Wheezing/ SOB Amlodipine Besylate (Amlodipine 10 Mg Tab) 10 mg PO QDAY ON LICENSE OF [facility] Last Admin: 04/09/21 10:20 Dose: 10 mg Documented by: Atorvastatin Calcium (Atorvastatin 40 Mg Tab) 40 mg PO QHS DEBRA Clopidogrel Bisulfate (Clopidogrel 75 Mg Tab) 75 mg PO BID ON LICENSE OF [facility] Last Admin: 04/09/21 10:20 Dose: 75 mg Documented by: Dextrose (Dextrose 50% In Water (25gm) 50 Ml Syringe) 50 ml IV Q30MIN PRN; Protocol PRN Reason: Hypoglycemia Gabapentin (Gabapentin 400 Mg Cap) 800 mg PO BID ON LICENSE OF [facility] Last Admin: 04/09/21 10:20 Dose: 800 mg Documented by: Heparin Sodium (Porcine) (Heparin 5,000 Unit/1 Ml Vial) 5,000 unit SUB-Q Q8HR ON LICENSE OF [facility] Last Admin: 04/09/21 06:46 Dose: 5,000 unit Documented by: Sodium Chloride (Nacl 0.9% 1000 Ml) 1,000 mls @ 100 mls/hr IV DIRECT ON LICENSE OF [facility] Last Admin: 04/09/21 11:30 Dose: 100 mls/hr Documented by: Insulin Human Lispro (Insulin Lispro 100 Unit/Ml) 0 unit SUB-Q Q6HR ON LICENSE OF [facility]; Protocol Last Admin: 04/09/21 06:46 Dose: 8 unit Documented by: Isosorbide Mononitrate (Isosorbide Mononitrate Er 60 Mg Tab) 60 mg PO QDAY ON LICENSE OF [facility] Lisinopril (Lisinopril 10 Mg Tab) 10 mg PO QDAY ON LICENSE OF [facility] Last Admin: 04/09/21 10:20 Dose: 10 mg Documented by: Metoprolol Succinate (Metoprolol Succinate Xl 50 Mg Tab) 50 mg PO QDAY ON LICENSE OF [facility] Morphine Sulfate (Morphine 4 Mg/1 Ml Inj) 2 mg IV Q5MIN PRN PRN Reason: Chest Pain unrelieved by NTG Last Admin: 04/09/21 04:00 Dose: 2 mg Documented by: Nitroglycerin (Nitroglycerin 0.4 Mg Tab Subl) 0.4 mg SL Q5M PRN PRN Reason: Chest Pain Pantoprazole Sodium (Pantoprazole 40 Mg Tab) 40 mg PO QDAY ON LICENSE OF [facility] Last Admin: 04/09/21 11:10 Dose: 40 mg Documented by: Prednisone (Prednisone 20 Mg Tab) 40 mg PO QDAY ON LICENSE OF [facility] Last Admin: 04/09/21 10:20 Dose: 40 mg Documented by: Ranolazine (Ranolazine Er 500 Mg Tab 12hr) 1,000 mg PO BID ON LICENSE OF [facility] Last Admin: 04/09/21 11:10 Dose: 1,000 mg Documented by: Sodium Chloride (Sodium Chloride 0.9% 10 Ml Flush Syringe) 10 ml IV PRN PRN PRN Reason: LINE FLUSH Tramadol HCl (Tramadol 50 Mg Tab) 50 mg PO Q6H PRN PRN Reason: Pain, Moderate (4-6) Review of Systems Cardiovascular: chest pain, shortness of breath, no orthopnea, no palpitations, no rapid/irregular heart beat, no edema, no syncope, no lightheadedness Physical Examination Vital Signs Temp Pulse Resp BP Pulse Ox 98.7 F 68 18 140/53 96 04/08/21 20:57 04/08/21 20:57 04/08/21 20:57 04/08/21 20:57 04/08/21 20:57 General appearance: no acute distress HEENT: Positive: PERRL Neck: Positive: neck supple Cardiac: Positive: Reg Rate and Rhythm Lungs: Positive: Decreased Breath Sounds Neuro: Positive: Grossly Intact Abdomen: Positive: Soft Female genitourinary: deferred Skin: Positive: Clear Extremities: Absent: edema Results 04/09/21 04:23 04/09/21 04:23 Cardiac Enzymes 04/08/21 04/09/21 Range/Units 22:50 04:23 AST 9 (5-40) units/L CK-MB (CK-2) 1.6 (0.0-4.0) ng/mL Coagulation 04/08/21 Range/Units 22:50 PT 12.4 (12.2-14.9) Sec. INR 0.88 (0.87-1.13) APTT 24.9 (24.2-36.6) Sec. CBC 04/08/21 04/09/21 Range/Units 22:50 04:23 WBC 13.1 H 11.2 H (4.5-11.0) K/mm3 RBC 4.55 4.94 (3.65-5.03) M/mm3 Hgb 11.7 12.9 (10.1-14.3) gm/dl Hct 35.4 39.1 (30.3-42.9) % Plt Count 232 239 (140-440) K/mm3 Lymph # (Auto) 1.1 L (1.2-5.4) K/mm3 [place] # (Auto) 0.1 (0.0-0.8) K/mm3 Eos # (Auto) 0.0 (0.0-0.4) K/mm3 Baso # (Auto) 0.1 (0.0-0.1) K/mm3 Comprehensive Metabolic Panel 04/08/21 04/09/21 Range/Units 22:50 04:23 Sodium 138 137 (137-145) mmol/L Potassium 4.1 4.1 (3.6-5.0) mmol/L Chloride 100.2 99.6 (98-107) mmol/L Carbon Dioxide 24 24 (22-30) mmol/L BUN 17 16 (7-17) mg/dL Creatinine 1.0 0.8 (0.6-1.2) mg/dL Glucose 362 H 389 H (65-100) mg/dL Calcium 9.6 9.5 (8.4-10.2) mg/dL AST 9 (5-40) units/L ALT 13 (7-56) units/L Alkaline Phosphatase 90 (35-129) units/L Total Protein 6.3 (6.3-8.2) g/dL Albumin 3.8 L (3.9-5) g/dL EKG interpretations - Telemetry EKG Rhythm: Sinus Rhythm Assessment and Plan - Patient Problems (1) Chest pain Current Visit: Yes Status: Acute Qualifiers: Chest pain type: unspecified Qualified Code(s): R07.9 - Chest pain, unspecified Plan to address problem: Patient has two-vessel disease with a chronic total occlusion of the right coronary artery, on medical management. 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 On this presentation, ECG is benign and serial troponin levels x4 were negative. We will advance medical therapy by increasing her isosorbide and Ranexa, and optimizing beta-tr therapy with metoprolol. Otherwise, continue aggressive medical management and risk factor modification with early outpatient follow-up after discharge.
--- NOTE | 2021-04-09 17:43 | Event Note ---
Date: 04/09/21 Patient seen and examined, Patient presented with chest pain, cardiology recommended medical management Resume home meds and adjust per cardiology recommendation If clinically stable possible discharge tomorrow
[2021-04-09] MEDS ORDERED: INSULIN LISPRO 100 UNIT/ML SUB-Q ONE ×2 (18:53→19:40)
[2021-04-09] MEDS ORDERED: INSULIN GLARGINE 100 UNITS/ML SUB-Q SCH (22:00)
[2021-04-10] MEDS: INSULIN LISPRO 100 UNIT/ML SUB-Q SCH ×4 (01:06→17:41)
[2021-04-10] MEDS: HEPARIN 5,000 UNIT/1 ML VIAL SUB-Q SCH ×2 (06:19→13:03)
[2021-04-10] MEDS: predniSONE 20 MG TAB PO SCH (09:36)
[2021-04-10] MEDS: PANTOPRAZOLE 40 MG TAB PO SCH (09:36)
[2021-04-10] MEDS: RANOLAZINE ER 500 MG TAB 12HR PO SCH (09:36)
[2021-04-10] MEDS: GABAPENTIN 400 MG CAP PO SCH (09:36)
[2021-04-10] MEDS: amLODIPine 10 MG TAB PO SCH (09:39)
[2021-04-10] MEDS ORDERED: METOPROLOL SUCCINATE XL 50 MG TAB PO SCH (10:00)
[2021-04-10] MEDS ORDERED: CLOPIDOGREL 75 MG TAB PO SCH (10:00)
[2021-04-10] MEDS ORDERED: ASPIRIN 81 MG TAB CHEW PO SCH (10:00)
--- NOTE | 2021-04-10 10:19 | Progress Note ---
Assessment and Plan - Patient Problems (1) Chest pain Current Visit: Yes Status: Acute Qualifiers: Chest pain type: unspecified Qualified Code(s): R07.9 - Chest pain, unspecified Plan to address problem: Patient presents with chest pain, history of coronary artery disease with chronic total occlusion of the right coronary artery on medical therapy for chronic stable angina pectoris. She is stable for cardiac discharge, we recommend an increase in her metoprolol to 50 mg daily, and increase Imdur to 60 mg daily. Patient is directed to follow-up in our office within 5 to 7 days for further outpatient follow-up. Subjective Date of service: 04/10/21 Interval history: Patient is comfortable, no further complaints, looks and feels better. Objective Vital Signs Temp Pulse Resp BP BP Pulse Ox 04/10/21 07:48 97.5 F L 52 L 20 138/59 98 04/10/21 05:31 96 04/10/21 03:57 98.2 F 54 L 16 137/58 91 04/10/21 00:48 128/56 04/10/21 00:29 98.5 F 56 L 16 152/60 100 04/10/21 00:00 56 L 13 128/56 99 04/09/21 23:50 56 L 11 L 128/56 99 04/09/21 23:40 57 L 15 129/59 98 04/09/21 23:30 56 L 13 129/59 95 04/09/21 23:20 56 L 13 129/59 95 04/09/21 23:12 58 L 15 129/59 93 04/09/21 23:00 58 L 18 129/59 96 04/09/21 22:00 58 L 12 125/52 98 04/09/21 21:00 58 L 14 154/57 98 04/09/21 20:30 98.1 F 60 14 154/50 99 04/09/21 20:00 140/57 98 04/09/21 19:00 140/57 98 04/09/21 18:00 140/57 98 04/09/21 17:00 159/63 96 04/09/21 16:00 144/66 93 04/09/21 15:00 65 16 129/58 92 04/09/21 14:00 62 13 146/62 96 04/09/21 13:00 65 14 140/56 96 04/09/21 12:00 66 13 95 04/09/21 11:01 65 14 129/84 99 - Physical Examination General: No Apparent Distress HEENT: Positive: PERRL Neck: Positive: neck supple Cardiac: Positive: Reg Rate and Rhythm Lungs: Positive: clear to auscultation Neuro: Positive: Grossly Intact Abdomen: Positive: Soft Skin: Positive: Clear Extremities: Absent: edema
--- NOTE | 2021-04-10 10:52 | Discharge Summary ---
Providers - Providers Date of Admission: 04/09/21 02:32 Attending physician: SOPHIA LOPEZ 04/09/21 Consult to Cardiac Rehabilitation [CONS] Routine Reason For Exam: Phase I 04/09/21 02:37 Consult to Cardiology [CONS] Routine Consulting Provider: LEON BROWER Reason For Exam: Chest pain Consult to Dietitian/Nutrition [CONS] Routine Physician Instructions: Reason For Exam: Reason for Consult: Diet education Primary care physician: KATHRIN SMITH Hospitalization Condition: Critical Exam - Constitutional Vitals: Temp Pulse Resp BP Pulse Ox 97.5 F L 52 L 20 138/59 98 04/10/21 07:48 04/10/21 07:48 04/10/21 07:48 04/10/21 07:48 04/10/21 07:48 Plan Follow up with: KATHRIN SMITH MD [Primary Care Provider] - 7 Days Prescriptions: ISOSORBIDE MONOnitrate [Imdur ER] 60 mg PO QDAY #30 tab.er.24h
[2021-04-10] MEDS: LISINOPRIL 10 MG TAB PO SCH (13:02)
[2021-04-10 16:56] VITALS: BP 131/50
--- NOTE | 2021-04-12 10:54 | Electrocardiograph Report ---
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
--- NOTE | 2021-04-12 10:57 | Electrocardiograph Report ---
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
== END 2021-04-10 19:22 | disposition home or self-care (01) ==
LOC: ED 20:24 → 4A 04-09 02:32
PROVIDERS: ADMIT Hospitalist; ATTEND Internal Medicine
DX: I24.9 Acute ischemic heart disease, unspecified (principal); I11.0 Hypertensive heart disease with heart failure; I50.9 Heart failure, unspecified; E11.9 Type 2 diabetes mellitus without complications; I25.2 Old myocardial infarction; M19.90 Unspecified osteoarthritis, unspecified site; J44.1 Chronic obstructive pulmonary disease with (acute) exacerbation; K21.9 Gastro-esophageal reflux disease without esophagitis; I73.9 Peripheral vascular disease, unspecified; R06.02 Shortness of breath; Z86.73 Personal history of transient ischemic attack (TIA), and cerebral infarction without residual deficits; Z79.02 Long term (current) use of antithrombotics/antiplatelets; Z79.4 Long term (current) use of insulin; Z86.718 Personal history of other venous thrombosis and embolism; Z90.710 Acquired absence of both cervix and uterus; Z79.899 Other long term (current) drug therapy; Z98.890 Other specified postprocedural states
CPT/HCPCS: 36415; 71045; 80048; 80053; 82550; 82553; 82962; 84484; 85025; 85610; 85730; 93005; 94760; 96361; 96372; 96374; 96375; 99291; A9270; G0378; J1644; J2060; J2270; J2930; J7030; J7512; 85007; J1815

== ENCOUNTER 2021-09-14 18:04 | Inpatient (IN) | payer MEDICARE ==
[2021-09-14] MEDS ORDERED: ALBUTEROL 2.5 MG/3 ML NEBU IH ONE ×2 (18:13→18:15)
[2021-09-14] MEDS ORDERED: IPRATROPIUM 0.02% NEBU 2.5 ML IH ONE ×2 (18:13→18:15)
[2021-09-14] MEDS ORDERED: MAGNESIUM SULFATE 2 GM/50 ML BAG IV ONE ×2 (18:14→18:15)
[2021-09-14] MEDS ORDERED: methylPREDNISolone Sod Succinate 125 MG/2 ML INJ IV ONE (18:14)
[2021-09-14] MEDS ORDERED: methylPREDNISolone Sod Succinate 125 MG/2 ML INJ ONE (18:15)
--- NOTE | 2021-09-14 18:17 | Emergency Department Report ---
ED Shortness of Breath HPI - General Chief Complaint: Dyspnea/Respdistress Stated Complaint: YULI Time Seen by Provider: 09/14/21 18:14 Source: family, old records reviewed Mode of arrival: Wheelchair Limitations: Altered Mental Status - History of Present Illness Initial Comments: 65-year-old female with a past medical history CAD, COPD with home oxygen use, CHF, GERD, hypertension, diabetes, hyperlipidemia, and CVA presents to the hospital by private vehicle accompanied by her daughter with acute respiratory distress. Patient arrives dyspneic, tachypneic, diaphoretic, and unable to speak. She was immediately brought back to a resuscitation room and required bag assisted ventilations while being placed on a monitor and IV access obtained. Daughter states that patient developed shortness of breath this evening and seemed to be normal earlier in the day. Daughter provided nitroglycerin prior to ED arrival - Related Data Home Medications Medication Instructions Recorded Confirmed Last Taken Clopidogrel [Plavix] 75 mg PO DAILY 07/21/19 04/09/21 02/23/21 Gabapentin 800 mg PO BID 07/21/19 04/09/21 02/23/21 Advair Diskus 250-50 mcg 250 mcg IH BID 04/09/21 04/09/21 Unknown ISOSORBIDE MONOnitrate [Imdur ER] 120 mg PO QDAY 04/09/21 04/09/21 04/08/21 Pregabalin [Lyrica] 200 mg PO BID 04/09/21 04/09/21 Unknown Previous Rx's Medication Instructions Recorded Last Taken Type Metoprolol Xl [Metoprolol 25 mg PO QDAY #30 tablet 07/23/19 02/23/21 Rx SUCCINATE ER TAB] Albuterol Mdi (or & Nicu Only) 2 puff IH QID PRN #1 03/13/21 Unknown Rx [ProAir HFA Inhaler] AtorvaSTATin [Lipitor] 40 mg PO QHS #30 tablet 03/13/21 Unknown Rx Insulin NPH/Regular [NovoLIN 70/30] 25 unit SUB-Q BIDDIAB #7 units 03/13/21 Unknown Rx Metoprolol Xl [Metoprolol 50 mg PO BID #60 tablet 03/13/21 Unknown Rx SUCCINATE ER TAB] Nitroglycerin [Nitrostat] 0.4 mg SL .Q5MIN PRN #30 tablet 03/13/21 04/08/21 Rx Ranolazine ER [Ranexa ER] 1,000 mg PO BID #120 tablet 03/13/21 04/08/21 Rx amLODIPine 10 mg PO QDAY #30 tablet 03/13/21 Unknown Rx lisinopriL [Zestril TAB] 10 mg PO QDAY #30 tablet 03/13/21 Unknown Rx predniSONE [Deltasone] 40 mg PO QDAY #20 tablet 03/13/21 Unknown Rx ISOSORBIDE MONOnitrate [Imdur ER] 60 mg PO QDAY #30 tab.er.24h 04/10/21 Unknown Rx HYDROcodone/APAP 7.5-325 [[place] 1 each PO Q6HR PRN #12 tablet 06/11/21 Unknown Rx 7.5/325] Allergies Allergy/AdvReac Type Severity Reaction Status Date / Time aspirin Allergy ITCHING/HIV Verified 09/14/21 18:16 ES Penicillins Allergy ITCHING/HIV Verified 09/14/21 18:16 ES ED Review of Systems ROS: Stated complaint: YULI Other details as noted in HPI Comment: Unobtainable due to pts medical conditions ED Past Medical Hx - Past Medical History Hx Hypertension: Yes Hx CVA: Yes (-) Hx Heart Attack/AMI: Yes Hx Congestive Heart Failure: Yes Hx Diabetes: Yes Hx Deep Vein Thrombosis: Yes Hx GERD: Yes Hx Liver Disease: No Hx Renal Disease: No Hx Sickle Cell Disease: No Hx Arthritis: Yes Hx Seizures: No Hx Psychiatric Treatment: Yes (depression w SI) Hx Asthma: No Hx COPD: No Hx Tuberculosis: No Hx Dementia: No Hx HIV: No Additional medical history: 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 BLE stent placement - Social History Smoking Status: Unknown if ever smoked - Medications Home Medications: Home Medications Medication Instructions Recorded Confirmed Last Taken Type Clopidogrel [Plavix] 75 mg PO DAILY 07/21/19 04/09/21 02/23/21 History Gabapentin 800 mg PO BID 07/21/19 04/09/21 02/23/21 History Metoprolol Xl [Metoprolol 25 mg PO QDAY #30 tablet 07/23/19 04/09/21 02/23/21 Rx SUCCINATE ER TAB] Albuterol Mdi (or & Nicu Only) 2 puff IH QID PRN #1 03/13/21 04/09/21 Unknown Rx [ProAir HFA Inhaler] AtorvaSTATin [Lipitor] 40 mg PO QHS #30 tablet 03/13/21 04/09/21 Unknown Rx Insulin NPH/Regular [NovoLIN 70/30] 25 unit SUB-Q BIDDIAB #7 units 03/13/21 Unknown Rx Metoprolol Xl [Metoprolol 50 mg PO BID #60 tablet 03/13/21 04/09/21 Unknown Rx SUCCINATE ER TAB] Nitroglycerin [Nitrostat] 0.4 mg SL .Q5MIN PRN #30 tablet 03/13/21 04/09/21 04/08/21 Rx Ranolazine ER [Ranexa ER] 1,000 mg PO BID #120 tablet 03/13/21 04/09/21 04/08/21 Rx amLODIPine 10 mg PO QDAY #30 tablet 03/13/21 04/09/21 Unknown Rx lisinopriL [Zestril TAB] 10 mg PO QDAY #30 tablet 03/13/21 04/09/21 Unknown Rx predniSONE [Deltasone] 40 mg PO QDAY #20 tablet 03/13/21 04/09/21 Unknown Rx Advair Diskus 250-50 mcg 250 mcg IH BID 04/09/21 04/09/21 Unknown History ISOSORBIDE MONOnitrate [Imdur ER] 120 mg PO QDAY 04/09/21 04/09/21 04/08/21 History Pregabalin [Lyrica] 200 mg PO BID 04/09/21 04/09/21 Unknown History ISOSORBIDE MONOnitrate [Imdur ER] 60 mg PO QDAY #30 tab.er.24h 04/10/21 Unknown Rx HYDROcodone/APAP 7.5-325 [[place] 1 each PO Q6HR PRN #12 tablet 06/11/21 Unknown Rx 7.5/325] ED Physical Exam - General Limitations: No Limitations - Other Other exam information: General: Severe respiratory distress Head: Atraumatic Eyes: normal appearance ENT: Moist mucous membranes Neck: Normal appearance, no midline tenderness Chest: Tachypnea, prolonged expiratory phase, wheezing, accessory muscle use CV: RRR Abdomen: Soft, normal bowel sounds, nontender, nondistended, no rebound or guarding Back: Normal inspection Extremity: Normal inspection, full range of motion Neuro: Lethargic, opens eyes to voice, squeezes hand/follow commands Psych: Appropriate behavior Skin: Diaphoresis ED Course Vital Signs 09/14/21 09/14/21 09/14/21 18:14 19:33 20:19 Temperature 98.8 F Pulse Rate 114 H 80 77 Respiratory 34 H 18 18 Rate Blood Pressure 166/67 Blood Pressure 170/76 [Right] O2 Sat by Pulse 100 100 100 Oximetry 09/14/21 09/14/21 20:31 21:44 Temperature Pulse Rate 77 77 Respiratory 16 17 Rate Blood Pressure 167/67 Blood Pressure [Right] O2 Sat by Pulse 98 100 Oximetry ED Medical Decision Making - Lab Data Result diagrams: 09/14/21 18:20 09/14/21 20:29 Lab Results 09/14/21 09/14/21 09/14/21 Range/Units 18:20 18:20 18:20 WBC 14.7 H (4.5-11.0) K/mm3 RBC 5.29 H (3.65-5.03) M/mm3 Hgb 13.6 (10.1-14.3) gm/dl Hct 42.0 (30.3-42.9) % MCV 80 (79-97) fl MCH 26 L (28-32) pg MCHC 33 (30-34) % RDW 16.9 H (13.2-15.2) % Plt Count 302 (140-440) K/mm3 Lymph # (Auto) Explosives Handler Add Manual Diff Complete Total Counted 100 Seg Neuts % (Manual) 36.0 L (40.0-70.0) % Band Neutrophils % 0 % Lymphocytes % (Manual) 58.0 H (13.4-35.0) % Reactive Lymphs % (Man) 0 % Monocytes % (Manual) 4.0 (0.0-7.3) % Eosinophils % (Manual) 2.0 (0.0-4.3) % Basophils % (Manual) 0 (0.0-1.8) % Metamyelocytes % 0 % Myelocytes % 0 % Promyelocytes % 0 % Blast Cells % 0 % Nucleated RBC % Not Reportable Seg Neutrophils # Man 5.3 (1.8-7.7) K/mm3 Band Neutrophils # 0.0 K/mm3 Lymphocytes # (Manual) 8.5 H (1.2-5.4) K/mm3 Abs React Lymphs (Man) 0.0 K/mm3 Monocytes # (Manual) 0.6 (0.0-0.8) K/mm3 Eosinophils # (Manual) 0.3 (0.0-0.4) K/mm3 Basophils # (Manual) 0.0 (0.0-0.1) K/mm3 Metamyelocytes # 0.0 K/mm3 Myelocytes # 0.0 K/mm3 Promyelocytes # 0.0 K/mm3 Blast Cells # 0.0 K/mm3 WBC Morphology Not Reportable Hypersegmented Neuts Not Reportable Hyposegmented Neuts Not Reportable Hypogranular Neuts Not Reportable Smudge Cells Not Reportable Toxic Granulation Not Reportable Toxic Vacuolation Not Reportable Dohle Bodies Not Reportable Pelger-Huet Anomaly Not Reportable Deneen Rods Not Reportable Platelet Estimate Not Reportable Clumped Platelets Not Reportable Plt Clumps, EDTA Not Reportable Large Platelets Not Reportable Giant Platelets Not Reportable Platelet Satelliting Not Reportable Plt Morphology Comment Not Reportable RBC Morphology Not Reportable Dimorphic RBCs Not Reportable Polychromasia Not Reportable Hypochromasia 1+ Poikilocytosis Not Reportable Anisocytosis Rare Microcytosis Not Reportable Macrocytosis Not Reportable Spherocytes Not Reportable Pappenheimer Bodies Not Reportable Sickle Cells Not Reportable Target Cells Not Reportable Tear Drop Cells Not Reportable Ovalocytes Not Reportable Helmet Cells Not Reportable Rosa-[place] Bodies Not Reportable Grahn Rings Not Reportable Dale Cells Not Reportable Bite Cells Not Reportable Crenated Cell Not Reportable Elliptocytes Not Reportable Acanthocytes (Spur) Not Reportable Rouleaux Not Reportable Hemoglobin C Crystals Not Reportable Schistocytes Not Reportable Malaria parasites Not Reportable Henry Bodies Not Reportable Hem Pathologist Commnt No PT 12.6 (12.2-14.9) Sec. INR 0.86 L (0.87-1.13) APTT 21.3 L (24.2-36.6) Sec. ABG pH (7.350-7.450) pH Units ABG pCO2 mm Hg ABG pO2 (80.0-90.0) mm Hg ABG HCO3 (20.0-26.0) mmol/L ABG O2 Saturation (95.0-99.0) % ABG O2 Content (0.0-44) ABG Base Excess (-2.0-3.0) mmol/L ABG Hemoglobin (12.0-16.0) gm/dl ABG Carboxyhemoglobin (0.0-5.0) % ABG Methemoglobin (0.0-1.5) % Oxyhemoglobin (95.0-99.0) % FiO2 % Sodium 133 L (137-145) mmol/L Potassium 6.0 H (3.6-5.0) mmol/L Chloride 96.5 L (98-107) mmol/L Carbon Dioxide 19 L (22-30) mmol/L Anion Gap 24 mmol/L BUN 12 (7-17) mg/dL Creatinine 1.1 (0.6-1.2) mg/dL Estimated GFR 60 ml/min BUN/Creatinine Ratio 11 % Glucose 253 H (65-100) mg/dL Calcium 9.5 (8.4-10.2) mg/dL Total Bilirubin 0.30 (0.1-1.2) mg/dL AST 32 (5-40) units/L ALT 16 (7-56) units/L Alkaline Phosphatase 99 (35-129) units/L Total Creatine Kinase 114 (30-135) units/L CK-MB (CK-2) 1.6 (0.0-4.0) ng/mL CK-MB (CK-2) Rel Index 1.4 (0-4) Troponin T < 0.010 (0.00-0.029) ng/mL NT-Pro-B Natriuret Pep 1148 H (0-900) pg/mL Total Protein 7.6 (6.3-8.2) g/dL Albumin 4.0 (3.9-5) g/dL Albumin/Globulin Ratio 1.1 % Triglycerides (2-149) mg/dL Cholesterol (50-199) mg/dL LDL Cholesterol Direct (50-130) mg/dL HDL Cholesterol (40-59) mg/dL Cholesterol/HDL Ratio % 09/14/21 09/14/21 09/14/21 Range/Units 18:36 20:29 21:00 WBC (4.5-11.0) K/mm3 RBC (3.65-5.03) M/mm3 Hgb (10.1-14.3) gm/dl Hct (30.3-42.9) % MCV (79-97) fl MCH (28-32) pg MCHC (30-34) % RDW (13.2-15.2) % Plt Count (140-440) K/mm3 Lymph # (Auto) Add Manual Diff Total Counted Seg Neuts % (Manual) (40.0-70.0) % Band Neutrophils % % Lymphocytes % (Manual) (13.4-35.0) % Reactive Lymphs % (Man) % Monocytes % (Manual) (0.0-7.3) % Eosinophils % (Manual) (0.0-4.3) % Basophils % (Manual) (0.0-1.8) % Metamyelocytes % % Myelocytes % % Promyelocytes % % Blast Cells % % Nucleated RBC % Seg Neutrophils # Man (1.8-7.7) K/mm3 Band Neutrophils # K/mm3 Lymphocytes # (Manual) (1.2-5.4) K/mm3 Abs React Lymphs (Man) K/mm3 Monocytes # (Manual) (0.0-0.8) K/mm3 Eosinophils # (Manual) (0.0-0.4) K/mm3 Basophils # (Manual) (0.0-0.1) K/mm3 Metamyelocytes # K/mm3 Myelocytes # K/mm3 Promyelocytes # K/mm3 Blast Cells # K/mm3 WBC Morphology Hypersegmented Neuts Hyposegmented Neuts Hypogranular Neuts Smudge Cells Toxic Granulation Toxic Vacuolation Dohle Bodies Pelger-Huet Anomaly Deneen Rods Platelet Estimate Clumped Platelets Plt Clumps, EDTA Large Platelets Giant Platelets Platelet Satelliting Plt Morphology Comment RBC Morphology Dimorphic RBCs Polychromasia Hypochromasia Poikilocytosis Anisocytosis Microcytosis Macrocytosis Spherocytes Pappenheimer Bodies Sickle Cells Target Cells Tear Drop Cells Ovalocytes Helmet Cells Rosa-[place] Bodies Grahn Rings [place] Cells Bite Cells Crenated Cell Elliptocytes Acanthocytes (Spur) Rouleaux Hemoglobin C Crystals Schistocytes Malaria parasites Henry Bodies Hem Pathologist Commnt PT (12.2-14.9) Sec. INR (0.87-1.13) APTT (24.2-36.6) Sec. ABG pH 7.264 L (7.350-7.450) pH Units ABG pCO2 54.9 mm Hg ABG pO2 280.4 H (80.0-90.0) mm Hg ABG HCO3 24.3 (20.0-26.0) mmol/L ABG O2 Saturation 99.4 H (95.0-99.0) % ABG O2 Content 19.6 (0.0-44) ABG Base Excess -3.4 L (-2.0-3.0) mmol/L ABG Hemoglobin 14.2 (12.0-16.0) gm/dl ABG Carboxyhemoglobin 4.3 (0.0-5.0) % ABG Methemoglobin 0.6 (0.0-1.5) % Oxyhemoglobin 94.5 L (95.0-99.0) % FiO2 100 % Sodium (137-145) mmol/L Potassium 4.1 D (3.6-5.0) mmol/L Chloride (98-107) mmol/L Carbon Dioxide (22-30) mmol/L Anion Gap mmol/L BUN (7-17) mg/dL Creatinine (0.6-1.2) mg/dL Estimated GFR ml/min BUN/Creatinine Ratio % Glucose (65-100) mg/dL Calcium (8.4-10.2) mg/dL Total Bilirubin (0.1-1.2) mg/dL AST (5-40) units/L ALT (7-56) units/L Alkaline Phosphatase (35-129) units/L Total Creatine Kinase (30-135) units/L CK-MB (CK-2) (0.0-4.0) ng/mL CK-MB (CK-2) Rel Index (0-4) Troponin T 0.045 H D (0.00-0.029) ng/mL NT-Pro-B Natriuret Pep (0-900) pg/mL Total Protein (6.3-8.2) g/dL Albumin (3.9-5) g/dL Albumin/Globulin Ratio % Triglycerides 124 (2-149) mg/dL Cholesterol 311 H (50-199) mg/dL LDL Cholesterol Direct 222 H (50-130) mg/dL HDL Cholesterol 57 (40-59) mg/dL Cholesterol/HDL Ratio 5.45 % - EKG Data -: EKG Interpreted by Me EKG shows normal: sinus rhythm, ST-T waves (no stemi) Rate: normal (79) - Radiology Data Radiology results: report reviewed CHEST 1 VIEW INDICATION / CLINICAL INFORMATION: sob. COMPARISON: 07/27/2021 FINDINGS: SUPPORT DEVICES: None. HEART / MEDIASTINUM: No significant abnormality. LUNGS / PLEURA: Prominent pulmonary opacities are present throughout both lung and represent a new finding compared with prior study of 07/27/2021. No pneumothorax. No large pleural effusion. ADDITIONAL FINDINGS: No significant additional findings. IMPRESSION: 1. Interval development of diffuse bilateral pulmonary opacities. It is unclear if the bilateral pulmonary opacities are related to alveolar pulmonary edema or diffuse bilateral pneumonia. Clinical correlation recommended. - Medical Decision Making 65-year-old female presents to the hospital with acute respiratory distress requiring emergent intervention. BiPAP placed. Labs consistent with respiratory failure with respiratory acidosis. Patient treated for COPD and both pneumonia and volume overload giving clinical history, x-ray findings, and presentation. Patient tolerating BiPAP support. Hospitalist to admit Critical Care Time: Yes Critical care time in (mins) excluding proc time.: 35 Critical care attestation.: If time is entered above; I have spent that time in minutes in the direct care of this critically ill patient, excluding procedure time. Critical Care Time: 35 Minutes of critical care time excluding procedures were used in the care of the patient. I came immediately to the bedside upon patient's arrival. I discussed treatment plan with the nursing team members. I reviewed electronic record. I spoke with family to obtain medical history. Patient required multiple interventions and reassessments. ED Disposition Clinical Impression: Opacities of both lungs present on chest x-ray, Respiratory acidosis, Acute and chronic respiratory failure Disposition: ADMITTED INPATIENT Is pt being admited?: Yes Condition: Stable Time of Disposition: 21:36 (Dr Gomez)
[2021-09-14 18:34] LABS: Hemoglobin 13.6 gm/dl (10.1-14.3); Mean Corpuscular HGB Conc 33 % (30-34); Mean Corpuscular Volume 80 fl (79-97); Platelet Count 302 K/mm3 (140-440); Red Blood Count 5.29 M/mm3 (3.65-5.03); Red Cell Distribution Width 16.9 % (13.2-15.2)
[2021-09-14 18:47] LABS: INR 0.86 (0.87-1.13)
[2021-09-14 18:48] LABS: Partial Thromboplastin Time 21.3 Sec. (24.2-36.6)
[2021-09-14 18:50] LABS: ABG Base Excess -3.4 mmol/L (-2.0-3.0); ABG HCO3 24.3 mmol/L (20.0-26.0); ABG Methemoglobin 0.6 % (0.0-1.5); ABG Oxygen Saturation 99.4 % (95.0-99.0); ABG PCO2 54.9 mm Hg; ABG PH 7.264 pH Units (7.350-7.450)
[2021-09-14 18:56] LABS: ABG PO2 280.4 mm Hg (80.0-90.0)
[2021-09-14 19:01] LABS: Creatine Kinase MB 1.6 ng/mL (0.0-4.0)
[2021-09-14 19:02] LABS: Alanine Aminotransferase 16 units/L (7-56); BUN/Creatinine Ratio 11; Blood Urea Nitrogen 12 mg/dL (7-17); Calcium 9.5 mg/dL (8.4-10.2); Hemolysis Index 272
--- NOTE | 2021-09-14 19:16 | XRay Report ---
CHEST 1 VIEW INDICATION / CLINICAL INFORMATION: sob. COMPARISON: 07/27/2021 FINDINGS: SUPPORT DEVICES: None. HEART / MEDIASTINUM: No significant abnormality. LUNGS / PLEURA: Prominent pulmonary opacities are present throughout both lung and represent a new fi nding compared with prior study of 07/27/2021. No pneumothorax. No large pleural effusion. ADDITIONAL FINDINGS: No significant additional findings. IMPRESSION: 1. Interval development of diffuse bilateral pulmonary opacities. It is unclear if the bilateral pulm onary opacities are related to alveolar pulmonary edema or diffuse bilateral pneumonia. Clinical matt elation recommended. Signer Name: Alea Dewitt MD Signed: 09/14/2021 7:12 PM Workstation Name: [id number]
[2021-09-14 20:12] LABS: Anisocytosis RARE; Basophils % (Manual) 0 % (0.0-1.8); Hypochromasia 1+; Total Cells Counted 100
[2021-09-14] MEDS: FUROSEMIDE 40 MG/4 ML INJ IV ONE (20:43)
[2021-09-14] MEDS ORDERED: MAGNESIUM HYDROXIDE (MOM) ORAL LIQD UDC PO PRN (21:34)
[2021-09-14] MEDS ORDERED: DEXTROSE 50% IN WATER (25GM) 50 ML SYRINGE IV PRN (21:34)
[2021-09-14] MEDS ORDERED: ONDANSETRON 4 MG/2 ML INJ IV PRN (21:34)
[2021-09-14] MEDS ORDERED: ACETAMINOPHEN 325 MG TAB PO PRN (21:34)
[2021-09-14] MEDS ORDERED: MORPHINE 4 MG/1 ML INJ IV PRN (21:34)
--- NOTE | 2021-09-14 21:53 | History and Physical Report ---
History of Present Illness Date of examination: 09/14/21 Date of admission: 09/14/2021 Chief complaint: Shortness of Breath History of present illness: 65-year-old female with significant past medical history of coronary artery disease, COPD on home oxygen, CHF, GERD, hypertension, diabetes mellitus, history of CVA, hyperlipidemia presenting to the emergency room today with acute shortness of breath. Upon arrival patient was quite tachypneic and dyspneic and appeared diaphoretic. She required bag assisted ventilation immediately upon arrival. Shortness of breath was said to have started sometime this evening. There has been no history of fever or chills, no nausea or vomiting and no abdominal pain. No history of recent travel, no sick contacts, no contact with anyone with COVID-19. Patient received nebulizing treatments and IV steroids with significant improvement. Work-up in the emergency room today, chest x-ray reveals interval development of diffuse bilateral pulmonary opacities. Unclear whether opacities is related to pulmonary edema or bilateral pneumonia. Patient has been placed on empiric IV antibiotics and also given some IV diuretics. Patient currently on BiPAP. Past History Past Medical History: CAD, COPD, diabetes, GERD, hypertension, hyperlipidemia, PVD, stroke Past Surgical History: Other (hysterectomy-2002, R shoulder surgery (2015). BLE stent placement) Social history: no significant social history Family history: no significant family history Medications and Allergies Allergies Allergy/AdvReac Type Severity Reaction Status Date / Time aspirin Allergy ITCHING/HIV Verified 09/14/21 18:16 ES Penicillins Allergy ITCHING/HIV Verified 09/14/21 18:16 ES Home Medications Medication Instructions Recorded Confirmed Last Taken Type Clopidogrel [Plavix] 75 mg PO DAILY 07/21/19 04/09/21 02/23/21 History Gabapentin 800 mg PO BID 07/21/19 04/09/21 02/23/21 History Metoprolol Xl [Metoprolol 25 mg PO QDAY #30 tablet 07/23/19 04/09/21 02/23/21 Rx SUCCINATE ER TAB] Albuterol Mdi (or & Nicu Only) 2 puff IH QID PRN #1 03/13/21 04/09/21 Unknown Rx [ProAir HFA Inhaler] AtorvaSTATin [Lipitor] 40 mg PO QHS #30 tablet 03/13/21 04/09/21 Unknown Rx Insulin NPH/Regular [NovoLIN 70/30] 25 unit SUB-Q BIDDIAB #7 units 03/13/21 04/09/21 Unknown Rx Metoprolol Xl [Metoprolol 50 mg PO BID #60 tablet 03/13/21 04/09/21 Unknown Rx SUCCINATE ER TAB] Nitroglycerin [Nitrostat] 0.4 mg SL .Q5MIN PRN #30 tablet 03/13/21 04/09/21 04/08/21 Rx Ranolazine ER [Ranexa ER] 1,000 mg PO BID #120 tablet 03/13/21 04/09/21 04/08/21 Rx amLODIPine 10 mg PO QDAY #30 tablet 03/13/21 04/09/21 Unknown Rx lisinopriL [Zestril TAB] 10 mg PO QDAY #30 tablet 03/13/21 04/09/21 Unknown Rx predniSONE [Deltasone] 40 mg PO QDAY #20 tablet 03/13/21 04/09/21 Unknown Rx Advair Diskus 250-50 mcg 250 mcg IH BID 04/09/21 04/09/21 Unknown History ISOSORBIDE MONOnitrate [Imdur ER] 120 mg PO QDAY 04/09/21 04/09/21 04/08/21 History Pregabalin [Lyrica] 200 mg PO BID 04/09/21 04/09/21 Unknown History ISOSORBIDE MONOnitrate [Imdur ER] 60 mg PO QDAY #30 tab.er.24h 04/10/21 Unknown Rx HYDROcodone/APAP 7.5-325 [Milton 1 each PO Q6HR PRN #12 tablet 06/11/21 Unknown Rx 7.5/325] Active Meds: Active Medications Acetaminophen (Acetaminophen 325 Mg Tab) 650 mg PO Q6H PRN PRN Reason: Pain MILD(1-3)/Fever >100.5/BARBOZA Albuterol/Ipratropium (Ipratropium/Albuterol Sulfate 3 Ml Ampul.Neb) 1 ampul IH Q4HRT DEBRA Dextrose (Dextrose 50% In Water (25gm) 50 Ml Syringe) 50 ml IV Q30MIN PRN; Protocol PRN Reason: Hypoglycemia Dextrose (Dextrose 50% In Water (25gm) 50 Ml Syringe) 50 ml IV Q30MIN PRN; Protocol PRN Reason: Hypoglycemia Magnesium Hydroxide (Magnesium Hydroxide (Mom) Oral Liqd Udc) 30 ml PO Q4H PRN PRN Reason: Constipation Morphine Sulfate (Morphine 2 Mg/1 Ml Inj) 2 mg IV Q4H PRN PRN Reason: Pain, Moderate (4-6) Morphine Sulfate (Morphine 4 Mg/1 Ml Inj) 4 mg IV Q4H PRN PRN Reason: Pain , Severe (7-10) Ondansetron HCl (Ondansetron 4 Mg/2 Ml Inj) 4 mg IV Q8H PRN PRN Reason: Nausea And Vomiting Sodium Chloride (Sodium Chloride 0.9% 10 Ml Flush Syringe) 10 ml IV BID DEBRA Sodium Chloride (Sodium Chloride 0.9% 10 Ml Flush Syringe) 10 ml IV PRN PRN PRN Reason: LINE FLUSH Review of Systems Constitutional: no fever, no chills Ears, nose, mouth and throat: no nasal congestion, no sore throat Cardiovascular: no chest pain, no palpitations Respiratory: cough, shortness of breath, wheezing Gastrointestinal: no abdominal pain, no nausea, no vomiting, no diarrhea Genitourinary Female: no pelvic pain, no flank pain, no dysuria, no hematuria Musculoskeletal: no neck pain, no low back pain Integumentary: no rash, no pruritis Neurological: no headaches, no confusion Psychiatric: no anxiety, no depression Endocrine: no polyphagia, no polydipsia, no polyuria Exam - Constitutional Vitals: Temp Pulse Resp BP Pulse Ox 98.8 F 77 16 167/67 98 09/14/21 19:33 09/14/21 20:31 09/14/21 20:31 09/14/21 20:31 09/14/21 20:31 General appearance: Present: mild distress, well-nourished - EENT Eyes: Present: PERRL, EOM intact. Absent: scleral icterus ENT: hearing intact, clear oral mucosa, dentition normal - Neck Neck: Present: supple, normal ROM - Respiratory Respiratory effort: normal Respiratory: bilateral: wheezing - Cardiovascular Rhythm: regular Heart Sounds: Present: S1 & S2. Absent: gallop, systolic murmur, diastolic murmur, rub, click - Extremities Extremities: no ischemia, pulses intact, pulses symmetrical, No edema, normal temperature, normal color, Full ROM Peripheral Pulses: within normal limits - Abdominal General gastrointestinal: Present: soft, non-tender, non-distended, normal bowel sounds. Absent: mass - Integumentary Integumentary: Present: clear, warm, dry, normal turgor. Absent: rash - Musculoskeletal Musculoskeletal: strength equal bilaterally - Psychiatric Psychiatric: appropriate mood/affect, intact judgment & insight, memory intact, cooperative - Neurologic Neurologic: CNII-XII intact, no focal deficits, moves all extremities HEART Score - HEART Score Troponin: Troponin T 0.045 ng/mL (0.00-0.029) H D 09/14/21 21:00 Results - Labs CBC & Chem 7: 09/14/21 18:20 09/14/21 20:29 Labs: Abnormal lab results 09/14/21 09/14/21 09/14/21 Range/Units 18:20 18:20 18:20 WBC 14.7 H (4.5-11.0) K/mm3 RBC 5.29 H (3.65-5.03) M/mm3 MCH 26 L (28-32) pg RDW 16.9 H (13.2-15.2) % Seg Neuts % (Manual) 36.0 L (40.0-70.0) % Lymphocytes % (Manual) 58.0 H (13.4-35.0) % Lymphocytes # (Manual) 8.5 H (1.2-5.4) K/mm3 INR 0.86 L (0.87-1.13) APTT 21.3 L (24.2-36.6) Sec. ABG pH (7.350-7.450) pH Units ABG pO2 (80.0-90.0) mm Hg ABG O2 Saturation (95.0-99.0) % ABG Base Excess (-2.0-3.0) mmol/L Oxyhemoglobin (95.0-99.0) % Sodium 133 L (137-145) mmol/L Potassium 6.0 H (3.6-5.0) mmol/L Chloride 96.5 L (98-107) mmol/L Carbon Dioxide 19 L (22-30) mmol/L Glucose 253 H (65-100) mg/dL Troponin T (0.00-0.029) ng/mL NT-Pro-B Natriuret Pep 1148 H (0-900) pg/mL 09/14/21 09/14/21 Range/Units 18:36 21:00 WBC (4.5-11.0) K/mm3 RBC (3.65-5.03) M/mm3 MCH (28-32) pg RDW (13.2-15.2) % Seg Neuts % (Manual) (40.0-70.0) % Lymphocytes % (Manual) (13.4-35.0) % Lymphocytes # (Manual) (1.2-5.4) K/mm3 INR (0.87-1.13) APTT (24.2-36.6) Sec. ABG pH 7.264 L (7.350-7.450) pH Units ABG pO2 280.4 H (80.0-90.0) mm Hg ABG O2 Saturation 99.4 H (95.0-99.0) % ABG Base Excess -3.4 L (-2.0-3.0) mmol/L Oxyhemoglobin 94.5 L (95.0-99.0) % Sodium (137-145) mmol/L Potassium (3.6-5.0) mmol/L Chloride (98-107) mmol/L Carbon Dioxide (22-30) mmol/L Glucose (65-100) mg/dL Troponin T 0.045 H D (0.00-0.029) ng/mL NT-Pro-B Natriuret Pep (0-900) pg/mL Assessment and Plan - Patient Problems (1) Acute respiratory failure with hypoxia and hypercapnia Current Visit: No Status: Acute Plan to address problem: Patient currently on BiPAP. We will monitor closely and keep O2 saturation greater or equal to 93%. Consult placed to talking books library clerk for evaluation. (2) Opacities of both lungs present on chest x-ray Current Visit: Yes Status: Acute Plan to address problem: Unclear what opacities is secondary to pneumonia versus congestive heart failure. However patient has been placed on empiric IV antibiotics and also started on diuretics. We will schedule for echocardiogram. (3) CAD (coronary artery disease) Current Visit: No Status: Acute Plan to address problem: Continue routine home medications. (4) Hyperlipidemia Current Visit: No Status: Acute Plan to address problem: Continue routine home medications. Monitor lipid profile. (5) Diabetes mellitus type 2 in obese Current Visit: No Status: Chronic Plan to address problem: Patient placed on sliding scale insulin. We will monitor Accu-Cheks closely. (6) HTN (hypertension) Current Visit: No Status: Chronic Qualifiers: Hypertension type: essential hypertension Plan to address problem: Continue routine home medications and monitor vital signs closely. (7) DVT prophylaxis Current Visit: No Status: Acute Plan to address problem: Patient placed on subcutaneous heparin. (8) Full code status Current Visit: No Status: Acute Plan to address problem: Patient is full code.
[2021-09-14] MEDS ORDERED: DEXTROSE 10% *Hypoglycemia IV PRN (21:55)
[2021-09-14 22:36] LABS: Chol/HDL Ratio 5.45 %
[2021-09-15] MEDS: FUROSEMIDE 40 MG/4 ML INJ IV ONE (04:45)
[2021-09-15] MEDS: methylPREDNISolone Sod Succinate 40 MG/1 ML INJ IV SCH ×4 (04:46→17:20)
[2021-09-15] MEDS: INSULIN LISPRO 100 UNIT/ML SUB-Q SCH ×5 (04:46→22:45)
[2021-09-15] MEDS: IPRATROPIUM/ALBUTEROL SULFATE 3 ML AMPUL.NEB IH SCH ×6 (05:10→22:59)
[2021-09-15 05:20] LABS: Calcium 9.3 mg/dL (8.4-10.2)
[2021-09-15] MEDS: HEPARIN 5,000 UNIT/1 ML VIAL SUB-Q SCH ×3 (05:46→22:39)
[2021-09-15] MEDS: MORPHINE 2 MG/1 ML INJ IV PRN ×2 (05:46→09:37)
[2021-09-15] MEDS: FUROSEMIDE 40 MG/4 ML INJ IV SCH ×2 (05:46→17:21)
[2021-09-15] MEDS: NITROGLYCERIN 0.4 MG TAB SUBL SL PRN (09:50)
--- NOTE | 2021-09-15 10:45 | Progress Note ---
Assessment and Plan Assessment and plan: 65-year-old female with significant past medical history of coronary artery disease, COPD on home oxygen, CHF, GERD, hypertension, diabetes mellitus, history of CVA, hyperlipidemia presenting to the emergency room today with acute shortness of breath. Upon arrival patient was quite tachypneic and dyspneic and appeared diaphoretic. She required bag assisted ventilation immediately upon arrival. Shortness of breath was said to have started sometime this evening. There has been no history of fever or chills, no nausea or vomiting and no abdominal pain. No history of recent travel, no sick contacts, no contact with anyone with COVID-19. Patient received nebulizing treatments and IV steroids with significant improvement. Work-up in the emergency room today, chest x-ray reveals interval development of diffuse bilateral pulmonary opacities. Unclear whether opacities is related to pulmonary edema or bilateral pneumonia. Patient has been placed on empiric IV antibiotics and also given some IV diuretics. Patient currently on BiPAP. 09/15: Patient with mildly elevated troponin this could be secondary to the chronic congestive heart failure in the setting of underlying pneumonia. Obvious evidence for systemic inflammatory response syndrome. Of discussed with psychiatric security nurse in respect to the elevated troponin and recurrent chest pain. We will start the patient's home dose of Ranexa. We will continue IV diuresis at this time while awaiting pulmonary input relative to diffuse pulmonary opacities. Patient is also being ruled out for COVID-19. Will repeat chest x- ray in a.m. Condition remains guarded (1) Acute respiratory failure with hypoxia and hypercapnia Current Visit: No Status: Acute Plan to address problem: Patient currently on BiPAP. We will monitor closely and keep O2 saturation greater or equal to 93%. Consult placed to cargo broker for evaluation. (2) Opacities of both lungs present on chest x-ray Current Visit: Yes Status: Acute Plan to address problem: Unclear what opacities is secondary to pneumonia versus congestive heart failure. However patient has been placed on empiric IV antibiotics and also started on diuretics. We will schedule for echocardiogram. (3) CAD (coronary artery disease) Current Visit: No Status: Acute Plan to address problem: Continue routine home medications. (4) Acute on chronic congestive heart failure possible systolic (5) mild elevated troponin likely nonsignificant (6) hyperlipidemia Current Visit: No Status: Acute Plan to address problem: Continue routine home medications. Monitor lipid profile. (5) Diabetes mellitus type 2 in obese with uncontrolled blood sugar Current Visit: No Status: Chronic Plan to address problem: Patient placed on sliding scale insulin. We will monitor Accu-Cheks closely. (6) HTN (hypertension) Current Visit: No Status: Chronic Qualifiers: Hypertension type: essential hypertension Plan to address problem: Continue routine home medications and monitor vital signs closely. (7) systemic inflammatory response syndrome (8) DVT prophylaxis Current Visit: No Status: Acute Plan to address problem: Patient placed on subcutaneous heparin. (9) anxiety disorder (10) full code status Current Visit: No Status: Acute Plan to address problem: Patient is full code. The high probability of a clinically significant, sudden or life threatening deterioration of the [pulmonary, cardiac, endocrine] system(s) required my full and direct attention, intervention and personal management. The aggregate critical care time was [35] minutes. This time is in addition to time spent performing reported procedures but includes the following: [X] Data Review and interpretation [X] Patient assessment and monitoring of vital signs [X] Documentation [X] Medication orders and management History Interval history: Patient seen and examined this morning having chest pain 6 out of 10 in intensity left-sided recurrent. Reports that this is similar to pain she has every other day. States that it only abates with nitroglycerin. Hospitalist Physical - Physical exam Narrative exam: VITAL SIGNS: Reviewed. GENERAL: The patient appears normally developed, anxious, teary vital signs as documented. HEAD: No signs of head trauma. EYES: Pupils are equal. Extraocular motions intact. EARS: Hearing grossly intact. MOUTH: Oropharynx is normal. NECK: No adenopathy, no JVD. CHEST: Chest with diminished breath sounds bilaterally. No wheezes, rales, or rhonchi. CARDIAC: Regular rate and rhythm. S1 and S2, without murmurs, gallops, or rubs. VASCULAR: No Edema. Peripheral pulses normal and equal in all extremities. ABDOMEN: Soft, non tender and non distended. No rebound or guarding, and no masses palpated. Bowel Sounds normal. MUSCULOSKELETAL: Good range of motion of all major joints. Extremities without clubbing, cyanosis or edema. NEUROLOGIC EXAM: Alert and oriented x 3 No focal sensory or strength deficits. Speech normal. Follows commands. PSYCHIATRIC: Mood anxious. SKIN: detail exam as documented in skin assessment - Constitutional Vitals: Temp Pulse Resp BP Pulse Ox 98.4 F 83 20 174/83 90 09/15/21 07:40 09/15/21 10:00 09/15/21 10:00 09/15/21 10:00 09/15/21 10:00 General appearance: Present: mild distress, well-nourished HEART Score - HEART Score Troponin: Troponin T 0.065 ng/mL (0.00-0.029) H D 09/15/21 04:48 Results - Labs CBC & Chem 7: 09/14/21 18:20 09/15/21 04:48 Labs: Laboratory Last Values WBC 14.7 K/mm3 (4.5-11.0) H 09/14/21 18:20 RBC 5.29 M/mm3 (3.65-5.03) H 09/14/21 18:20 Hgb 13.6 gm/dl (10.1-14.3) 09/14/21 18:20 Hct 42.0 % (30.3-42.9) 09/14/21 18:20 MCV 80 fl (79-97) 09/14/21 18:20 MCH 26 pg (28-32) L 09/14/21 18:20 MCHC 33 % (30-34) 09/14/21 18:20 RDW 16.9 % (13.2-15.2) H 09/14/21 18:20 Plt Count 302 K/mm3 (140-440) 09/14/21 18:20 Lymph # (Auto) Erp Technical Lead 09/14/21 18:20 Add Manual Diff Complete 09/14/21 18:20 Total Counted 100 09/14/21 18:20 Seg Neuts % (Manual) 36.0 % (40.0-70.0) L 09/14/21 18:20 Band Neutrophils % 0 % 09/14/21 18:20 Lymphocytes % (Manual) 58.0 % (13.4-35.0) H 09/14/21 18:20 Reactive Lymphs % (Man) 0 % 09/14/21 18:20 Monocytes % (Manual) 4.0 % (0.0-7.3) 09/14/21 18:20 Eosinophils % (Manual) 2.0 % (0.0-4.3) 09/14/21 18:20 Basophils % (Manual) 0 % (0.0-1.8) 09/14/21 18:20 Metamyelocytes % 0 % 09/14/21 18:20 Myelocytes % 0 % 09/14/21 18:20 Promyelocytes % 0 % 09/14/21 18:20 Blast Cells % 0 % 09/14/21 18:20 Nucleated RBC % Not Reportable 09/14/21 18:20 Seg Neutrophils # Man 5.3 K/mm3 (1.8-7.7) 09/14/21 18:20 Band Neutrophils # 0.0 K/mm3 09/14/21 18:20 Lymphocytes # (Manual) 8.5 K/mm3 (1.2-5.4) H 09/14/21 18:20 Abs React Lymphs (Man) 0.0 K/mm3 09/14/21 18:20 Monocytes # (Manual) 0.6 K/mm3 (0.0-0.8) 09/14/21 18:20 Eosinophils # (Manual) 0.3 K/mm3 (0.0-0.4) 09/14/21 18:20 Basophils # (Manual) 0.0 K/mm3 (0.0-0.1) 09/14/21 18:20 Metamyelocytes # 0.0 K/mm3 09/14/21 18:20 Myelocytes # 0.0 K/mm3 09/14/21 18:20 Promyelocytes # 0.0 K/mm3 09/14/21 18:20 Blast Cells # 0.0 K/mm3 09/14/21 18:20 WBC Morphology Not Reportable 09/14/21 18:20 Hypersegmented Neuts Not Reportable 09/14/21 18:20 Hyposegmented Neuts Not Reportable 09/14/21 18:20 Hypogranular Neuts Not Reportable 09/14/21 18:20 Smudge Cells Not Reportable 09/14/21 18:20 Toxic Granulation Not Reportable 09/14/21 18:20 Toxic Vacuolation Not Reportable 09/14/21 18:20 Dohle Bodies Not Reportable 09/14/21 18:20 Pelger-Huet Anomaly Not Reportable 09/14/21 18:20 Deneen Rods Not Reportable 09/14/21 18:20 Platelet Estimate Not Reportable 09/14/21 18:20 Clumped Platelets Not Reportable 09/14/21 18:20 Plt Clumps, EDTA Not Reportable 09/14/21 18:20 Large Platelets Not Reportable 09/14/21 18:20 Giant Platelets Not Reportable 09/14/21 18:20 Platelet Satelliting Not Reportable 09/14/21 18:20 Plt Morphology Comment Not Reportable 09/14/21 18:20 RBC Morphology Not Reportable 09/14/21 18:20 Dimorphic RBCs Not Reportable 09/14/21 18:20 Polychromasia Not Reportable 09/14/21 18:20 Hypochromasia 1+ 09/14/21 18:20 Poikilocytosis Not Reportable 09/14/21 18:20 Anisocytosis Rare 09/14/21 18:20 Microcytosis Not Reportable 09/14/21 18:20 Macrocytosis Not Reportable 09/14/21 18:20 Spherocytes Not Reportable 09/14/21 18:20 Pappenheimer Bodies Not Reportable 09/14/21 18:20 Sickle Cells Not Reportable 09/14/21 18:20 Target Cells Not Reportable 09/14/21 18:20 Tear Drop Cells Not Reportable 09/14/21 18:20 Ovalocytes Not Reportable 09/14/21 18:20 Helmet Cells Not Reportable 09/14/21 18:20 Rosa-Hanford Bodies Not Reportable 09/14/21 18:20 [place] Rings Not Reportable 09/14/21 18:20 Dale Cells Not Reportable 09/14/21 18:20 Bite Cells Not Reportable 09/14/21 18:20 Crenated Cell Not Reportable 09/14/21 18:20 Elliptocytes Not Reportable 09/14/21 18:20 Acanthocytes (Spur) Not Reportable 09/14/21 18:20 Rouleaux Not Reportable 09/14/21 18:20 Hemoglobin C Crystals Not Reportable 09/14/21 18:20 Schistocytes Not Reportable 09/14/21 18:20 Malaria parasites Not Reportable 09/14/21 18:20 Henry Bodies Not Reportable 09/14/21 18:20 Hem Pathologist Commnt No 09/14/21 18:20 PT 12.6 Sec. (12.2-14.9) 09/14/21 18:20 INR 0.86 (0.87-1.13) L 09/14/21 18:20 APTT 21.3 Sec. (24.2-36.6) L 09/14/21 18:20 ABG pH 7.264 pH Units (7.350-7.450) L 09/14/21 18:36 ABG pCO2 54.9 mm Hg 09/14/21 18:36 ABG pO2 280.4 mm Hg (80.0-90.0) H 09/14/21 18:36 ABG HCO3 24.3 mmol/L (20.0-26.0) 09/14/21 18:36 ABG O2 Saturation 99.4 % (95.0-99.0) H 09/14/21 18:36 ABG O2 Content 19.6 (0.0-44) 09/14/21 18:36 ABG Base Excess -3.4 mmol/L (-2.0-3.0) L 09/14/21 18:36 ABG Hemoglobin 14.2 gm/dl (12.0-16.0) 09/14/21 18:36 ABG Carboxyhemoglobin 4.3 % (0.0-5.0) 09/14/21 18:36 ABG Methemoglobin 0.6 % (0.0-1.5) 09/14/21 18:36 Oxyhemoglobin 94.5 % (95.0-99.0) L 09/14/21 18:36 FiO2 100 % 09/14/21 18:36 Sodium 136 mmol/L (137-145) L 09/15/21 04:48 Potassium 4.7 mmol/L (3.6-5.0) 09/15/21 04:48 Chloride 98.0 mmol/L (98-107) 09/15/21 04:48 Carbon Dioxide 25 mmol/L (22-30) 09/15/21 04:48 Anion Gap 18 mmol/L 09/15/21 04:48 BUN 18 mg/dL (7-17) H 09/15/21 04:48 Creatinine 1.2 mg/dL (0.6-1.2) 09/15/21 04:48 Estimated GFR 54 ml/min 09/15/21 04:48 BUN/Creatinine Ratio 15 % 09/15/21 04:48 Glucose 388 mg/dL (65-100) H 09/15/21 04:48 POC Glucose 321 mg/dL (70-105) H 09/15/21 08:23 Calcium 9.3 mg/dL (8.4-10.2) 09/15/21 04:48 Total Bilirubin 0.30 mg/dL (0.1-1.2) 09/14/21 18:20 AST 32 units/L (5-40) 09/14/21 18:20 ALT 16 units/L (7-56) 09/14/21 18:20 Alkaline Phosphatase 99 units/L (35-129) 09/14/21 18:20 Total Creatine Kinase 114 units/L (30-135) 09/14/21 18:20 CK-MB (CK-2) 1.6 ng/mL (0.0-4.0) 09/14/21 18:20 CK-MB (CK-2) Rel Index 1.4 (0-4) 09/14/21 18:20 Troponin T 0.065 ng/mL (0.00-0.029) H D 09/15/21 04:48 NT-Pro-B Natriuret Pep 1148 pg/mL (0-900) H 09/14/21 18:20 Total Protein 7.6 g/dL (6.3-8.2) 09/14/21 18:20 Albumin 4.0 g/dL (3.9-5) 09/14/21 18:20 Albumin/Globulin Ratio 1.1 % 09/14/21 18:20 Triglycerides 124 mg/dL (2-149) 09/14/21 21:00 Cholesterol 311 mg/dL (50-199) H 09/14/21 21:00 LDL Cholesterol Direct 222 mg/dL (50-130) H 09/14/21 21:00 HDL Cholesterol 57 mg/dL (40-59) 09/14/21 21:00 Cholesterol/HDL Ratio 5.45 % 09/14/21 21:00 Microbiology: Microbiology 09/14/21 19:49 Peripheral/Venous Blood Culture - Preliminary Culture in Progress 09/14/21 19:43 Peripheral/Venous Blood Culture - Preliminary Culture in Progress Zamudio/IV: Voiding Method External Female Catheter Active Medications - Current Medications Current Medications: Generic Name Dose Route Start Last Admin Trade Name Freq PRN Reason Stop Dose Admin Acetaminophen 650 mg 09/14/21 21:34 Acetaminophen 325 Mg Tab PO Q6H PRN Pain MILD(1-3)/Fever >100.5/BARBOZA Albuterol/Ipratropium 1 ampul 09/15/21 00:00 09/15/21 05:18 Ipratropium/Albuterol Sulfate 3 Ml Ampul.Neb IH 1 ampul Q4HRT DEBRA Administration Dextrose 0 ml 09/14/21 21:55 Dextrose 10% *Hypoglycemia IV PRN PRN Hypoglycemia Furosemide 40 mg 09/15/21 06:00 09/15/21 05:46 Furosemide 40 Mg/4 Ml Inj IV 40 mg BID@0600,1800 [facility] Administration Heparin Sodium (Porcine) 5,000 unit 09/15/21 06:00 09/15/21 05:46 Heparin 5,000 Unit/1 Ml Vial SUB-Q 5,000 unit Q8HR DEBRA Administration Levofloxacin/Dextrose 750 mg in 150 mls @ 100 mls/hr 09/15/21 21:00 Levaquin 750mg/150ml IV Q24H [facility] [place] Protocol Insulin Human Lispro 0 unit 09/14/21 22:00 09/15/21 04:46 Insulin Lispro 100 Unit/Ml SUB-Q Not Given ACHS [facility] [place] Protocol Magnesium Hydroxide 30 ml 09/14/21 21:34 Magnesium Hydroxide (Mom) Oral Liqd Udc PO Q4H PRN Constipation Methylprednisolone Sodium Succinate 40 mg 09/15/21 00:00 09/15/21 05:43 Methylprednisolone Sod Succinate 40 Mg/1 Ml Inj IV 40 mg Q6HR DEBRA Administration Morphine Sulfate 2 mg 09/14/21 21:34 09/15/21 09:37 Morphine 2 Mg/1 Ml Inj IV 2 mg Q4H PRN Administration Pain, Moderate (4-6) Morphine Sulfate 4 mg 09/14/21 21:34 Morphine 4 Mg/1 Ml Inj IV Q4H PRN Pain , Severe (7-10) Nitroglycerin 0.4 mg 09/15/21 09:47 09/15/21 09:50 Nitroglycerin 0.4 Mg Tab Subl SL 0.4 mg .Q5MIN PRN Administration Chest Pain Ondansetron HCl 4 mg 09/14/21 21:34 Ondansetron 4 Mg/2 Ml Inj IV Q8H PRN Nausea And Vomiting Sodium Chloride 10 ml 09/14/21 22:00 09/15/21 04:46 Sodium Chloride 0.9% 10 Ml Flush Syringe IV Not Given BID DEBRA Sodium Chloride 10 ml 09/14/21 21:34 Sodium Chloride 0.9% 10 Ml Flush Syringe IV PRN PRN LINE FLUSH
[2021-09-15] MEDS ORDERED: INSULIN LISPRO 100 UNIT/ML SUB-Q ONE (12:00)
[2021-09-15] MEDS ORDERED: FLU VACC QUAD 2021-22(6MOS UP)/PF 60 MCG/0.5 ML SYRINGE IM ONE (12:00)
[2021-09-15] MEDS ORDERED: ONDANSETRON 4 MG/2 ML INJ IV PRN (12:08)
[2021-09-15] MEDS: CLOPIDOGREL 75 MG TAB PO SCH (12:56)
--- NOTE | 2021-09-15 14:07 | Consultation ---
History of Present Illness Consult date: 09/15/21 Requesting physician: JETT WALLACE History of present illness: 65-year-old female with significant past medical history of coronary artery disease, COPD on home oxygen, CHF, GERD, hypertension, diabetes mellitus, history of CVA, hyperlipidemia presenting to the emergency room today with acute shortness of breath. Upon arrival patient was quite tachypneic and dyspneic and appeared diaphoretic. She required bag assisted ventilation immediately upon arrival. Shortness of breath was said to have started sometime this evening. There has been no history of fever or chills, no nausea or vomiting and no abdominal pain. No history of recent travel, no sick contacts, no contact with anyone with COVID-19. Patient received nebulizing treatments and IV steroids with significant improvement. Work-up in the emergency room chest x-ray reveals interval development of diffuse bilateral pulmonary opacities. Unclear whether opacities is related to pulmonary edema or bilateral pneumonia. Patient has been placed on empiric IV antibiotics and also given some IV diuretics. Patient currently on BiPAP and admitted to IMCU Patient seen and examined Vitals,labs, medications, chart and imaging reviewed. She remains on BIPAP and her work of breathing appears to be improving. Review of Systems Constitutional: no fever, no chills Ears, nose, mouth and throat: no nasal congestion, no sore throat Cardiovascular: no chest pain, no palpitations Respiratory: cough, shortness of breath, wheezing Gastrointestinal: no abdominal pain, no nausea, no vomiting, no diarrhea Genitourinary Female: no pelvic pain, no flank pain, no dysuria, no hematuria Musculoskeletal: no neck pain, no low back pain Integumentary: no rash, no pruritis Neurological: no headaches, no confusion Psychiatric: no anxiety, no depression Endocrine: no polyphagia, no polydipsia, no polyuria - Past Medical History Hx Hypertension: Yes Hx CVA: Yes (9-18) Hx Heart Attack/AMI: Yes Hx Congestive Heart Failure: Yes Hx Diabetes: Yes Hx Deep Vein Thrombosis: Yes Hx GERD: Yes Hx Liver Disease: No Hx Renal Disease: No Hx Sickle Cell Disease: No Hx Arthritis: Yes Hx Seizures: No Hx Psychiatric Treatment: Yes (depression w SI) Hx Asthma: No Hx COPD: No Hx Tuberculosis: No Hx Dementia: No Hx HIV: No Additional medical history: 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 BLE stent placement - Social History Smoking Status: Unknown if ever smoked Past History Past Medical History: CAD, COPD, diabetes, GERD, hypertension, hyperlipidemia, PVD, stroke Past Surgical History: Other (hysterectomy-2002, R shoulder surgery (2014). BLE stent placement) Social history: no significant social history Family history: no significant family history Medications and Allergies Allergies Allergy/AdvReac Type Severity Reaction Status Date / Time aspirin Allergy ITCHING/HIV Verified 09/14/21 18:16 ES Penicillins Allergy ITCHING/HIV Verified 09/14/21 18:16 ES Home Medications Medication Instructions Recorded Confirmed Last Taken Type Clopidogrel [Plavix] 75 mg PO DAILY 07/21/19 09/15/21 09/14/21 09:00 History Gabapentin 800 mg PO BID 07/21/19 09/15/21 09/14/21 09:00 History Metoprolol Xl [Metoprolol 25 mg PO QDAY #30 tablet 07/23/19 09/15/21 09/14/21 09:00 Rx SUCCINATE ER TAB] Albuterol Mdi (or & Nicu Only) 2 puff IH QID PRN #1 03/13/21 09/15/21 09/14/21 09:00 Rx [ProAir HFA Inhaler] AtorvaSTATin [Lipitor] 40 mg PO QHS #30 tablet 03/13/21 09/15/21 09/13/21 21:00 Rx Insulin NPH/Regular [NovoLIN 70/30] 25 unit SUB-Q BIDDIAB #7 units 03/13/21 09/15/21 09/14/21 09:00 Rx Metoprolol Xl [Metoprolol 50 mg PO BID #60 tablet 03/13/21 09/15/21 09/14/21 09:00 Rx SUCCINATE ER TAB] Nitroglycerin [Nitrostat] 0.4 mg SL .Q5MIN PRN #30 tablet 03/13/21 09/15/21 09/14/21 21:00 Rx Ranolazine ER [Ranexa ER] 1,000 mg PO BID #120 tablet 03/13/21 09/15/21 09/14/21 09:00 Rx amLODIPine 10 mg PO QDAY #30 tablet 03/13/21 09/15/21 09/14/21 09:00 Rx lisinopriL [Zestril TAB] 10 mg PO QDAY #30 tablet 03/13/21 09/15/21 09/14/21 09:00 Rx predniSONE [Deltasone] 40 mg PO QDAY #20 tablet 03/13/21 09/15/21 Unknown Rx Advair Diskus 250-50 mcg 250 mcg IH BID 04/09/21 09/15/21 Unknown History ISOSORBIDE MONOnitrate [Imdur ER] 120 mg PO QDAY 04/09/21 09/15/21 04/08/21 History Pregabalin [Lyrica] 200 mg PO BID 04/09/21 09/15/21 09/15/21 13:13 History ISOSORBIDE MONOnitrate [Imdur ER] 60 mg PO QDAY #30 tab.er.24h 04/10/21 09/15/21 09/14/21 09:00 Rx HYDROcodone/APAP 7.5-325 [[place] 1 each PO Q6HR PRN #12 tablet 06/11/21 09/15/21 09/13/21 21:00 Rx 7.5/325] Active Meds: Active Medications Acetaminophen (Acetaminophen 325 Mg Tab) 650 mg PO Q6H PRN PRN Reason: Pain MILD(1-3)/Fever >100.5/BARBOZA Albuterol/Ipratropium (Ipratropium/Albuterol Sulfate 3 Ml Ampul.Neb) 1 ampul IH Q4HRT [facility] Last Admin: 09/15/21 05:18 Dose: 1 ampul Amlodipine Besylate (Amlodipine 10 Mg Tab) 10 mg PO QDAY [facility] Arformoterol Tartrate (Arformoterol 15 Mcg/2 Ml Nebu) 15 mcg IH BID [facility] Atorvastatin Calcium (Atorvastatin 40 Mg Tab) 40 mg PO QHS [facility] Budesonide (Budesonide 0.5 Mg/2 Ml Nebu) 0.5 mg IH BID [facility] Clopidogrel Bisulfate (Clopidogrel 75 Mg Tab) 75 mg PO DAILY [facility] Last Admin: 09/15/21 12:56 Dose: 75 mg Dextrose (Dextrose 10% *Hypoglycemia) 0 ml IV PRN PRN PRN Reason: Hypoglycemia Furosemide (Furosemide 40 Mg/4 Ml Inj) 40 mg IV BID@0600,1800 [facility] Last Admin: 09/15/21 05:46 Dose: 40 mg Heparin Sodium (Porcine) (Heparin 5,000 Unit/1 Ml Vial) 5,000 unit SUB-Q Q8HR [facility] Last Admin: 09/15/21 13:59 Dose: 5,000 unit Levofloxacin/Dextrose (Levaquin 750mg/150ml) 750 mg in 150 mls @ 100 mls/hr IV Q24H [facility]; Protocol Insulin Glargine (Insulin Glargine 100 Units/Ml) 20 units SUB-Q QHS [facility] Insulin Human Lispro (Insulin Lispro 100 Unit/Ml) 0 unit SUB-Q ACHS [facility]; Protocol Last Admin: 09/15/21 11:29 Dose: 10 unit Isosorbide Mononitrate (Isosorbide Mononitrate Er 60 Mg Tab) 60 mg PO QDAY [facility] Last Admin: 09/15/21 12:56 Dose: 60 mg Lisinopril (Lisinopril 10 Mg Tab) 10 mg PO QDAY [facility] Magnesium Hydroxide (Magnesium Hydroxide (Mom) Oral Liqd Udc) 30 ml PO Q4H PRN PRN Reason: Constipation Methylprednisolone Sodium Succinate (Methylprednisolone Sod Succinate 40 Mg/1 Ml Inj) 40 mg IV Q6HR [facility] Last Admin: 09/15/21 11:28 Dose: 40 mg Metoprolol Succinate (Metoprolol Succinate Xl 50 Mg Tab) 50 mg PO BID [facility] Morphine Sulfate (Morphine 2 Mg/1 Ml Inj) 2 mg IV Q4H PRN PRN Reason: Pain, Moderate (4-6) Last Admin: 09/15/21 09:37 Dose: 2 mg Morphine Sulfate (Morphine 4 Mg/1 Ml Inj) 4 mg IV Q4H PRN PRN Reason: Pain , Severe (7-10) Nitroglycerin (Nitroglycerin 0.4 Mg Tab Subl) 0.4 mg SL .Q5MIN PRN PRN Reason: Chest Pain Last Admin: 09/15/21 09:50 Dose: 0.4 mg Ondansetron HCl (Ondansetron 4 Mg/2 Ml Inj) 4 mg IV Q4H PRN PRN Reason: Nausea And Vomiting Pregabalin (Pregabalin 75 Mg Cap) 150 mg PO BID [facility] Pregabalin (Pregabalin 50 Mg Cap) 50 mg PO BID [facility] Ranolazine (Ranolazine Er 500 Mg Tab 12hr) 1,000 mg PO BID [facility] Sodium Chloride (Sodium Chloride 0.9% 10 Ml Flush Syringe) 10 ml IV BID [facility] Last Admin: 09/15/21 09:30 Dose: 10 ml Sodium Chloride (Sodium Chloride 0.9% 10 Ml Flush Syringe) 10 ml IV PRN PRN PRN Reason: LINE FLUSH Physical Examination Vital signs: Vital Signs Pulse Resp Pulse Ox 114 H 34 H 100 09/14/21 18:14 09/14/21 18:14 09/14/21 18:14 General appearance: alert, other (obese,on FFM-BIPAP) Eyes: non-icteric Neck: supple, no lymphadenopathy Effort: mildly labored Ascultation: Bilateral: diminished breath sounds, rales Cardiovascular: regular rate and rhythm, other (s1,s2) Gastrointestinal: normoactive bowel sounds, soft, non-tender Integumentary: normal Extremities: pulses normal, no ischemia or petechiae, edema non-focal exam, pupils equal and round, CN II-XII normal anxious Results - Laboratory Findings CBC and BMP: 09/17/21 06:22 09/17/21 06:22 ABG ABG pH 7.264 pH Units (7.350-7.450) L 09/14/21 18:36 ABG pCO2 54.9 mm Hg 09/14/21 18:36 ABG pO2 280.4 mm Hg (80.0-90.0) H 09/14/21 18:36 ABG O2 Saturation 99.4 % (95.0-99.0) H 09/14/21 18:36 PT/INR, D-dimer PT 12.6 Sec. (12.2-14.9) 09/14/21 18:20 INR 0.86 (0.87-1.13) L 09/14/21 18:20 Abnormal lab findings: Abnormal Labs 09/14/21 09/14/21 09/14/21 18:20 18:20 18:20 WBC 14.7 H RBC 5.29 H MCH 26 L RDW 16.9 H Seg Neuts % (Manual) 36.0 L Lymphocytes % (Manual) 58.0 H Lymphocytes # (Manual) 8.5 H INR 0.86 L APTT 21.3 L ABG pH ABG pO2 ABG O2 Saturation ABG Base Excess Oxyhemoglobin Sodium 133 L Potassium 6.0 H Chloride 96.5 L Carbon Dioxide 19 L BUN Glucose 253 H POC Glucose Troponin T NT-Pro-B Natriuret Pep 1148 H Cholesterol LDL Cholesterol Direct 09/14/21 09/14/21 09/15/21 18:36 21:00 04:48 WBC RBC MCH RDW Seg Neuts % (Manual) Lymphocytes % (Manual) Lymphocytes # (Manual) INR APTT ABG pH 7.264 L ABG pO2 280.4 H ABG O2 Saturation 99.4 H ABG Base Excess -3.4 L Oxyhemoglobin 94.5 L Sodium Potassium Chloride Carbon Dioxide BUN Glucose POC Glucose Troponin T 0.045 H D 0.065 H D NT-Pro-B Natriuret Pep Cholesterol 311 H LDL Cholesterol Direct 222 H 09/15/21 09/15/21 09/15/21 04:48 05:46 08:23 WBC RBC MCH RDW Seg Neuts % (Manual) Lymphocytes % (Manual) Lymphocytes # (Manual) INR APTT ABG pH ABG pO2 ABG O2 Saturation ABG Base Excess Oxyhemoglobin Sodium 136 L Potassium Chloride Carbon Dioxide BUN 18 H Glucose 388 H POC Glucose 331 H 321 H Troponin T NT-Pro-B Natriuret Pep Cholesterol LDL Cholesterol Direct 09/15/21 11:11 WBC RBC MCH RDW Seg Neuts % (Manual) Lymphocytes % (Manual) Lymphocytes # (Manual) INR APTT ABG pH ABG pO2 ABG O2 Saturation ABG Base Excess Oxyhemoglobin Sodium Potassium Chloride Carbon Dioxide BUN Glucose POC Glucose 421 H Troponin T NT-Pro-B Natriuret Pep Cholesterol LDL Cholesterol Direct - Diagnostic Findings Chest x-ray: image reviewed (Mixed bilateral alveolar-interstitial infiltrates) Assessment and Plan Acute on chronic respiratory failure with hypoxia and hypercapnia Opacities of both lungs present on chest x-ray h/o COPD- presumed diagnosis CAD (coronary artery disease) Acute on chronic congestive heart failure possible systolic Mild elevated troponin likely nonsignificant Hyperlipidemia Diabetes mellitus type 2 in obese with uncontrolled blood sugar HTN (hypertension) Anxiety disorder Morbid obesity -Continue with NIPPV as tolerated- will take it off later today and try supplemental oxygen via Nasal canula -Titrate supplemental oxygen to keep SpO2 88-90% -CXR, ABG as clinically indicated -Bronchodilators -empiric antibiotics for CAP, get procalcitonin levels -Diuretics while monitoring renal function and hemodynamics -VTE prophylaxis -Accucheck with glycemic control. target blood glucose <180mg/dL -Avoid hypoglycemia. -Keep her NPO for now -Transthoraacic echocardiogram -Will need early outpatient pulmonary follow up post discharge -Short course of steroids -Weight loss and lifestyle modifications -Outpatient evaluation for sleep apnea All other care per Attending ad other consulting physicians The high probability of a clinically significant, sudden or life threatening deterioration of the [pulmonary, cardiac, endocrine] system(s) required my full and direct attention, intervention and personal management. The aggregate critical care time was [35] minutes. This time is in addition to time spent performing reported procedures but includes the following: [X] Data Review and interpretation [X] Patient assessment and monitoring of vital signs [X] Documentation [X] Medication orders and management
[2021-09-15] MEDS ORDERED: NON-FORMULARY EACH (Pregabalin [Lyrica] 200 MG Capsule) PO SCH (22:00)
[2021-09-15] MEDS ORDERED: INSULIN GLARGINE 100 UNITS/ML SUB-Q SCH (22:00)
[2021-09-15] MEDS ORDERED: ADVAIR IH SCH (22:00)
[2021-09-15] MEDS: METOPROLOL SUCCINATE XL 50 MG TAB PO SCH (22:39)
[2021-09-15] MEDS: PREGABALIN 50 MG CAP PO SCH (22:40)
[2021-09-15] MEDS: PREGABALIN 75 MG CAP PO SCH (22:40)
[2021-09-15] MEDS: RANOLAZINE ER 500 MG TAB 12HR PO SCH (22:41)
--- NOTE | 2021-09-15 22:52 | Consultation ---
History of Present Illness Consult date: 09/15/21 Consult reason: elevated troponin History of present illness: Mrs. 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 Cardiology is consulted for management of ADHF and elevation of Troponin. Patient denied active chest pain; But she reported chest tightness with wheezing. Past History Past Medical History: CAD, COPD, diabetes, GERD, hypertension, hyperlipidemia, PVD, stroke Past Surgical History: Other (hysterectomy-2002, R shoulder surgery (2014). BLE stent placement) Social history: no significant social history Family history: no significant family history Medications and Allergies Allergies Allergy/AdvReac Type Severity Reaction Status Date / Time aspirin Allergy ITCHING/HIV Verified 09/14/21 18:16 ES Penicillins Allergy ITCHING/HIV Verified 09/14/21 18:16 ES Home Medications Medication Instructions Recorded Confirmed Last Taken Type Clopidogrel [Plavix] 75 mg PO DAILY 07/21/19 09/15/21 09/14/21 09:00 History Gabapentin 800 mg PO BID 07/21/19 09/15/21 09/14/21 09:00 History Metoprolol Xl [Metoprolol 25 mg PO QDAY #30 tablet 07/23/19 09/15/21 09/14/21 09:00 Rx SUCCINATE ER TAB] Albuterol Mdi (or & Nicu Only) 2 puff IH QID PRN #1 03/13/21 09/15/21 09/14/21 09:00 Rx [ProAir HFA Inhaler] AtorvaSTATin [Lipitor] 40 mg PO QHS #30 tablet 03/13/21 09/15/21 09/13/21 21:00 Rx Insulin NPH/Regular [NovoLIN 70/30] 25 unit SUB-Q BIDDIAB #7 units 03/13/21 09/15/21 09/14/21 09:00 Rx Metoprolol Xl [Metoprolol 50 mg PO BID #60 tablet 03/13/21 09/15/21 09/14/21 09:00 Rx SUCCINATE ER TAB] Nitroglycerin [Nitrostat] 0.4 mg SL .Q5MIN PRN #30 tablet 03/13/21 09/15/21 09/14/21 21:00 Rx Ranolazine ER [Ranexa ER] 1,000 mg PO BID #120 tablet 03/13/21 09/15/21 09/14/21 09:00 Rx amLODIPine 10 mg PO QDAY #30 tablet 03/13/21 09/15/21 09/14/21 09:00 Rx lisinopriL [Zestril TAB] 10 mg PO QDAY #30 tablet 03/13/21 09/15/21 09/14/21 09:00 Rx predniSONE [Deltasone] 40 mg PO QDAY #20 tablet 03/13/21 09/15/21 Unknown Rx Advair Diskus 250-50 mcg 250 mcg IH BID 04/09/21 09/15/21 Unknown History ISOSORBIDE MONOnitrate [Imdur ER] 120 mg PO QDAY 04/09/21 09/15/21 04/08/21 History Pregabalin [Lyrica] 200 mg PO BID 04/09/21 09/15/21 09/15/21 13:13 History ISOSORBIDE MONOnitrate [Imdur ER] 60 mg PO QDAY #30 tab.er.24h 04/10/21 09/15/21 09/14/21 09:00 Rx HYDROcodone/APAP 7.5-325 [[place] 1 each PO Q6HR PRN #12 tablet 06/11/21 09/15/21 09/13/21 21:00 Rx 7.5/325] Active Meds: Active Medications Acetaminophen (Acetaminophen 325 Mg Tab) 650 mg PO Q6H PRN PRN Reason: Pain MILD(1-3)/Fever >100.5/BARBOZA Albuterol/Ipratropium (Ipratropium/Albuterol Sulfate 3 Ml Ampul.Neb) 1 ampul IH Q4HRT [facility] Last Admin: 09/15/21 16:19 Dose: 1 ampul Amlodipine Besylate (Amlodipine 10 Mg Tab) 10 mg PO QDAY [facility] Arformoterol Tartrate (Arformoterol 15 Mcg/2 Ml Nebu) 15 mcg IH BID [facility] Atorvastatin Calcium (Atorvastatin 40 Mg Tab) 40 mg PO QHS [facility] Last Admin: 09/15/21 22:40 Dose: 40 mg Budesonide (Budesonide 0.5 Mg/2 Ml Nebu) 0.5 mg IH BID [facility] Clopidogrel Bisulfate (Clopidogrel 75 Mg Tab) 75 mg PO DAILY [facility] Last Admin: 09/15/21 12:56 Dose: 75 mg Dextrose (Dextrose 10% *Hypoglycemia) 0 ml IV PRN PRN PRN Reason: Hypoglycemia Furosemide (Furosemide 40 Mg/4 Ml Inj) 40 mg IV BID@0600,1800 [facility] Last Admin: 09/15/21 17:21 Dose: 40 mg Heparin Sodium (Porcine) (Heparin 5,000 Unit/1 Ml Vial) 5,000 unit SUB-Q Q8HR [facility] Last Admin: 09/15/21 22:39 Dose: 5,000 unit Levofloxacin/Dextrose (Levaquin 750mg/150ml) 750 mg in 150 mls @ 100 mls/hr IV Q24H [facility]; Protocol Last Admin: 09/15/21 21:15 Dose: 100 mls/hr Insulin Glargine (Insulin Glargine 100 Units/Ml) 20 units SUB-Q QHS [facility] Insulin Human Lispro (Insulin Lispro 100 Unit/Ml) 0 unit SUB-Q ACHS [facility]; Protocol Last Admin: 09/15/21 16:46 Dose: 8 unit Isosorbide Mononitrate (Isosorbide Mononitrate Er 60 Mg Tab) 60 mg PO QDAY [facility] Last Admin: 09/15/21 12:56 Dose: 60 mg Lisinopril (Lisinopril 10 Mg Tab) 10 mg PO QDAY [facility] Magnesium Hydroxide (Magnesium Hydroxide (Mom) Oral Liqd Udc) 30 ml PO Q4H PRN PRN Reason: Constipation Methylprednisolone Sodium Succinate (Methylprednisolone Sod Succinate 40 Mg/1 Ml Inj) 40 mg IV Q6HR [facility] Last Admin: 09/15/21 17:20 Dose: 40 mg Metoprolol Succinate (Metoprolol Succinate Xl 50 Mg Tab) 50 mg PO BID [facility] Last Admin: 09/15/21 22:39 Dose: 50 mg Morphine Sulfate (Morphine 2 Mg/1 Ml Inj) 2 mg IV Q4H PRN PRN Reason: Pain, Moderate (4-6) Last Admin: 09/15/21 09:37 Dose: 2 mg Morphine Sulfate (Morphine 4 Mg/1 Ml Inj) 4 mg IV Q4H PRN PRN Reason: Pain , Severe (7-10) Nitroglycerin (Nitroglycerin 0.4 Mg Tab Subl) 0.4 mg SL .Q5MIN PRN PRN Reason: Chest Pain Last Admin: 09/15/21 09:50 Dose: 0.4 mg Ondansetron HCl (Ondansetron 4 Mg/2 Ml Inj) 4 mg IV Q4H PRN PRN Reason: Nausea And Vomiting Last Admin: 09/15/21 16:59 Dose: 4 mg Pregabalin (Pregabalin 75 Mg Cap) 150 mg PO BID [facility] Last Admin: 09/15/21 22:40 Dose: 150 mg Pregabalin (Pregabalin 50 Mg Cap) 50 mg PO BID [facility] Last Admin: 09/15/21 22:40 Dose: 50 mg Ranolazine (Ranolazine Er 500 Mg Tab 12hr) 1,000 mg PO BID [facility] Last Admin: 09/15/21 22:41 Dose: 1,000 mg Sodium Chloride (Sodium Chloride 0.9% 10 Ml Flush Syringe) 10 ml IV BID [facility] Last Admin: 09/15/21 09:30 Dose: 10 ml Sodium Chloride (Sodium Chloride 0.9% 10 Ml Flush Syringe) 10 ml IV PRN PRN PRN Reason: LINE FLUSH Review of Systems Cardiovascular: chest pain (denied), shortness of breath Respiratory: dyspnea on exertion Physical Examination Vital Signs Pulse Resp Pulse Ox 114 H 34 H 100 09/14/21 18:14 09/14/21 18:14 09/14/21 18:14 General appearance: mild distress Cardiac: Positive: Reg Rate and Rhythm Lungs: Positive: Wheezes Extremities: Present: +1 Edema Results 09/14/21 18:20 09/15/21 04:48 Comprehensive Metabolic Panel 09/15/21 Range/Units 04:48 Sodium 136 L (137-145) mmol/L Potassium 4.7 (3.6-5.0) mmol/L Chloride 98.0 (98-107) mmol/L Carbon Dioxide 25 (22-30) mmol/L BUN 18 H (7-17) mg/dL Creatinine 1.2 (0.6-1.2) mg/dL Glucose 388 H (65-100) mg/dL Calcium 9.3 (8.4-10.2) mg/dL - EKG Interpretation EKG: sinus rhythm, no acute changes Assessment and Plan - Patient Problems (1) CHF exacerbation Current Visit: No Status: Acute Plan to address problem: -Reviewed patient admission labs and cxr: consistent with acute decompensated heart failure and pneumonia - ECHO in 03/2021: LVEF 50-55%, normal RV function - recommend IV diuretics - resume home med as long as patient tolerated - repeat ECHO - strict I/O and correct electrolytes abnormality (2) Elevated troponin Current Visit: Yes Status: Acute Plan to address problem: - 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 - Patient denied active chest pain; Her symptoms of SOB could be combination of ADHF, COPD exacerbation and PNA - The elevation of troponin more likely due to demanded ischemia form HF and sepsis - Recommend continue to trend Troponin till peaked - Repeat echo to assess LV function and RWA - Further recommendation will be followed after ECHO - c/w statin and antiplatelet (3) Hyperlipidemia Current Visit: No Status: Chronic Plan to address problem: -c/w statin; recommend to double the dose of lipitor if patient liver function wnl. - LDL>200 with statin, concerning FH; Patient may be benefit PCSK-9 inhibitor; We will address it as outpatient. Recommend 1st degree family member screening for FH.
[2021-09-15] MEDS: ARFORMOTEROL 15 MCG/2 ML NEBU IH SCH (22:55)
[2021-09-15] MEDS: BUDESONIDE 0.5 MG/2 ML NEBU IH SCH (22:55)
[2021-09-16] MEDS: methylPREDNISolone Sod Succinate 40 MG/1 ML INJ IV SCH ×5 (00:30→21:05)
[2021-09-16] MEDS: IPRATROPIUM/ALBUTEROL SULFATE 3 ML AMPUL.NEB IH SCH ×6 (03:06→21:42)
[2021-09-16 04:57] LABS: Hematocrit 38.6 % (30.3-42.9); Hemoglobin 12.8 gm/dl (10.1-14.3); Mean Corpuscular HGB Conc 33 % (30-34); Mean Corpuscular Volume 78 fl (79-97); Platelet Count 279 K/mm3 (140-440); Red Blood Count 4.96 M/mm3 (3.65-5.03); Red Cell Distribution Width 16.6 % (13.2-15.2)
[2021-09-16 05:17] LABS: BUN/Creatinine Ratio 28; Blood Urea Nitrogen 28 mg/dL (7-17); Calcium 9.1 mg/dL (8.4-10.2); Hemolysis Index 2
[2021-09-16] MEDS: FUROSEMIDE 40 MG/4 ML INJ IV SCH (06:11)
[2021-09-16] MEDS: HEPARIN 5,000 UNIT/1 ML VIAL SUB-Q SCH ×3 (06:11→21:05)
[2021-09-16] MEDS: INSULIN LISPRO 100 UNIT/ML SUB-Q SCH ×4 (07:10→21:10)
[2021-09-16] MEDS: ARFORMOTEROL 15 MCG/2 ML NEBU IH SCH ×3 (08:29→21:42)
[2021-09-16] MEDS: BUDESONIDE 0.5 MG/2 ML NEBU IH SCH ×3 (08:29→21:42)
[2021-09-16] MEDS ORDERED: LISINOPRIL 10 MG TAB PO SCH (10:00)
--- NOTE | 2021-09-16 10:09 | XRay Report ---
CHEST 1 VIEW 09/16/2021 9:02 AM INDICATION / CLINICAL INFORMATION: Shortness of breath. COMPARISON: 09/15/19 to. FINDINGS: SUPPORT DEVICES: None. HEART / MEDIASTINUM: The heart size and pulmonary vasculature are normal. LUNGS / PLEURA: Patchy parenchymal opacities throughout both lungs have shown marked improvement. Mil d disease persists. No new abnormality. No pleural effusion. No pneumothorax. ADDITIONAL FINDINGS: No significant additional findings. IMPRESSION: Marked improvement in patchy parenchymal opacities throughout both lungs. Signer Name: Benny Diamond MD Signed: 09/16/2021 10:04 AM Workstation Name: [id number]
[2021-09-16] MEDS: PREGABALIN 75 MG CAP PO SCH ×2 (10:16→21:05)
[2021-09-16] MEDS: RANOLAZINE ER 500 MG TAB 12HR PO SCH ×2 (10:17→21:05)
[2021-09-16] MEDS: CLOPIDOGREL 75 MG TAB PO SCH (10:17)
[2021-09-16] MEDS: PREGABALIN 50 MG CAP PO SCH ×2 (10:18→21:05)
[2021-09-16] MEDS: amLODIPine 10 MG TAB PO SCH (10:18)
[2021-09-16] MEDS: METOPROLOL SUCCINATE XL 50 MG TAB PO SCH ×2 (10:18→21:05)
--- NOTE | 2021-09-16 11:56 | Progress Note ---
Assessment and Plan Assessment and plan: 65-year-old female with significant past medical history of coronary artery disease, COPD on home oxygen, CHF, GERD, hypertension, diabetes mellitus, history of CVA, hyperlipidemia presenting to the emergency room today with acute shortness of breath. Upon arrival patient was quite tachypneic and dyspneic and appeared diaphoretic. She required bag assisted ventilation immediately upon arrival. Shortness of breath was said to have started sometime this evening. There has been no history of fever or chills, no nausea or vomiting and no abdominal pain. No history of recent travel, no sick contacts, no contact with anyone with COVID-19. Patient received nebulizing treatments and IV steroids with significant improvement. Work-up in the emergency room today, chest x-ray reveals interval development of diffuse bilateral pulmonary opacities. Unclear whether opacities is related to pulmonary edema or bilateral pneumonia. Patient has been placed on empiric IV antibiotics and also given some IV diuretics. Patient currently on BiPAP. 09/15: Patient with mildly elevated troponin this could be secondary to the chronic congestive heart failure in the setting of underlying pneumonia. Obvious evidence for systemic inflammatory response syndrome. Of discussed with line up worker in respect to the elevated troponin and recurrent chest pain. We will start the patient's home dose of Ranexa. We will continue IV diuresis at this time while awaiting pulmonary input relative to diffuse pulmonary opacities. Patient is also being ruled out for COVID-19. Will repeat chest x- ray in a.m. Condition remains guarded 09/16: Patient shows clinical improvement. X-ray shows shows remarkable improvement in previously noted opacities which goes to support possible underlining congestive heart failure likely diastolic in nature rather than pneumonia. Patient will continue on her chronic medications. Blood pressure is stable. Will transfer to the medical floor mild elevation leukocytosis likely s econdary to steroid therapy. Anticipate the patient can be safely discharged tomorrow or the day after with transition to oral steroids. Plan discussed with the patient she verbalized understanding. Will change Lasix to daily IV (1) Acute respiratory failure with hypoxia and hypercapnia Current Visit: No Status: Acute Plan to address problem: Patient currently on BiPAP. We will monitor closely and keep O2 saturation greater or equal to 93%. Consult placed to lamp developer for evaluation. (2) Opacities of both lungs present on chest x-ray Current Visit: Yes Status: Acute Plan to address problem: Unclear what opacities is secondary to pneumonia versus congestive heart failure. However patient has been placed on empiric IV antibiotics and also started on diuretics. We will schedule for echocardiogram. (3) CAD (coronary artery disease) Current Visit: No Status: Acute Plan to address problem: Continue routine home medications. (4) Acute on chronic congestive heart failure possible diastolic (5) mild elevated troponin likely nonsignificant (6) hyperlipidemia Current Visit: No Status: Acute Plan to address problem: Continue routine home medications. Monitor lipid profile. (5) Diabetes mellitus type 2 in obese with uncontrolled blood sugar Current Visit: No Status: Chronic Plan to address problem: Patient placed on sliding scale insulin. We will monitor Accu-Cheks closely. (6) HTN (hypertension) Current Visit: No Status: Chronic Qualifiers: Hypertension type: essential hypertension Plan to address problem: Continue routine home medications and monitor vital signs closely. (7) systemic inflammatory response syndrome (8) DVT prophylaxis Current Visit: No Status: Acute Plan to address problem: Patient placed on subcutaneous heparin. (9) anxiety disorder (10) full code status Current Visit: No Status: Acute Plan to address problem: Patient is full code. History Interval history: Patient seen and examined this morning, more relaxed. improving respiration. No chest pain reported today Hospitalist Physical - Physical exam Narrative exam: VITAL SIGNS: Reviewed. GENERAL: The patient appears normally developed,vital signs as documented. HEAD: No signs of head trauma. EYES: Pupils are equal. Extraocular motions intact. EARS: Hearing grossly intact. MOUTH: Oropharynx is normal. NECK: No adenopathy, no JVD. CHEST: Chest with diminished breath sounds bilaterally. No wheezes, rales, or rhonchi. CARDIAC: Regular rate and rhythm. S1 and S2, without murmurs, gallops, or rubs. VASCULAR: No Edema. Peripheral pulses normal and equal in all extremities. ABDOMEN: Soft, non tender and non distended. No rebound or guarding, and no masses palpated. Bowel Sounds normal. MUSCULOSKELETAL: Good range of motion of all major joints. Extremities without clubbing, cyanosis or edema. NEUROLOGIC EXAM: Alert and oriented x 3 No focal sensory or strength deficits. Speech normal. Follows commands. PSYCHIATRIC: Mood Normal. SKIN: detail exam as documented in skin assessment - Constitutional Vitals: Temp Pulse Resp BP Pulse Ox 97.5 F L 64 12 173/54 98 03/17/22 08:00 09/16/21 11:00 09/16/21 11:00 09/16/21 11:00 09/16/21 11:00 General appearance: Present: mild distress HEART Score - HEART Score Troponin: Troponin T 0.065 ng/mL (0.00-0.029) H D 09/15/21 04:48 Results - Labs CBC & Chem 7: 09/16/21 04:27 09/16/21 04:27 Labs: Laboratory Last Values WBC 17.1 K/mm3 (4.5-11.0) H 09/16/21 04:27 RBC 4.96 M/mm3 (3.65-5.03) 09/16/21 04:27 Hgb 12.8 gm/dl (10.1-14.3) 09/16/21 04:27 Hct 38.6 % (30.3-42.9) 09/16/21 04:27 MCV 78 fl (79-97) L 09/16/21 04:27 MCH 26 pg (28-32) L 09/16/21 04:27 MCHC 33 % (30-34) 09/16/21 04:27 RDW 16.6 % (13.2-15.2) H 09/16/21 04:27 Plt Count 279 K/mm3 (140-440) 09/16/21 04:27 Lymph # (Auto) [employer] Analyst 09/14/21 18:20 Add Manual Diff Complete 09/14/21 18:20 Total Counted 100 09/14/21 18:20 Seg Neuts % (Manual) 36.0 % (40.0-70.0) L 09/14/21 18:20 Band Neutrophils % 0 % 09/14/21 18:20 Lymphocytes % (Manual) 58.0 % (13.4-35.0) H 09/14/21 18:20 Reactive Lymphs % (Man) 0 % 09/14/21 18:20 Monocytes % (Manual) 4.0 % (0.0-7.3) 09/14/21 18:20 Eosinophils % (Manual) 2.0 % (0.0-4.3) 09/14/21 18:20 Basophils % (Manual) 0 % (0.0-1.8) 09/14/21 18:20 Metamyelocytes % 0 % 09/14/21 18:20 Myelocytes % 0 % 09/14/21 18:20 Promyelocytes % 0 % 09/14/21 18:20 Blast Cells % 0 % 09/14/21 18:20 Nucleated RBC % Not Reportable 09/14/21 18:20 Seg Neutrophils # Man 5.3 K/mm3 (1.8-7.7) 09/14/21 18:20 Band Neutrophils # 0.0 K/mm3 09/14/21 18:20 Lymphocytes # (Manual) 8.5 K/mm3 (1.2-5.4) H 09/14/21 18:20 Abs React Lymphs (Man) 0.0 K/mm3 09/14/21 18:20 Monocytes # (Manual) 0.6 K/mm3 (0.0-0.8) 09/14/21 18:20 Eosinophils # (Manual) 0.3 K/mm3 (0.0-0.4) 09/14/21 18:20 Basophils # (Manual) 0.0 K/mm3 (0.0-0.1) 09/14/21 18:20 Metamyelocytes # 0.0 K/mm3 09/14/21 18:20 Myelocytes # 0.0 K/mm3 09/14/21 18:20 Promyelocytes # 0.0 K/mm3 09/14/21 18:20 Blast Cells # 0.0 K/mm3 09/14/21 18:20 WBC Morphology Not Reportable 09/14/21 18:20 Hypersegmented Neuts Not Reportable 09/14/21 18:20 Hyposegmented Neuts Not Reportable 09/14/21 18:20 Hypogranular Neuts Not Reportable 09/14/21 18:20 Smudge Cells Not Reportable 09/14/21 18:20 Toxic Granulation Not Reportable 09/14/21 18:20 Toxic Vacuolation Not Reportable 09/14/21 18:20 Dohle Bodies Not Reportable 09/14/21 18:20 Pelger-Huet Anomaly Not Reportable 09/14/21 18:20 Deneen Rods Not Reportable 09/14/21 18:20 Platelet Estimate Not Reportable 09/14/21 18:20 Clumped Platelets Not Reportable 09/14/21 18:20 Plt Clumps, EDTA Not Reportable 09/14/21 18:20 Large Platelets Not Reportable 09/14/21 18:20 Giant Platelets Not Reportable 09/14/21 18:20 Platelet Satelliting Not Reportable 09/14/21 18:20 Plt Morphology Comment Not Reportable 09/14/21 18:20 RBC Morphology Not Reportable 09/14/21 18:20 Dimorphic RBCs Not Reportable 09/14/21 18:20 Polychromasia Not Reportable 09/14/21 18:20 Hypochromasia 1+ 09/14/21 18:20 Poikilocytosis Not Reportable 09/14/21 18:20 Anisocytosis Rare 09/14/21 18:20 Microcytosis Not Reportable 09/14/21 18:20 Macrocytosis Not Reportable 09/14/21 18:20 Spherocytes Not Reportable 09/14/21 18:20 Pappenheimer Bodies Not Reportable 09/14/21 18:20 Sickle Cells Not Reportable 09/14/21 18:20 Target Cells Not Reportable 09/14/21 18:20 Tear Drop Cells Not Reportable 09/14/21 18:20 Ovalocytes Not Reportable 09/14/21 18:20 Helmet Cells Not Reportable 09/14/21 18:20 [place] Bodies Not Reportable 09/14/21 18:20 [place] Rings Not Reportable 09/14/21 18:20 [place] Cells Not Reportable 09/14/21 18:20 Bite Cells Not Reportable 09/14/21 18:20 Crenated Cell Not Reportable 09/14/21 18:20 Elliptocytes Not Reportable 09/14/21 18:20 Acanthocytes (Spur) Not Reportable 09/14/21 18:20 Rouleaux Not Reportable 09/14/21 18:20 Hemoglobin C Crystals Not Reportable 09/14/21 18:20 Schistocytes Not Reportable 09/14/21 18:20 Malaria parasites Not Reportable 09/14/21 18:20 Henry Bodies Not Reportable 09/14/21 18:20 Hem Pathologist Commnt No 09/14/21 18:20 PT 12.6 Sec. (12.2-14.9) 09/14/21 18:20 INR 0.86 (0.87-1.13) L 09/14/21 18:20 APTT 21.3 Sec. (24.2-36.6) L 09/14/21 18:20 ABG pH 7.264 pH Units (7.350-7.450) L 09/14/21 18:36 ABG pCO2 54.9 mm Hg 09/14/21 18:36 ABG pO2 280.4 mm Hg (80.0-90.0) H 09/14/21 18:36 ABG HCO3 24.3 mmol/L (20.0-26.0) 09/14/21 18:36 ABG O2 Saturation 99.4 % (95.0-99.0) H 09/14/21 18:36 ABG O2 Content 19.6 (0.0-44) 09/14/21 18:36 ABG Base Excess -3.4 mmol/L (-2.0-3.0) L 09/14/21 18:36 ABG Hemoglobin 14.2 gm/dl (12.0-16.0) 09/14/21 18:36 ABG Carboxyhemoglobin 4.3 % (0.0-5.0) 09/14/21 18:36 ABG Methemoglobin 0.6 % (0.0-1.5) 09/14/21 18:36 Oxyhemoglobin 94.5 % (95.0-99.0) L 09/14/21 18:36 FiO2 100 % 09/14/21 18:36 Sodium 135 mmol/L (137-145) L 09/16/21 04:27 Potassium 4.7 mmol/L (3.6-5.0) 09/16/21 04:27 Chloride 96.2 mmol/L (98-107) L 09/16/21 04:27 Carbon Dioxide 27 mmol/L (22-30) 09/16/21 04:27 Anion Gap 17 mmol/L 09/16/21 04:27 BUN 28 mg/dL (7-17) H 09/16/21 04:27 Creatinine 1.0 mg/dL (0.6-1.2) 09/16/21 04:27 Estimated GFR > 60 ml/min 09/16/21 04:27 BUN/Creatinine Ratio 28 % 09/16/21 04:27 Glucose 256 mg/dL (65-100) H 09/16/21 04:27 POC Glucose 265 mg/dL (70-105) H 09/15/21 21:28 Calcium 9.1 mg/dL (8.4-10.2) 09/16/21 04:27 Total Bilirubin 0.30 mg/dL (0.1-1.2) 09/14/21 18:20 AST 32 units/L (5-40) 09/14/21 18:20 ALT 16 units/L (7-56) 09/14/21 18:20 Alkaline Phosphatase 99 units/L (35-129) 09/14/21 18:20 Total Creatine Kinase 114 units/L (30-135) 09/14/21 18:20 CK-MB (CK-2) 1.6 ng/mL (0.0-4.0) 09/14/21 18:20 CK-MB (CK-2) Rel Index 1.4 (0-4) 09/14/21 18:20 Troponin T 0.065 ng/mL (0.00-0.029) H D 09/15/21 04:48 NT-Pro-B Natriuret Pep 1148 pg/mL (0-900) H 09/14/21 18:20 Total Protein 7.6 g/dL (6.3-8.2) 09/14/21 18:20 Albumin 4.0 g/dL (3.9-5) 09/14/21 18:20 Albumin/Globulin Ratio 1.1 % 09/14/21 18:20 Triglycerides 124 mg/dL (2-149) 09/14/21 21:00 Cholesterol 311 mg/dL (50-199) H 09/14/21 21:00 LDL Cholesterol Direct 222 mg/dL (50-130) H 09/14/21 21:00 HDL Cholesterol 57 mg/dL (40-59) 09/14/21 21:00 Cholesterol/HDL Ratio 5.45 % 09/14/21 21:00 Nasal Screen MRSA (PCR) Negative (Negative) 09/15/21 Unknown Coronavirus (PCR) Negative (Negative) 09/15/21 08:10 Microbiology: Microbiology 09/14/21 19:43 Peripheral/Venous Blood Culture - Preliminary NO GROWTH AFTER 24 HOURS 09/14/21 19:49 Peripheral/Venous Blood Culture - Preliminary NO GROWTH AFTER 24 HOURS Zamudio/IV: Voiding Method External Female Catheter Active Medications - Current Medications Current Medications: Generic Name Dose Route Start Last Admin Trade Name Freq PRN Reason Stop Dose Admin Acetaminophen 650 mg 09/14/21 21:34 Acetaminophen 325 Mg Tab PO Q6H PRN Pain MILD(1-3)/Fever >100.5/BARBOZA Albuterol/Ipratropium 1 ampul 09/15/21 00:00 09/16/21 08:30 Ipratropium/Albuterol Sulfate 3 Ml Ampul.Neb IH 1 ampul Q4HRT DEBRA Administration Amlodipine Besylate 10 mg 09/16/21 10:00 09/16/21 10:18 Amlodipine 10 Mg Tab PO 10 mg QDAY DEBRA Administration Arformoterol Tartrate 15 mcg 09/15/21 22:00 09/16/21 08:29 Arformoterol 15 Mcg/2 Ml Nebu IH 15 mcg BID DEBRA Administration Atorvastatin Calcium 40 mg 09/15/21 22:00 09/15/21 22:40 Atorvastatin 40 Mg Tab PO 40 mg QHS DEBRA Administration Budesonide 0.5 mg 09/15/21 22:00 09/16/21 08:29 Budesonide 0.5 Mg/2 Ml Nebu IH 0.5 mg BID DEBRA Administration Clopidogrel Bisulfate 75 mg 09/15/21 13:00 09/16/21 10:17 Clopidogrel 75 Mg Tab PO 75 mg DAILY DEBRA Administration Dextrose 0 ml 09/14/21 21:55 Dextrose 10% *Hypoglycemia IV PRN PRN Hypoglycemia Furosemide 40 mg 09/15/21 06:00 09/16/21 06:11 Furosemide 40 Mg/4 Ml Inj IV 40 mg BID@0600,1800 DEBRA Administration Heparin Sodium (Porcine) 5,000 unit 09/15/21 06:00 09/16/21 06:11 Heparin 5,000 Unit/1 Ml Vial SUB-Q 5,000 unit Q8HR DEBRA Administration Levofloxacin/Dextrose 750 mg in 150 mls @ 100 mls/hr 09/15/21 21:00 09/15/21 21:15 Levaquin 750mg/150ml IV 100 mls/hr Q24H DEBRA Administration Protocol Insulin Glargine 25 units 09/16/21 11:46 Insulin Glargine 100 Units/Ml SUB-Q QHS [facility] Insulin Human Lispro 0 unit 09/14/21 22:00 09/16/21 07:10 Insulin Lispro 100 Unit/Ml SUB-Q 6 unit ACHS DEBRA Administration Protocol Isosorbide Mononitrate 60 mg 09/15/21 13:00 09/16/21 10:17 Isosorbide Mononitrate Er 60 Mg Tab PO 60 mg QDAY DEBRA Administration Lisinopril 10 mg 09/16/21 10:00 09/16/21 10:17 Lisinopril 10 Mg Tab PO 10 mg QDAY DEBRA Administration Magnesium Hydroxide 30 ml 09/14/21 21:34 Magnesium Hydroxide (Mom) Oral Liqd Udc PO Q4H PRN Constipation Methylprednisolone Sodium Succinate 40 mg 09/15/21 00:00 09/16/21 06:12 Methylprednisolone Sod Succinate 40 Mg/1 Ml Inj IV 40 mg Q6HR DEBRA Administration Metoprolol Succinate 50 mg 09/15/21 22:00 09/16/21 10:18 Metoprolol Succinate Xl 50 Mg Tab PO Not Given BID [facility] Morphine Sulfate 2 mg 09/14/21 21:34 09/15/21 09:37 Morphine 2 Mg/1 Ml Inj IV 2 mg Q4H PRN Administration Pain, Moderate (4-6) Morphine Sulfate 4 mg 09/14/21 21:34 Morphine 4 Mg/1 Ml Inj IV Q4H PRN Pain , Severe (7-10) Nitroglycerin 0.4 mg 09/15/21 09:47 09/15/21 09:50 Nitroglycerin 0.4 Mg Tab Subl SL 0.4 mg .Q5MIN PRN Administration Chest Pain Ondansetron HCl 4 mg 09/15/21 12:08 09/15/21 16:59 Ondansetron 4 Mg/2 Ml Inj IV 4 mg Q4H PRN Administration Nausea And Vomiting Pregabalin 150 mg 09/15/21 22:00 09/16/21 10:16 Pregabalin 75 Mg Cap PO 150 mg BID DEBRA Administration Pregabalin 50 mg 09/15/21 22:00 09/16/21 10:18 Pregabalin 50 Mg Cap PO 50 mg BID DEBRA Administration Ranolazine 1,000 mg 09/15/21 22:00 09/16/21 10:17 Ranolazine Er 500 Mg Tab 12hr PO 1,000 mg BID DEBRA Administration Sodium Chloride 10 ml 09/14/21 22:00 09/16/21 10:18 Sodium Chloride 0.9% 10 Ml Flush Syringe IV 10 ml BID DEBRA Administration Sodium Chloride 10 ml 09/14/21 21:34 Sodium Chloride 0.9% 10 Ml Flush Syringe IV PRN PRN LINE FLUSH Nutrition/Malnutrition Assess - Dietary Evaluation Nutrition/Malnutrition Findings: Nutrition Notes Start: 09/15/21 15:27 Freq: Status: Active Protocol: Document 09/15/21 15:27 NERI (Rec: 09/15/21 15:36 NERI [id number]) Nutrition Notes Need for Assessment generated from: MD Order,Education Initial or Follow up Brief Note Current Diagnosis COPD,Coronary Artery Disease, Diabetes,Hypertension, Respiratory Failure,Stroke, Hyperlipidemia Other Pertinent Diagnosis CHF, GERD, SIRS. Current Diet Cardiac/Consistent Carbohydrates Diet (since B ). 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 Weight Status Morbidly Obese Subjective/Other Information RD consult for Nutrition Education. No reports available on Pt's PO intake of meals at the time . Pt still on critical condition , not a candidate for Nutrition Education at the time, will assess feasibility on F/U. Percent of energy/protein needs met: Prescribed Cardiac/Consistent Carbohydrates Diet provides for energy/protein needs (1, 977 Kcal/86 g) during LOS. Nutrition Intervention Follow-Up By: 09/22/21 Additional Comments Nutrition education will be provided on F/U, if feasible. Continue monitoring food tolerance, %PO intake of meals , and BM.
[2021-09-16] MEDS: LISINOPRIL 40 MG TAB PO SCH (14:20)
--- NOTE | 2021-09-16 16:35 | Progress Note ---
Assessment and Plan Acute on chronic respiratory failure with hypoxia and hypercapnia Opacities of both lungs present on chest x-ray h/o COPD- presumed diagnosis CAD (coronary artery disease) Acute on chronic congestive heart failure possible systolic Mild elevated troponin likely nonsignificant Hyperlipidemia Diabetes mellitus type 2 in obese with uncontrolled blood sugar HTN (hypertension) Anxiety disorder Morbid obesity PT/OT, increase activity Incentive spirometry Discharge planning -Continue with NIPPV prn -Titrate supplemental oxygen to keep SpO2 88-90% -CXR, ABG as clinically indicated -Bronchodilators -empiric antibiotics for CAP- 5 day course is adequate -Diuretics while monitoring renal function and hemodynamics -VTE prophylaxis -Accucheck with glycemic control. target blood glucose <180mg/dL -Avoid hypoglycemia. -Will need early outpatient pulmonary follow up post discharge -Weight loss and lifestyle modifications -Outpatient evaluation for sleep apnea All other care per Attending ad other consulting physicians Subjective Date of service: 09/16/21 Interval history: Follow up for Acute on chronic respiratory failure with hypoxia and hypercapnia; Opacities of both lungs present on chest x-ray h/o COPD- presumed diagnosis Seen and examined. Vitals, labs, medications, chart and imaging reviewed. Discussed with respiratory care and nursing care staff. No adverse overnight events reported. On supplemental oxygen at 3L [place], she choked on some rice this afternoon then had episodes of vomiting. She denies any chest pain, baseline shortness of breath no fevers or chills. Generally getting better. Objective Vital Signs - 12hr 09/16/21 09/16/21 09/16/21 05:00 06:00 07:00 Temperature Pulse Rate 58 L 61 54 L Pulse Rate [ Anterior] Pulse Rate [ 66 From Monitor] Pulse Rate [ Throughout] Respiratory 12 10 L 10 L Rate Respiratory Rate [Anterior] Respiratory Rate [ Throughout] Blood Pressure 136/76 144/62 147/64 O2 Sat by Pulse 100 100 98 Oximetry 09/16/21 09/16/21 09/16/21 08:00 08:25 08:32 Temperature 97.5 F L Pulse Rate 56 L Pulse Rate [ 58 L Anterior] Pulse Rate [ 56 L From Monitor] Pulse Rate [ 57 L Throughout] Respiratory 12 Rate Respiratory 16 Rate [Anterior] Respiratory 16 Rate [ Throughout] Blood Pressure 136/58 O2 Sat by Pulse 99 98 Oximetry 09/16/21 09/16/21 09/16/21 09:00 10:00 10:17 Temperature Pulse Rate 54 L 59 L 58 L Pulse Rate [ Anterior] Pulse Rate [ From Monitor] Pulse Rate [ Throughout] Respiratory 14 13 Rate Respiratory Rate [Anterior] Respiratory Rate [ Throughout] Blood Pressure 137/61 169/70 173/54 O2 Sat by Pulse 96 98 Oximetry 09/16/21 09/16/21 09/16/21 10:18 11:00 12:00 Temperature 98 F Pulse Rate 58 L 64 63 Pulse Rate [ Anterior] Pulse Rate [ 63 From Monitor] Pulse Rate [ Throughout] Respiratory 12 16 Rate Respiratory Rate [Anterior] Respiratory Rate [ Throughout] Blood Pressure 173/54 173/54 150/62 O2 Sat by Pulse 98 94 Oximetry 09/16/21 09/16/21 09/16/21 12:34 13:00 14:00 Temperature Pulse Rate 70 62 Pulse Rate [ 64 Anterior] Pulse Rate [ From Monitor] Pulse Rate [ 63 Throughout] Respiratory 13 14 Rate Respiratory 14 Rate [Anterior] Respiratory 14 Rate [ Throughout] Blood Pressure 144/66 142/70 O2 Sat by Pulse 99 98 Oximetry 09/16/21 14:20 Temperature Pulse Rate 60 Pulse Rate [ Anterior] Pulse Rate [ From Monitor] Pulse Rate [ Throughout] Respiratory Rate Respiratory Rate [Anterior] Respiratory Rate [ Throughout] Blood Pressure 117/53 O2 Sat by Pulse Oximetry Constitutional: no acute distress, alert Eyes: non-icteric ENT: oropharynx moist Neck: supple, no lymphadenopathy Effort: normal Ascultation: Bilateral: clear, diminished breath sounds Cardiovascular: regular rate and rhythm, other (S1,S2) Gastrointestinal: normoactive bowel sounds, soft, non-tender Integumentary: normal Extremities: no cyanosis, no edema Neurologic: normal mental status, non-focal exam, motor strength normal and Psychiatric: mood appropriate, affect normal CBC and BMP: 09/17/21 06:22 09/17/21 06:22 ABG, PT/INR, D-dimer: ABG ABG pH 7.264 pH Units (7.350-7.450) L 09/14/21 18:36 ABG pCO2 54.9 mm Hg 09/14/21 18:36 ABG pO2 280.4 mm Hg (80.0-90.0) H 09/14/21 18:36 ABG O2 Saturation 99.4 % (95.0-99.0) H 09/14/21 18:36 PT/INR, D-dimer PT 12.6 Sec. (12.2-14.9) 09/14/21 18:20 INR 0.86 (0.87-1.13) L 09/14/21 18:20 Abnormal lab findings: Abnormal Labs 09/14/21 09/14/21 09/14/21 18:20 18:20 18:20 WBC 14.7 H RBC 5.29 H MCV MCH 26 L RDW 16.9 H Seg Neuts % (Manual) 36.0 L Lymphocytes % (Manual) 58.0 H Lymphocytes # (Manual) 8.5 H INR 0.86 L APTT 21.3 L ABG pH ABG pO2 ABG O2 Saturation ABG Base Excess Oxyhemoglobin Sodium 133 L Potassium 6.0 H Chloride 96.5 L Carbon Dioxide 19 L BUN Glucose 253 H POC Glucose Troponin T NT-Pro-B Natriuret Pep 1148 H Cholesterol LDL Cholesterol Direct 09/14/21 09/14/21 09/15/21 18:36 21:00 04:48 WBC RBC MCV MCH RDW Seg Neuts % (Manual) Lymphocytes % (Manual) Lymphocytes # (Manual) INR APTT ABG pH 7.264 L ABG pO2 280.4 H ABG O2 Saturation 99.4 H ABG Base Excess -3.4 L Oxyhemoglobin 94.5 L Sodium Potassium Chloride Carbon Dioxide BUN Glucose POC Glucose Troponin T 0.045 H D 0.065 H D NT-Pro-B Natriuret Pep Cholesterol 311 H LDL Cholesterol Direct 222 H 09/15/21 09/15/21 09/15/21 04:48 05:46 08:23 WBC RBC MCV MCH RDW Seg Neuts % (Manual) Lymphocytes % (Manual) Lymphocytes # (Manual) INR APTT ABG pH ABG pO2 ABG O2 Saturation ABG Base Excess Oxyhemoglobin Sodium 136 L Potassium Chloride Carbon Dioxide BUN 18 H Glucose 388 H POC Glucose 331 H 321 H Troponin T NT-Pro-B Natriuret Pep Cholesterol LDL Cholesterol Direct 09/15/21 09/15/21 09/15/21 11:11 16:18 21:28 WBC RBC MCV MCH RDW Seg Neuts % (Manual) Lymphocytes % (Manual) Lymphocytes # (Manual) INR APTT ABG pH ABG pO2 ABG O2 Saturation ABG Base Excess Oxyhemoglobin Sodium Potassium Chloride Carbon Dioxide BUN Glucose POC Glucose 421 H 364 H 265 H Troponin T NT-Pro-B Natriuret Pep Cholesterol LDL Cholesterol Direct 09/16/21 09/16/21 09/16/21 04:27 04:27 11:17 WBC 17.1 H RBC MCV 78 L MCH 26 L RDW 16.6 H Seg Neuts % (Manual) Lymphocytes % (Manual) Lymphocytes # (Manual) INR APTT ABG pH ABG pO2 ABG O2 Saturation ABG Base Excess Oxyhemoglobin Sodium 135 L Potassium Chloride 96.2 L Carbon Dioxide BUN 28 H Glucose 256 H POC Glucose 356 H Troponin T NT-Pro-B Natriuret Pep Cholesterol LDL Cholesterol Direct Chest x-ray: image reviewed (Alveoalr infiltrates have markedly improved) Allied health notes reviewed: RT
[2021-09-16] MEDS: INSULIN GLARGINE 100 UNITS/ML SUB-Q SCH (21:19)
[2021-09-17] MEDS: IPRATROPIUM/ALBUTEROL SULFATE 3 ML AMPUL.NEB IH SCH ×7 (00:02→23:53)
[2021-09-17] MEDS: HEPARIN 5,000 UNIT/1 ML VIAL SUB-Q SCH ×3 (05:43→21:27)
[2021-09-17] MEDS: methylPREDNISolone Sod Succinate 40 MG/1 ML INJ IV SCH ×2 (05:43→14:15)
[2021-09-17 07:21] LABS: Hematocrit 37.9 % (30.3-42.9); Hemoglobin 12.6 gm/dl (10.1-14.3); Mean Corpuscular HGB Conc 33 % (30-34); Mean Corpuscular Volume 78 fl (79-97); Platelet Count 250 K/mm3 (140-440); Red Blood Count 4.88 M/mm3 (3.65-5.03); Red Cell Distribution Width 16.5 % (13.2-15.2)
[2021-09-17 07:29] LABS: Calcium 9.1 mg/dL (8.4-10.2)
[2021-09-17] MEDS: INSULIN LISPRO 100 UNIT/ML SUB-Q SCH ×4 (08:26→21:28)
[2021-09-17] MEDS: ARFORMOTEROL 15 MCG/2 ML NEBU IH SCH ×2 (09:10→21:03)
[2021-09-17] MEDS: BUDESONIDE 0.5 MG/2 ML NEBU IH SCH ×2 (09:10→21:03)
[2021-09-17] MEDS: RANOLAZINE ER 500 MG TAB 12HR PO SCH ×2 (09:21→21:28)
[2021-09-17] MEDS: amLODIPine 10 MG TAB PO SCH (09:21)
[2021-09-17] MEDS: LISINOPRIL 40 MG TAB PO SCH (09:21)
[2021-09-17] MEDS: PREGABALIN 50 MG CAP PO SCH ×2 (09:22→21:28)
[2021-09-17] MEDS: METOPROLOL SUCCINATE XL 50 MG TAB PO SCH ×2 (09:22→21:28)
[2021-09-17] MEDS: FUROSEMIDE 40 MG/4 ML INJ IV SCH (09:22)
[2021-09-17] MEDS: PREGABALIN 75 MG CAP PO SCH ×2 (09:22→21:28)
[2021-09-17] MEDS: CLOPIDOGREL 75 MG TAB PO SCH (09:22)
--- NOTE | 2021-09-17 10:18 | Electrocardiograph Report ---
[facility] Test Date: 2021-09-15 Test Time: 09:59:00 Pat Name: SOURAV RECIO Department: Room: A452 Gender: F Bi Report Developer: DAGO : 1955 Requested By: JETT WALLACE Order Number: [id number] Reading MD: Paul Basurto Measurements Intervals [place] Rate: 83 P: 53 MT: 163 QRS: -17 QRSD: 95 T: 113 QT: 397 QTc: 468 Interpretive Statements Sinus rhythm Left atrial enlargement PRWP LVH with secondary repolarization abnormality Compared to ECG 09/14/2021 20:21:26 No significant changes Electronically Signed On 09-17-2021 10:18:41 EDT by Paul Basurto
--- NOTE | 2021-09-17 12:36 | Progress Note ---
Assessment and Plan Mrs. Carter, a 65 years old female with history of CAD s/p PCI to pLAD in 2019 (residual RCA TREASURY REPRESENTATIVE with faint collaterials), CHF, HTN, COPD on home oxygen, GERD, diabetes mellitus, history of CVA, HLD presented with acute shortness of breath. Work-up in the emergency room showed chest x-ray reveals interval development of diffuse bilateral pulmonary opacities. Patient has been placed on empiric IV antibiotics and also given some IV diuretics placed on BiPAP. Cardiology is consulted for management of ADHF and elevation of Troponin. Assessment and Plan: --Acute respiratory failure with hypoxia and hypercapnia s/p BiPAP now on supplemental O2. We will monitor closely and keep O2 saturation greater or equal to 93%. Consult placed to book shelver for evaluation. -- Opacities of both lungs present on chest x-ray Unclear what opacities is secondary to pneumonia versus congestive heart failure. However patient has been placed on empiric IV antibiotics and also started on diuretics. pending echocardiogram report. -- CAD (coronary artery disease) Patient has known RCA (small vessel) TREASURY REPRESENTATIVE and chronic angina; c/w Imdur and other CAD regiment --Acute on chronic congestive heart failure possible diastolic - ECHO in 03/2021: LVEF 50-55%, normal RV function - cont IV diuretics - resume home med as long as patient tolerated - repeat ECHO pending - strict I/O and correct electrolytes abnormality -- mild elevated troponin likely nonsignificant - Lexiscan MPI in 07/2021, showed fixed defect at inferior wall;No ischemia. - Patient denied active chest pain; Her symptoms of SOB could be combination of ADHF, COPD exacerbation and PNA - The elevation of troponin more likely due to demanded ischemia form HF and sepsis - Repeat echo to assess LV function and RWA pending - cardiology following - c/w statin and antiplatelet -- hyperlipidemia Continue routine home medications. Monitor lipid profile. -- Diabetes mellitus type 2 in obese with uncontrolled blood sugar Patient placed on sliding scale insulin. We will monitor Accu-Cheks closely. --HTN (hypertension) Continue routine home medications and monitor vital signs closely. --Systemic inflammatory response syndrome, cont empiric abx -- Anxiety disorder, outpt f/u with psych -- DVT prophylaxis Patient placed on subcutaneous heparin. -- full code status Daily clinical course: 09/15: Patient with mildly elevated troponin this could be secondary to the chronic congestive heart failure in the setting of underlying pneumonia. Obvious evidence for systemic inflammatory response syndrome. Of discussed with property consultant in respect to the elevated troponin and recurrent chest pain. We will start the patient's home dose of Ranexa. We will continue IV diuresis at this time while awaiting pulmonary input relative to diffuse pulmonary opacities. Patient is also being ruled out for COVID-19. Will repeat chest x- ray in a.m. Condition remains guarded 09/16: Patient shows clinical improvement. X-ray shows shows remarkable improvement in previously noted opacities which goes to support possible u nderlining congestive heart failure likely diastolic in nature rather than pneumonia. Patient will continue on her chronic medications. Blood pressure is stable. Will transfer to the medical floor mild elevation leukocytosis likely secondary to steroid therapy. Anticipate the patient can be safely discharged tomorrow or the day after with transition to oral steroids. Plan discussed with the patient she verbalized understanding. Will change Lasix to daily IV 09/17: cont diuresis, follow BMP, pending echo report, patient off BiPAP. cont to follow clinically. Subjective Date of service: 09/17/21 Interval history: Patient seen and examined. Medical records and medication list reviewed. No acute event overnight noted by the RN. Patient complains of short of breath with mild exertion. Patient is tolerating diet. Discussed plan of care at bedside with patient. Objective - Exam Narrative Exam: GENERAL: well-developed obese -[place] female lying on bed appeared to be in no discomfort. HEENT: Normocephalic. Atraumatic. No conjunctival congestion or icterus. Patient has moist mucous membranes. NECK: Supple. Trachea midline. CHEST/LUNGS: Positive crackles auscultated bilaterally HEART/CARDIOVASCULAR: Regular in rate and rhythm. S1 and S2 positive. ABDOMEN: Abdomen is soft, nontender. Patient has normal bowel sounds. SKIN: There is no rash. Warm and dry. NEURO: No focal motor deficit. Follows command. MUSCULOSKELETAL: No joint effusion or tenderness. EXTRIMITY:+ ve edema, no cyanosis or clubbing. PSYCH: Cooperative. - Constitutional Vitals: Vital Signs - 12hr 09/17/21 09/17/21 09/17/21 03:43 04:49 04:50 Temperature 98.0 F Pulse Rate 47 L 50 L Pulse Rate [ Anterior Bilateral Throughout] Pulse Rate [ 56 L Throughout] Respiratory 16 14 Rate Respiratory Rate [Anterior Bilateral Throughout] Respiratory 14 Rate [ Throughout] Blood Pressure 115/35 O2 Sat by Pulse 97 100 Oximetry 09/17/21 09/17/21 09/17/21 07:35 09:10 11:32 Temperature 97.6 F 97.9 F Pulse Rate 49 L 55 L Pulse Rate [ 54 L Anterior Bilateral Throughout] Pulse Rate [ Throughout] Respiratory 22 20 Rate Respiratory 16 Rate [Anterior Bilateral Throughout] Respiratory Rate [ Throughout] Blood Pressure 123/41 107/58 O2 Sat by Pulse 100 98 96 Oximetry - Labs CBC & Chem 7: 09/17/21 06:22 09/17/21 06:22 Labs: Abnormal lab results 09/16/21 09/16/21 09/17/21 Range/Units 19:02 21:07 06:22 WBC 13.5 H (4.5-11.0) K/mm3 MCV 78 L (79-97) fl MCH 26 L (28-32) pg RDW 16.5 H (13.2-15.2) % Sodium (137-145) mmol/L Chloride (98-107) mmol/L BUN (7-17) mg/dL Glucose (65-100) mg/dL POC Glucose 426 H 319 H (70-105) mg/dL 09/17/21 09/17/21 Range/Units 06:22 07:11 WBC (4.5-11.0) K/mm3 MCV (79-97) fl MCH (28-32) pg RDW (13.2-15.2) % Sodium 132 L (137-145) mmol/L Chloride 94.5 L (98-107) mmol/L BUN 46 H (7-17) mg/dL Glucose 292 H (65-100) mg/dL POC Glucose 282 H (70-105) mg/dL HEART Score - HEART Score Troponin: Troponin T 0.065 ng/mL (0.00-0.029) H D 09/15/21 04:48
--- NOTE | 2021-09-17 13:08 | Progress Note ---
Assessment and Plan - Patient Problems (1) Acute respiratory failure Current Visit: Yes Status: Acute (2) CHF (congestive heart failure) Current Visit: No Status: Acute Qualifiers: Heart failure type: diastolic Subjective Date of service: 09/17/21 Interval history: BREATHING BETTER,,,NO CP Objective Vital Signs Temp Pulse Pulse Pulse Pulse Pulse Resp 09/17/21 12:20 52 L 09/17/21 11:32 97.9 F 55 L 20 09/17/21 09:10 54 L 09/17/21 07:35 97.6 F 49 L 22 09/17/21 04:50 50 L 14 09/17/21 04:49 56 L 09/17/21 03:43 98.0 F 47 L 16 09/17/21 00:03 60 14 09/17/21 00:02 70 09/16/21 23:19 97.9 F 55 L 19 09/16/21 22:06 09/16/21 21:45 75 09/16/21 20:00 16 09/16/21 19:00 98.0 F 09/16/21 18:58 122.0 F H 62 20 09/16/21 16:58 63 60 09/16/21 16:00 61 63 16 09/16/21 14:20 60 09/16/21 14:00 62 14 Resp Resp Resp BP Pulse Ox 09/17/21 12:20 18 09/17/21 11:32 107/58 96 09/17/21 09:10 16 98 09/17/21 07:35 123/41 100 09/17/21 04:50 100 09/17/21 04:49 14 09/17/21 03:43 115/35 97 09/17/21 00:03 100 09/17/21 00:02 20 09/16/21 23:19 129/52 94 09/16/21 22:06 97 09/16/21 21:45 20 09/16/21 20:00 91 09/16/21 19:00 09/16/21 18:58 149/58 95 09/16/21 16:58 18 16 09/16/21 16:00 91 09/16/21 14:20 117/53 09/16/21 14:00 142/70 98 - Physical Examination General: No Apparent Distress, Other (OBESE) HEENT: Positive: PERRL Neck: Positive: neck supple Cardiac: Positive: Reg Rate and Rhythm Lungs: Positive: Decreased Breath Sounds Abdomen: Positive: Unremarkable Extremities: Present: edema (NO) - Labs and Meds CBC 09/17/21 Range/Units 06:22 WBC 13.5 H (4.5-11.0) K/mm3 RBC 4.88 (3.65-5.03) M/mm3 Hgb 12.6 (10.1-14.3) gm/dl Hct 37.9 (30.3-42.9) % Plt Count 250 (140-440) K/mm3 Comprehensive Metabolic Panel 09/17/21 Range/Units 06:22 Sodium 132 L (137-145) mmol/L Potassium 4.4 (3.6-5.0) mmol/L Chloride 94.5 L (98-107) mmol/L Carbon Dioxide 26 (22-30) mmol/L BUN 46 H (7-17) mg/dL Creatinine 1.2 (0.6-1.2) mg/dL Glucose 292 H (65-100) mg/dL Calcium 9.1 (8.4-10.2) mg/dL
[2021-09-17] MEDS ORDERED: INSULIN REGULAR, HUMAN 100 UNITS/1 ML SUB-Q ONE (15:58)
--- NOTE | 2021-09-17 18:44 | Electrocardiograph Report ---
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
--- NOTE | 2021-09-17 20:07 | Progress Note ---
Assessment and Plan 65-year-old female with significant past medical history of coronary artery disease, COPD on home oxygen, CHF, GERD, hypertension, diabetes mellitus, history of CVA, hyperlipidemia presenting to the emergency room with acute shortness of breath. Upon arrival patient was quite tachypneic and dyspneic and appeared diaphoretic. She required bag assisted ventilation immediately upon arrival. Shortness of breath was said to have started sometime this evening. There has been no history of fever or chills, no nausea or vomiting and no abdominal pain. No history of recent travel, no sick contacts, no contact with anyone with COVID-19. Patient received nebulizing treatments and IV steroids with significant improvement. Work-up in the emergency room , chest x-ray reveals interval development of diffuse bilateral pulmonary opacities. Unclear whether opacities is related to pulmonary edema or bilateral pneumonia. Patient has been placed on empiric IV antibiotics and also given some IV diuretics. Patient placed on BiPAP. Patient has history of smoking 1 pack/30 years. Stopped smoking 15 years ago. Denies alcohol or drug abuse. Worked in [employer] and in the [employer] before retired. Patient presently awake. Sitting up by the side of the bed. Patient is on 2 litres O2. O2 saturation 93%. BIPAP 16/6, rate 20, FIO2 30% stand by in the room. Recommend use BIPAP during night and PRN during day time for sleepiness. Patent running low grade temp. Has mild leukocytosis. Blood pressure 165/70, Pulse 53, respirations 16. Chest xray done 09/16/21 reported Marked improvement in patchy parenchymal opacities throughout both lungs. Patient is on Brovanna/Budesonide aerosol treatments q 12 hours, Albuterol/atrovent aerosol treatments q 6 hours prn for shortness of breath, S/C Heparin, Levaquin. Recommend GI prophylaxis. Recommend sleep study as out patient. I spent critical care time of 47 minutes, obtaining history, review the chart, review chest xray ,lab results, talking to the nursing staff, respiratory therapy staff and work up plan of treatment in this critically ill patient. - Patient Problems (1) Acute respiratory failure with hypoxia and hypercapnia Current Visit: No Status: Acute Plan to address problem: O2 2 litres via nasal canula. BIPAP 16/6, rate 10, FIO2 30% during night time, Prn for shortness of breath during day time. Brovanna/Budesonide aerosol treatments q 12 hours. Albuterol/atrovent aerosol treatments q 6 hours prn for shortness of breath. Continue S/C Heparin. Recommend GI prophylaxis. (2) COPD exacerbation Current Visit: No Status: Acute Plan to address problem: O2 2 litres via nasal canula. BIPAP 16/6, rate 10, FIO2 30% during night time, Prn for shortness of breath during day time. Brovanna/Budesonide aerosol treatments q 12 hours. Albuterol/atrovent aerosol treatments q 6 hours prn for shortness of breath. Continue S/C Heparin. Recommend GI prophylaxis. Continue Levaquin. PFTs as out patient. (3) Opacities of both lungs present on chest x-ray Current Visit: Yes Status: Acute Plan to address problem: Patient on Levaquin. Improving pulmonary infiltrates. (4) CAD (coronary artery disease) Current Visit: No Status: Acute Plan to address problem: Management as per cardiology. (5) CHF (congestive heart failure) Current Visit: No Status: Acute Qualifiers: Heart failure type: diastolic Plan to address problem: Management as per cardiology. (6) HTN (hypertension) Current Visit: No Status: Acute Qualifiers: Hypertension type: essential hypertension Plan to address problem: Management as per primary care. (7) Diabetes mellitus type 2 in obese Current Visit: No Status: Chronic Plan to address problem: Management as per primary care. (8) Gastroesophageal reflux disease Current Visit: No Status: Acute Plan to address problem: Recommend proton pump inhibitors. Like protonix, prilosec, prevacid or nexium. (9) Morbid obesity with BMI of 40.0-44.9, adult Current Visit: Yes Status: Acute Plan to address problem: Recommend loose weight. Diet and exercise. (10) Sleep apnea in adult Current Visit: Yes Status: Acute Plan to address problem: Recommend to loose weight. Explained sleep hygiene. Recommend not to drive or operate heavy equipment with sleepiness. Avoid alcohol, sedatives and Narcotics. Recommend Sleep study as out patient. (11) Obesity hypoventilation syndrome Current Visit: Yes Status: Acute Plan to address problem: BIPAP 16/6, rate 20, FIO2 30% during night time PRN for day time sleepiness. Recommend to loose weight. Recommend Sleep study as out patient. Subjective Date of service: 09/17/21 Interval history: 65-year-old female with significant past medical history of coronary artery disease, COPD on home oxygen, CHF, GERD, hypertension, diabetes mellitus, history of CVA, hyperlipidemia presenting to the emergency room with acute shortness of breath. Upon arrival patient was quite tachypneic and dyspneic and appeared diaphoretic. She required bag assisted ventilation immediately upon arrival. Shortness of breath was said to have started sometime this evening. There has been no history of fever or chills, no nausea or vomiting and no abdominal pain. No history of recent travel, no sick contacts, no contact with anyone with COVID-19. Patient received nebulizing treatments and IV steroids with significant improvement. Work-up in the emergency room , chest x-ray reveals interval development of diffuse bilateral pulmonary opacities. Unclear whether opacities is related to pulmonary edema or bilateral pneumonia. Patient has been placed on empiric IV antibiotics and also given some IV diuretics. Patient placed on BiPAP. Patient has history of smoking 1 pack/30 years. Stopped smoking 15 years ago. Denies alcohol or drug abuse. Worked in [employer] and in the [employer] before retired. Patient presently awake. Sitting up by the side of the bed. Patient is on 2 litres O2. O2 saturation 93%. BIPAP 16/6, rate 20, FIO2 30% stand by in the room. Recommend use BIPAP during night and PRN during day time for sleepiness. Patent running low grade temp. Has mild leukocytosis. Blood pressure 165/70, Pulse 53, respirations 16. Chest xray done 09/16/21 reported Marked improvement in patchy parenchymal opacities throughout both lungs. Patient is on Brovanna/Budesonide aerosol treatments q 12 hours, Albuterol/atr ovent aerosol treatments q 6 hours prn for shortness of breath, S/C Heparin, Levaquin. Recommend GI prophylaxis. Recommend sleep study as out patient. Objective Vital Signs - 12hr 09/17/21 09/17/21 09/17/21 09:10 11:04 11:32 Temperature 97.9 F Pulse Rate 82 55 L Pulse Rate [ 54 L Anterior Bilateral Throughout] Respiratory 16 20 Rate Respiratory 16 Rate [Anterior Bilateral Throughout] Blood Pressure 107/58 O2 Sat by Pulse 98 91 96 Oximetry 09/17/21 09/17/21 09/17/21 12:20 15:02 15:42 Temperature 98.3 F Pulse Rate 53 L Pulse Rate [ 52 L 53 L Anterior Bilateral Throughout] Respiratory 22 Rate Respiratory 18 18 Rate [Anterior Bilateral Throughout] Blood Pressure 102/48 O2 Sat by Pulse 94 Oximetry 09/17/21 19:50 Temperature Pulse Rate Pulse Rate [ Anterior Bilateral Throughout] Respiratory 16 Rate Respiratory Rate [Anterior Bilateral Throughout] Blood Pressure O2 Sat by Pulse 91 Oximetry Constitutional: no acute distress, alert Eyes: non-icteric ENT: oropharynx moist Neck: supple, no lymphadenopathy Effort: normal Ascultation: Bilateral: diminished breath sounds, rales Cardiovascular: regular rate and rhythm, other (S1,S2) Gastrointestinal: normoactive bowel sounds, soft, non-tender Integumentary: normal Extremities: no cyanosis, no edema Neurologic: normal mental status, non-focal exam, pupils equal and round, motor strength normal and Psychiatric: mood appropriate, affect normal CBC and BMP: 09/17/21 06:22 09/17/21 06:22 ABG, PT/INR, D-dimer: ABG ABG pH 7.264 pH Units (7.350-7.450) L 09/14/21 18:36 ABG pCO2 54.9 mm Hg 09/14/21 18:36 ABG pO2 280.4 mm Hg (80.0-90.0) H 09/14/21 18:36 ABG O2 Saturation 99.4 % (95.0-99.0) H 09/14/21 18:36 PT/INR, D-dimer PT 12.6 Sec. (12.2-14.9) 09/14/21 18:20 INR 0.86 (0.87-1.13) L 09/14/21 18:20 Abnormal lab findings: Abnormal Labs 09/14/21 09/14/21 09/14/21 18:20 18:20 18:20 WBC 14.7 H RBC 5.29 H MCV MCH 26 L RDW 16.9 H Seg Neuts % (Manual) 36.0 L Lymphocytes % (Manual) 58.0 H Lymphocytes # (Manual) 8.5 H INR 0.86 L APTT 21.3 L ABG pH ABG pO2 ABG O2 Saturation ABG Base Excess Oxyhemoglobin Sodium 133 L Potassium 6.0 H Chloride 96.5 L Carbon Dioxide 19 L BUN Glucose 253 H POC Glucose Troponin T NT-Pro-B Natriuret Pep 1148 H Cholesterol LDL Cholesterol Direct 09/14/21 09/14/21 09/15/21 18:36 21:00 04:48 WBC RBC MCV MCH RDW Seg Neuts % (Manual) Lymphocytes % (Manual) Lymphocytes # (Manual) INR APTT ABG pH 7.264 L ABG pO2 280.4 H ABG O2 Saturation 99.4 H ABG Base Excess -3.4 L Oxyhemoglobin 94.5 L Sodium Potassium Chloride Carbon Dioxide BUN Glucose POC Glucose Troponin T 0.045 H D 0.065 H D NT-Pro-B Natriuret Pep Cholesterol 311 H LDL Cholesterol Direct 222 H 09/15/21 09/15/21 09/15/21 04:48 05:46 08:23 WBC RBC MCV MCH RDW Seg Neuts % (Manual) Lymphocytes % (Manual) Lymphocytes # (Manual) INR APTT ABG pH ABG pO2 ABG O2 Saturation ABG Base Excess Oxyhemoglobin Sodium 136 L Potassium Chloride Carbon Dioxide BUN 18 H Glucose 388 H POC Glucose 331 H 321 H Troponin T NT-Pro-B Natriuret Pep Cholesterol LDL Cholesterol Direct 09/15/21 09/15/21 09/15/21 11:11 16:18 21:28 WBC RBC MCV MCH RDW Seg Neuts % (Manual) Lymphocytes % (Manual) Lymphocytes # (Manual) INR APTT ABG pH ABG pO2 ABG O2 Saturation ABG Base Excess Oxyhemoglobin Sodium Potassium Chloride Carbon Dioxide BUN Glucose POC Glucose 421 H 364 H 265 H Troponin T NT-Pro-B Natriuret Pep Cholesterol LDL Cholesterol Direct 09/16/21 09/16/21 09/16/21 04:27 04:27 11:17 WBC 17.1 H RBC MCV 78 L MCH 26 L RDW 16.6 H Seg Neuts % (Manual) Lymphocytes % (Manual) Lymphocytes # (Manual) INR APTT ABG pH ABG pO2 ABG O2 Saturation ABG Base Excess Oxyhemoglobin Sodium 135 L Potassium Chloride 96.2 L Carbon Dioxide BUN 28 H Glucose 256 H POC Glucose 356 H Troponin T NT-Pro-B Natriuret Pep Cholesterol LDL Cholesterol Direct 09/16/21 09/16/21 09/17/21 19:02 21:07 06:22 WBC 13.5 H RBC MCV 78 L MCH 26 L RDW 16.5 H Seg Neuts % (Manual) Lymphocytes % (Manual) Lymphocytes # (Manual) INR APTT ABG pH ABG pO2 ABG O2 Saturation ABG Base Excess Oxyhemoglobin Sodium Potassium Chloride Carbon Dioxide BUN Glucose POC Glucose 426 H 319 H Troponin T NT-Pro-B Natriuret Pep Cholesterol LDL Cholesterol Direct 09/17/21 09/17/21 09/17/21 06:22 07:11 11:30 WBC RBC MCV MCH RDW Seg Neuts % (Manual) Lymphocytes % (Manual) Lymphocytes # (Manual) INR APTT ABG pH ABG pO2 ABG O2 Saturation ABG Base Excess Oxyhemoglobin Sodium 132 L Potassium Chloride 94.5 L Carbon Dioxide BUN 46 H Glucose 292 H POC Glucose 282 H 384 H Troponin T NT-Pro-B Natriuret Pep Cholesterol LDL Cholesterol Direct 09/17/21 15:49 WBC RBC MCV MCH RDW Seg Neuts % (Manual) Lymphocytes % (Manual) Lymphocytes # (Manual) INR APTT ABG pH ABG pO2 ABG O2 Saturation ABG Base Excess Oxyhemoglobin Sodium Potassium Chloride Carbon Dioxide BUN Glucose POC Glucose 353 H Troponin T NT-Pro-B Natriuret Pep Cholesterol LDL Cholesterol Direct Chest x-ray: report reviewed, image reviewed Additional Studies: CHEST 1 VIEW 09/16/2021 9:02 AM INDICATION / CLINICAL INFORMATION: Shortness of breath. COMPARISON: 09/15/19 to. FINDINGS: SUPPORT DEVICES: None. HEART / MEDIASTINUM: The heart size and pulmonary vasculature are normal. LUNGS / PLEURA: Patchy parenchymal opacities throughout both lungs have shown marked improvement. Mild disease persists. No new abnormality. No pleural effusion. No pneumothorax. ADDITIONAL FINDINGS: No significant additional findings. IMPRESSION: Marked improvement in patchy parenchymal opacities throughout both lungs. Allied health notes reviewed: RT
[2021-09-17] MEDS: INSULIN GLARGINE 100 UNITS/ML SUB-Q SCH (21:27)
[2021-09-17] MEDS: levoFLOXacin 750 MG TAB PO SCH (21:28)
[2021-09-18] MEDS: IPRATROPIUM/ALBUTEROL SULFATE 3 ML AMPUL.NEB IH SCH ×5 (04:38→20:41)
[2021-09-18] MEDS: HEPARIN 5,000 UNIT/1 ML VIAL SUB-Q SCH ×3 (05:56→21:48)
[2021-09-18] MEDS: ARFORMOTEROL 15 MCG/2 ML NEBU IH SCH ×3 (07:43→21:04)
[2021-09-18] MEDS: BUDESONIDE 0.5 MG/2 ML NEBU IH SCH ×3 (07:43→21:03)
--- NOTE | 2021-09-18 08:40 | Progress Note ---
Assessment and Plan 1. Bilateral pulmonary interstitial infiltrates 2. Coronary artery disease 3. Chronic obstructive pulmonary disease on home oxygen 4. Systemic arterial hypertension 5. Type 2 diabetes mellitus 6. Hyperlipidemia 7. History of CVA. Previous echocardiogram done had shown normal left ventricular size and function with a left ventricular ejection fraction of approximately 55%. Stress MPI showed small fixed inferobasal defect. Plan. Cardiac fuller stable continue management as per pulmonary Dr. Subjective Date of service: 09/18/21 Interval history: Patient still short of breath dyspneic at rest Objective Vital Signs Temp Pulse Pulse Pulse Pulse Resp Resp 09/18/21 07:43 50 L 50 L 50 L 16 09/18/21 07:40 98.7 F 50 L 18 09/18/21 07:00 16 09/18/21 05:12 98.9 F 57 L 16 09/18/21 04:42 56 L 18 09/18/21 04:00 56 L 18 09/17/21 23:56 56 L 18 09/17/21 23:54 54 L 14 09/17/21 23:12 98.4 F 52 L 16 09/17/21 21:06 56 L 18 09/17/21 19:54 99.3 F 58 L 16 09/17/21 19:50 16 09/17/21 15:42 53 L 18 09/17/21 15:02 98.3 F 53 L 22 09/17/21 12:20 52 L 18 09/17/21 11:32 97.9 F 55 L 20 09/17/21 11:04 82 16 09/17/21 09:10 54 L 16 Resp BP Pulse Ox 09/18/21 07:43 16 94 09/18/21 07:40 160/59 95 09/18/21 07:00 91 09/18/21 05:12 116/49 96 09/18/21 04:42 09/18/21 04:00 09/17/21 23:56 09/17/21 23:54 100 09/17/21 23:12 105/43 97 09/17/21 21:06 97 09/17/21 19:54 165/70 93 09/17/21 19:50 91 09/17/21 15:42 09/17/21 15:02 102/48 94 09/17/21 12:20 09/17/21 11:32 107/58 96 09/17/21 11:04 91 09/17/21 09:10 98 - Physical Examination General: Appears Well, No Apparent Distress, Other (OBESE) HEENT: Positive: PERRL, Normocephaly, Mucus Membranes Moist Neck: Positive: neck supple. Negative: JVD/HJR Cardiac: Positive: Regular Rate, S1/S2, PMI, Dilated. Negative: S3 Lungs: Positive: Wheezes, Rhonchi, Oxygen Neuro: Positive: Grossly Intact Abdomen: Positive: Unremarkable, Soft Extremities: Absent: edema - Allied health notes Allied health notes reviewed: RT
[2021-09-18] MEDS: LISINOPRIL 40 MG TAB PO SCH (09:09)
[2021-09-18] MEDS: FUROSEMIDE 40 MG/4 ML INJ IV SCH (09:09)
[2021-09-18] MEDS: amLODIPine 10 MG TAB PO SCH (09:09)
[2021-09-18] MEDS: PREGABALIN 75 MG CAP PO SCH ×2 (09:09→21:46)
[2021-09-18] MEDS: RANOLAZINE ER 500 MG TAB 12HR PO SCH ×2 (09:10→21:47)
[2021-09-18] MEDS: CLOPIDOGREL 75 MG TAB PO SCH (09:10)
[2021-09-18] MEDS: METOPROLOL SUCCINATE XL 50 MG TAB PO SCH ×2 (09:10→22:25)
[2021-09-18] MEDS: INSULIN LISPRO 100 UNIT/ML SUB-Q SCH ×4 (09:10→21:49)
[2021-09-18] MEDS: PREGABALIN 50 MG CAP PO SCH ×2 (09:11→21:46)
--- NOTE | 2021-09-18 13:20 | Progress Note ---
Assessment and Plan Mrs. 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 Work-up in the emergency room showed chest x-ray reveals interval development of diffuse bilateral pulmonary opacities. Patient has been placed on empiric IV antibiotics and also given some IV diuretics placed on BiPAP. Cardiology is consulted for management of ADHF and elevation of Troponin. Assessment and Plan: --Acute respiratory failure with hypoxia and hypercapnia s/p BiPAP now on supplemental O2. We will monitor closely and keep O2 saturation greater or equal to 93%. Consult placed to control room technician for evaluation. -- Opacities of both lungs present on chest x-ray/B/L CAP Initially was Unclear what opacities is secondary to pneumonia versus congestive heart failure. patient has been placed on empiric IV antibiotics and also started on diuretics. 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 - Patient denied active chest pain; Her symptoms of SOB could be combination of ADHF, COPD exacerbation and PNA - The elevation of troponin more likely due to demanded ischemia form HF and sepsis - Repeat echo showed preserved LV function and RWA - cardiology following - c/w statin and antiplatelet -- hyperlipidemia Continue routine home medications. Monitor lipid profile. -- Diabetes mellitus type 2 in obese with uncontrolled blood sugar Patient placed on sliding scale insulin. We will monitor Accu-Cheks closely. --HTN (hypertension) Continue routine home medications and monitor vital signs closely. --Systemic inflammatory response syndrome, cont empiric abx -- Anxiety disorder, outpt f/u with psych -- DVT prophylaxis Patient placed on subcutaneous heparin. -- full code status Daily clinical course: 09/15: Patient with mildly elevated troponin this could be secondary to the chronic congestive heart failure in the setting of underlying pneumonia. Obvious evidence for systemic inflammatory response syndrome. Of discussed with rock dust sprayer in respect to the elevated troponin and recurrent chest pain. We will start the patient's home dose of Ranexa. We will continue IV diuresis at this time while awaiting pulmonary input relative to diffuse pulmonary opacities. Patient is also being ruled out for COVID-19. Will repeat chest x- ray in a.m. Condition remains guarded 09/16: Patient shows clinical improvement. X-ray shows shows remarkable improvement in previously noted opacities which goes to support possible underlining congestive heart failure likely diastolic in nature rather than pneumonia. Patient will continue on her chronic medications. Blood pressure is stable. Will transfer to the medical floor mild elevation leukocytosis likely secondary to steroid therapy. Anticipate the patient can be safely discharged tomorrow or the day after with transition to oral steroids. Plan discussed with the patient she verbalized understanding. Will change Lasix to daily IV 09/17: cont diuresis, follow BMP, echocardiogram pending, patient off BiPAP. cont to follow clinically. 09/18: Patient improved clinically but still have significant lower extremity edema, continue IV diuresis. Echocardiogram showed preserved EF with grade 1 diastolic dysfunction. Continue empiric antibiotics, assess for home O2 requirement. Possible DC in couple days Subjective Date of service: 09/18/21 Interval history: Patient seen and examined. Medical records and medication list reviewed. No acute event overnight noted by the RN. Patient still has SOB on N/c O2. Patient is tolerating diet. Discussed plan of care at bedside with patient. Objective - Exam Narrative Exam: GENERAL: well-developed morbidly obese -[place] female lying on bed appeared to be in no discomfort. HEENT: Normocephalic. Atraumatic. No conjunctival congestion or icterus. Patient has moist mucous membranes. NECK: Supple. Trachea midline. CHEST/LUNGS: Positive crackles auscultated bilaterally HEART/CARDIOVASCULAR: Regular in rate and rhythm. S1 and S2 positive. ABDOMEN: Abdomen is soft, nontender. Patient has normal bowel sounds. SKIN: There is no rash. Warm and dry. NEURO: No focal motor deficit. Follows command. MUSCULOSKELETAL: No joint effusion or tenderness. EXTRIMITY:+ ve edema, no cyanosis or clubbing. PSYCH: Cooperative. - Constitutional Vitals: Vital Signs - 12hr 09/18/21 09/18/21 09/18/21 04:00 04:42 05:12 Temperature 98.9 F Pulse Rate 57 L Pulse Rate [ 56 L 56 L Anterior Bilateral Throughout] Pulse Rate [ Anterior] Pulse Rate [ Throughout] Respiratory 16 Rate Respiratory 18 18 Rate [Anterior Bilateral Throughout] Respiratory Rate [Anterior] Respiratory Rate [ Throughout] Blood Pressure 116/49 O2 Sat by Pulse 96 Oximetry 09/18/21 09/18/21 09/18/21 07:00 07:40 07:43 Temperature 98.7 F Pulse Rate 50 L Pulse Rate [ 50 L Anterior Bilateral Throughout] Pulse Rate [ 50 L Anterior] Pulse Rate [ 50 L Throughout] Respiratory 16 18 Rate Respiratory 16 Rate [Anterior Bilateral Throughout] Respiratory 14 Rate [Anterior] Respiratory 16 Rate [ Throughout] Blood Pressure 160/59 O2 Sat by Pulse 91 95 94 Oximetry 09/18/21 12:00 Temperature Pulse Rate Pulse Rate [ 64 Anterior Bilateral Throughout] Pulse Rate [ 64 Anterior] Pulse Rate [ 64 Throughout] Respiratory Rate Respiratory 14 Rate [Anterior Bilateral Throughout] Respiratory 14 Rate [Anterior] Respiratory 14 Rate [ Throughout] Blood Pressure O2 Sat by Pulse Oximetry - Labs CBC & Chem 7: 09/17/21 06:22 09/19/21 04:41 Labs: Abnormal lab results 09/17/21 09/17/21 09/18/21 Range/Units 15:49 20:12 07:38 POC Glucose 353 H 470 H 182 H (70-105) mg/dL HEART Score - HEART Score Troponin: Troponin T 0.065 ng/mL (0.00-0.029) H D 09/15/21 04:48
--- NOTE | 2021-09-18 16:20 | Progress Note ---
Assessment and Plan 65-year-old female with significant past medical history of coronary artery disease, COPD on home oxygen, CHF, GERD, hypertension, diabetes mellitus, history of CVA, hyperlipidemia presenting to the emergency room with acute shortness of breath. Upon arrival patient was quite tachypneic and dyspneic and appeared diaphoretic. She required bag assisted ventilation immediately upon arrival. Shortness of breath was said to have started sometime this evening. There has been no history of fever or chills, no nausea or vomiting and no abdominal pain. No history of recent travel, no sick contacts, no contact with anyone with COVID-19. Patient received nebulizing treatments and IV steroids with significant improvement. Work-up in the emergency room , chest x-ray reveals interval development of diffuse bilateral pulmonary opacities. Unclear whether opacities is related to pulmonary edema or bilateral pneumonia. Patient has been placed on empiric IV antibiotics and also given some IV diuretics. Patient placed on BiPAP. Patient has history of smoking 1 pack/30 years. Stopped smoking 15 years ago. Denies alcohol or drug abuse. Worked in [employer] and in the [employer] before retired. atient presently awake. Sitting up by the side of the bed. Patient is on 3 litres O2. O2 saturation 94%. BIPAP 16/6, rate 20, FIO2 30% stand by in the room. Recommend use BIPAP during night and PRN during day time for sleepiness. Patent afebrile. Has mild leukocytosis. Blood pressure 111/67, Pulse 58, respirations 18. Chest xray done 09/16/21 reported Marked improvement in patchy parenchymal opacities throughout both lungs. Patient is on Brovanna/Budesonide aerosol treatments q 12 hours, Albuterol/atrovent aerosol treatments q 6 hours prn for shortness of breath, S/C Heparin, Levaquin. Recommend GI prophylaxis. Recommend sleep study as out patient. I spent critical care time of 35 minutes, obtaining history, review the chart, review chest xray ,lab results, talking to the nursing staff, respiratory therapy staff and work up plan of treatment in this critically ill patient. - Patient Problems (1) Acute respiratory failure with hypoxia and hypercapnia Current Visit: No Status: Acute Plan to address problem: O2 3 litres via nasal canula. BIPAP 16/6, rate 10, FIO2 30% during night time, Prn for shortness of breath during day time. Brovanna/Budesonide aerosol treatments q 12 hours. Albuterol/atrovent aerosol treatments q 6 hours prn for shortness of breath. Continue S/C Heparin. Recommend GI prophylaxis. (2) COPD exacerbation Current Visit: No Status: Acute Plan to address problem: O2 3 litres via nasal canula. BIPAP 16/6, rate 10, FIO2 30% during night time, Prn for shortness of breath during day time. Brovanna/Budesonide aerosol treatments q 12 hours. Albuterol/atrovent aerosol treatments q 6 hours prn for shortness of breath. Continue S/C Heparin. Recommend GI prophylaxis. Continue Levaquin. PFTs as out patient. (3) Opacities of both lungs present on chest x-ray Current Visit: Yes Status: Acute Plan to address problem: Patient on Levaquin. Improving pulmonary infiltrates. (4) CAD (coronary artery disease) Current Visit: No Status: Acute Plan to address problem: Management as per cardiology. (5) CHF (congestive heart failure) Current Visit: No Status: Acute Qualifiers: Heart failure type: diastolic Plan to address problem: Management as per cardiology. (6) HTN (hypertension) Current Visit: No Status: Acute Qualifiers: Hypertension type: essential hypertension Plan to address problem: Management as per primary care. (7) Diabetes mellitus type 2 in obese Current Visit: No Status: Chronic Plan to address problem: Management as per primary care. (8) Gastroesophageal reflux disease Current Visit: No Status: Acute Plan to address problem: Recommend proton pump inhibitors. Like protonix, prilosec, prevacid or nexium. (9) Morbid obesity with BMI of 40.0-44.9, adult Current Visit: Yes Status: Acute Plan to address problem: Recommend loose weight. Diet and exercise. (10) Sleep apnea in adult Current Visit: Yes Status: Acute Plan to address problem: Recommend to loose weight. Explained sleep hygiene. Recommend not to drive or operate heavy equipment with sleepiness. Avoid alcohol, sedatives and Narcotics. Recommend Sleep study as out patient. (11) Obesity hypoventilation syndrome Current Visit: Yes Status: Acute Plan to address problem: BIPAP 16/6, rate 20, FIO2 30% during night time PRN for day time sleepiness. Recommend to loose weight. Recommend Sleep study as out patient. Subjective Date of service: 09/18/21 Interval history: 65-year-old female with significant past medical history of coronary artery disease, COPD on home oxygen, CHF, GERD, hypertension, diabetes mellitus, history of CVA, hyperlipidemia presenting to the emergency room with acute shortness of breath. Upon arrival patient was quite tachypneic and dyspneic and appeared diaphoretic. She required bag assisted ventilation immediately upon arrival. Shortness of breath was said to have started sometime this evening. There has been no history of fever or chills, no nausea or vomiting and no abdominal pain. No history of recent travel, no sick contacts, no contact with anyone with COVID-19. Patient received nebulizing treatments and IV steroids with significant improvement. Work-up in the emergency room , chest x-ray reveals interval development of diffuse bilateral pulmonary opacities. Unclear whether opacities is related to pulmonary edema or bilateral pneumonia. Patient has been placed on empiric IV antibiotics and also given some IV diuretics. Patient placed on BiPAP. Patient has history of smoking 1 pack/30 years. Stopped smoking 15 years ago. Denies alcohol or drug abuse. Worked in [employer] and in the [employer] before retired. Patient presently awake. Sitting up by the side of the bed. Patient is on 3 litres O2. O2 saturation 94%. BIPAP 16/6, rate 20, FIO2 30% stand by in the room. Recommend use BIPAP during night and PRN during day time for sleepiness. Patent afebrile. Has mild leukocytosis. Blood pressure 111/67, Pulse 58, respirations 18. Chest xray done 09/16/21 reported Marked improvement in patchy parenchymal opacities throughout both lungs. Patient is on Brovanna/Budesonide aerosol treatments q 12 hours, Albuterol/atrovent aerosol treatments q 6 hours prn for shortness of breath, S/C Heparin, Levaquin. Recommend GI prophylaxis. Recommend sleep study as out patient. Objective Vital Signs - 12hr 09/18/21 09/18/21 09/18/21 04:42 05:12 07:00 Temperature 98.9 F Pulse Rate 57 L Pulse Rate [ 56 L Anterior Bilateral Throughout] Pulse Rate [ Anterior] Pulse Rate [ Throughout] Respiratory 16 16 Rate Respiratory 18 Rate [Anterior Bilateral Throughout] Respiratory Rate [Anterior] Respiratory Rate [ Throughout] Blood Pressure 116/49 O2 Sat by Pulse 96 91 Oximetry 09/18/21 09/18/21 09/18/21 07:40 07:43 12:00 Temperature 98.7 F Pulse Rate 50 L Pulse Rate [ 50 L 64 Anterior Bilateral Throughout] Pulse Rate [ 50 L 64 Anterior] Pulse Rate [ 50 L 64 Throughout] Respiratory 18 Rate Respiratory 16 14 Rate [Anterior Bilateral Throughout] Respiratory 14 14 Rate [Anterior] Respiratory 16 14 Rate [ Throughout] Blood Pressure 160/59 O2 Sat by Pulse 95 94 Oximetry 09/18/21 15:45 Temperature Pulse Rate 58 L Pulse Rate [ Anterior Bilateral Throughout] Pulse Rate [ Anterior] Pulse Rate [ Throughout] Respiratory 18 Rate Respiratory Rate [Anterior Bilateral Throughout] Respiratory Rate [Anterior] Respiratory Rate [ Throughout] Blood Pressure 111/67 O2 Sat by Pulse 94 Oximetry Constitutional: no acute distress, alert Eyes: non-icteric ENT: oropharynx moist Neck: supple, no lymphadenopathy Effort: normal Ascultation: Bilateral: diminished breath sounds, rales Cardiovascular: regular rate and rhythm, other (S1,S2) Gastrointestinal: normoactive bowel sounds, soft, non-tender Integumentary: normal Extremities: no cyanosis, no edema Neurologic: normal mental status, non-focal exam, pupils equal and round, motor strength normal and Psychiatric: mood appropriate, affect normal CBC and BMP: 09/17/21 06:22 09/19/21 04:41 ABG, PT/INR, D-dimer: ABG ABG pH 7.264 pH Units (7.350-7.450) L 09/14/21 18:36 ABG pCO2 54.9 mm Hg 09/14/21 18:36 ABG pO2 280.4 mm Hg (80.0-90.0) H 09/14/21 18:36 ABG O2 Saturation 99.4 % (95.0-99.0) H 09/14/21 18:36 PT/INR, D-dimer PT 12.6 Sec. (12.2-14.9) 09/14/21 18:20 INR 0.86 (0.87-1.13) L 09/14/21 18:20 Abnormal lab findings: Abnormal Labs 09/14/21 09/14/21 09/14/21 18:20 18:20 18:20 WBC 14.7 H RBC 5.29 H MCV MCH 26 L RDW 16.9 H Seg Neuts % (Manual) 36.0 L Lymphocytes % (Manual) 58.0 H Lymphocytes # (Manual) 8.5 H INR 0.86 L APTT 21.3 L ABG pH ABG pO2 ABG O2 Saturation ABG Base Excess Oxyhemoglobin Sodium 133 L Potassium 6.0 H Chloride 96.5 L Carbon Dioxide 19 L BUN Glucose 253 H POC Glucose Troponin T NT-Pro-B Natriuret Pep 1148 H Cholesterol LDL Cholesterol Direct 09/14/21 09/14/21 09/15/21 18:36 21:00 04:48 WBC RBC MCV MCH RDW Seg Neuts % (Manual) Lymphocytes % (Manual) Lymphocytes # (Manual) INR APTT ABG pH 7.264 L ABG pO2 280.4 H ABG O2 Saturation 99.4 H ABG Base Excess -3.4 L Oxyhemoglobin 94.5 L Sodium Potassium Chloride Carbon Dioxide BUN Glucose POC Glucose Troponin T 0.045 H D 0.065 H D NT-Pro-B Natriuret Pep Cholesterol 311 H LDL Cholesterol Direct 222 H 09/15/21 09/15/21 09/15/21 04:48 05:46 08:23 WBC RBC MCV MCH RDW Seg Neuts % (Manual) Lymphocytes % (Manual) Lymphocytes # (Manual) INR APTT ABG pH ABG pO2 ABG O2 Saturation ABG Base Excess Oxyhemoglobin Sodium 136 L Potassium Chloride Carbon Dioxide BUN 18 H Glucose 388 H POC Glucose 331 H 321 H Troponin T NT-Pro-B Natriuret Pep Cholesterol LDL Cholesterol Direct 09/15/21 09/15/21 09/15/21 11:11 16:18 21:28 WBC RBC MCV MCH RDW Seg Neuts % (Manual) Lymphocytes % (Manual) Lymphocytes # (Manual) INR APTT ABG pH ABG pO2 ABG O2 Saturation ABG Base Excess Oxyhemoglobin Sodium Potassium Chloride Carbon Dioxide BUN Glucose POC Glucose 421 H 364 H 265 H Troponin T NT-Pro-B Natriuret Pep Cholesterol LDL Cholesterol Direct 09/16/21 09/16/21 09/16/21 04:27 04:27 11:17 WBC 17.1 H RBC MCV 78 L MCH 26 L RDW 16.6 H Seg Neuts % (Manual) Lymphocytes % (Manual) Lymphocytes # (Manual) INR APTT ABG pH ABG pO2 ABG O2 Saturation ABG Base Excess Oxyhemoglobin Sodium 135 L Potassium Chloride 96.2 L Carbon Dioxide BUN 28 H Glucose 256 H POC Glucose 356 H Troponin T NT-Pro-B Natriuret Pep Cholesterol LDL Cholesterol Direct 09/16/21 09/16/21 09/17/21 19:02 21:07 06:22 WBC 13.5 H RBC MCV 78 L MCH 26 L RDW 16.5 H Seg Neuts % (Manual) Lymphocytes % (Manual) Lymphocytes # (Manual) INR APTT ABG pH ABG pO2 ABG O2 Saturation ABG Base Excess Oxyhemoglobin Sodium Potassium Chloride Carbon Dioxide BUN Glucose POC Glucose 426 H 319 H Troponin T NT-Pro-B Natriuret Pep Cholesterol LDL Cholesterol Direct 09/17/21 09/17/21 09/17/21 06:22 07:11 11:30 WBC RBC MCV MCH RDW Seg Neuts % (Manual) Lymphocytes % (Manual) Lymphocytes # (Manual) INR APTT ABG pH ABG pO2 ABG O2 Saturation ABG Base Excess Oxyhemoglobin Sodium 132 L Potassium Chloride 94.5 L Carbon Dioxide BUN 46 H Glucose 292 H POC Glucose 282 H 384 H Troponin T NT-Pro-B Natriuret Pep Cholesterol LDL Cholesterol Direct 09/17/21 09/17/21 09/18/21 15:49 20:12 07:38 WBC RBC MCV MCH RDW Seg Neuts % (Manual) Lymphocytes % (Manual) Lymphocytes # (Manual) INR APTT ABG pH ABG pO2 ABG O2 Saturation ABG Base Excess Oxyhemoglobin Sodium Potassium Chloride Carbon Dioxide BUN Glucose POC Glucose 353 H 470 H 182 H Troponin T NT-Pro-B Natriuret Pep Cholesterol LDL Cholesterol Direct Allied health notes reviewed: RT
[2021-09-18] MEDS: INSULIN GLARGINE 100 UNITS/ML SUB-Q SCH (21:48)
[2021-09-18] MEDS: levoFLOXacin 750 MG TAB PO SCH (21:53)
[2021-09-19] MEDS: IPRATROPIUM/ALBUTEROL SULFATE 3 ML AMPUL.NEB IH SCH ×5 (00:05→18:45)
[2021-09-19 05:59] LABS: Calcium 8.9 mg/dL (8.4-10.2)
[2021-09-19] MEDS: HEPARIN 5,000 UNIT/1 ML VIAL SUB-Q SCH ×3 (06:53→21:24)
[2021-09-19] MEDS: INSULIN LISPRO 100 UNIT/ML SUB-Q SCH ×4 (08:00→21:25)
[2021-09-19] MEDS: ARFORMOTEROL 15 MCG/2 ML NEBU IH SCH ×2 (08:06→20:35)
[2021-09-19] MEDS: BUDESONIDE 0.5 MG/2 ML NEBU IH SCH ×2 (08:06→20:35)
--- NOTE | 2021-09-19 08:29 | Progress Note ---
Assessment and Plan Mrs. Carter, a 65 years old female with history of CAD s/p PCI to pLAD in 2019 (residual RCA [employer] with faint collaterials), CHF, HTN, COPD on home oxygen, GERD, diabetes mellitus, history of CVA, HLD presented with acute shortness of breath. Work-up in the emergency room showed chest x-ray reveals interval development of diffuse bilateral pulmonary opacities. Patient has been placed on empiric IV antibiotics and also given some IV diuretics placed on BiPAP. Cardiology is consulted for management of ADHF and elevation of Troponin. Assessment and Plan: --Acute respiratory failure with hypoxia and hypercapnia s/p BiPAP now on supplemental O2. We will monitor closely and keep O2 saturation greater or equal to 93%. Consult placed to telemetry registered nurse for evaluation. Assess for home O2 requirement --MERRITT, likely due to diuretics, not present on admission Start diuretics, monitor BMP --Sinus bradycardia, will reduce BB dose, follow clinically -- Opacities of both lungs present on chest x-ray/B/L CAP Initially was Unclear what opacities is secondary to pneumonia versus congestive heart failure. patient has been placed on empiric IV antibiotics and also started on diuretics. echocardiogram showed preserved EF, cont abx -- CAD (coronary artery disease) Patient has known RCA (small vessel) [employer]UMENT [employer] and chronic angina; c/w Imdur and other CAD regiment --Acute on chronic congestive heart failure possible diastolic - ECHO in 08/2021: LVEF 50-55%, grade 1 diastolic dysfunction -Status post IV diuretics - resume home med as long as patient tolerated - strict I/O and correct electrolytes abnormality -- mild elevated troponin likely nonsignificant - Lexiscan MPI in 07/2021, showed fixed defect at inferior wall;No ischemia. - Patient denied active chest pain; Her symptoms of SOB could be combination of ADHF, COPD exacerbation and PNA - The elevation of troponin more likely due to demanded ischemia form HF and sepsis - Repeat echo showed preserved LV function and RWA - cardiology following - c/w statin and antiplatelet -- hyperlipidemia Continue routine home medications. Monitor lipid profile. -- Diabetes mellitus type 2 in obese with uncontrolled blood sugar Patient placed on sliding scale insulin. We will monitor Accu-Cheks closely. --HTN (hypertension) Continue routine home medications and monitor vital signs closely. --Systemic inflammatory response syndrome, cont empiric abx -- Anxiety disorder, outpt f/u with psych -- DVT prophylaxis Patient placed on subcutaneous heparin. -- full code status Daily clinical course: 09/15: Patient with mildly elevated troponin this could be secondary to the chronic congestive heart failure in the setting of underlying pneumonia. Obvious evidence for systemic inflammatory response syndrome. Of discussed with transfer agent in respect to the elevated troponin and recurrent chest pain. We will start the patient's home dose of Ranexa. We will continue IV diuresis at this time while awaiting pulmonary input relative to diffuse pulmonary opacities. Patient is also being ruled out for COVID-19. Will repeat chest x- ray in a.m. Condition remains guarded 09/16: Patient shows clinical improvement. X-ray shows shows remarkable improvement in previously noted opacities which goes to support possible underlining congestive heart failure likely diastolic in nature rather than pneumonia. Patient will continue on her chronic medications. Blood pressure is stable. Will transfer to the medical floor mild elevation leukocytosis likely secondary to steroid therapy. Anticipate the patient can be safely discharged tomorrow or the day after with transition to oral steroids. Plan discussed with the patient she verbalized understanding. Will change Lasix to daily IV 09/17: cont diuresis, follow BMP, echocardiogram pending, patient off BiPAP. cont to follow clinically. 09/18: Patient improved clinically but still have significant lower extremity edema, continue IV diuresis. Echocardiogram showed preserved EF with grade 1 diastolic dysfunction. Continue empiric antibiotics, assess for home O2 requirement. Possible DC in couple days 09/19; creatinine slightly trended up, will hold diuretics. Will assess for home O2 requirement and consulted PT. monitor BMP, possible DC with home health once cleared by PT. Will also reduce BB dose for bradycardia. Subjective Date of service: 09/19/21 Interval history: Patient seen and examined. Medical records and medication list reviewed. No acute event overnight noted by the RN. Patient on N/c O2. Patient is tolerating diet. Denies any chest pain Noted bradycardic on tele Discussed plan of care at bedside with patient. Objective - Exam Narrative Exam: GENERAL: well-developed morbidly obese -Stateless female lying on bed appeared to be in no discomfort. HEENT: Normocephalic. Atraumatic. No conjunctival congestion or icterus. Patient has moist mucous membranes. NECK: Supple. Trachea midline. CHEST/LUNGS: Positive crackles auscultated bilaterally HEART/CARDIOVASCULAR: Regular in rate and rhythm. S1 and S2 positive. ABDOMEN: Abdomen is soft, nontender. Patient has normal bowel sounds. SKIN: There is no rash. Warm and dry. NEURO: No focal motor deficit. Follows command. MUSCULOSKELETAL: No joint effusion or tenderness. EXTRIMITY:+ ve edema, no cyanosis or clubbing. PSYCH: Cooperative. - Constitutional Vitals: Vital Signs - 12hr 09/18/21 09/18/21 09/18/21 20:50 20:51 21:08 Temperature 98.7 F Pulse Rate 46 L Pulse Rate [ 49 L Anterior Bilateral Throughout] Respiratory 19 Rate Respiratory 18 Rate [Anterior Bilateral Throughout] Blood Pressure 115/46 Blood Pressure [Right] O2 Sat by Pulse 93 99 Oximetry 09/18/21 09/18/21 09/18/21 22:04 22:25 23:00 Temperature 98.8 F Pulse Rate 47 L 47 L 50 L Pulse Rate [ Anterior Bilateral Throughout] Respiratory 14 20 Rate Respiratory Rate [Anterior Bilateral Throughout] Blood Pressure 115/46 Blood Pressure 106/50 [Right] O2 Sat by Pulse 99 97 Oximetry 09/19/21 09/19/21 09/19/21 00:06 03:13 04:56 Temperature 98.9 F Pulse Rate 48 L Pulse Rate [ 50 L 46 L Anterior Bilateral Throughout] Respiratory 20 Rate Respiratory 18 20 Rate [Anterior Bilateral Throughout] Blood Pressure 111/43 Blood Pressure [Right] O2 Sat by Pulse 95 Oximetry 09/19/21 09/19/21 06:00 07:22 Temperature 97.9 F Pulse Rate 41 L 40 L Pulse Rate [ Anterior Bilateral Throughout] Respiratory 18 Rate Respiratory Rate [Anterior Bilateral Throughout] Blood Pressure 118/41 Blood Pressure [Right] O2 Sat by Pulse 96 Oximetry - Labs CBC & Chem 7: 09/17/21 06:22 09/19/21 04:41 Labs: Abnormal lab results 09/18/21 09/18/21 09/18/21 Range/Units 07:38 12:02 15:42 BUN (7-17) mg/dL Creatinine (0.6-1.2) mg/dL Glucose (65-100) mg/dL POC Glucose 182 H 258 H 231 H (70-105) mg/dL 09/18/21 09/19/21 Range/Units 21:11 04:41 BUN 45 H (7-17) mg/dL Creatinine 1.3 H (0.6-1.2) mg/dL Glucose 130 H (65-100) mg/dL POC Glucose 211 H (70-105) mg/dL HEART Score - HEART Score Troponin: Troponin T 0.065 ng/mL (0.00-0.029) H D 09/15/21 04:48
[2021-09-19] MEDS: RANOLAZINE ER 500 MG TAB 12HR PO SCH ×2 (09:15→21:25)
[2021-09-19] MEDS: CLOPIDOGREL 75 MG TAB PO SCH (09:18)
[2021-09-19] MEDS: PREGABALIN 50 MG CAP PO SCH ×2 (09:19→21:24)
[2021-09-19] MEDS: PREGABALIN 75 MG CAP PO SCH ×2 (09:19→21:24)
[2021-09-19] MEDS: LISINOPRIL 40 MG TAB PO SCH (09:21)
[2021-09-19] MEDS: amLODIPine 10 MG TAB PO SCH (09:22)
[2021-09-19] MEDS ORDERED: METOPROLOL SUCCINATE XL 50 MG TAB PO SCH (09:45)
--- NOTE | 2021-09-19 09:57 | Progress Note ---
Assessment and Plan 1. Bilateral pulmonary interstitial infiltrates 2. Coronary artery disease 3. Chronic obstructive pulmonary disease on home oxygen 4. Systemic arterial hypertension 5. Type 2 diabetes mellitus 6. Hyperlipidemia 7. History of CVA. Previous echocardiogram done had shown normal left ventricular size and function with a left ventricular ejection fraction of approximately 55%. Stress MPI showed small fixed inferobasal defect. Plan. Cardiac fuller stable continue management as per pulmonary Dr. Subjective Date of service: 09/19/21 Interval history: Patient still short of breath dyspneic at rest Objective Vital Signs Temp Pulse Pulse Pulse Pulse Resp Resp 09/19/21 09:22 40 L 09/19/21 09:21 40 L 09/19/21 08:06 40 L 48 L 20 09/19/21 07:22 97.9 F 40 L 18 09/19/21 06:00 41 L 09/19/21 04:56 98.9 F 48 L 20 09/19/21 03:13 46 L 20 09/19/21 00:06 50 L 18 09/18/21 23:00 98.8 F 50 L 20 09/18/21 22:25 47 L 09/18/21 22:04 47 L 14 09/18/21 21:08 98.7 F 46 L 19 09/18/21 20:51 09/18/21 20:50 49 L 18 09/18/21 19:00 16 09/18/21 16:00 57 L 57 L 57 L 14 09/18/21 15:45 58 L 18 09/18/21 12:00 64 64 64 14 Resp Resp BP BP Pulse Ox 09/19/21 09:22 118/41 09/19/21 09:21 118/41 09/19/21 08:06 20 99 09/19/21 07:22 118/41 96 09/19/21 06:00 09/19/21 04:56 111/43 95 09/19/21 03:13 09/19/21 00:06 09/18/21 23:00 106/50 97 09/18/21 22:25 115/46 09/18/21 22:04 99 09/18/21 21:08 115/46 99 09/18/21 20:51 93 09/18/21 20:50 09/18/21 19:00 91 09/18/21 16:00 14 14 09/18/21 15:45 111/67 94 09/18/21 12:00 14 14 - Physical Examination General: Appears Well, No Apparent Distress, Other (OBESE) HEENT: Positive: PERRL, Normocephaly, Mucus Membranes Moist Neck: Positive: neck supple. Negative: JVD/HJR Cardiac: Positive: Regular Rate, S1/S2, PMI, Laterally Displaced. Negative: S3, S4 Lungs: Positive: clear to auscultation, Rhonchi. Negative: Rales, Wheezes Neuro: Positive: Grossly Intact Abdomen: Positive: Unremarkable, Soft Extremities: Absent: edema - Labs and Meds Comprehensive Metabolic Panel 09/19/21 Range/Units 04:41 Sodium 138 (137-145) mmol/L Potassium 3.6 (3.6-5.0) mmol/L Chloride 99.7 (98-107) mmol/L Carbon Dioxide 27 (22-30) mmol/L BUN 45 H (7-17) mg/dL Creatinine 1.3 H (0.6-1.2) mg/dL Glucose 130 H (65-100) mg/dL Calcium 8.9 (8.4-10.2) mg/dL - Allied health notes Allied health notes reviewed: RT
[2021-09-19] MEDS ORDERED: METOPROLOL SUCCINATE XL 25 MG TAB PO SCH (10:00)
[2021-09-19] MEDS: METOPROLOL SUCCINATE XL 25 MG TAB PO SCH ×2 (12:57→21:35)
[2021-09-19] MEDS: NITROGLYCERIN 0.4 MG TAB SUBL SL PRN (18:37)
[2021-09-19] MEDS: INSULIN GLARGINE 100 UNITS/ML SUB-Q SCH (21:26)
--- NOTE | 2021-09-19 23:28 | Progress Note ---
Assessment and Plan 65-year-old female with significant past medical history of coronary artery disease, COPD on home oxygen, CHF, GERD, hypertension, diabetes mellitus, history of CVA, hyperlipidemia presenting to the emergency room with acute shortness of breath. Upon arrival patient was quite tachypneic and dyspneic and appeared diaphoretic. She required bag assisted ventilation immediately upon arrival. Shortness of breath was said to have started sometime this evening. There has been no history of fever or chills, no nausea or vomiting and no abdominal pain. No history of recent travel, no sick contacts, no contact with anyone with COVID-19. Patient received nebulizing treatments and IV steroids with significant improvement. Work-up in the emergency room , chest x-ray reveals interval development of diffuse bilateral pulmonary opacities. Unclear whether opacities is related to pulmonary edema or bilateral pneumonia. Patient has been placed on empiric IV antibiotics and also given some IV diuretics. Patient placed on BiPAP. Patient has history of smoking 1 pack/30 years. Stopped smoking 15 years ago. Denies alcohol or drug abuse. Worked in [employer] and in the [employer] before retired. Patient presently awake. Resting in bed. Patient is on 3 litres O2. O2 saturation 99%. BIPAP 16/6, rate 20, FIO2 30% stand by in the room. Recommend use BIPAP during night and PRN during day time for sleepiness. Patent afebrile. Has mild leukocytosis. Blood pressure 116/61, Pulse 61, respirations 18. Chest xray done 09/16/21 reported Marked improvement in patchy parenchymal opacities throughout both lungs. Patient is on Brovanna/Budesonide aerosol treatments q 12 hours, Albuterol/atrovent aerosol treatments q 6 hours prn for shortness of breath, S/C Heparin. Recommend GI prophylaxis. Recommend sleep study as out patient. I spent critical care time of 35 minutes, obtaining history, review the chart, review chest xray ,lab results, talking to the nursing staff, respiratory therapy staff and work up plan of treatment in this critically ill patient. - Patient Problems (1) Acute respiratory failure with hypoxia and hypercapnia Current Visit: No Status: Acute Plan to address problem: O2 3 litres via nasal canula. BIPAP 16/6, rate 10, FIO2 30% during night time, Prn for shortness of breath during day time. Brovanna/Budesonide aerosol treatments q 12 hours. Albuterol/atrovent aerosol treatments q 6 hours prn for shortness of breath. Continue S/C Heparin. Recommend GI prophylaxis. (2) COPD exacerbation Current Visit: No Status: Acute Plan to address problem: O2 3 litres via nasal canula. BIPAP 16/6, rate 10, FIO2 30% during night time, Prn for shortness of breath during day time. Brovanna/Budesonide aerosol treatments q 12 hours. Albuterol/atrovent aerosol treatments q 6 hours prn for shortness of breath. Continue S/C Heparin. Recommend GI prophylaxis. PFTs as out patient. (3) Opacities of both lungs present on chest x-ray Current Visit: Yes Status: Acute Plan to address problem: Patient was on Levaquin. Improving pulmonary infiltrates. (4) CAD (coronary artery disease) Current Visit: No Status: Acute Plan to address problem: Management as per cardiology. (5) CHF (congestive heart failure) Current Visit: No Status: Acute Qualifiers: Heart failure type: diastolic Plan to address problem: Management as per cardiology. (6) HTN (hypertension) Current Visit: No Status: Acute Qualifiers: Hypertension type: essential hypertension Plan to address problem: Management as per primary care. (7) Diabetes mellitus type 2 in obese Current Visit: No Status: Chronic Plan to address problem: Management as per primary care. (8) Gastroesophageal reflux disease Current Visit: No Status: Acute Plan to address problem: Recommend proton pump inhibitors. Like protonix, prilosec, prevacid or nexium. (9) Morbid obesity with BMI of 40.0-44.9, adult Current Visit: Yes Status: Acute Plan to address problem: Recommend loose weight. Diet and exercise. (10) Sleep apnea in adult Current Visit: Yes Status: Acute Plan to address problem: Recommend to loose weight. Explained sleep hygiene. Recommend not to drive or operate heavy equipment with sleepiness. Avoid alcohol, sedatives and Narcotics. Recommend Sleep study as out patient. (11) Obesity hypoventilation syndrome Current Visit: Yes Status: Acute Plan to address problem: BIPAP 16/6, rate 20, FIO2 30% during night time PRN for day time sleepiness. Recommend to loose weight. Recommend Sleep study as out patient. Subjective Date of service: 09/19/21 Interval history: 65-year-old female with significant past medical history of coronary artery disease, COPD on home oxygen, CHF, GERD, hypertension, diabetes mellitus, history of CVA, hyperlipidemia presenting to the emergency room with acute shortness of breath. Upon arrival patient was quite tachypneic and dyspneic and appeared diaphoretic. She required bag assisted ventilation immediately upon arrival. Shortness of breath was said to have started sometime this evening. There has been no history of fever or chills, no nausea or vomiting and no abdominal pain. No history of recent travel, no sick contacts, no contact with anyone with COVID-19. Patient received nebulizing treatments and IV steroids with significant improvement. Work-up in the emergency room , chest x-ray reveals interval development of diffuse bilateral pulmonary opacities. Unclear whether opacities is related to pulmonary edema or bilateral pneumonia. Patient has been placed on empiric IV antibiotics and also given some IV diuretics. Patient placed on BiPAP. Patient has history of smoking 1 pack/30 years. Stopped smoking 15 years ago. Denies alcohol or drug abuse. 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 Patient presently awake. Resting in bed. Patient is on 3 litres O2. O2 saturation 99%. BIPAP 16/6, rate 20, FIO2 30% stand by in the room. Recommend use BIPAP during night and PRN during day time for sleepiness. Patent afebrile. Has mild leukocytosis. Blood pressure 116/61, Pulse 61, respirations 18. Chest xray done 09/16/21 reported Marked improvement in patchy parenchymal opacit ies throughout both lungs. Patient is on Brovanna/Budesonide aerosol treatments q 12 hours, Albut wes/atrovent aerosol treatments q 6 hours prn for shortness of breath, S/C Heparin. Recommend GI prophylaxis. Recommend sleep study as out patient. Objective Vital Signs - 12hr 09/19/21 09/19/21 09/19/21 12:10 12:37 12:57 Temperature 98.6 F Pulse Rate 57 L 57 L Pulse Rate [ 40 L Anterior Bilateral Throughout] Pulse Rate [ 55 L Anterior] Pulse Rate [ 55 L Throughout] Respiratory 18 Rate Respiratory 20 Rate [Anterior Bilateral Throughout] Respiratory 16 Rate [Anterior] Respiratory 14 Rate [ Throughout] Blood Pressure 134/38 134/38 O2 Sat by Pulse 98 Oximetry 09/19/21 09/19/2122 15:57 18:00 18:45 Temperature 98.0 F Pulse Rate 60 60 Pulse Rate [ 48 L Anterior Bilateral Throughout] Pulse Rate [ Anterior] Pulse Rate [ 52 L Throughout] Respiratory 18 Rate Respiratory 20 Rate [Anterior Bilateral Throughout] Respiratory Rate [Anterior] Respiratory 20 Rate [ Throughout] Blood Pressure 124/51 O2 Sat by Pulse 96 Oximetry 09/19/21 09/19/21 09/19/21 19:14 19:55 20:34 Temperature 98.6 F Pulse Rate 61 Pulse Rate [ Anterior Bilateral Throughout] Pulse Rate [ Anterior] Pulse Rate [ Throughout] Respiratory 18 Rate Respiratory Rate [Anterior Bilateral Throughout] Respiratory Rate [Anterior] Respiratory Rate [ Throughout] Blood Pressure 116/61 O2 Sat by Pulse 99 99 99 Oximetry 09/19/21 20:35 Temperature Pulse Rate Pulse Rate [ Anterior Bilateral Throughout] Pulse Rate [ Anterior] Pulse Rate [ 62 Throughout] Respiratory Rate Respiratory Rate [Anterior Bilateral Throughout] Respiratory Rate [Anterior] Respiratory 18 Rate [ Throughout] Blood Pressure O2 Sat by Pulse Oximetry Constitutional: no acute distress, alert Eyes: non-icteric ENT: oropharynx moist Neck: supple, no lymphadenopathy Effort: normal Ascultation: Bilateral: diminished breath sounds, rales Cardiovascular: regular rate and rhythm, other (S1,S2) Gastrointestinal: normoactive bowel sounds, soft, non-tender Integumentary: normal Extremities: no cyanosis, no edema Neurologic: normal mental status, non-focal exam, pupils equal and round, motor strength normal and Psychiatric: mood appropriate, affect normal CBC and BMP: 09/17/21 06:22 09/19/21 04:41 ABG, PT/INR, D-dimer: ABG ABG pH 7.264 pH Units (7.350-7.450) L 09/14/21 18:36 ABG pCO2 54.9 mm Hg 09/14/21 18:36 ABG pO2 280.4 mm Hg (80.0-90.0) H 09/14/21 18:36 ABG O2 Saturation 99.4 % (95.0-99.0) H 09/14/21 18:36 PT/INR, D-dimer PT 12.6 Sec. (12.2-14.9) 09/14/21 18:20 INR 0.86 (0.87-1.13) L 09/14/21 18:20 Abnormal lab findings: Abnormal Labs 09/14/21 09/14/21 09/14/21 18:20 18:20 18:20 WBC 14.7 H RBC 5.29 H MCV MCH 26 L RDW 16.9 H Seg Neuts % (Manual) 36.0 L Lymphocytes % (Manual) 58.0 H Lymphocytes # (Manual) 8.5 H INR 0.86 L APTT 21.3 L ABG pH ABG pO2 ABG O2 Saturation ABG Base Excess Oxyhemoglobin Sodium 133 L Potassium 6.0 H Chloride 96.5 L Carbon Dioxide 19 L BUN Creatinine Glucose 253 H POC Glucose Troponin T NT-Pro-B Natriuret Pep 1148 H Cholesterol LDL Cholesterol Direct 09/14/21 09/14/21 09/15/21 18:36 21:00 04:48 WBC RBC MCV MCH RDW Seg Neuts % (Manual) Lymphocytes % (Manual) Lymphocytes # (Manual) INR APTT ABG pH 7.264 L ABG pO2 280.4 H ABG O2 Saturation 99.4 H ABG Base Excess -3.4 L Oxyhemoglobin 94.5 L Sodium Potassium Chloride Carbon Dioxide BUN Creatinine Glucose POC Glucose Troponin T 0.045 H D 0.065 H D NT-Pro-B Natriuret Pep Cholesterol 311 H LDL Cholesterol Direct 222 H 09/15/21 09/15/21 09/15/21 04:48 05:46 08:23 WBC RBC MCV MCH RDW Seg Neuts % (Manual) Lymphocytes % (Manual) Lymphocytes # (Manual) INR APTT ABG pH ABG pO2 ABG O2 Saturation ABG Base Excess Oxyhemoglobin Sodium 136 L Potassium Chloride Carbon Dioxide BUN 18 H Creatinine Glucose 388 H POC Glucose 331 H 321 H Troponin T NT-Pro-B Natriuret Pep Cholesterol LDL Cholesterol Direct 09/15/21 09/15/21 09/15/21 11:11 16:18 21:28 WBC RBC MCV MCH RDW Seg Neuts % (Manual) Lymphocytes % (Manual) Lymphocytes # (Manual) INR APTT ABG pH ABG pO2 ABG O2 Saturation ABG Base Excess Oxyhemoglobin Sodium Potassium Chloride Carbon Dioxide BUN Creatinine Glucose POC Glucose 421 H 364 H 265 H Troponin T NT-Pro-B Natriuret Pep Cholesterol LDL Cholesterol Direct 09/16/21 09/16/21 09/16/21 04:27 04:27 11:17 WBC 17.1 H RBC MCV 78 L MCH 26 L RDW 16.6 H Seg Neuts % (Manual) Lymphocytes % (Manual) Lymphocytes # (Manual) INR APTT ABG pH ABG pO2 ABG O2 Saturation ABG Base Excess Oxyhemoglobin Sodium 135 L Potassium Chloride 96.2 L Carbon Dioxide BUN 28 H Creatinine Glucose 256 H POC Glucose 356 H Troponin T NT-Pro-B Natriuret Pep Cholesterol LDL Cholesterol Direct 09/16/21 09/16/21 09/17/21 19:02 21:07 06:22 WBC 13.5 H RBC MCV 78 L MCH 26 L RDW 16.5 H Seg Neuts % (Manual) Lymphocytes % (Manual) Lymphocytes # (Manual) INR APTT ABG pH ABG pO2 ABG O2 Saturation ABG Base Excess Oxyhemoglobin Sodium Potassium Chloride Carbon Dioxide BUN Creatinine Glucose POC Glucose 426 H 319 H Troponin T NT-Pro-B Natriuret Pep Cholesterol LDL Cholesterol Direct 09/17/21 09/17/21 09/17/21 06:22 07:11 11:30 WBC RBC MCV MCH RDW Seg Neuts % (Manual) Lymphocytes % (Manual) Lymphocytes # (Manual) INR APTT ABG pH ABG pO2 ABG O2 Saturation ABG Base Excess Oxyhemoglobin Sodium 132 L Potassium Chloride 94.5 L Carbon Dioxide BUN 46 H Creatinine Glucose 292 H POC Glucose 282 H 384 H Troponin T NT-Pro-B Natriuret Pep Cholesterol LDL Cholesterol Direct 09/17/21 09/17/21 09/18/21 15:49 20:12 07:38 WBC RBC MCV MCH RDW Seg Neuts % (Manual) Lymphocytes % (Manual) Lymphocytes # (Manual) INR APTT ABG pH ABG pO2 ABG O2 Saturation ABG Base Excess Oxyhemoglobin Sodium Potassium Chloride Carbon Dioxide BUN Creatinine Glucose POC Glucose 353 H 470 H 182 H Troponin T NT-Pro-B Natriuret Pep Cholesterol LDL Cholesterol Direct 09/18/21 09/18/21 09/18/21 12:02 15:42 21:11 WBC RBC MCV MCH RDW Seg Neuts % (Manual) Lymphocytes % (Manual) Lymphocytes # (Manual) INR APTT ABG pH ABG pO2 ABG O2 Saturation ABG Base Excess Oxyhemoglobin Sodium Potassium Chloride Carbon Dioxide BUN Creatinine Glucose POC Glucose 258 H 231 H 211 H Troponin T NT-Pro-B Natriuret Pep Cholesterol LDL Cholesterol Direct 09/19/21 09/19/21 09/19/21 04:41 12:08 15:52 WBC RBC MCV MCH RDW Seg Neuts % (Manual) Lymphocytes % (Manual) Lymphocytes # (Manual) INR APTT ABG pH ABG pO2 ABG O2 Saturation ABG Base Excess Oxyhemoglobin Sodium Potassium Chloride Carbon Dioxide BUN 45 H Creatinine 1.3 H Glucose 130 H POC Glucose 216 H 202 H Troponin T NT-Pro-B Natriuret Pep Cholesterol LDL Cholesterol Direct 09/19/21 20:21 WBC RBC MCV MCH RDW Seg Neuts % (Manual) Lymphocytes % (Manual) Lymphocytes # (Manual) INR APTT ABG pH ABG pO2 ABG O2 Saturation ABG Base Excess Oxyhemoglobin Sodium Potassium Chloride Carbon Dioxide BUN Creatinine Glucose POC Glucose 210 H Troponin T NT-Pro-B Natriuret Pep Cholesterol LDL Cholesterol Direct Allied health notes reviewed: RT
[2021-09-20] MEDS: IPRATROPIUM/ALBUTEROL SULFATE 3 ML AMPUL.NEB IH SCH ×6 (00:48→19:29)
[2021-09-20] MEDS: HEPARIN 5,000 UNIT/1 ML VIAL SUB-Q SCH ×3 (05:32→21:41)
[2021-09-20 06:02] LABS: BUN/Creatinine Ratio 35; Blood Urea Nitrogen 35 mg/dL (7-17); Calcium 8.6 mg/dL (8.4-10.2); Hemolysis Index 13
[2021-09-20] MEDS: ARFORMOTEROL 15 MCG/2 ML NEBU IH SCH ×3 (06:48→20:29)
[2021-09-20] MEDS: BUDESONIDE 0.5 MG/2 ML NEBU IH SCH ×3 (06:49→20:29)
[2021-09-20] MEDS: INSULIN LISPRO 100 UNIT/ML SUB-Q SCH ×4 (09:19→21:42)
[2021-09-20] MEDS: RANOLAZINE ER 500 MG TAB 12HR PO SCH ×2 (09:19→21:41)
[2021-09-20] MEDS: PREGABALIN 50 MG CAP PO SCH ×2 (09:20→21:41)
[2021-09-20] MEDS: amLODIPine 10 MG TAB PO SCH (09:20)
[2021-09-20] MEDS: PREGABALIN 75 MG CAP PO SCH ×2 (09:20→21:41)
[2021-09-20] MEDS: CLOPIDOGREL 75 MG TAB PO SCH (09:20)
[2021-09-20] MEDS: LISINOPRIL 40 MG TAB PO SCH (09:20)
--- NOTE | 2021-09-20 09:24 | Discharge Summary ---
Providers - Providers Date of Admission: 09/14/21 21:35 Date of discharge: 09/20/21 Attending physician: OPAL RIVERO 09/14/21 21:35 Consult to Dietitian/Nutrition [CONS] Routine Physician Instructions: Reason For Exam: Reason for Consult: Diet education Consult to Physician [CONS] Routine Comment: Consulting Provider: DWIGHT KIRK Physician Instructions: Reason For Exam: COPD Exac. On Bipap 09/15/21 09:32 Consult to Physician [CONS] Routine Comment: Consulting Provider: SHERWIN RABAGO Physician Instructions: Reason For Exam: positive tropnin 09/19/21 08:26 Physical Therapy Evaluation and Treat [CONS] Routine Comment: Reason For Exam: physical debility Primary care physician: KATHRIN SMITH Hospitalization Condition: Stable Pertinent studies: Chest x-ray, 2D echocardiogram Hospital course: Mrs. 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 Work-up in the emergency room showed chest x-ray reveals interval development of diffuse bilateral pulmonary opacities. Patient has been placed on empiric IV antibiotics and also given some IV diuretics placed on BiPAP. Cardiology is consulted for management of ADHF and elevation of Troponin. Daily clinical course: 09/15: Patient with mildly elevated troponin this could be secondary to the chronic congestive heart failure in the setting of underlying pneumonia. Obvious evidence for systemic inflammatory response syndrome. Of discussed with property valuer in respect to the elevated troponin and recurrent chest pain. We will start the patient's home dose of Ranexa. We will continue IV diuresis at this time while awaiting pulmonary input relative to diffuse pulmonary opacities. Patient is also being ruled out for COVID-19. Will repeat chest x- ray in a.m. Condition remains guarded 09/16: Patient shows clinical improvement. X-ray shows shows remarkable improvement in previously noted opacities which goes to support possible underlining congestive heart failure likely diastolic in nature rather than pneumonia. Patient will continue on her chronic medications. Blood pressure is stable. Will transfer to the medical floor mild elevation leukocytosis likely secondary to steroid therapy. Anticipate the patient can be safely discharged tomorrow or the day after with transition to oral steroids. Plan discussed with the patient she verbalized understanding. Will change Lasix to daily IV 09/17: cont diuresis, follow BMP, echocardiogram pending, patient off BiPAP. cont to follow clinically. 09/18: Patient improved clinically but still have significant lower extremity edema, continue IV diuresis. Echocardiogram showed preserved EF with grade 1 diastolic dysfunction. Continue empiric antibiotics, assess for home O2 requirement. Possible DC in couple days 09/19; creatinine slightly trended up, will hold diuretics. Will assess for home O2 requirement and consulted PT. monitor BMP, possible DC with home health once cleared by PT. Will also reduce BB dose for bradycardia. Disposition: HOME HEALTH CARE SERVICE Final Discharge Diagnosis (Prints w/discharge instructions): --Acute respiratory failure with hypoxia and hypercapnia. --MERRITT, likely due to diuretics, not present on admission. --Sinus bradycardia,. -- B/L CAP. -- CAD (coronary artery disease). --Acute on chronic congestive heart failure possible diastolic. -- mild elevated troponin likely nonsignificant/NSTEMI type II. -- hyperlipidemia. -- Diabetes mellitus type 2 in obese with uncontrolled blood sugar. --HTN (hypertension). --Systemic inflammatory response syndrome, due to pneumonia. -- Anxiety disorder, outpt f/u with psych. --COPD with acute exacerbation Time spent for discharge: 34 minutes Core Measure Documentation - Palliative Care Palliative Care/ Comfort Measures: Not Applicable - Core Measures Any of the following diagnoses?: none Exam - Physical Exam Narrative exam: GENERAL: well-developed morbidly obese -[place]ag[place] female lying on bed appeared to be in no discomfort. HEENT: Normocephalic. Atraumatic. No conjunctival congestion or icterus. Patient has moist mucous membranes. NECK: Supple. Trachea midline. CHEST/LUNGS: Positive crackles auscultated bilaterally HEART/CARDIOVASCULAR: Regular in rate and rhythm. S1 and S2 positive. ABDOMEN: Abdomen is soft, nontender. Patient has normal bowel sounds. SKIN: There is no rash. Warm and dry. NEURO: No focal motor deficit. Follows command. MUSCULOSKELETAL: No joint effusion or tenderness. EXTRIMITY:+ ve edema, no cyanosis or clubbing. PSYCH: Cooperative. - Constitutional Vitals: Temp Pulse Resp BP Pulse Ox 98.6 F 71 19 125/53 99 09/20/21 07:30 09/20/21 08:00 09/20/21 08:00 09/20/21 07:30 09/20/21 09:15 Plan Activity: advance as tolerated Weight Bearing Status: Weight Bear as Tolerated Diet: low fat, low cholesterol Special Instructions: home oxygen via (2L n/c) Follow up with: KATHRIN SMITH MD [Primary Care Provider] - 7 Days Prescriptions: predniSONE [Deltasone] 40 mg PO QDAY #7 tablet Metoprolol Xl [Metoprolol SUCCINATE ER TAB] 12.5 mg PO BID #30 tablet
--- NOTE | 2021-09-20 10:13 | Progress Note ---
Assessment and Plan - Patient Problems (1) Acute pulmonary edema Current Visit: Yes Status: Acute Plan to address problem: Patient is a 65-year-old woman with multivessel coronary artery disease. 2 years ago, she underwent coronary stenting of the mid LAD with a drug-eluting stent. At that time, a chronic total occlusion of the right coronary artery was recommended for continued medical therapy. Her left ventricular ejection fraction was 45 to 50%. Due to an aspirin allergy, she is on Plavix monotherapy, for which she is fully compliant. She was hospitalized at this time with shortness of breath, described with agonal breathing on presentation. Initial chest x-ray showed bilateral acute pulmonary infiltrate. Follow-up chest x-ray 2 days later showed significant clearing of the pulmonary infiltrates, suggesting acute pulmonary edema. EKG was sinus rhythm with left ventricle hypertrophy, but no acute ischemic changes. Troponin levels were minimally elevated at 0.06. We will proceed with cardiac catheterization for further assessment of her coronary artery disease particularly with regards to patency of the LAD in the setting of acute pulmonary edema. Subjective Date of service: 09/20/21 Principal diagnosis: Pulmonary edema Interval history: Patient is a 65-year-old woman with multivessel coronary artery disease. 2 years ago, she underwent coronary stenting of the mid LAD with a drug-eluting stent. At that time, a chronic total occlusion of the right coronary artery was recommended for continued medical therapy. Her left ventricular ejection fraction was 45 to 50%. Due to an aspirin allergy, she is on Plavix monotherapy, for which she is fully compliant. She was hospitalized at this time with shortness of breath, described with agonal breathing on presentation. Initial chest x-ray showed bilateral acute pulmonary infiltrate. Follow-up chest x-ray 2 days later showed significant clearing of the pulmonary infiltrates, suggesting acute pulmonary edema. EKG was sinus rhythm with left ventricle hypertrophy, but no acute ischemic changes. Troponin levels were minimally elevated at 0.06. Patient is currently comfortable at bedrest, no chest pain, shortness of breath is improved, no lower extremity edema. Objective Vital Signs Temp Pulse Pulse Pulse Pulse Resp Resp 09/20/21 09:18 59 L 09/20/21 09:15 09/20/21 08:00 71 19 09/20/21 07:30 98.6 F 59 L 22 09/20/21 04:47 59 L 60 18 09/20/21 03:37 97.9 F 61 18 03/21/22 01:17 68 15 09/20/21 00:52 61 63 18 09/19/21 23:32 97.9 F 64 18 09/19/21 23:02 62 09/19/21 20:35 62 62 18 09/19/21 20:34 09/19/21 19:55 09/19/21 19:14 98.6 F 61 18 09/19/21 18:45 48 L 52 L 20 09/19/21 18:00 60 09/19/21 15:57 98.0 F 60 18 09/19/21 12:57 57 L 09/19/21 12:37 40 L 55 L 55 L 20 09/19/21 12:10 98.6 F 57 L 18 09/19/21 11:00 Resp Resp BP BP Pulse Ox 09/20/21 09:18 125/53 09/20/21 09:15 99 09/20/21 08:00 09/20/21 07:30 125/53 97 09/20/21 04:47 18 09/20/21 03:37 128/36 100 09/20/21 01:17 100 09/20/21 00:52 18 09/19/21 23:32 120/45 98 09/19/21 23:02 09/19/21 20:35 18 09/19/21 20:34 99 09/19/21 19:55 99 09/19/21 19:14 116/61 99 09/19/21 18:45 20 09/19/21 18:00 09/19/21 15:57 124/51 96 09/19/21 12:57 134/38 09/19/21 12:37 16 14 09/19/21 12:10 134/38 98 09/19/21 11:00 87 - Physical Examination General: No Apparent Distress, Other (OBESE) HEENT: Positive: PERRL Neck: Positive: neck supple Cardiac: Positive: Reg Rate and Rhythm Lungs: Positive: Decreased Breath Sounds Neuro: Positive: Grossly Intact Abdomen: Positive: Soft Skin: Positive: Clear Extremities: Absent: edema - Labs and Meds Comprehensive Metabolic Panel 09/20/21 Range/Units 05:31 Sodium 135 L (137-145) mmol/L Potassium 4.2 (3.6-5.0) mmol/L Chloride 101.4 (98-107) mmol/L Carbon Dioxide 24 (22-30) mmol/L BUN 35 H (7-17) mg/dL Creatinine 1.0 (0.6-1.2) mg/dL Glucose 264 H (65-100) mg/dL Calcium 8.6 (8.4-10.2) mg/dL - Allied health notes Allied health notes reviewed: RT
--- NOTE | 2021-09-20 10:45 | Progress Note ---
Assessment and Plan Mrs. 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 Work-up in the emergency room showed chest x-ray reveals interval development of diffuse bilateral pulmonary opacities. Patient has been placed on empiric IV antibiotics and also given some IV diuretics placed on BiPAP. Cardiology is consulted for management of ADHF and elevation of Troponin. Assessment and Plan: --Acute respiratory failure with hypoxia and hypercapnia s/p BiPAP now on supplemental O2. We will monitor closely and keep O2 saturation greater or equal to 93%. Consult placed to sagger soak for evaluation. Assess for home O2 requirement --MERRITT, likely due to diuretics, not present on admission hold diuretics, monitor BMP --Sinus bradycardia, will reduce BB dose, follow clinically -- Opacities of both lungs present on chest x-ray/B/L CAP Initially was Unclear what opacities is secondary to pneumonia versus congestive heart failure. patient has been placed on empiric IV antibiotics and also started on diuretics. 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 - Patient denied active chest pain; Her symptoms of SOB could be combination of ADHF, COPD exacerbation and PNA - The elevation of troponin more likely due to demanded ischemia form HF and sepsis - Repeat echo showed preserved LV function and RWA - cardiology following, planned for cardiac cath tomorrow - c/w statin and antiplatelet -- hyperlipidemia Continue routine home medications. Monitor lipid profile. -- Diabetes mellitus type 2 in obese with uncontrolled blood sugar Patient placed on sliding scale insulin. We will monitor Accu-Cheks closely. --HTN (hypertension) Continue routine home medications and monitor vital signs closely. --Systemic inflammatory response syndrome, cont empiric abx -- Anxiety disorder, outpt f/u with psych -- DVT prophylaxis Patient placed on subcutaneous heparin. -- full code status Daily clinical course: 09/15: Patient with mildly elevated troponin this could be secondary to the chronic congestive heart failure in the setting of underlying pneumonia. Obvious evidence for systemic inflammatory response syndrome. Of discussed with whiteprinting machine operator in respect to the elevated troponin and recurrent chest pain. We will start the patient's home dose of Ranexa. We will continue IV diuresis at this time while awaiting pulmonary input relative to diffuse pulmonary opacities. Patient is also being ruled out for COVID-19. Will repeat chest x- ray in a.m. Condition remains guarded 09/16: Patient shows clinical improvement. X-ray shows shows remarkable improvement in previously noted opacities which goes to support possible underlining congestive heart failure likely diastolic in nature rather than pneumonia. Patient will continue on her chronic medications. Blood pressure is stable. Will transfer to the medical floor mild elevation leukocytosis likely secondary to steroid therapy. Anticipate the patient can be safely discharged tomorrow or the day after with transition to oral steroids. Plan discussed with the patient she verbalized understanding. Will change Lasix to daily IV 09/17: cont diuresis, follow BMP, echocardiogram pending, patient off BiPAP. cont to follow clinically. 09/18: Patient improved clinically but still have significant lower extremity edema, continue IV diuresis. Echocardiogram showed preserved EF with grade 1 diastolic dysfunction. Continue empiric antibiotics, assess for home O2 requirement. Possible DC in couple days 09/19; creatinine slightly trended up, will hold diuretics. Will assess for home O2 requirement and consulted PT. monitor BMP, possible DC with home health once cleared by PT. Will also reduce BB dose for bradycardia. 09/20: Need home O2 on d/c. CXR pulmonary edema improved. Cr normalized. HR much stable. planned for cardiac cath tomorrow by whiteprinting machine operator Subjective Date of service: 09/20/21 Principal diagnosis: Pulmonary edema Interval history: Patient seen and examined. Medical records and medication list reviewed. No acute event overnight noted by the RN. Patient on N/c O2. Patient is tolerating diet. Denies any chest pain planned for cardiac cath tomorrow Discussed plan of care at bedside with patient. Objective - Exam Narrative Exam: GENERAL: well-developed morbidly obese -[place] female lying on bed appeared to be in no discomfort. HEENT: Normocephalic. Atraumatic. No conjunctival congestion or icterus. Patient has moist mucous membranes. NECK: Supple. Trachea midline. CHEST/LUNGS: Positive crackles auscultated bilaterally HEART/CARDIOVASCULAR: Regular in rate and rhythm. S1 and S2 positive. ABDOMEN: Abdomen is soft, nontender. Patient has normal bowel sounds. SKIN: There is no rash. Warm and dry. NEURO: No focal motor deficit. Follows command. MUSCULOSKELETAL: No joint effusion or tenderness. EXTRIMITY:+ ve edema, no cyanosis or clubbing. PSYCH: Cooperative. - Constitutional Vitals: Vital Signs - 12hr 09/19/21 09/19/21 09/20/21 23:02 23:32 00:52 Temperature 97.9 F Pulse Rate 62 64 Pulse Rate [ 61 Anterior Bilateral Throughout] Pulse Rate [ 63 Throughout] Respiratory 18 Rate Respiratory 18 Rate [Anterior Bilateral Throughout] Respiratory 18 Rate [ Throughout] Blood Pressure 120/45 Blood Pressure [Right] O2 Sat by Pulse 98 Oximetry 09/20/21 09/20/21 09/20/21 01:17 03:37 04:47 Temperature 97.9 F Pulse Rate 68 61 Pulse Rate [ 59 L Anterior Bilateral Throughout] Pulse Rate [ 60 Throughout] Respiratory 15 18 Rate Respiratory 18 Rate [Anterior Bilateral Throughout] Respiratory 18 Rate [ Throughout] Blood Pressure 128/36 Blood Pressure [Right] O2 Sat by Pulse 100 100 Oximetry 09/20/21 09/20/21 09/20/21 07:30 08:00 09:15 Temperature 98.6 F Pulse Rate 59 L Pulse Rate [ 71 Anterior Bilateral Throughout] Pulse Rate [ Throughout] Respiratory 22 Rate Respiratory 19 Rate [Anterior Bilateral Throughout] Respiratory Rate [ Throughout] Blood Pressure Blood Pressure 125/53 [Right] O2 Sat by Pulse 97 99 Oximetry 09/20/21 09/20/21 09:18 10:00 Temperature Pulse Rate 59 L Pulse Rate [ Anterior Bilateral Throughout] Pulse Rate [ Throughout] Respiratory 18 Rate Respiratory Rate [Anterior Bilateral Throughout] Respiratory Rate [ Throughout] Blood Pressure 125/53 Blood Pressure [Right] O2 Sat by Pulse 97 Oximetry - Labs CBC & Chem 7: 09/17/21 06:22 09/20/21 05:31 Labs: Abnormal lab results 09/19/21 09/19/21 09/19/21 Range/Units 12:08 15:52 20:21 Sodium (137-145) mmol/L BUN (7-17) mg/dL Glucose (65-100) mg/dL POC Glucose 216 H 202 H 210 H (70-105) mg/dL 09/20/21 09/20/21 Range/Units 05:31 07:29 Sodium 135 L (137-145) mmol/L BUN 35 H (7-17) mg/dL Glucose 264 H (65-100) mg/dL POC Glucose 194 H (70-105) mg/dL HEART Score - HEART Score Troponin: Troponin T 0.065 ng/mL (0.00-0.029) H D 09/15/21 04:48
[2021-09-20] MEDS ORDERED: SODIUM CHLORIDE 0.9% 500 ML 500 ML IV SCH (11:00)
--- NOTE | 2021-09-20 11:50 | Electrocardiograph Report ---
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
[2021-09-20] MEDS: POTASSIUM CHLORIDE ER 20 MEQ TAB PO SCH (12:33)
[2021-09-20] MEDS: METOPROLOL SUCCINATE XL 25 MG TAB PO SCH ×2 (12:33→21:44)
[2021-09-20] MEDS: FUROSEMIDE 40 MG TAB PO SCH (12:33)
--- NOTE | 2021-09-20 13:21 | Progress Note ---
Assessment and Plan 65-year-old female with significant past medical history of coronary artery disease, COPD on home oxygen, CHF, GERD, hypertension, diabetes mellitus, history of CVA, hyperlipidemia presenting to the emergency room with acute shortness of breath. Upon arrival patient was quite tachypneic and dyspneic and appeared diaphoretic. She required bag assisted ventilation immediately upon arrival. Shortness of breath was said to have started sometime this evening. There has been no history of fever or chills, no nausea or vomiting and no abdominal pain. No history of recent travel, no sick contacts, no contact with anyone with COVID-19. Patient received nebulizing treatments and IV steroids with significant improvement. Work-up in the emergency room , chest x-ray reveals interval development of diffuse bilateral pulmonary opacities. Unclear whether opacities is related to pulmonary edema or bilateral pneumonia. Patient has been placed on empiric IV antibiotics and also given some IV diuretics. Patient placed on BiPAP. Patient has history of smoking 1 pack/30 years. Stopped smoking 15 years ago. Denies alcohol or drug abuse. Worked in [employer] and in the [employer] before retired. atient presently awake. Sitting up by the side of the bed. Patient is on 2 litres O2. O2 saturation 99%. BIPAP 16/6, rate 20, FIO2 30% stand by in the room. Recommend use BIPAP during night and PRN during day time for sleepiness. Patent afebrile. Has leukocytosis. Blood pressure 127/40, Pulse 83, respirations 20. Chest xray done 09/16/21 reported Marked improvement in patchy parenchymal opacities throughout both lungs. Patient is on Brovanna/Budesonide aerosol treatments q 12 hours, Albuterol/atrovent aerosol treatments q 6 hours prn for shortness of breath, S/C Heparin. Recommend GI prophylaxis. Recommend sleep study as out patient. Patients daughter at bed side. Explained patients respiratory status and sleep problems. I spent critical care time of 35 minutes, obtaining history, review the chart, review chest xray ,lab results, talking to the nursing staff, respiratory therapy staff and work up plan of treatment in this critically ill patient. - Patient Problems (1) Acute respiratory failure with hypoxia and hypercapnia Current Visit: No Status: Acute Plan to address problem: O2 2 litres via nasal canula. BIPAP 16/6, rate 10, FIO2 30% during night time, Prn for shortness of breath during day time. Brovanna/Budesonide aerosol treatments q 12 hours. Albuterol/atrovent aerosol treatments q 6 hours prn for shortness of breath. Continue S/C Heparin. Recommend GI prophylaxis. (2) COPD exacerbation Current Visit: No Status: Acute Plan to address problem: O2 2 litres via nasal canula. BIPAP 16/6, rate 10, FIO2 30% during night time, Prn for shortness of breath during day time. Brovanna/Budesonide aerosol treatments q 12 hours. Albuterol/atrovent aerosol treatments q 6 hours prn for shortness of breath. Continue S/C Heparin. Recommend GI prophylaxis. PFTs as out patient. (3) Opacities of both lungs present on chest x-ray Current Visit: Yes Status: Acute Plan to address problem: Patient was on Levaquin. Improving pulmonary infiltrates. (4) CAD (coronary artery disease) Current Visit: No Status: Acute Plan to address problem: Management as per cardiology. (5) CHF (congestive heart failure) Current Visit: No Status: Acute Qualifiers: Heart failure type: diastolic Plan to address problem: Management as per cardiology. (6) HTN (hypertension) Current Visit: No Status: Acute Qualifiers: Hypertension type: essential hypertension Plan to address problem: Management as per primary care. (7) Diabetes mellitus type 2 in obese Current Visit: No Status: Chronic Plan to address problem: Management as per primary care. (8) Gastroesophageal reflux disease Current Visit: No Status: Acute Plan to address problem: Recommend proton pump inhibitors. Like protonix, prilosec, prevacid or nexium. (9) Morbid obesity with BMI of 40.0-44.9, adult Current Visit: Yes Status: Acute Plan to address problem: Recommend loose weight. Diet and exercise. (10) Sleep apnea in adult Current Visit: Yes Status: Acute Plan to address problem: Recommend to loose weight. Explained sleep hygiene. Recommend not to drive or operate heavy equipment with sleepiness. Avoid alcohol, sedatives and Narcotics. Recommend Sleep study as out patient. (11) Obesity hypoventilation syndrome Current Visit: Yes Status: Acute Plan to address problem: BIPAP 16/6, rate 20, FIO2 30% during night time PRN for day time sleepiness. Recommend to loose weight. Recommend Sleep study as out patient. Subjective Date of service: 09/20/21 Principal diagnosis: Pulmonary edema Interval history: 65-year-old female with significant past medical history of coronary artery disease, COPD on home oxygen, CHF, GERD, hypertension, diabetes mellitus, history of CVA, hyperlipidemia presenting to the emergency room with acute shortness of breath. Upon arrival patient was quite tachypneic and dyspneic and appeared diaphoretic. She required bag assisted ventilation immediately upon arrival. Shortness of breath was said to have started sometime this evening. There has been no history of fever or chills, no nausea or vomiting and no abdominal pain. No history of recent travel, no sick contacts, no contact with anyone with COVID-19. Patient received nebulizing treatments and IV steroids with significant impro vement. Work-up in the emergency room , chest x-ray reveals interval development of diffuse bilateral pulmonary opacities. Unclear whether opacities is related to pulmonary edema or bilateral pneumonia. Patient has been placed on empiric IV antibiotics and also given some IV diuretics. Patient placed on BiPAP. Patient has history of smoking 1 pack/30 years. Stopped smoking 15 years ago. Denies alcohol or drug abuse. Worked in [employer] and in the [employer] before retired. Patient presently awake. Sitting up by the side of the bed. Patient is on 2 litres O2. O2 saturation 99%. BIPAP 16/6, rate 20, FIO2 30% stand by in the room. Recommend use BIPAP during night and PRN during day time for sleepiness. Patent afebrile. Has leukocytosis. Blood pressure 127/40, Pulse 83, respirations 20. Chest xray done 09/16/21 reported Marked improvement in patchy parenchymal opacities throughout both lungs. Patient is on Brovanna/Budesonide aerosol treatments q 12 hours, Albuterol/atrovent aerosol treatments q 6 hours prn for shortness of breath, S/C Heparin. Recommend GI prophylaxis. Recommend sleep study as out patient. Objective Vital Signs - 12hr 09/20/21 09/20/21 09/20/21 03:37 04:47 07:30 Temperature 97.9 F 98.6 F Pulse Rate 61 59 L Pulse Rate [ 59 L Anterior Bilateral Throughout] Pulse Rate [ 60 Throughout] Respiratory 18 22 Rate Respiratory 18 Rate [Anterior Bilateral Throughout] Respiratory 18 Rate [ Throughout] Blood Pressure 128/36 Blood Pressure 125/53 [Right] O2 Sat by Pulse 100 97 Oximetry 09/20/21 09/20/21 09/20/21 08:00 09:15 09:18 Temperature Pulse Rate 59 L Pulse Rate [ 71 Anterior Bilateral Throughout] Pulse Rate [ Throughout] Respiratory Rate Respiratory 19 Rate [Anterior Bilateral Throughout] Respiratory Rate [ Throughout] Blood Pressure 125/53 Blood Pressure [Right] O2 Sat by Pulse 99 Oximetry 09/20/21 09/20/21 10:00 12:00 Temperature 98.3 F Pulse Rate 83 Pulse Rate [ Anterior Bilateral Throughout] Pulse Rate [ Throughout] Respiratory 18 20 Rate Respiratory Rate [Anterior Bilateral Throughout] Respiratory Rate [ Throughout] Blood Pressure Blood Pressure 127/40 [Right] O2 Sat by Pulse 97 94 Oximetry Constitutional: no acute distress, alert Eyes: non-icteric ENT: oropharynx moist Neck: supple, no lymphadenopathy Effort: normal Ascultation: Bilateral: diminished breath sounds, rales Cardiovascular: regular rate and rhythm, other (S1,S2) Gastrointestinal: normoactive bowel sounds, soft, non-tender Integumentary: normal Extremities: no cyanosis, no edema Neurologic: normal mental status, non-focal exam, pupils equal and round, motor strength normal and Psychiatric: mood appropriate, affect normal CBC and BMP: 09/17/21 06:22 09/20/21 05:31 ABG, PT/INR, D-dimer: ABG ABG pH 7.264 pH Units (7.350-7.450) L 09/14/21 18:36 ABG pCO2 54.9 mm Hg 09/14/21 18:36 ABG pO2 280.4 mm Hg (80.0-90.0) H 09/14/21 18:36 ABG O2 Saturation 99.4 % (95.0-99.0) H 09/14/21 18:36 PT/INR, D-dimer PT 12.6 Sec. (12.2-14.9) 09/14/21 18:20 INR 0.86 (0.87-1.13) L 09/14/21 18:20 Abnormal lab findings: Abnormal Labs 09/14/21 09/14/21 09/14/21 18:20 18:20 18:20 WBC 14.7 H RBC 5.29 H MCV MCH 26 L RDW 16.9 H Seg Neuts % (Manual) 36.0 L Lymphocytes % (Manual) 58.0 H Lymphocytes # (Manual) 8.5 H INR 0.86 L APTT 21.3 L ABG pH ABG pO2 ABG O2 Saturation ABG Base Excess Oxyhemoglobin Sodium 133 L Potassium 6.0 H Chloride 96.5 L Carbon Dioxide 19 L BUN Creatinine Glucose 253 H POC Glucose Troponin T NT-Pro-B Natriuret Pep 1148 H Cholesterol LDL Cholesterol Direct 09/14/21 09/14/21 09/15/21 18:36 21:00 04:48 WBC RBC MCV MCH RDW Seg Neuts % (Manual) Lymphocytes % (Manual) Lymphocytes # (Manual) INR APTT ABG pH 7.264 L ABG pO2 280.4 H ABG O2 Saturation 99.4 H ABG Base Excess -3.4 L Oxyhemoglobin 94.5 L Sodium Potassium Chloride Carbon Dioxide BUN Creatinine Glucose POC Glucose Troponin T 0.045 H D 0.065 H D NT-Pro-B Natriuret Pep Cholesterol 311 H LDL Cholesterol Direct 222 H 09/15/21 09/15/21 09/15/21 04:48 05:46 08:23 WBC RBC MCV MCH RDW Seg Neuts % (Manual) Lymphocytes % (Manual) Lymphocytes # (Manual) INR APTT ABG pH ABG pO2 ABG O2 Saturation ABG Base Excess Oxyhemoglobin Sodium 136 L Potassium Chloride Carbon Dioxide BUN 18 H Creatinine Glucose 388 H POC Glucose 331 H 321 H Troponin T NT-Pro-B Natriuret Pep Cholesterol LDL Cholesterol Direct 09/15/21 09/15/21 09/15/21 11:11 16:18 21:28 WBC RBC MCV MCH RDW Seg Neuts % (Manual) Lymphocytes % (Manual) Lymphocytes # (Manual) INR APTT ABG pH ABG pO2 ABG O2 Saturation ABG Base Excess Oxyhemoglobin Sodium Potassium Chloride Carbon Dioxide BUN Creatinine Glucose POC Glucose 421 H 364 H 265 H Troponin T NT-Pro-B Natriuret Pep Cholesterol LDL Cholesterol Direct 09/16/21 09/16/21 09/16/21 04:27 04:27 11:17 WBC 17.1 H RBC MCV 78 L MCH 26 L RDW 16.6 H Seg Neuts % (Manual) Lymphocytes % (Manual) Lymphocytes # (Manual) INR APTT ABG pH ABG pO2 ABG O2 Saturation ABG Base Excess Oxyhemoglobin Sodium 135 L Potassium Chloride 96.2 L Carbon Dioxide BUN 28 H Creatinine Glucose 256 H POC Glucose 356 H Troponin T NT-Pro-B Natriuret Pep Cholesterol LDL Cholesterol Direct 09/16/21 09/16/21 09/17/21 19:02 21:07 06:22 WBC 13.5 H RBC MCV 78 L MCH 26 L RDW 16.5 H Seg Neuts % (Manual) Lymphocytes % (Manual) Lymphocytes # (Manual) INR APTT ABG pH ABG pO2 ABG O2 Saturation ABG Base Excess Oxyhemoglobin Sodium Potassium Chloride Carbon Dioxide BUN Creatinine Glucose POC Glucose 426 H 319 H Troponin T NT-Pro-B Natriuret Pep Cholesterol LDL Cholesterol Direct 09/17/21 09/17/21 09/17/21 06:22 07:11 11:30 WBC RBC MCV MCH RDW Seg Neuts % (Manual) Lymphocytes % (Manual) Lymphocytes # (Manual) INR APTT ABG pH ABG pO2 ABG O2 Saturation ABG Base Excess Oxyhemoglobin Sodium 132 L Potassium Chloride 94.5 L Carbon Dioxide BUN 46 H Creatinine Glucose 292 H POC Glucose 282 H 384 H Troponin T NT-Pro-B Natriuret Pep Cholesterol LDL Cholesterol Direct 09/17/21 09/17/21 09/18/21 15:49 20:12 07:38 WBC RBC MCV MCH RDW Seg Neuts % (Manual) Lymphocytes % (Manual) Lymphocytes # (Manual) INR APTT ABG pH ABG pO2 ABG O2 Saturation ABG Base Excess Oxyhemoglobin Sodium Potassium Chloride Carbon Dioxide BUN Creatinine Glucose POC Glucose 353 H 470 H 182 H Troponin T NT-Pro-B Natriuret Pep Cholesterol LDL Cholesterol Direct 09/18/21 09/18/21 09/18/21 12:02 15:42 21:11 WBC RBC MCV MCH RDW Seg Neuts % (Manual) Lymphocytes % (Manual) Lymphocytes # (Manual) INR APTT ABG pH ABG pO2 ABG O2 Saturation ABG Base Excess Oxyhemoglobin Sodium Potassium Chloride Carbon Dioxide BUN Creatinine Glucose POC Glucose 258 H 231 H 211 H Troponin T NT-Pro-B Natriuret Pep Cholesterol LDL Cholesterol Direct 09/19/21 09/19/21 09/19/21 04:41 12:08 15:52 WBC RBC MCV MCH RDW Seg Neuts % (Manual) Lymphocytes % (Manual) Lymphocytes # (Manual) INR APTT ABG pH ABG pO2 ABG O2 Saturation ABG Base Excess Oxyhemoglobin Sodium Potassium Chloride Carbon Dioxide BUN 45 H Creatinine 1.3 H Glucose 130 H POC Glucose 216 H 202 H Troponin T NT-Pro-B Natriuret Pep Cholesterol LDL Cholesterol Direct 09/19/21 09/20/21 09/20/21 20:21 05:31 07:29 WBC RBC MCV MCH RDW Seg Neuts % (Manual) Lymphocytes % (Manual) Lymphocytes # (Manual) INR APTT ABG pH ABG pO2 ABG O2 Saturation ABG Base Excess Oxyhemoglobin Sodium 135 L Potassium Chloride Carbon Dioxide BUN 35 H Creatinine Glucose 264 H POC Glucose 210 H 194 H Troponin T NT-Pro-B Natriuret Pep Cholesterol LDL Cholesterol Direct Allied health notes reviewed: RT
[2021-09-20] MEDS: INSULIN GLARGINE 100 UNITS/ML SUB-Q SCH (21:42)
[2021-09-21] MEDS: IPRATROPIUM/ALBUTEROL SULFATE 3 ML AMPUL.NEB IH SCH (02:25)
[2021-09-21] MEDS: BUDESONIDE 0.5 MG/2 ML NEBU IH SCH ×3 (02:25→20:36)
[2021-09-21] MEDS: ARFORMOTEROL 15 MCG/2 ML NEBU IH SCH ×3 (02:25→20:36)
[2021-09-21] MEDS: HEPARIN 5,000 UNIT/1 ML VIAL SUB-Q SCH ×3 (05:55→21:36)
--- NOTE | 2021-09-21 07:57 | Progress Note ---
Assessment and Plan Assessment and plan: Mrs. Carter, a 65 years old female with history of CAD s/p PCI to pLAD in 2019 (residual RCA CONTINUITY TESTER with faint collaterials), CHF, HTN, COPD on home oxygen, GERD, diabetes mellitus, history of CVA, HLD presented with acute shortness of breath. Work-up in the emergency room showed chest x-ray reveals interval development of diffuse bilateral pulmonary opacities. Patient has been placed on empiric IV antibiotics and also given some IV diuretics placed on BiPAP. Cardiology is consulted for management of ADHF and elevation of Troponin.. Patient is scheduled for left heart catheterization today Patient is n.p.o. status Assessment and Plan: --Acute on chronic congestive heart failure possible diastolic - ECHO in 08/2021: LVEF 50-55%, grade 1 diastolic dysfunction -Status post IV diuretics - resume home med as long as patient tolerated - strict I/O and correct electrolytes abnormality -- mild elevated troponin/NSTEMI type 2, likely - Lexiscan MPI in 07/2021, showed fixed defect at inferior wall;No ischemia. - Patient denied active chest pain; Her symptoms of SOB could be combination of ADHF, COPD exacerbation and PNA - The elevation of troponin more likely due to demanded ischemia form HF and sepsis - Repeat echo showed preserved LV function and RWA - cardiology following, planned for cardiac cath tomorrow - c/w statin and antiplatelet --Acute respiratory failure with hypoxia and hypercapnia s/p BiPAP now on supplemental O2. We will monitor closely and keep O2 saturation greater or equal to 93%. Consult placed to waistline joiner lockstitch for evaluation. Assess for home O2 requirement/currently patient is on 2 L of nasal cannula ox ygen --MERRITT, likely due to diuretics, not present on admission hold diuretics, monitor BMP --Sinus bradycardia, will reduce BB dose, follow clinically -- Opacities of both lungs present on chest x-ray/B/L CAP Initially was Unclear what opacities is secondary to pneumonia versus congestive heart failure. patient has been placed on empiric IV antibiotics and also started on diuretics. echocardiogram showed preserved EF, cont abx -- CAD (coronary artery disease) Patient has known RCA (small vessel) CONTINUITY TESTER and chronic angina; c/w Imdur and other CAD regiment Patient is on Plavix[as patient has aspirin allergy not on dual antiplatelet therapy] -- hyperlipidemia Continue routine home medications. Monitor lipid profile. -- Diabetes mellitus type 2 in obese with uncontrolled blood sugar Patient placed on sliding scale insulin. We will monitor Accu-Cheks closely. --HTN (hypertension) Continue routine home medications and monitor vital signs closely. --Systemic inflammatory response syndrome, cont empiric abx -- Anxiety disorder, outpt f/u with psych --Morbid obesity; BMI 41.6 Dietary modification, exercise as tolerated, and weight reduction when you are medically stable. Patient needs outpatient bariatric surgical evaluation for weight reduction program when stable -- DVT prophylaxis Patient placed on subcutaneous heparin. -- full code status Daily clinical course: 09/15: Patient with mildly elevated troponin this could be secondary to the chronic congestive heart failure in the setting of underlying pneumonia. Obvious evidence for systemic inflammatory response syndrome. Of discussed with fingerprint clerk in respect to the elevated troponin and recurrent chest pain. We will start the patient's home dose of Ranexa. We will continue IV diuresis at this time while awaiting pulmonary input relative to diffuse pulmonary opacities. Patient is also being ruled out for COVID-19. Will repeat chest x- ray in a.m. Condition remains guarded 09/16: Patient shows clinical improvement. X-ray shows shows remarkable improvement in previously noted opacities which goes to support possible underlining congestive heart failure likely diastolic in nature rather than pneumonia. Patient will continue on her chronic medications. Blood pressure is stable. Will transfer to the medical floor mild elevation leukocytosis likely secondary to steroid therapy. Anticipate the patient can be safely discharged tomorrow or the day after with transition to oral steroids. Plan discussed with the patient she verbalized understanding. Will change Lasix to daily IV 09/17: cont diuresis, follow BMP, echocardiogram pending, patient off BiPAP. cont to follow clinically. 09/18: Patient improved clinically but still have significant lower extremity edema, continue IV diuresis. Echocardiogram showed preserved EF with grade 1 diastolic dysfunction. Continue empiric antibiotics, assess for home O2 requirement. Possible DC in couple days 09/19; creatinine slightly trended up, will hold diuretics. Will assess for home O2 requirement and consulted PT. monitor BMP, possible DC with home health once cleared by PT. Will also reduce BB dose for bradycardia. 09/20: Need home O2 on d/c. CXR pulmonary edema improved. Cr normalized. HR much stable. planned for cardiac cath tomorrow by fingerprint clerk 09/21; patient is scheduled for left heart catheterization today, if heart cath is negative patient will be discharged home ,home O2 evaluation patient is requiring 2 L of nasal cannula oxygen, DC planning per case management History Interval history: Patient is scheduled for left heart catheterization today per cardiology Patient is n.p.o. status No new complaints patient is little anxious Hospitalist Physical - Constitutional Vitals: Temp Pulse Resp BP Pulse Ox 98.8 F 56 L 18 131/41 97 09/21/21 07:27 09/21/21 07:27 09/21/21 07:28 09/21/21 07:27 09/21/21 07:28 General appearance: Present: mild distress, well-nourished, obese (Morbidly obese) - EENT Eyes: Present: PERRL, EOM intact - Neck Neck: Present: supple, normal ROM - Respiratory Respiratory effort: normal Respiratory: bilateral: diminished, negative: rales, rhonchi, wheezing - Cardiovascular Rhythm: regular Heart Sounds: Present: S1 & S2 - Extremities Extremities: no ischemia, No edema - Abdominal General gastrointestinal: soft, non-tender, non-distended, normal bowel sounds - Integumentary Integumentary: Present: clear, warm - Psychiatric Psychiatric: appropriate mood/affect, cooperative - Neurologic Neurologic: CNII-XII intact, moves all extremities HEART Score - HEART Score Troponin: Troponin T 0.065 ng/mL (0.00-0.029) H D 09/15/21 04:48 Results - Labs CBC & Chem 7: 09/17/21 06:22 09/20/21 05:31 Labs: Laboratory Last Values WBC 13.5 K/mm3 (4.5-11.0) H 09/17/21 06:22 RBC 4.88 M/mm3 (3.65-5.03) 09/17/21 06:22 Hgb 12.6 gm/dl (10.1-14.3) 09/17/21 06:22 Hct 37.9 % (30.3-42.9) 09/17/21 06:22 MCV 78 fl (79-97) L 09/17/21 06:22 MCH 26 pg (28-32) L 09/17/21 06:22 MCHC 33 % (30-34) 09/17/21 06: RDW 16.5 % (13.2-15.2) H 09/17/21 06:22 Plt Count 250 K/mm3 (140-440) 09/17/21 06:22 Lymph # (Auto) Director Of Operations For Therapy 09/14/21 18:20 Add Manual Diff Complete 09/14/21 18:20 Total Counted 100 09/14/21 18:20 Seg Neuts % (Manual) 36.0 % (40.0-70.0) L 09/14/21 18:20 Band Neutrophils % 0 % 09/14/21 18:20 Lymphocytes % (Manual) 58.0 % (13.4-35.0) H 09/14/21 18:20 Reactive Lymphs % (Man) 0 % 09/14/21 18:20 Monocytes % (Manual) 4.0 % (0.0-7.3) 09/14/21 18:20 Eosinophils % (Manual) 2.0 % (0.0-4.3) 09/14/21 18:20 Basophils % (Manual) 0 % (0.0-1.8) 09/14/21 18:20 Metamyelocytes % 0 % 09/14/21 18:20 Myelocytes % 0 % 09/14/21 18:20 Promyelocytes % 0 % 09/14/21 18:20 Blast Cells % 0 % 09/14/21 18:20 Nucleated RBC % Not Reportable 09/14/21 18:20 Seg Neutrophils # Man 5.3 K/mm3 (1.8-7.7) 09/14/21 18:20 Band Neutrophils # 0.0 K/mm3 09/14/21 18:20 Lymphocytes # (Manual) 8.5 K/mm3 (1.2-5.4) H 09/14/21 18:20 Abs React Lymphs (Man) 0.0 K/mm3 09/14/21 18:20 Monocytes # (Manual) 0.6 K/mm3 (0.0-0.8) 09/14/21 18:20 Eosinophils # (Manual) 0.3 K/mm3 (0.0-0.4) 09/14/21 18:20 Basophils # (Manual) 0.0 K/mm3 (0.0-0.1) 09/14/21 18:20 Metamyelocytes # 0.0 K/mm3 09/14/21 18:20 Myelocytes # 0.0 K/mm3 09/14/21 18:20 Promyelocytes # 0.0 K/mm3 09/14/21 18:20 Blast Cells # 0.0 K/mm3 09/14/21 18:20 WBC Morphology Not Reportable 09/14/21 18:20 Hypersegmented Neuts Not Reportable 09/14/21 18:20 Hyposegmented Neuts Not Reportable 09/14/21 18:20 Hypogranular Neuts Not Reportable 09/14/21 18:20 Smudge Cells Not Reportable 09/14/21 18:20 Toxic Granulation Not Reportable 09/14/21 18:20 Toxic Vacuolation Not Reportable 09/14/21 18:20 Dohle Bodies Not Reportable 09/14/21 18:20 Pelger-Huet Anomaly Not Reportable 09/14/21 18:20 Deneen Rods Not Reportable 09/14/21 18:20 Platelet Estimate Not Reportable 09/14/21 18:20 Clumped Platelets Not Reportable 09/14/21 18:20 Plt Clumps, EDTA Not Reportable 09/14/21 18:20 Large Platelets Not Reportable 09/14/21 18:20 Giant Platelets Not Reportable 09/14/21 18:20 Platelet Satelliting Not Reportable 09/14/21 18:20 Plt Morphology Comment Not Reportable 09/14/21 18:20 RBC Morphology Not Reportable 09/14/21 18:20 Dimorphic RBCs Not Reportable 09/14/21 18:20 Polychromasia Not Reportable 09/14/21 18:20 Hypochromasia 1+ 09/14/21 18:20 Poikilocytosis Not Reportable 09/14/21 18:20 Anisocytosis Rare 09/14/21 18:20 Microcytosis Not Reportable 09/14/21 18:20 Macrocytosis Not Reportable 09/14/21 18:20 Spherocytes Not Reportable 09/14/21 18:20 Pappenheimer Bodies Not Reportable 09/14/21 18:20 Sickle Cells Not Reportable 09/14/21 18:20 Target Cells Not Reportable 09/14/21 18:20 Tear Drop Cells Not Reportable 09/14/21 18:20 Ovalocytes Not Reportable 09/14/21 18:20 Helmet Cells Not Reportable 09/14/21 18:20 [place] Bodies Not Reportable 09/14/21 18:20 [place] Rings Not Reportable 09/14/21 18:20 Dale Cells Not Reportable 09/14/21 18:20 Bite Cells Not Reportable 09/14/21 18:20 Crenated Cell Not Reportable 09/14/21 18:20 Elliptocytes Not Reportable 09/14/21 18:20 Acanthocytes (Spur) Not Reportable 09/14/21 18:20 Rouleaux Not Reportable 09/14/21 18:20 Hemoglobin C Crystals Not Reportable 09/14/21 18:20 Schistocytes Not Reportable 09/14/21 18:20 Malaria parasites Not Reportable 09/14/21 18:20 Henry Bodies Not Reportable 09/14/21 18:20 Hem Pathologist Commnt No 09/14/21 18:20 PT 12.6 Sec. (12.2-14.9) 09/14/21 18:20 INR 0.86 (0.87-1.13) L 09/14/21 18:20 APTT 21.3 Sec. (24.2-36.6) L 09/14/21 18:20 ABG pH 7.264 pH Units (7.350-7.450) L 09/14/21 18:36 ABG pCO2 54.9 mm Hg 09/14/21 18:36 ABG pO2 280.4 mm Hg (80.0-90.0) H 09/14/21 18:36 ABG HCO3 24.3 mmol/L (20.0-26.0) 09/14/21 18:36 ABG O2 Saturation 99.4 % (95.0-99.0) H 09/14/21 18:36 ABG O2 Content 19.6 (0.0-44) 09/14/21 18:36 ABG Base Excess -3.4 mmol/L (-2.0-3.0) L 09/14/21 18:36 ABG Hemoglobin 14.2 gm/dl (12.0-16.0) 09/14/21 18:36 ABG Carboxyhemoglobin 4.3 % (0.0-5.0) 09/14/21 18:36 ABG Methemoglobin 0.6 % (0.0-1.5) 09/14/21 18:36 Oxyhemoglobin 94.5 % (95.0-99.0) L 09/14/21 18:36 FiO2 100 % 09/14/21 18:36 Sodium 135 mmol/L (137-145) L 09/20/21 05:31 Potassium 4.2 mmol/L (3.6-5.0) 09/20/21 05:31 Chloride 101.4 mmol/L (98-107) 09/20/21 05:31 Carbon Dioxide 24 mmol/L (22-30) 09/20/21 05:31 Anion Gap 14 mmol/L 09/20/21 05:31 BUN 35 mg/dL (7-17) H 09/20/21 05:31 Creatinine 1.0 mg/dL (0.6-1.2) 09/20/21 05:31 Estimated GFR > 60 ml/min 09/20/21 05:31 BUN/Creatinine Ratio 35 % 09/20/21 05:31 Glucose 264 mg/dL (65-100) H 09/20/21 05:31 POC Glucose 299 mg/dL (70-105) H 09/20/21 20:37 Calcium 8.6 mg/dL (8.4-10.2) 09/20/21 05:31 Total Bilirubin 0.30 mg/dL (0.1-1.2) 09/14/21 18:20 AST 32 units/L (5-40) 09/14/21 18:20 ALT 16 units/L (7-56) 09/14/21 18:20 Alkaline Phosphatase 99 units/L (35-129) 09/14/21 18:20 Total Creatine Kinase 114 units/L (30-135) 09/14/21 18:20 CK-MB (CK-2) 1.6 ng/mL (0.0-4.0) 09/14/21 18:20 CK-MB (CK-2) Rel Index 1.4 (0-4) 09/14/21 18:20 Troponin T 0.065 ng/mL (0.00-0.029) H D 09/15/21 04:48 NT-Pro-B Natriuret Pep 1148 pg/mL (0-900) H 09/14/21 18:20 Total Protein 7.6 g/dL (6.3-8.2) 09/14/21 18:20 Albumin 4.0 g/dL (3.9-5) 09/14/21 18:20 Albumin/Globulin Ratio 1.1 % 09/14/21 18:20 Triglycerides 124 mg/dL (2-149) 09/14/21 21:00 Cholesterol 311 mg/dL (50-199) H 09/14/21 21:00 LDL Cholesterol Direct 222 mg/dL (50-130) H 09/14/21 21:00 HDL Cholesterol 57 mg/dL (40-59) 09/14/21 21:00 Cholesterol/HDL Ratio 5.45 % 09/14/21 21:00 Nasal Screen MRSA (PCR) Negative (Negative) 09/15/21 Unknown Coronavirus (PCR) Negative (Negative) 09/15/21 08:10 Zamudio/IV: Voiding Method Toilet Active Medications - Current Medications Current Medications: Generic Name Dose Route Start Last Admin Trade Name Freq PRN Reason Stop Dose Admin Acetaminophen 650 mg 09/14/21 21:34 09/19/21 18:38 Acetaminophen 325 Mg Tab PO 650 mg Q6H PRN Administration Pain MILD(1-3)/Fever >100.5/BARBOZA Amlodipine Besylate 10 mg 09/16/21 10:00 09/20/21 09:20 Amlodipine 10 Mg Tab PO 10 mg QDAY DEBRA Administration Arformoterol Tartrate 15 mcg 09/15/21 22:00 09/21/21 02:25 Arformoterol 15 Mcg/2 Ml Nebu IH Not Given BID DEBRA Atorvastatin Calcium 40 mg 09/15/21 22:00 09/20/21 21:41 Atorvastatin 40 Mg Tab PO 40 mg QHS DEBRA Administration Budesonide 0.5 mg 09/15/21 22:00 09/21/21 02:25 Budesonide 0.5 Mg/2 Ml Nebu IH Not Given BID DEBRA Clopidogrel Bisulfate 75 mg 09/15/21 13:00 09/20/21 09:20 Clopidogrel 75 Mg Tab PO 75 mg DAILY DEBRA Administration Dextrose 0 ml 09/14/21 21:55 Dextrose 10% *Hypoglycemia IV PRN PRN Hypoglycemia Furosemide 40 mg 09/20/21 11:00 09/20/21 12:33 Furosemide 40 Mg Tab PO 40 mg QDAY DEBRA Administration Heparin Sodium (Porcine) 5,000 unit 09/15/21 06:00 09/21/21 05:55 Heparin 5,000 Unit/1 Ml Vial SUB-Q 5,000 unit Q8HR DEBRA Administration Insulin Glargine 35 units 09/18/21 22:00 09/20/21 21:42 Insulin Glargine 100 Units/Ml SUB-Q 35 units QHS DEBRA Administration Insulin Human Lispro 0 unit 09/14/21 22:00 09/20/21 21:42 Insulin Lispro 100 Unit/Ml SUB-Q 6 unit ACHS [facility] Administration Protocol Isosorbide Mononitrate 60 mg 09/15/21 13:00 09/20/21 09:18 Isosorbide Mononitrate Er 60 Mg Tab PO 60 mg QDAY [facility] Administration Lisinopril 40 mg 09/16/21 14:00 09/20/21 09:20 Lisinopril 40 Mg Tab PO 40 mg QDAY DEBRA Administration Magnesium Hydroxide 30 ml 09/14/21 21:34 Magnesium Hydroxide (Mom) Oral Liqd Udc PO Q4H PRN Constipation Metoprolol Succinate 12.5 mg 09/19/21 10:00 09/20/21 21:44 Metoprolol Succinate Xl 25 Mg Tab PO 12.5 mg BID DEBRA Administration Morphine Sulfate 2 mg 09/14/21 21:34 09/15/21 09:37 Morphine 2 Mg/1 Ml Inj IV 2 mg Q4H PRN Administration Pain, Moderate (4-6) Morphine Sulfate 4 mg 09/14/21 21:34 Morphine 4 Mg/1 Ml Inj IV Q4H PRN Pain , Severe (7-10) Nitroglycerin 0.4 mg 09/15/21 09:47 09/19/21 18:37 Nitroglycerin 0.4 Mg Tab Subl SL 0.4 mg .Q5MIN PRN Administration Chest Pain Ondansetron HCl 4 mg 09/15/21 12:08 09/15/21 16:59 Ondansetron 4 Mg/2 Ml Inj IV 4 mg Q4H PRN Administration Nausea And Vomiting Potassium Chloride 20 meq 09/20/21 11:00 09/20/21 12:33 Potassium Chloride Er 20 Meq Tab PO 20 meq QDAY [facility] Administration Pregabalin 150 mg 09/15/21 22:00 09/20/21 21:41 Pregabalin 75 Mg Cap PO 150 mg BID DEBRA Administration Pregabalin 50 mg 09/15/21 22:00 09/20/21 21:41 Pregabalin 50 Mg Cap PO 50 mg BID DEBRA Administration Ranolazine 1,000 mg 09/15/21 22:00 09/20/21 21:41 Ranolazine Er 500 Mg Tab 12hr PO 1,000 mg BID DEBRA Administration Sodium Chloride 10 ml 09/14/21 22:00 09/20/21 21:43 Sodium Chloride 0.9% 10 Ml Flush Syringe IV 10 ml BID DEBRA Administration Sodium Chloride 10 ml 09/14/21 21:34 09/20/21 12:36 Sodium Chloride 0.9% 10 Ml Flush Syringe IV 10 ml PRN PRN Administration LINE FLUSH Nutrition/Malnutrition Assess - Dietary Evaluation Nutrition/Malnutrition Findings: Nutrition Notes Start: 09/15/21 15:27 Freq: Status: Active Protocol: Document 09/15/21 15:27 ENRI (Rec: 09/15/21 15:36 NERI [id number]) Nutrition Notes Need for Assessment generated from: MD Order,Education Initial or Follow up Brief Note Current Diagnosis COPD,Coronary Artery Disease, Diabetes,Hypertension, Respiratory Failure,Stroke, Hyperlipidemia Other Pertinent Diagnosis CHF, GERD, SIRS. Current Diet Cardiac/Consistent Carbohydrates Diet (since B ). 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 Weight Status Morbidly Obese Subjective/Other Information RD consult for Nutrition Education. No reports available on Pt's PO intake of meals at the time . Pt still on critical condition , not a candidate for Nutrition Education at the time, will assess feasibility on F/U. Percent of energy/protein needs met: Prescribed Cardiac/Consistent Carbohydrates Diet provides for energy/protein needs (1, 977 Kcal/86 g) during LOS. Nutrition Intervention Follow-Up By: 09/22/21 Additional Comments Nutrition education will be provided on F/U, if feasible. Continue monitoring food tolerance, %PO intake of meals , and BM.
[2021-09-21] MEDS: INSULIN LISPRO 100 UNIT/ML SUB-Q SCH ×4 (08:08→21:38)
[2021-09-21] MEDS: FUROSEMIDE 40 MG TAB PO SCH (09:33)
[2021-09-21] MEDS: POTASSIUM CHLORIDE ER 20 MEQ TAB PO SCH (09:34)
[2021-09-21] MEDS: CLOPIDOGREL 75 MG TAB PO SCH ×3 (09:46→10:52)
[2021-09-21] MEDS: RANOLAZINE ER 500 MG TAB 12HR PO SCH ×2 (09:47→21:39)
[2021-09-21] MEDS: PREGABALIN 75 MG CAP PO SCH ×2 (09:47→21:39)
[2021-09-21] MEDS: LISINOPRIL 40 MG TAB PO SCH (09:47)
[2021-09-21] MEDS: PREGABALIN 50 MG CAP PO SCH ×2 (09:48→21:39)
[2021-09-21] MEDS: amLODIPine 10 MG TAB PO SCH (09:48)
[2021-09-21] MEDS: METOPROLOL SUCCINATE XL 25 MG TAB PO SCH ×2 (09:50→21:39)
--- NOTE | 2021-09-21 11:20 | Progress Note ---
Assessment and Plan Acute on chronic hypoxemic and hypercapnic respiratory failure Abnormal CXR COPD CAD (coronary artery disease) Acute on chronic congestive heart failure Elevated troponin Hyperlipidemia Diabetes mellitus type 2 Morbid Obesity HTN (hypertension) Anxiety disorder Morbid obesity - needs CTSU evaluation - continue incentive spirometry - continue NIPPV qhs re: h/o CARRIE per patient - continue care as below otherwise; - prn CXR's & ABG's at this point as clinically indicated - s/p empiric antibiotics for CAP (Levaquin) - supplemental oxygen to keep O2 sats > 90% - continue bronchodilators (RADHA & LABA) with pulm hygiene per RT - continue inhaled corticosteroids - continue to avoid nephrotoxins, renally dose all medications - mobility protocols to prevent pressure ulcers - PT/OT as tolerated - Wound care per RN/WCT - continue accuchecks with glycemic control per SSI for target blood glucose < 180 mg/dL - tobacco abstinence strongly counseled at the bedside - home oxygen evaluation at discharge - GI & VTE prophylaxis - Flu & pneumovax per protocol - Pulmonary out patient follow up for PFTs and optimization of respiratory status - continue other care per attending / other consultants - prn analgesia per pain score - discharge planning ongoing concurrently ... re-evaluate in am & prn Subjective Date of service: 09/21/21 Principal diagnosis: Ac ypoxemic and hypercapnic resp failure; AE-COPD; AE-CHF; CAD; DM II Interval history: Patient is seen today for: Acute on chronic hypoxemic and hypercapnic respiratory failure; Abnormal CXR; AE-COPD; AE-CHF; CAD; DM II; Morbid obesity Seen and examined at bedside; 24hour events reviewed; nursing and respiratory care staff consulted; no adverse overnight events reported to me; resting peacefully in bed; supine; remains on supplemental oxygen at 3-4L flow; denies acute chest pain; LHCath revealed triple vessel disease & EF 40% Objective Vital Signs - 12hr 09/20/21 09/20/21 09/21/21 23:30 23:37 02:44 Temperature 99.6 F Pulse Rate 59 L 68 66 Pulse Rate [ Anterior Bilateral Throughout] Respiratory 14 18 Rate Respiratory Rate [Anterior Bilateral Throughout] Blood Pressure 111/53 O2 Sat by Pulse 100 96 Oximetry 09/21/21 09/21/21 09/21/21 03:05 07:27 07:28 Temperature 98.4 F 98.8 F Pulse Rate 64 56 L Pulse Rate [ Anterior Bilateral Throughout] Respiratory 18 20 18 Rate Respiratory Rate [Anterior Bilateral Throughout] Blood Pressure 107/55 131/41 O2 Sat by Pulse 98 99 97 Oximetry 09/21/21 09/21/21 08:46 08:47 Temperature Pulse Rate Pulse Rate [ 63 Anterior Bilateral Throughout] Respiratory Rate Respiratory 19 Rate [Anterior Bilateral Throughout] Blood Pressure O2 Sat by Pulse 100 Oximetry Constitutional: no acute distress, alert Eyes: non-icteric ENT: oropharynx moist Neck: supple, no lymphadenopathy, other (large circumference) Effort: normal Ascultation: Bilateral: clear, diminished breath sounds Percussion: Bilateral: not dull Cardiovascular: regular rate and rhythm, other (S1,S2) Gastrointestinal: normoactive bowel sounds, soft, non-tender, non-distended (protuberant) Integumentary: normal Extremities: no cyanosis, no edema, pulses normal, no ischemia or petechiae Neurologic: normal mental status, non-focal exam, pupils equal and round, motor strength normal and Psychiatric: mood appropriate, affect normal CBC and BMP: 09/17/21 06:22 09/20/21 05:31 ABG, PT/INR, D-dimer: ABG ABG pH 7.264 pH Units (7.350-7.450) L 09/14/21 18:36 ABG pCO2 54.9 mm Hg 09/14/21 18:36 ABG pO2 280.4 mm Hg (80.0-90.0) H 09/14/21 18:36 ABG O2 Saturation 99.4 % (95.0-99.0) H 09/14/21 18:36 PT/INR, D-dimer PT 12.6 Sec. (12.2-14.9) 09/14/21 18:20 INR 0.86 (0.87-1.13) L 09/14/21 18:20 Abnormal lab findings: Abnormal Labs 09/14/21 09/14/21 09/14/21 18:20 18:20 18:20 WBC 14.7 H RBC 5.29 H MCV MCH 26 L RDW 16.9 H Seg Neuts % (Manual) 36.0 L Lymphocytes % (Manual) 58.0 H Lymphocytes # (Manual) 8.5 H INR 0.86 L APTT 21.3 L ABG pH ABG pO2 ABG O2 Saturation ABG Base Excess Oxyhemoglobin Sodium 133 L Potassium 6.0 H Chloride 96.5 L Carbon Dioxide 19 L BUN Creatinine Glucose 253 H POC Glucose Troponin T NT-Pro-B Natriuret Pep 1148 H Cholesterol LDL Cholesterol Direct 09/14/21 09/14/21 09/15/21 18:36 21:00 04:48 WBC RBC MCV MCH RDW Seg Neuts % (Manual) Lymphocytes % (Manual) Lymphocytes # (Manual) INR APTT ABG pH 7.264 L ABG pO2 280.4 H ABG O2 Saturation 99.4 H ABG Base Excess -3.4 L Oxyhemoglobin 94.5 L Sodium Potassium Chloride Carbon Dioxide BUN Creatinine Glucose POC Glucose Troponin T 0.045 H D 0.065 H D NT-Pro-B Natriuret Pep Cholesterol 311 H LDL Cholesterol Direct 222 H 09/15/21 09/15/21 09/15/21 04:48 05:46 08:23 WBC RBC MCV MCH RDW Seg Neuts % (Manual) Lymphocytes % (Manual) Lymphocytes # (Manual) INR APTT ABG pH ABG pO2 ABG O2 Saturation ABG Base Excess Oxyhemoglobin Sodium 136 L Potassium Chloride Carbon Dioxide BUN 18 H Creatinine Glucose 388 H POC Glucose 331 H 321 H Troponin T NT-Pro-B Natriuret Pep Cholesterol LDL Cholesterol Direct 09/15/21 09/15/21 09/15/21 11:11 16:18 21:28 WBC RBC MCV MCH RDW Seg Neuts % (Manual) Lymphocytes % (Manual) Lymphocytes # (Manual) INR APTT ABG pH ABG pO2 ABG O2 Saturation ABG Base Excess Oxyhemoglobin Sodium Potassium Chloride Carbon Dioxide BUN Creatinine Glucose POC Glucose 421 H 364 H 265 H Troponin T NT-Pro-B Natriuret Pep Cholesterol LDL Cholesterol Direct 09/16/21 09/16/21 09/16/21 04:27 04:27 11:17 WBC 17.1 H RBC MCV 78 L MCH 26 L RDW 16.6 H Seg Neuts % (Manual) Lymphocytes % (Manual) Lymphocytes # (Manual) INR APTT ABG pH ABG pO2 ABG O2 Saturation ABG Base Excess Oxyhemoglobin Sodium 135 L Potassium Chloride 96.2 L Carbon Dioxide BUN 28 H Creatinine Glucose 256 H POC Glucose 356 H Troponin T NT-Pro-B Natriuret Pep Cholesterol LDL Cholesterol Direct 09/16/21 09/16/21 09/17/21 19:02 21:07 06:22 WBC 13.5 H RBC MCV 78 L MCH 26 L RDW 16.5 H Seg Neuts % (Manual) Lymphocytes % (Manual) Lymphocytes # (Manual) INR APTT ABG pH ABG pO2 ABG O2 Saturation ABG Base Excess Oxyhemoglobin Sodium Potassium Chloride Carbon Dioxide BUN Creatinine Glucose POC Glucose 426 H 319 H Troponin T NT-Pro-B Natriuret Pep Cholesterol LDL Cholesterol Direct 09/17/21 09/17/21 09/17/21 06:22 07:11 11:30 WBC RBC MCV MCH RDW Seg Neuts % (Manual) Lymphocytes % (Manual) Lymphocytes # (Manual) INR APTT ABG pH ABG pO2 ABG O2 Saturation ABG Base Excess Oxyhemoglobin Sodium 132 L Potassium Chloride 94.5 L Carbon Dioxide BUN 46 H Creatinine Glucose 292 H POC Glucose 282 H 384 H Troponin T NT-Pro-B Natriuret Pep Cholesterol LDL Cholesterol Direct 09/17/21 09/17/21 09/18/21 15:49 20:12 07:38 WBC RBC MCV MCH RDW Seg Neuts % (Manual) Lymphocytes % (Manual) Lymphocytes # (Manual) INR APTT ABG pH ABG pO2 ABG O2 Saturation ABG Base Excess Oxyhemoglobin Sodium Potassium Chloride Carbon Dioxide BUN Creatinine Glucose POC Glucose 353 H 470 H 182 H Troponin T NT-Pro-B Natriuret Pep Cholesterol LDL Cholesterol Direct 09/18/21 09/18/21 09/18/21 12:02 15:42 21:11 WBC RBC MCV MCH RDW Seg Neuts % (Manual) Lymphocytes % (Manual) Lymphocytes # (Manual) INR APTT ABG pH ABG pO2 ABG O2 Saturation ABG Base Excess Oxyhemoglobin Sodium Potassium Chloride Carbon Dioxide BUN Creatinine Glucose POC Glucose 258 H 231 H 211 H Troponin T NT-Pro-B Natriuret Pep Cholesterol LDL Cholesterol Direct 09/19/21 09/19/21 09/19/21 04:41 12:08 15:52 WBC RBC MCV MCH RDW Seg Neuts % (Manual) Lymphocytes % (Manual) Lymphocytes # (Manual) INR APTT ABG pH ABG pO2 ABG O2 Saturation ABG Base Excess Oxyhemoglobin Sodium Potassium Chloride Carbon Dioxide BUN 45 H Creatinine 1.3 H Glucose 130 H POC Glucose 216 H 202 H Troponin T NT-Pro-B Natriuret Pep Cholesterol LDL Cholesterol Direct 09/19/21 09/20/21 09/20/21 20:21 05:31 07:29 WBC RBC MCV MCH RDW Seg Neuts % (Manual) Lymphocytes % (Manual) Lymphocytes # (Manual) INR APTT ABG pH ABG pO2 ABG O2 Saturation ABG Base Excess Oxyhemoglobin Sodium 135 L Potassium Chloride Carbon Dioxide BUN 35 H Creatinine Glucose 264 H POC Glucose 210 H 194 H Troponin T NT-Pro-B Natriuret Pep Cholesterol LDL Cholesterol Direct 09/20/21 09/20/21 09/20/21 11:59 15:53 20:37 WBC RBC MCV MCH RDW Seg Neuts % (Manual) Lymphocytes % (Manual) Lymphocytes # (Manual) INR APTT ABG pH ABG pO2 ABG O2 Saturation ABG Base Excess Oxyhemoglobin Sodium Potassium Chloride Carbon Dioxide BUN Creatinine Glucose POC Glucose 178 H 154 H 299 H Troponin T NT-Pro-B Natriuret Pep Cholesterol LDL Cholesterol Direct Allied health notes reviewed: nursing
[2021-09-21] MEDS ORDERED: HEPARIN 10,000 UNITS/10 ML VIAL ONE (11:35)
[2021-09-21] MEDS ORDERED: NITROGLYCERIN SYRINGE 3 ML ONE (11:36)
[2021-09-21] MEDS: MIDAZOLAM 2 MG/2 ML INJ ONE ×5 (12:17→12:40)
[2021-09-21] MEDS: fentaNYL 100 MCG/2 ML INJ ONE ×5 (12:17→12:41)
[2021-09-21] MEDS: LIDOCAINE (2%) 20 MG/1 ML VIAL 20 ML MDV INFILTRATI ONE ×3 (12:18→12:40)
[2021-09-21] MEDS: SODIUM CHLORIDE 0.9% 500 ML 500 ML ONE ×2 (12:21→12:30)
[2021-09-21] MEDS ORDERED: ATROPINE 0.1% (1 MG/10 ML) CARDIAC SYRINGE ONE (12:21)
[2021-09-21] MEDS: HEPARIN/NS 5000 UNIT/500ML 1,000 ML IR ONE ×2 (12:22→12:40)
--- NOTE | 2021-09-21 12:26 | Event Note ---
Date: 09/21/21 Patient is planned for left heart catheterization today, risks and benefits extensively discussed with the patient, and she consents to proceed.
--- NOTE | 2021-09-21 13:31 | Event Note ---
Date: 09/21/21 Cardiac catheterization completed, via the right femoral artery, no complications. We found severe three-vessel disease, representing significant progression of de julio coronary disease. Left ventricular ejection fraction approximately 40%. The patient will be referred for CT surgery evaluation and multivessel coronary revascularization.
[2021-09-21] MEDS ORDERED: traMADol 50 MG TAB PO PRN (14:00)
[2021-09-21] MEDS ORDERED: SODIUM CHLORIDE 0.9% 1000 ML 1,000 ML IV SCH (14:00)
--- NOTE | 2021-09-21 14:39 | Cardiac Catherization Report ---
DATE OF SERVICE: 09/21/2021 CARDIAC CATHETERIZATION REPORT REASON FOR PROCEDURE: The patient is a 65-year-old woman who presented to the hospital with acute pulmonary edema. After treatment, her symptoms and Chest x-ray findings have improved. She has a history of multivessel coronary artery disease with a prior stent in the LAD and a [employer] INTER[employer]TER of the right coronary artery or medical therapy. Due to the presence of acute heart failure, she was recommended for a cardiac catheterization to evaluate for progressive coronary artery disease as an ischemic basis for her heart failure presentation. PROCEDURES: 1. Left heart catheterization. 2. Selective left and right coronary angiography. 3. Left ventricular angiography. 4. Sedation time start 12:39, end 12:56. DESCRIPTION OF PROCEDURE: The patient was prepped and draped in a sterile fashion after informed consent. The right femoral artery was entered using Seldinger technique followed by placement of a 6-Macedonian sheath. Selective left and right coronary angiography was performed using #4 left and right Alex catheters. The right Alex was used for left ventricular angiography via hand injection. The catheters were then removed, sheath removed and hemostasis achieved using an Angio-Seal device. The patient was returned to the postprocedure unit in stable condition. There were no complications. FINDINGS: HEMODYNAMICS: Left ventricular end-diastolic pressure was 28, following coronary angiography. Ascending aortic pressure was 166/64. There was no significant pressure gradient on pullback across the aortic valve. CORONARY ANGIOGRAPHY: Left main coronary artery was short, free of significant disease. A stent was visible in the proximal to mid LAD. There was an eccentric, ulcerated, 80-90% stenosis of the proximal LAD, that appeared to extend into the proximal stented segment. The first diagonal branch of the LAD was a large vessel that originated just distal to the stented segment. This vessel contained a long, 90% stenosis of its proximal segment extending from its ostium. The large mid obtuse marginal branch of the circumflex artery contained a 75-80% stenosis of its mid segment just before its bifurcation into two medium-sized terminal branches. The right coronary artery was dominant. This vessel was completely occluded in its proximal segment. This is a chronic total occlusion. There was faint collateralization of the distal right coronary branches from the left coronary system. Left ventricle was mildly dilated. There was at least mild left ventricular systolic dysfunction with estimated ejection fraction 40%. There was hypo to akinesis of the inferior wall. CONCLUSION: 1. Severe 3-vessel coronary artery disease. 2. Ischemic cardiomyopathy with left ventricular ejection fraction approximately 40%. RECOMMENDATIONS: Multivessel revascularization is recommended. The patient will be referred to CT surgery to consider multivessel bypass to the diagonal branch, the LAD, mid obtuse marginal and possibly the distal right coronary artery. TID: [id number] RECEIPT: [id number] [place]
--- NOTE | 2021-09-21 19:54 | Event Note ---
Date: 09/21/21 s/p heart cath today 09/21/2021; Cardiac catheterization completed, via the right femoral artery, no complications. Patient has severe three-vessel disease, representing significant progression of de julio coronary disease. Left ventricular ejection fraction approximately 40%. Cardiology planning to transfer the patient for CT surgery evaluation and multivessel coronary revascularization. Continue current management pending cardiology instructions for transfer We will closely monitor the patient and adjust the management as needed.
[2021-09-21] MEDS: INSULIN GLARGINE 100 UNITS/ML SUB-Q SCH (21:37)
[2021-09-22] MEDS: BUDESONIDE 0.5 MG/2 ML NEBU IH SCH ×2 (03:12→09:00)
[2021-09-22] MEDS: ARFORMOTEROL 15 MCG/2 ML NEBU IH SCH ×2 (03:13→09:00)
[2021-09-22] MEDS: HEPARIN 5,000 UNIT/1 ML VIAL SUB-Q SCH (05:41)
--- NOTE | 2021-09-22 07:35 | Discharge Summary ---
Providers - Providers Date of Admission: 09/14/21 21:35 Attending physician: OPAL WELSH 09/14/21 21:35 Consult to Dietitian/Nutrition [CONS] Routine Physician Instructions: Reason For Exam: Reason for Consult: Diet education Consult to Physician [CONS] Routine Comment: Consulting Provider: DWIGHT KIRK Physician Instructions: Reason For Exam: COPD Exac. On Bipap 09/15/21 09:32 Consult to Physician [CONS] Routine Comment: Consulting Provider: SHERWIN RABAGO Physician Instructions: Reason For Exam: positive tropnin 09/19/21 08:26 Physical Therapy Evaluation and Treat [CONS] Routine Comment: Reason For Exam: physical debility 09/21/21 13:30 Consult to Cardiac Rehabilitation [CONS] Routine Reason For Exam: Cardiac Rehab Evaluation Primary care physician: KATHRIN SMITH Hospitalization Condition: Stable Procedures: s/p heart cath 09/21/2021; Cardiac catheterization completed, via the right femoral artery, no complications. Patient has severe three-vessel disease, representing significant progression of de julio coronary disease. Left ventricular ejection fraction approximately 40%. Cardiology recommended transfer the patient to [facility] for CT surgery evaluation and multivessel coronary revascularization. Hospital course: Mrs. Carter, a 65 years old female with history of CAD s/p PCI to pLAD in 2019 (residual RCA WOOL WASHER with faint collaterials), CHF, HTN, COPD on home oxygen, GERD, diabetes mellitus, history of CVA, HLD presented with acute shortness of breath. Work-up in the emergency room showed chest x-ray reveals interval development of diffuse bilateral pulmonary opacities. Patient has been placed on empiric IV antibiotics and also given some IV diuretics placed on BiPAP. Cardiology is consulted for management of ADHF and elevation of Troponin. Patient was evaluated by cardiology Assessment and plan: --CAD/severe three-vessel disease on cath Recommend transfer to cardiothoracic surgery at [facility] for coronary revascularization Underwent left heart cath today 09/21/2021; Patient has severe three-vessel disease, representing significant progression of de julio coronary disease. Left ventricular ejection fraction approximately 40%. Transfer the patient to [facility] for CT surgery evaluation and multivessel coronary revascularization. --Acute on chronic congestive heart failure possible diastolic - ECHO in 08/2021: LVEF 50-55%, grade 1 diastolic dysfunction Continue antifailure medications, input output monitoring. Daily weights -- mild elevated troponin/NSTEMI - Lexiscan MPI in 07/2021, showed fixed defect at inferior wall;No ischemia. --Acute respiratory failure with hypoxia and hypercapnia s/p BiPAP now on supplemental O2. We will monitor closely and keep O2 saturation greater or equal to 93%. Consult placed to sap basis administrator for evaluation. Assess for home O2 requirement/currently patient is on 2 L of nasal cannula oxygen --MERRITT, vasomotor nephropathy/resolved --Sinus bradycardia, beta-blockers dose reduced, now heart rate in 60s and 70s -- Opacities of both lungs present on chest x-ray/B/L CAP Initially was Unclear what opacities is secondary to pneumonia versus congestive heart failure. patient has been placed on empiric IV antibiotics and also started on diuretics. -- hyperlipidemia Statin, low-cholesterol diet -- Diabetes mellitus type 2 in obese with uncontrolled blood sugar Patient placed on sliding scale insulin. We will monitor Accu-Cheks closely. --HTN (hypertension) Continue routine home medications and monitor vital signs closely. --Systemic inflammatory response syndrome, cont empiric abx -- Anxiety disorder, outpt f/u with psych --Morbid obesity; BMI 41.6 Dietary modification, exercise as tolerated, and weight reduction when you are medically stable. Patient needs outpatient bariatric surgical evaluation for weight reduction program when stable -- DVT prophylaxis Patient placed on subcutaneous heparin. -- full code status Patient is being transferred to [facility] for further evaluation by CT surgeon for possible multivessel coronary revascularization Patient is hemodynamically stable. Disposition: 02 [facility] Final Discharge Diagnosis (Prints w/discharge instructions): Coronary artery disease/severe three-vessel disease on heart cath. Acute diastolic congestive heart failure. Acute respiratory failure requiring BiPAP now on 2 L oxygen. Acute kidney injury resolved. Sinus bradycardia improved. Possible pneumonia empiric antibiotics. Dyslipidemia. Type 2 diabetes mellitus. Hypertension. SIRS. Anxiety disorder. Morbid obesity Time spent for discharge: 40 min Core Measure Documentation - Palliative Care Palliative Care/ Comfort Measures: Not Applicable - Core Measures Any of the following diagnoses?: acute LA - Acute LA Discharge Requirements Aspirin at discharge: No Reason for no aspirin on DC: Allergy or sensitivity (On Plavix) JUDY/ARB for LVSD if EF <40%: Yes Beta tr at discharge: Yes Statin for LDL = or >100 mg/dl on DC: Yes Exam - Constitutional Vitals: Temp Pulse Resp BP Pulse Ox 99.3 F 60 18 138/42 95 09/22/21 04:05 09/22/21 04:05 09/22/21 04:05 09/22/21 04:05 09/22/21 04:05 General appearance: Present: no acute distress, well-nourished, obese (Morbidly obese) Plan Activity: other (Bedrest) Diet: other (N.p.o. status) Additional Instructions: Patient is being transferred to [facility]/cardiothoracic surgical services surgery for further evaluation and management triple-vessel coronary artery disease Follow up with: KATHRIN SMITH MD [Primary Care Provider] - 7 Days
[2021-09-22] MEDS: INSULIN LISPRO 100 UNIT/ML SUB-Q SCH (08:15)
[2021-09-22 08:19] LABS: BUN/Creatinine Ratio 23; Blood Urea Nitrogen 21 mg/dL (7-17); Calcium 8.6 mg/dL (8.4-10.2); Hemolysis Index 0
[2021-09-22 09:40] VITALS: BP 139/47
== END 2021-09-22 10:29 | disposition short-term general hospital (02) | DRG 280 ==
LOC: ED 18:04 → IMCU 21:35 → 4A 09-16 14:45
PROVIDERS: ADMIT Internal Medicine Geriatric Medicine; ATTEND Internal Medicine
PROC: 5A09557 Assistance with Respiratory Ventilation, Greater than 96 Consecutive Hours, Continuous Positive Airway Pressure (ICD-10-PCS; principal; 2021-09-14)
PROC: 4A033R1 Measurement of Arterial Saturation, Peripheral, Percutaneous Approach (ICD-10-PCS; 2021-09-14)
PROC: 5A09357 Assistance with Respiratory Ventilation, Less than 24 Consecutive Hours, Continuous Positive Airway Pressure (ICD-10-PCS; 2021-09-20)
PROC: 4A023N7 Measurement of Cardiac Sampling and Pressure, Left Heart, Percutaneous Approach (ICD-10-PCS; 2021-09-21)
PROC: B2151ZZ Fluoroscopy of Left Heart using Low Osmolar Contrast (ICD-10-PCS; 2021-09-21)
PROC: B2111ZZ Fluoroscopy of Multiple Coronary Arteries using Low Osmolar Contrast (ICD-10-PCS; 2021-09-21)
DX: I11.0 Hypertensive heart disease with heart failure (principal); I21.A1 Myocardial infarction type 2; J18.9 Pneumonia, unspecified organism; J96.22 Acute and chronic respiratory failure with hypercapnia; J96.21 Acute and chronic respiratory failure with hypoxia; I50.33 Acute on chronic diastolic (congestive) heart failure; N17.0 Acute kidney failure with tubular necrosis; Z68.41 Body mass index [BMI] 40.0-44.9, adult; J44.1 Chronic obstructive pulmonary disease with (acute) exacerbation; R65.10 Systemic inflammatory response syndrome (SIRS) of non-infectious origin without acute organ dysfunction; E78.5 Hyperlipidemia, unspecified; K21.9 Gastro-esophageal reflux disease without esophagitis; F41.9 Anxiety disorder, unspecified; E11.65 Type 2 diabetes mellitus with hyperglycemia; E66.01 Morbid (severe) obesity due to excess calories; E11.40 Type 2 diabetes mellitus with diabetic neuropathy, unspecified; I25.10 Atherosclerotic heart disease of native coronary artery without angina pectoris; E11.51 Type 2 diabetes mellitus with diabetic peripheral angiopathy without gangrene; Z20.822 Contact with and (suspected) exposure to COVID-19; Z88.6 Allergy status to analgesic agent; Z88.0 Allergy status to penicillin; Z79.4 Long term (current) use of insulin; Z90.710 Acquired absence of both cervix and uterus; Z86.73 Personal history of transient ischemic attack (TIA), and cerebral infarction without residual deficits
CPT/HCPCS: 36415; 71045; 80048; 80053; 80061; 82550; 82553; 82803; 82962; 83880; 84132; 84484; 85007; 85025; 85027; 85610; 85730; 87040; 87641; 90686; 93005; 93306; 93458; 94640; 94660; 94760; G0378; J1815; J3490; Q9967; C1760; C1894; C8929; J0461; J1644; J1940; J1956; J2250; J2270; J2405; J2920; J2930; J3010; J3475; J7040; U0003

== ENCOUNTER 2022-03-24 15:55 | Inpatient (IN) | payer MEDICARE ==
[2022-03-24] MEDS ORDERED: IPRATROPIUM 0.02% NEBU 2.5 ML IH ONE (16:40)
[2022-03-24] MEDS ORDERED: ACETAMINOPHEN 500 MG TAB PO ONE (16:40)
[2022-03-24] MEDS ORDERED: ALBUTEROL 2.5 MG/3 ML NEBU IH ONE (16:40)
--- NOTE | 2022-03-24 16:45 | Emergency Department Report ---
HPI - General Chief Complaint: Chest Pain Time Seen by Provider: 03/24/22 16:20 - HPI HPI: Room 21 The patient is a 66-year-old female present with a chief complaint of cough and shortness of breath. Patient states for 1 week she has had increased work of breathing and shortness of breath. Patient is to cough productive of yellow sputum. Patient states she has a history of COPD and is normally on 4 L nasal cannula at home. The patient states she was vaccinated against COVID receiving 2 doses over a year ago ED Past Medical Hx - Past Medical History Hx Hypertension: Yes Hx CVA: Yes (-18) Hx Heart Attack/AMI: Yes Hx Congestive Heart Failure: Yes Hx Diabetes: Yes Hx Deep Vein Thrombosis: Yes Hx GERD: Yes Hx Arthritis: Yes Hx Psychiatric Treatment: Yes (depression w SI) Hx COPD: Yes (4 L nasal cannula home O2) Additional medical history: neuropathy secondary to her DM; PVD - Surgical History Hx Coronary Stent: Yes Additional Surgical History: hysterectomy-2002, R shoulder surgery (2014). BLE stent placement - Family History Family history: no significant - Social History Smoking Status: Never Smoker Substance Use Type: None - Medications Home Medications: Home Medications Medication Instructions Recorded Confirmed Last Taken Type Clopidogrel [Plavix] 75 mg PO DAILY 07/21/19 09/15/21 09/14/21 09:00 History Albuterol Mdi (or & Nicu Only) 2 puff IH QID PRN #1 03/13/21 09/15/21 09/14/21 09:00 Rx [ProAir HFA Inhaler] AtorvaSTATin [Lipitor] 40 mg PO QHS #30 tablet 03/13/21 09/15/21 09/13/21 21:00 Rx Insulin NPH/Regular [NovoLIN 70/30] 25 unit SUB-Q BIDDIAB #7 units 03/13/21 09/15/21 09/14/21 09:00 Rx Nitroglycerin [Nitrostat] 0.4 mg SL .Q5MIN PRN #30 tablet 03/13/21 09/15/21 21:00 Rx Ranolazine ER [Ranexa ER] 1,000 mg PO BID #120 tablet 03/13/21 09/15/21 09/14/21 09:00 Rx amLODIPine 10 mg PO QDAY #30 tablet 0909/15/21 09/14/21 09:00 Rx lisinopriL [Zestril TAB] 10 mg PO QDAY #30 tablet 03/13/21 09/15/21 09/14/21 09:00 Rx Advair Diskus 250-50 mcg 250 mcg IH BID 04/09/21 09/15/21 Unknown History ISOSORBIDE MONOnitrate [Imdur ER] 120 mg PO QDAY 04/09/21 09/15/21 04/08/21 History Pregabalin [Lyrica] 200 mg PO BID 04/09/21 09/15/21 09/15/21 13:13 History ISOSORBIDE MONOnitrate [Imdur ER] 60 mg PO QDAY #30 tab.er.24h 04/10/21 09/15/21 09/14/21 09:00 Rx HYDROcodone/APAP 7.5-325 [[place] 1 each PO Q6HR PRN #12 tablet 06/11/21 09/15/21 09/13/21 21:00 Rx 7.5-325 mg TAB] Albuterol Mdi (or & Nicu Only) 2 puff IH QID PRN 07/28/21 07/28/21 2 Days Ago History [ProAir HFA Inhaler] ~07/26/21 Albuterol Sulfate [Proventil Hfa] 6.7 gm IH Q4HR PRN 07/28/21 07/28/21 2 Days Ago History ~07/26/21 AtorvaSTATin [Lipitor] 40 mg PO QHS tablet 07/28/21 Unknown Rx Atorvastatin [Lipitor] 40 mg PO QHS 07/28/21 07/28/21 2 Days Ago History ~07/26/21 Clopidogrel [Plavix] 75 mg PO QDAY 07/28/21 07/28/21 2 Days Ago History ~07/26/21 Clopidogrel [Plavix] 75 mg PO QDAY tablet 07/28/21 Unknown Rx Gabapentin [Neurontin] 800 mg PO BID 07/28/21 07/28/21 2 Days Ago History ~07/26/21 ISOSORBIDE MONOnitrate [Imdur ER] 30 mg PO DAILY 07/28/21 07/28/21 2 Days Ago History ~07/26/21 ISOSORBIDE MONOnitrate [Imdur ER] 30 mg PO QDAY tablet 07/28/21 Unknown Rx Insulin NPH/Regular [NovoLIN 70/30] 25 unit SQ BIDDIAB 07/28/21 07/28/21 2 Days Ago History ~07/26/21 Metoprolol Xl [Metoprolol 50 mg PO BID 07/28/21 07/28/21 2 Days Ago History SUCCINATE ER TAB] ~07/26/21 Nitroglycerin [Nitrostat] 0.4 mg SL Q5M PRN 07/28/21 07/28/21 2 Days Ago History ~07/26/21 Ranolazine ER [Ranexa ER] 1,000 mg PO BID 07/28/21 07/28/21 2 Days Ago History ~07/26/21 amLODIPine 10 mg PO DAILY 07/28/21 07/28/21 2 Days Ago History ~07/26/21 lisinopriL [Lisinopril] 10 mg PO QDAY 07/28/21 07/28/21 2 Days Ago History ~07/26/21 oxyCODONE /ACETAMINOPHEN [Percocet 1 tab PO Q6H PRN tablet 07/28/21 Unknown Rx 5/325 mg] predniSONE [Deltasone] 40 mg PO QDAY 07/28/21 07/28/21 2 Days Ago History ~07/26/21 traMADoL [Ultram 50 MG tab] 50 mg PO Q6HR PRN 07/28/21 07/28/21 2 Days Ago History ~07/26/21 ED Review of Systems ROS: Stated complaint: WEAKNESS/FEVER Other details as noted in HPI Constitutional: fever Eyes: denies: eye pain ENT: denies: throat pain Respiratory: cough, shortness of breath Cardiovascular: as per HPI Endocrine: no symptoms reported Gastrointestinal: denies: abdominal pain Musculoskeletal: denies: back pain Neurological: denies: headache Physical Exam - Physical Exam Vital Signs: Vital Signs 03/24/22 16:10 Temperature 103.1 F H Pulse Rate 95 H Respiratory 16 Rate Blood Pressure 170/90 [Left] O2 Sat by Pulse 99 Oximetry Physical Exam: GENERAL: The patient is well-developed well-nourished female lying on stretcher appearing fatigued with rhonchorous respirations. [] HEENT: Normocephalic. Atraumatic. Extraocular motions are intact. Patient has moist mucous membranes. NECK: Supple. Trachea midline CHEST/LUNGS: Rhonchi present. There is slightly increased work of breathing HEART/CARDIOVASCULAR: Regular. There is no tachycardia. There is no gallop rub or murmur. ABDOMEN: Abdomen is soft, nontender. Patient has normal bowel sounds. There is no abdominal distention. SKIN: There is no rash. There is no edema. There is no diaphoresis. NEURO: The patient is awake, alert, and oriented. The patient is cooperative. The patient has no focal neurologic deficits. The patient has normal speech. GCS 15 MUSCULOSKELETAL: There is no evidence of acute injury. ED Course Vital Signs 03/24/22 16:10 Temperature 103.1 F H Pulse Rate 95 H Respiratory 16 Rate Blood Pressure 170/90 [Left] O2 Sat by Pulse 99 Oximetry ED Medical Decision Making - Lab Data Result diagrams: 03/24/22 17:26 03/24/22 17:26 Laboratory Tests 03/24/22 03/24/22 03/24/22 17:26 17:26 17:26 WBC 11.2 H RBC 5.00 Hgb 12.4 Hct 37.4 MCV 75 L MCH 25 L MCHC 33 RDW 15.9 H Lymph % (Auto) 10.9 L [place] % (Auto) 7.9 H Eos % (Auto) 0.0 Baso % (Auto) 0.9 Lymph # (Auto) 1.2 [place] # (Auto) 0.9 H Eos # (Auto) 0.0 Baso # (Auto) 0.1 Seg Neutrophils % 80.3 H Seg Neutrophils # 9.0 H VBG pH Sodium 128 L Potassium 3.8 Chloride 92.0 L Carbon Dioxide 24 Anion Gap 16 BUN 10 Creatinine 0.9 Estimated GFR > 60 BUN/Creatinine Ratio 11 Glucose 341 H Lactic Acid 1.40 Calcium 9.0 Total Bilirubin 0.70 AST 25 ALT 17 Alkaline Phosphatase 85 Troponin T < 0.010 Total Protein 6.6 Albumin 3.9 Albumin/Globulin Ratio 1.4 03/24/22 17:26 WBC RBC Hgb Hct MCV MCH MCHC RDW Lymph % (Auto) [place] % (Auto) Eos % (Auto) Baso % (Auto) Lymph # (Auto) [place] # (Auto) Eos # (Auto) Baso # (Auto) Seg Neutrophils % Seg Neutrophils # VBG pH 7.402 Sodium Potassium Chloride Carbon Dioxide Anion Gap BUN Creatinine Estimated GFR BUN/Creatinine Ratio Glucose Lactic Acid Calcium Total Bilirubin AST ALT Alkaline Phosphatase Troponin T Total Protein Albumin Albumin/Globulin Ratio - Radiology Data Radiology results: report reviewed (Chest x-ray), image reviewed (Chest x-ray) interpreted by me: Chest x-ray left lung opacity/pneumonia. No pneumothorax [facility], [place] [address] [place] [address] XRay Report Signed Patient: SOURAV RECIO MR#: [id number] 5 : 1955 Acct:[id number] Age/Sex: 66 / F ADM Date: 03/24/22 Loc: ED Attending Dr: Ordering Physician: COLTON LINARES MD Date of Service: 03/24/22 Procedure(s): XR chest 1V ap Accession Number(s): [id number] cc: COLTON LINARES MD Fluoro Time In Minutes: CHEST 1 VIEW 03/24/2022 3:56 PM INDICATION / CLINICAL INFORMATION: Cough, fever. COMPARISON: None available. FINDINGS: SUPPORT DEVICES: None. HEART / MEDIASTINUM: The cardiac silhouette appears enlarged, but this may be accentuated by AP technique. LUNGS / PLEURA: Diffuse peribronchial thickening and left perihilar infiltrates consistent with acute bronchopneumonia. No significant pleural effusion. No pneumothorax. ADDITIONAL FINDINGS: None IMPRESSION: 1. Acute left perihilar bronchopneumonia. Signer Name: Benny Mendez MD Signed: 03/24/2022 5:01 PM Workstation Name: [id number] Transcribed By: Dictated By: BENNY MENDEZ MD Electronically Authenticated By: BENNY MENDEZ MD Signed Date/Time: 03/24/221700 DD/ 99 TD/TT: - Differential Diagnosis Pneumonia, coronavirus, bronchitis Critical care attestation.: If time is entered above; I have spent that time in minutes in the direct care of this critically ill patient, excluding procedure time. ED Disposition Clinical Impression: Pneumonia Disposition: ADMITTED INPATIENT Is pt being admited?: Yes Does the pt Need Aspirin: No Condition: Fair Instructions: Bacterial Pneumonia (ED) Time of Disposition: 18:59 (Care transferred to hospitalist (Dr. Bloom))
--- NOTE | 2022-03-24 17:05 | XRay Report ---
CHEST 1 VIEW 03/24/2022 3:56 PM INDICATION / CLINICAL INFORMATION: Cough, fever. COMPARISON: None available. FINDINGS: SUPPORT DEVICES: None. HEART / MEDIASTINUM: The cardiac silhouette appears enlarged, but this may be accentuated by AP techn ique. LUNGS / PLEURA: Diffuse peribronchial thickening and left perihilar infiltrates consistent with acute bronchopneumonia. No significant pleural effusion. No pneumothorax. ADDITIONAL FINDINGS: None IMPRESSION: 1. Acute left perihilar bronchopneumonia. Signer Name: Benny Mendez MD Signed: 03/24/2022 5:01 PM Workstation Name: [id number]
[2022-03-24 17:45] LABS: Basophils # (Auto) 0.1 K/mm3 (0.0-0.1); Basophils % (Auto) 0.9 % (0.0-1.8); Hematocrit 37.4 % (30.3-42.9); Hemoglobin 12.4 gm/dl (10.1-14.3); Lymphocytes # (Auto) 1.2 K/mm3 (1.2-5.4); Lymphocytes % (Auto) 10.9 % (13.4-35.0); Mean Corpuscular HGB Conc 33 % (30-34); Mean Corpuscular Volume 75 fl (79-97); Monocytes # (Auto) 0.9 K/mm3 (0.0-0.8); Monocytes % (Auto) 7.9 % (0.0-7.3); Red Cell Distribution Width 15.9 % (13.2-15.2)
[2022-03-24 18:14] LABS: Alanine Aminotransferase 17 units/L (7-56); Albumin 3.9 g/dL (3.9-5); BUN/Creatinine Ratio 11; Blood Urea Nitrogen 10 mg/dL (7-17); Hemolysis Index 16
[2022-03-24 19:04] LABS: Platelet Count 217 K/mm3 (140-440)
[2022-03-24] MEDS ORDERED: MORPHINE 2 MG/1 ML INJ IV PRN ×2 (19:05→22:52)
[2022-03-24] MEDS ORDERED: ACETAMINOPHEN 325 MG TAB PO PRN (19:05)
[2022-03-24] MEDS ORDERED: ONDANSETRON 4 MG/2 ML INJ IV PRN (19:05)
[2022-03-24] MEDS ORDERED: MORPHINE 4 MG/1 ML INJ IV PRN (22:52)
[2022-03-24] MEDS ORDERED: DEXTROSE 50% IN WATER (25GM) 50 ML SYRINGE IV PRN (22:52)
[2022-03-24] MEDS ORDERED: ALBUTEROL 2.5 MG/3 ML NEBU IH PRN (22:52)
--- NOTE | 2022-03-24 23:01 | History and Physical Report ---
History of Present Illness Date of examination: 03/24/22 Date of admission: 03/24/22 19:05 Chief complaint: Cough Shortness of breath History of present illness: 66-year-old female present with a chief complaint of cough and shortness of breath. Patient states for 1 week she has had increased work of breathing and shortness of breath. Patient is to cough productive of yellow sputum. Patient states she has a history of COPD and is normally on 4 L nasal cannula at home. The patient states she was vaccinated against COVID receiving 2 doses over a year ago. In the emergency room chest x-ray shows acute left perihilar bronchopneumonia. Also patient WBC is 11.2 and glucose 341. Still going to admit the patient we will put the patient on pneumonia pathway and insulin sliding scale Past History Past Medical History: acute NC, arthritis, COPD, diabetes, DVT, GERD, heart failure, hypertension, other (Depression with suicidal ideation. COPD.neuropathy secondary to her DM; PVD) Past Surgical History: Other (hysterectomy-2002, R shoulder surgery (2014). BLE stent placement. Coronary stent) Social history: no significant social history Family history: no significant family history Medications and Allergies Allergies Allergy/AdvReac Type Severity Reaction Status Date / Time aspirin Allergy ITCHING/HIV Verified 03/24/22 16:14 ES Penicillins Allergy ITCHING/HIV Verified 03/24/22 16:14 ES Home Medications Medication Instructions Recorded Confirmed Last Taken Type Clopidogrel [Plavix] 75 mg PO DAILY 07/21/19 09/15/21 09/14/21 09:00 History Albuterol Mdi (or & Nicu Only) 2 puff IH QID PRN #1 03/13/21 09/15/21 09/14/21 09:00 Rx [ProAir HFA Inhaler] AtorvaSTATin [Lipitor] 40 mg PO QHS #30 tablet 03/13/21 09/15/21 09/13/21 21:00 Rx Insulin NPH/Regular [NovoLIN 70/30] 25 unit SUB-Q BIDDIAB #7 units 03/13/21 09/15/21 09/14/21 09:00 Rx Nitroglycerin [Nitrostat] 0.4 mg SL .Q5MIN PRN #30 tablet 03/13/21 09/15/21 09/14/21 21:00 Rx Ranolazine ER [Ranexa ER] 1,000 mg PO BID #120 tablet 03/13/21 09/15/21 09/14/21 09:00 Rx amLODIPine 10 mg PO QDAY #30 tablet 03/13/21 09/15/21 09/14/21 09:00 Rx lisinopriL [Zestril TAB] 10 mg PO QDAY #30 tablet 03/13/21 09/15/21 09/14/21 09:00 Rx Advair Diskus 250-50 mcg 250 mcg IH BID 04/09/21 09/15/21 Unknown History ISOSORBIDE MONOnitrate [Imdur ER] 120 mg PO QDAY 04/09/21 09/15/21 04/08/21 History Pregabalin [Lyrica] 200 mg PO BID 04/09/21 09/15/21 09/15/21 13:13 History ISOSORBIDE MONOnitrate [Imdur ER] 60 mg PO QDAY #30 tab.er.24h 04/10/21 09/15/21 09/14/21 09:00 Rx HYDROcodone/APAP 7.5-325 [[place] 1 each PO Q6HR PRN #12 tablet 06/11/21 09/15/21 09/13/21 21:00 Rx 7.5-325 mg TAB] Albuterol Mdi (or & Nicu Only) 2 puff IH QID PRN 07/28/21 07/28/21 2 Days Ago History [ProAir HFA Inhaler] ~07/26/21 Albuterol Sulfate [Proventil Hfa] 6.7 gm IH Q4HR PRN 07/28/21 07/28/21 2 Days Ago History ~07/26/21 AtorvaSTATin [Lipitor] 40 mg PO QHS tablet 07/28/21 Unknown Rx Atorvastatin [Lipitor] 40 mg PO QHS 07/28/21 07/28/21 2 Days Ago History ~07/26/21 Clopidogrel [Plavix] 75 mg PO QDAY 07/28/21 07/28/21 2 Days Ago History ~07/26/21 Clopidogrel [Plavix] 75 mg PO QDAY tablet 07/28/21 Unknown Rx Gabapentin [Neurontin] 800 mg PO BID 07/28/21 07/28/21 2 Days Ago History ~07/26/21 ISOSORBIDE MONOnitrate [Imdur ER] 30 mg PO DAILY 07/28/21 07/28/21 2 Days Ago History ~07/26/21 ISOSORBIDE MONOnitrate [Imdur ER] 30 mg PO QDAY tablet 07/28/21 Unknown Rx Insulin NPH/Regular [NovoLIN 70/30] 25 unit SQ BIDDIAB 07/28/21 07/28/21 2 Days Ago History ~07/26/21 Metoprolol Xl [Metoprolol 50 mg PO BID 07/28/21 07/28/21 2 Days Ago History SUCCINATE ER TAB] ~07/26/21 Nitroglycerin [Nitrostat] 0.4 mg SL Q5M PRN 07/28/21 07/28/21 2 Days Ago History ~07/26/21 Ranolazine ER [Ranexa ER] 1,000 mg PO BID 07/28/21 07/28/21 2 Days Ago History ~07/26/21 amLODIPine 10 mg PO DAILY 07/28/21 07/28/21 2 Days Ago History ~07/26/21 lisinopriL [Lisinopril] 10 mg PO QDAY 07/28/21 07/28/21 2 Days Ago History ~07/26/21 oxyCODONE /ACETAMINOPHEN [Percocet 1 tab PO Q6H PRN tablet 07/28/21 Unknown Rx 5/325 mg] predniSONE [Deltasone] 40 mg PO QDAY 07/28/21 07/28/21 2 Days Ago History ~07/26/21 traMADoL [Ultram 50 MG tab] 50 mg PO Q6HR PRN 07/28/21 07/28/21 2 Days Ago History ~07/26/21 Active Meds: Active Medications Acetaminophen (Acetaminophen 325 Mg Tab) 650 mg PO Q4H PRN PRN Reason: Pain MILD(1-3)/Fever >100.5/BARBOZA Acetaminophen (Acetaminophen 325 Mg Tab) 650 mg PO Q4H PRN PRN Reason: Pain MILD(1-3)/Fever >100.5/BARBOZA Albuterol (Albuterol 2.5 Mg/3 Ml Nebu) 2.5 mg IH Q4HRT PRN PRN Reason: Shortness Of Breath Albuterol/Ipratropium (Ipratropium/Albuterol Sulfate 3 Ml Ampul.Neb) 1 ampul IH Q6HRT [facility] Amlodipine Besylate (Amlodipine 10 Mg Tab) 10 mg PO DAILY [facility] Atorvastatin Calcium (Atorvastatin 40 Mg Tab) 40 mg PO QHS [facility] Clopidogrel Bisulfate (Clopidogrel 75 Mg Tab) 75 mg PO DAILY [facility] Dextrose (Dextrose 50% In Water (25gm) 50 Ml Syringe) 50 ml IV Q30MIN PRN; Protocol PRN Reason: Hypoglycemia Famotidine (Famotidine 20 Mg Tab) 20 mg PO BID [facility] Insulin Human Lispro (Insulin Lispro 100 Unit/Ml) 0 unit SUB-Q ACHS DEBRA; Protocol Isosorbide Mononitrate (Isosorbide Mononitrate Er 30 Mg Tab) 30 mg PO DAILY [facility] Levofloxacin (Levofloxacin 750 Mg Tab) 750 mg PO Q24HR [facility]; Protocol Lisinopril (Lisinopril 10 Mg Tab) 10 mg PO QDAY [facility] Lisinopril (Lisinopril 10 Mg Tab) 10 mg PO QDAY [facility] Miscellaneous Medication (Advair Diskus 250-50 Mcg) 250 mcg IH BID [facility] Morphine Sulfate (Morphine 2 Mg/1 Ml Inj) 2 mg IV Q4H PRN PRN Reason: Pain, Moderate (4-6) Morphine Sulfate (Morphine 2 Mg/1 Ml Inj) 2 mg IV Q4H PRN PRN Reason: Pain, Moderate (4-6) Morphine Sulfate (Morphine 4 Mg/1 Ml Inj) 4 mg IV Q4H PRN PRN Reason: Pain , Severe (7-10) Ondansetron HCl (Ondansetron 4 Mg/2 Ml Inj) 4 mg IV Q8H PRN PRN Reason: Nausea And Vomiting Ondansetron HCl (Ondansetron 4 Mg/2 Ml Inj) 4 mg IV Q8H PRN PRN Reason: Nausea And Vomiting Sodium Chloride (Sodium Chloride 0.9% 10 Ml Flush Syringe) 10 ml IV BID [facility] Sodium Chloride (Sodium Chloride 0.9% 10 Ml Flush Syringe) 10 ml IV PRN PRN PRN Reason: LINE FLUSH Sodium Chloride (Sodium Chloride 0.9% 10 Ml Flush Syringe) 10 ml IV BID [facility] Sodium Chloride (Sodium Chloride 0.9% 10 Ml Flush Syringe) 10 ml IV PRN PRN PRN Reason: LINE FLUSH Review of Systems All systems: negative Respiratory: cough, cough with sputum, shortness of breath, dyspnea on exertion Exam - Constitutional Vitals: Temp Pulse Resp BP Pulse Ox 98.4 F 86 20 159/74 98 03/24/22 17:36 03/24/22 20:21 03/24/22 20:21 03/24/22 20:21 03/24/22 20:21 General appearance: Present: no acute distress, well-nourished - EENT Eyes: Present: PERRL ENT: hearing intact, clear oral mucosa - Neck Neck: Present: supple, normal ROM - Respiratory Respiratory effort: normal Respiratory: bilateral: CTA - Cardiovascular Heart Sounds: Present: S1 & S2. Absent: rub, click - Extremities Extremities: pulses symmetrical, No edema Peripheral Pulses: within normal limits - Abdominal General gastrointestinal: Present: soft, non-tender, non-distended, normal bowel sounds Female genitourinary: Present: normal - Integumentary Integumentary: Present: clear, warm, dry - Musculoskeletal Musculoskeletal: gait normal, strength equal bilaterally - Psychiatric Psychiatric: appropriate mood/affect, intact judgment & insight - Neurologic Neurologic: CNII-XII intact, moves all extremities HEART Score - HEART Score Troponin: Troponin T < 0.010 ng/mL (0.00-0.029) 03/24/22 17: Results - Labs CBC & Chem 7: 03/24/22 17:26 03/24/22 17:26 Labs: Laboratory Last Values WBC 11.2 K/mm3 (4.5-11.0) H 03/24/22 17: RBC 5.00 M/mm3 (3.65-5.03) 03/24/22 17: Hgb 12.4 gm/dl (10.1-14.3) 03/24/22 17: Hct 37.4 % (30.3-42.9) 03/24/22 17: MCV 75 fl (79-97) L 03/24/22 17: MCH 25 pg (28-32) L 03/24/22 17: MCHC 33 % (30-34) 03/24/22 17:26 RDW 15.9 % (13.2-15.2) H 03/24/22 17:26 Plt Count 217 K/mm3 (140-440) 03/24/22 17:26 Lymph % (Auto) 10.9 % (13.4-35.0) L 03/24/22 17:26 [place] % (Auto) 7.9 % (0.0-7.3) H 03/24/22 17:26 Eos % (Auto) 0.0 % (0.0-4.3) 03/24/22 17:26 Baso % (Auto) 0.9 % (0.0-1.8) 03/24/22 17: Lymph # (Auto) 1.2 K/mm3 (1.2-5.4) 03/24/22 17:26 [place] # (Auto) 0.9 K/mm3 (0.0-0.8) H 03/24/22 17: Eos # (Auto) 0.0 K/mm3 (0.0-0.4) 03/24/22 17: Baso # (Auto) 0.1 K/mm3 (0.0-0.1) 03/24/22 17: Seg Neutrophils % 80.3 % (40.0-70.0) H 03/24/22 17: Seg Neutrophils # 9.0 K/mm3 (1.8-7.7) H 03/24/22 17:26 VBG pH 7.402 (7.320-7.420) 03/24/22 17:26 Sodium 128 mmol/L (137-145) L 03/24/22 17:26 Potassium 3.8 mmol/L (3.6-5.0) 03/24/22 17:26 Chloride 92.0 mmol/L (98-107) L 03/24/22 17:26 Carbon Dioxide 24 mmol/L (22-30) 03/24/22 17:26 Anion Gap 16 mmol/L 03/24/22 17:26 BUN 10 mg/dL (7-17) 03/24/22 17:26 Creatinine 0.9 mg/dL (0.6-1.2) 03/24/22 17:26 Estimated GFR > 60 ml/min 03/24/22 17:26 BUN/Creatinine Ratio 11 % 03/24/22 17:26 Glucose 341 mg/dL (65-100) H 03/24/22 17:26 Lactic Acid 1.50 mmol/L (0.7-2.0) 03/24/22 19:36 Calcium 9.0 mg/dL (8.4-10.2) 03/24/22 17:26 Total Bilirubin 0.70 mg/dL (0.1-1.2) 03/24/22 17:26 AST 25 units/L (5-40) 03/24/22 17:26 ALT 17 units/L (7-56) 03/24/22 17:26 Alkaline Phosphatase 85 units/L (35-129) 03/24/22 17:26 Troponin T < 0.010 ng/mL (0.00-0.029) 03/24/22 17:26 Total Protein 6.6 g/dL (6.3-8.2) 03/24/22 17:26 Albumin 3.9 g/dL (3.9-5) 03/24/22 17: Albumin/Globulin Ratio 1.4 % 03/24/22 17:26 - Imaging and Cardiology Chest x-ray: report reviewed Assessment and Plan VTE prophylaxis?: Mechanical Plan of care discussed with patient/family: Yes - Patient Problems (1) Pneumonia Current Visit: Yes Status: Acute Plan to address problem: Admit the patient to the medical floor. Oxygen by nasal cannula 3 to per minute. DuoNeb by nebulizer every 4 hours. Albuterol via nebulizer every 4 hours as needed. Levaquin 750 mg p.o. daily. Blood culture and sputum culture. Recheck CBC BMP in the morning (2) CAD (coronary artery disease) Current Visit: No Status: Acute Plan to address problem: Plavix 75 mg p.o. daily. Lipitor 40 mg p.o. daily Ranexa 1000 mg p.o. twice daily. We continue the home medication (3) CHF (congestive heart failure) Current Visit: No Status: Acute Plan to address problem: Avoid fluid overload. Maintain input output. Daily weight. Lisinopril 10 mg p.o. daily. Amlodipine 10 mg p.o. daily. Continue cardiac meds. Outpatient follow-up with cardiology (4) COPD exacerbation Current Visit: No Status: Acute Plan to address problem: Oxygen via nasal cannula 3 L/min. DuoNeb and nebulizer every 4 hours. Albuterol via nebulizer every 4 hours as needed. We continue the home medicat ion (5) Depression Current Visit: No Status: Acute Qualifiers: Plan to address problem: Is stable. We will continue the home medication. Outpatient follow-up with psych (6) HTN (hypertension) Current Visit: No Status: Acute Plan to address problem: Imdur 30 mg p.o. daily. Lisinopril 10 mg p.o. daily. Amlodipine 10 mg p.o. daily. We continue the home medication (7) Hyperglycemia Current Visit: No Status: Acute Plan to address problem: 1800 kcal ADA diet. Humalog sliding scale Accu-Chek before meals and at bedtime with moderate dose coverage. Diabetic education (8) DVT prophylaxis Current Visit: Yes Status: Acute Plan to address problem: CD for DVT prophylaxis. Pepcid 20 mg p.o. twice daily for GI prophylaxis. Patient is a full code
[2022-03-24 23:30] LABS: Color,Urine Yellow (Yellow)
[2022-03-24 23:31] LABS: Bacteria,Urine 2+ /HPF (Negative)
[2022-03-25] MEDS: IPRATROPIUM/ALBUTEROL SULFATE 3 ML AMPUL.NEB IH SCH ×4 (07:43→20:57)
[2022-03-25] MEDS: INSULIN LISPRO 100 UNIT/ML SUB-Q SCH ×4 (08:35→22:41)
[2022-03-25] MEDS: BUDESONIDE 0.5 MG/2 ML NEBU IH SCH ×2 (08:53→20:56)
[2022-03-25] MEDS: ARFORMOTEROL 15 MCG/2 ML NEBU IH SCH ×2 (08:53→20:57)
[2022-03-25] MEDS ORDERED: LISINOPRIL 10 MG TAB PO SCH (10:00)
[2022-03-25] MEDS ORDERED: ADVAIR IH SCH (10:00)
[2022-03-25 12:10] LABS: BUN/Creatinine Ratio 13; Blood Urea Nitrogen 13 mg/dL (7-17); Calcium 8.7 mg/dL (8.4-10.2); Hemolysis Index 20
[2022-03-25] MEDS ORDERED: FUROSEMIDE 20 MG/2 ML INJ IV NR (13:30)
[2022-03-25 13:47] LABS: Basophils % (Auto) 0.6 % (0.0-1.8); Hematocrit 37.6 % (30.3-42.9); Hemoglobin 12.3 gm/dl (10.1-14.3); Lymphocytes # (Auto) 0.9 K/mm3 (1.2-5.4); Lymphocytes % (Auto) 11.1 % (13.4-35.0); Mean Corpuscular HGB Conc 33 % (30-34); Mean Corpuscular Volume 75 fl (79-97); Monocytes # (Auto) 0.7 K/mm3 (0.0-0.8); Monocytes % (Auto) 8.4 % (0.0-7.3); Platelet Count 194 K/mm3 (140-440); Red Blood Count 4.99 M/mm3 (3.65-5.03); Red Cell Distribution Width 15.9 % (13.2-15.2)
[2022-03-25] MEDS: LISINOPRIL 10 MG TAB PO SCH (14:00)
[2022-03-25] MEDS: ONDANSETRON 4 MG/2 ML INJ IV PRN ×2 (14:27→22:34)
[2022-03-25] MEDS: predniSONE 20 MG TAB PO SCH (14:40)
[2022-03-25] MEDS: levoFLOXacin 750 MG TAB PO SCH (14:40)
[2022-03-25] MEDS: FAMOTIDINE 20 MG TAB PO SCH ×2 (14:41→22:34)
[2022-03-25] MEDS: CLOPIDOGREL 75 MG TAB PO SCH (14:41)
[2022-03-25] MEDS: amLODIPine 10 MG TAB PO SCH (14:43)
[2022-03-25] MEDS ORDERED: VANCOMYCIN/NS 1 GM/250 ML 1 GM/250 ML BAG IV ONE (18:30)
--- NOTE | 2022-03-25 18:31 | Progress Note ---
Assessment and Plan Assessment and plan: #Multifocal pneumonia #Acute hypoxic respiratory failure #SIRS with organ failure Febrile to 103.1+ WBC 12.0 - etiology: Multifocal pneumonia + COPD exacerbation. - baseline oxygen requirements: 3 L nasal cannula - supplemental oxygen: 3 L nasal cannula - Continue protocol: continue pulse oximetry, wean oxygen as tolerated, ordered incentive spirometry and educated patient on how to use it and its importance. Pending blood cultures. Unremarkable urinalysis. Unremarkable coronavirus PCR. Pending influenza A/B PCR. Continue IV Levaquin 750 mg daily. - continue to monitor #Acute on chronic COPD exacerbation - etiology: Multifocal pneumonia -Continue IV Levaquin 750 mg daily and prednisone 40 mg daily #Acute metabolic encephalopathy #Ground-level fall Patient's granddaughter reports her having a ground-level fall resulting with her mouth filling with blood. Granddaughter describes the patient becoming altered after this episode. Pending CT head noncontrast and MRI brain due to concern for possible acute ischemic CVA. Unremarkable urinalysis. Pending blood cultures. #Hyponatremia Sodium 128 Possibly secondary to decreased p.o. intake. Continue to monitor with repeat BMP. #Hypertension #Hyperlipidemia #Coronary artery disease #Chronic congestive heart failure - home medications: Plavix 75 mg daily, atorvastatin 40 mg daily, metoprolol succinate 50 mg twice daily, Imdur 30 mg daily, amlodipine 10 mg daily, lisinopril 10 mg daily - current medications: Amlodipine 10 mg daily, atorvastatin 40 mg daily, Plavix 75 mg daily, Imdur 30 mg daily, lisinopril 10 mg daily - SBP goal <160 and DBP goal <90 while inpatient - continue to monitor #Insulin dependent type II diabetes mellitus - hemoglobin A1c: Unknown - home regimen: NPH 70/30 25 units twice daily, gabapentin 800 mg twice daily - current regimen: Moderate SSI - blood glucose goal 140-180 while inpatient - continue to monitor #Depression Continue to follow-up with outpatient psychiatry #Morbid obesity #Weight loss counseling #Exercise counseling - BMI 36.1 - Counseled patient on the importance of weight loss, incorporating exercise, and dietary changes (lean meats, fresh fruits and vegetables, and water intake). Patient expresses understanding. - Time: +15 min #Advanced care planning -Disease education conducted, care plan discussed, diagnoses discussed, prognosis discussed, and patient acknowledges understanding with care plan -Time: +30 min Disposition Plan: Continue medical management Total Time Spent with Patient (Minutes): 45 minutes History Interval history: Patient became febrile to 103.1 F last night. Hospitalist Physical - Constitutional Vitals: Temp Pulse Resp BP Pulse Ox 102.1 F H 85 22 142/54 95 03/25/22 16:28 03/25/22 16:28 03/25/22 16:28 03/25/22 16:28 03/25/22 16:28 General appearance: Present: no acute distress, well-nourished, obese - EENT Eyes: Present: PERRL, EOM intact ENT: hearing intact, clear oral mucosa, dentition normal - Neck Neck: Present: supple, normal ROM - Respiratory Respiratory effort: normal Respiratory: bilateral: diminished (On 3 L nasal cannula (baseline 3 L nasal cannula)) - Cardiovascular Rhythm: regular Heart Sounds: Present: S1 & S2 - Extremities Extremities: no ischemia, pulses intact, pulses symmetrical, No edema, normal temperature, normal color Peripheral Pulses: within normal limits - Abdominal General gastrointestinal: soft, non-tender, non-distended, normal bowel sounds - Integumentary Integumentary: Present: clear, warm, dry - Psychiatric Psychiatric: cooperative, other (Slightly confused) - Neurologic Neurologic: CNII-XII intact, moves all extremities, other (Alert and oriented x4) - Allied Health Allied health notes reviewed: nursing HEART Score - HEART Score Troponin: Troponin T < 0.010 ng/mL (0.00-0.029) 03/24/22 17:26 Results - Labs CBC & Chem 7: 03/25/22 13:20 03/25/22 10:51 Labs: Laboratory Last Values WBC 8.4 K/mm3 (4.5-11.0) 03/25/22 13:20 RBC 4.99 M/mm3 (3.65-5.03) 03/25/22 13:20 Hgb 12.3 gm/dl (10.1-14.3) 03/25/22 13:20 Hct 37.6 % (30.3-42.9) 03/25/22 13:20 MCV 75 fl (79-97) L 03/25/22 13:20 MCH 25 pg (28-32) L 03/25/22 13:20 MCHC 33 % (30-34) 03/25/22 13:20 RDW 15.9 % (13.2-15.2) H 03/25/22 13:20 Plt Count 194 K/mm3 (140-440) 03/25/22 13:20 Lymph % (Auto) 11.1 % (13.4-35.0) L 03/25/22 13:20 [place] % (Auto) 8.4 % (0.0-7.3) H 03/25/22 13:20 Eos % (Auto) 0.0 % (0.0-4.3) 03/25/22 13:20 Baso % (Auto) 0.6 % (0.0-1.8) 03/25/22 13:20 Lymph # (Auto) 0.9 K/mm3 (1.2-5.4) L 03/25/22 13:20 [place] # (Auto) 0.7 K/mm3 (0.0-0.8) 03/25/22 13:20 Eos # (Auto) 0.0 K/mm3 (0.0-0.4) 03/25/22 13:20 Baso # (Auto) 0.0 K/mm3 (0.0-0.1) 03/25/22 13:20 Seg Neutrophils % 79.9 % (40.0-70.0) H 03/25/22 13:20 Seg Neutrophils # 6.8 K/mm3 (1.8-7.7) 03/25/22 13:20 D-Dimer 1169.30 ng/mlDDU (0-234) H 03/25/22 13:20 VBG pH 7.402 (7.320-7.420) 03/24/22 17:26 Sodium 128 mmol/L (137-145) L 03/25/22 10:51 Potassium 3.8 mmol/L (3.6-5.0) 03/25/22 10:51 Chloride 90.5 mmol/L (98-107) L 03/25/22 10:51 Carbon Dioxide 21 mmol/L (22-30) L 03/25/22 10:51 Anion Gap 20 mmol/L 03/25/22 10:51 BUN 13 mg/dL (7-17) 03/25/22 10:51 Creatinine 1.0 mg/dL (0.6-1.2) 03/25/22 10:51 Estimated GFR > 60 ml/min 03/25/22 10:51 BUN/Creatinine Ratio 13 % 03/25/22 10:51 Glucose 310 mg/dL (65-100) H 03/25/22 10:51 Lactic Acid 1.50 mmol/L (0.7-2.0) 03/24/22 19:36 Calcium 8.7 mg/dL (8.4-10.2) 03/25/22 10:51 Total Bilirubin 0.70 mg/dL (0.1-1.2) 03/24/22 17:26 AST 25 units/L (5-40) 03/24/22 17:26 ALT 17 units/L (7-56) 03/24/22 17:26 Alkaline Phosphatase 85 units/L (35-129) 03/24/22 17:26 Troponin T < 0.010 ng/mL (0.00-0.029) 03/24/22 17:26 NT-Pro-B Natriuret Pep 1702 pg/mL (0-900) H 03/25/22 10:51 Total Protein 6.6 g/dL (6.3-8.2) 03/24/22 17:26 Albumin 3.9 g/dL (3.9-5) 03/24/22 17:26 Albumin/Globulin Ratio 1.4 % 03/24/22 17:26 Procalcitonin 0.46 ng/mL (<0.15) 03/25/22 13:20 Urine Color Yellow (Yellow) 03/24/22 23:18 Urine Turbidity Clear (Clear) 03/24/22 23:18 Specific [place] (Man) 1.025 (1.003-1.030) 03/24/22 23:18 Ur Protein (Man) 3+ mg/dL (Negative) 03/24/22 23:18 Ur Ketones (Man) 5mg/dl (Negative) 03/24/22 23:18 Ur Nitrite (Man) Negative (Negative) 03/24/22 23:18 Urine Bilirubin (Man) Negative (Negative) 03/24/22 23:18 Leukocyte Esterase (Man) Negative (Negative) 03/24/22 23:18 Urine WBC (Auto) 1.0 /HPF (0.0-6.0) 03/24/22 23:18 Urine RBC (Auto) 1.0 /HPF (0.0-6.0) 03/24/22 23:18 U Epithel Cells (Auto) 1.0 /HPF (0-13.0) 03/24/22 23:18 Urine Bacteria (Auto) 2+ /HPF (Negative) 03/24/22 23:18 Urine RBC (Manual) 3+ (Negative) 03/24/22 23:18 Coronavirus (PCR) Negative (Negative) 03/25/22 11:30 Microbiology: Microbiology 03/24/22 17:26 Peripheral/Venous Blood Culture - Preliminary Culture in Progress 03/24/22 17:26 Peripheral/Venous Blood Culture - Preliminary Culture in Progress Zamudio/IV: Voiding Method Toilet Active Medications - Current Medications Current Medications: Generic Name Dose Route Start Last Admin Trade Name Freq PRN Reason Stop Dose Admin Acetaminophen 650 mg 03/24/22 22:52 Acetaminophen 325 Mg Tab PO Q4H PRN Pain MILD(1-3)/Fever >100.5/BARBOZA Albuterol 2.5 mg 03/24/22 22:52 Albuterol 2.5 Mg/3 Ml Nebu IH Q4HRT PRN Shortness Of Breath Albuterol/Ipratropium 1 ampul 03/25/22 02:00 03/25/22 14:41 Ipratropium/Albuterol Sulfate 3 Ml Ampul.Neb IH 1 ampul Q6HRT DEBRA Administration Amlodipine Besylate 10 mg 03/25/22 10:00 Amlodipine 10 Mg Tab PO DAILY DEBRA Arformoterol Tartrate 15 mcg 03/25/22 08:00 03/25/22 08:53 Arformoterol 15 Mcg/2 Ml Nebu IH 15 mcg Q12HRT DEBRA Administration Atorvastatin Calcium 40 mg 03/25/22 22:00 Atorvastatin 40 Mg Tab PO QHS DEBRA Budesonide 0.5 mg 03/25/22 08:00 03/25/22 08:53 Budesonide 0.5 Mg/2 Ml Nebu IH 0.5 mg Q12HRT DEBRA Administration Clopidogrel Bisulfate 75 mg 03/25/22 10:00 Clopidogrel 75 Mg Tab PO DAILY DEBRA Dextrose 50 ml 03/24/22 22:52 Dextrose 50% In Water (25gm) 50 Ml Syringe IV Q30MIN PRN Hypoglycemia Protocol Famotidine 20 mg 03/25/22 10:00 Famotidine 20 Mg Tab PO BID [facility] Insulin Human Lispro 0 unit 03/25/22 07:30 Insulin Lispro 100 Unit/Ml SUB-Q ACHS [facility] Protocol Isosorbide Mononitrate 30 mg 03/25/22 10:00 Isosorbide Mononitrate Er 30 Mg Tab PO DAILY DEBRA Levofloxacin 750 mg 03/25/22 10:00 Levofloxacin 750 Mg Tab PO Q24HR [facility] Protocol Lisinopril 10 mg 03/25/22 10:00 Lisinopril 10 Mg Tab PO QDAY DEBRA Morphine Sulfate 2 mg 03/24/22 22:52 03/25/22 02:37 Morphine 2 Mg/1 Ml Inj IV 2 mg Q4H PRN Administration Pain, Moderate (4-6) Morphine Sulfate 4 mg 03/24/22 22:52 Morphine 4 Mg/1 Ml Inj IV Q4H PRN Pain , Severe (7-10) Ondansetron HCl 4 mg 03/24/22 22:52 03/25/22 14:27 Ondansetron 4 Mg/2 Ml Inj IV 4 mg Q8H PRN Administration Nausea And Vomiting Prednisone 40 mg 03/25/22 10:00 Prednisone 20 Mg Tab PO 03/29/22 10:01 QDAY [facility] Sodium Chloride 10 ml 03/25/22 10:00 Sodium Chloride 0.9% 10 Ml Flush Syringe IV BID [facility] Sodium Chloride 10 ml 03/24/22 22:52 Sodium Chloride 0.9% 10 Ml Flush Syringe IV PRN PRN LINE FLUSH Nutrition/Malnutrition Assess - Dietary Evaluation Nutrition/Malnutrition Findings: Nutrition Notes Start: 03/25/22 11:09 Freq: Status: Active Protocol: Document 03/25/22 11:09 JUSTIN (Rec: 03/25/22 11:12 [facility] [id number]) Nutrition Notes Need for Assessment generated from: MD Order,Education Initial or Follow up Brief Note Current Diagnosis COPD,Coronary Artery Disease, Hypertension,Heart Failure Other Pertinent Diagnosis Pneu, COPD exacerbation Current Diet Cardiac/Consistent CHO Labs/Tests BG 341 (03/24) Weight Status Obese Subjective/Other Information RD consulted for diet education. Pt admitted a few months ago with similar symptoms; currently alert and oriented x 2. Nutrition Intervention Follow-Up By: 04/01/22 Additional Comments F/U: intakes, diet education needs
[2022-03-25] MEDS: ACETAMINOPHEN 325 MG TAB PO PRN ×2 (18:40→22:49)
[2022-03-25] MEDS ORDERED: VANCOMYCIN PHARMACY TO DOSE IV SCH (19:00)
[2022-03-25] MEDS ORDERED: VANCOMYCIN/NS 1 GM/250 ML 1 GM/250 ML BAG IV SCH (20:00)
--- NOTE | 2022-03-25 21:55 | Magnetic Resonance Report ---
MRI BRAIN WITHOUT CONTRAST INDICATION / CLINICAL INFORMATION: Concern for stroke. TECHNIQUE: Multiplanar, multisequence MR images of the brain were obtained. COMPARISON: Head CT FINDINGS: Limitations: Patient motion artifact is a limiting factor on this examination. BRAIN / INTRACRANIAL CONTENTS: Ventricles and cortical sulci are normal in size and configuration. Th ere is no mass effect. No evidence of intracranial hemorrhage or extra-axial fluid collection is seen . There is evidence of a remote cortical infarction at the left frontal lobe vertex. A similar findin g was present on previous study. Moderate microvascular ischemic changes are present in both cerebral hemispheres. Diffusion weighted scans are negative. There is no indication of acute ischemic injury. The brainstem has an unremarkable appearance. Bilateral remote, small cerebellar infarctions are obse rved MIDLINE STRUCTURES:No abnormalities are seen to involve the pituitary gland. Pineal region has an unr emarkable appearance. CRANIOCERVICAL JUNCTION: No abnormalities are identified at the craniocervical junction. VASCULAR FLOW-VOIDS: Normal flow-voids are present within the major intracranial vessels. ORBITS: The orbits have an unremarkable appearance. SINUSES / MASTOIDS: There is no indication of inflammatory disease in the paranasal sinuses or mastoi d air cells. IMPRESSION: 1. No acute intracranial abnormality. 2. 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 Signer Name: Cal Gómez MD Signed: 03/25/2022 9:51 PM Workstation Name: [id number]
[2022-03-26] MEDS: IPRATROPIUM/ALBUTEROL SULFATE 3 ML AMPUL.NEB IH SCH ×4 (02:52→19:47)
[2022-03-26 05:07] LABS: Basophils # (Auto) 0.1 K/mm3 (0.0-0.1); Basophils % (Auto) 1.6 % (0.0-1.8); Eosinophils % (Auto) 0.8 % (0.0-4.3); Hematocrit 37.9 % (30.3-42.9); Hemoglobin 12.4 gm/dl (10.1-14.3); Lymphocytes # (Auto) 1.4 K/mm3 (1.2-5.4); Lymphocytes % (Auto) 23.4 % (13.4-35.0); Mean Corpuscular HGB Conc 33 % (30-34); Mean Corpuscular Volume 75 fl (79-97); Monocytes # (Auto) 0.8 K/mm3 (0.0-0.8); Monocytes % (Auto) 13.6 % (0.0-7.3); Platelet Count 191 K/mm3 (140-440); Red Blood Count 5.08 M/mm3 (3.65-5.03); Red Cell Distribution Width 15.9 % (13.2-15.2)
[2022-03-26 05:23] LABS: Calcium 8.8 mg/dL (8.4-10.2)
[2022-03-26] MEDS ORDERED: POTASSIUM CHLORIDE ER 20 MEQ TAB PO SCH (08:00)
[2022-03-26] MEDS: ARFORMOTEROL 15 MCG/2 ML NEBU IH SCH ×2 (08:42→19:48)
[2022-03-26] MEDS: BUDESONIDE 0.5 MG/2 ML NEBU IH SCH ×2 (08:42→19:48)
[2022-03-26] MEDS: INSULIN LISPRO 100 UNIT/ML SUB-Q SCH ×4 (10:23→22:40)
[2022-03-26] MEDS: FAMOTIDINE 20 MG TAB PO SCH ×2 (10:24→21:16)
[2022-03-26] MEDS: LISINOPRIL 10 MG TAB PO SCH (10:24)
[2022-03-26] MEDS: levoFLOXacin 750 MG TAB PO SCH (10:24)
[2022-03-26] MEDS: amLODIPine 10 MG TAB PO SCH (10:24)
[2022-03-26] MEDS: predniSONE 20 MG TAB PO SCH (10:25)
[2022-03-26] MEDS: CLOPIDOGREL 75 MG TAB PO SCH (10:25)
--- NOTE | 2022-03-26 13:33 | Progress Note ---
Assessment and Plan Assessment and plan: #Multifocal pneumonia #Acute on chronic hypoxic respiratory failure #SIRS with organ failure Febrile to 103.1+ WBC 12.0 - etiology: Multifocal pneumonia + COPD exacerbation. - baseline oxygen requirements: 3 L nasal cannula - supplemental oxygen: 3 L nasal cannula - Continue protocol: continue pulse oximetry, wean oxygen as tolerated, ordered incentive spirometry and educated patient on how to use it and its importance. Pending blood cultures. Unremarkable urinalysis. Unremarkable coronavirus PCR. Pending influenza A/B PCR. Continue IV Levaquin 750 mg daily. - continue to monitor #Acute on chronic COPD exacerbation - etiology: Multifocal pneumonia -Continue IV Levaquin 750 mg daily and prednisone 40 mg daily #Acute metabolic encephalopathyimproving #Ground-level fall Patient's granddaughter reports her having a ground-level fall resulting with her mouth filling with blood. Granddaughter describes the patient becoming altered after this episode. Pending CT head noncontrast due to concern for possible acute ischemic CVA. Unremarkable MRI brain. Unremarkable urinalysis. Blood cultures NGTD x24 hours. #Hyponatremiaimproving Sodium 128--> 133 Possibly secondary to decreased p.o. intake. Continue to monitor with repeat BMP. #Hypertension #Hyperlipidemia #Coronary artery disease #Chronic congestive heart failure - home medications: Plavix 75 mg daily, atorvastatin 40 mg daily, metoprolol succinate 50 mg twice daily, Imdur 30 mg daily, amlodipine 10 mg daily, lisinopril 10 mg daily - current medications: Amlodipine 10 mg daily, atorvastatin 40 mg daily, Plavix 75 mg daily, Imdur 30 mg daily, lisinopril 10 mg daily - SBP goal <160 and DBP goal <90 while inpatient - continue to monitor #Insulin dependent type II diabetes mellitus - hemoglobin A1c: Unknown - home regimen: NPH 70/30 25 units twice daily, gabapentin 800 mg twice daily - current regimen: Moderate SSI - blood glucose goal 140-180 while inpatient - continue to monitor #Depression Continue to follow-up with outpatient psychiatry #Morbid obesity #Weight loss counseling #Exercise counseling - BMI 36.1 - Counseled patient on the importance of weight loss, incorporating exercise, and dietary changes (lean meats, fresh fruits and vegetables, and water intake). Patient expresses understanding. - Time: +15 min #Advanced care planning -Disease education conducted, care plan discussed, diagnoses discussed, prognosis discussed, and patient acknowledges understanding with care plan -Time: +30 min #Discharge planning - Patient is pending 48 hours of unremarkable blood cultures and 24 hours afebrile. - Case management has been made aware. - Discharge is tentatively 03/27/2022. Disposition Plan: Continue medical management Total Time Spent with Patient (Minutes): 45 minutes History Interval history: Patient became febrile to 101.0 F last night. Hospitalist Physical - Constitutional Vitals: Temp Pulse Resp BP Pulse Ox 98.6 F 79 18 128/63 96 03/26/22 11:43 03/26/22 11:43 03/26/22 11:43 03/26/22 11:43 03/26/22 11:43 General appearance: Present: no acute distress, well-nourished, obese - EENT Eyes: Present: PERRL, EOM intact ENT: hearing intact, clear oral mucosa, dentition normal - Neck Neck: Present: supple, normal ROM - Respiratory Respiratory effort: normal Respiratory: bilateral: diminished (On 3 L nasal cannula (baseline 4 L nasal cannula)) - Cardiovascular Rhythm: regular Heart Sounds: Present: S1 & S2 - Extremities Extremities: no ischemia, pulses intact, pulses symmetrical, No edema, normal temperature, normal color Peripheral Pulses: within normal limits - Abdominal General gastrointestinal: soft, non-tender, non-distended, normal bowel sounds - Integumentary Integumentary: Present: clear, warm, dry - Psychiatric Psychiatric: appropriate mood/affect, cooperative, other (Limited insight regarding comorbidities) - Neurologic Neurologic: CNII-XII intact - Allied Health Allied health notes reviewed: nursing HEART Score - HEART Score Troponin: Troponin T < 0.010 ng/mL (0.00-0.029) 03/24/22 17:26 Results - Labs CBC & Chem 7: 03/26/22 04:52 03/26/22 04:52 Labs: Laboratory Last Values WBC 5.9 K/mm3 (4.5-11.0) 03/26/22 04:52 RBC 5.08 M/mm3 (3.65-5.03) H 03/26/22 04:52 Hgb 12.4 gm/dl (10.1-14.3) 03/26/22 04:52 Hct 37.9 % (30.3-42.9) 03/26/22 04:52 MCV 75 fl (79-97) L 03/26/22 04:52 MCH 25 pg (28-32) L 03/26/22 04:52 MCHC 33 % (30-34) 03/26/22 04:52 RDW 15.9 % (13.2-15.2) H 03/26/22 04:52 Plt Count 191 K/mm3 (140-440) 03/26/22 04:52 Lymph % (Auto) 23.4 % (13.4-35.0) 03/26/22 04:52 [place] % (Auto) 13.6 % (0.0-7.3) H 03/26/22 04:52 Eos % (Auto) 0.8 % (0.0-4.3) 03/26/22 04:52 Baso % (Auto) 1.6 % (0.0-1.8) 03/26/22 04:52 Lymph # (Auto) 1.4 K/mm3 (1.2-5.4) 03/26/22 04:52 [place] # (Auto) 0.8 K/mm3 (0.0-0.8) 03/26/22 04:52 Eos # (Auto) 0.0 K/mm3 (0.0-0.4) 03/26/22 04:52 Baso # (Auto) 0.1 K/mm3 (0.0-0.1) 03/26/22 04:52 Seg Neutrophils % 60.6 % (40.0-70.0) 03/26/22 04:52 Seg Neutrophils # 3.6 K/mm3 (1.8-7.7) 03/26/22 04:52 D-Dimer 1169.30 ng/mlDDU (0-234) H 03/25/22 13:20 VBG pH 7.402 (7.320-7.420) 03/24/22 17:26 Sodium 133 mmol/L (137-145) L 03/26/22 04:52 Potassium 3.5 mmol/L (3.6-5.0) L 03/26/22 04:52 Chloride 92.4 mmol/L (98-107) L 03/26/22 04:52 Carbon Dioxide 28 mmol/L (22-30) D 03/26/22 04:52 Anion Gap 16 mmol/L 03/26/22 04:52 BUN 17 mg/dL (7-17) 03/26/22 04:52 Creatinine 1.1 mg/dL (0.6-1.2) 03/26/22 04:52 Estimated GFR 60 ml/min 03/26/22 04:52 BUN/Creatinine Ratio 15 % 03/26/22 04:52 Glucose 220 mg/dL (65-100) H 03/26/22 04:52 POC Glucose 248 mg/dL (70-105) H 03/26/22 10:59 Lactic Acid 1.50 mmol/L (0.7-2.0) 03/24/22 19:36 Calcium 8.8 mg/dL (8.4-10.2) 03/26/22 04:52 Total Bilirubin 0.70 mg/dL (0.1-1.2) 03/24/22 17:26 AST 25 units/L (5-40) 03/24/22 17:26 ALT 17 units/L (7-56) 03/24/22 17:26 Alkaline Phosphatase 85 units/L (35-129) 03/24/22 17:26 Troponin T < 0.010 ng/mL (0.00-0.029) 03/24/22 17:26 NT-Pro-B Natriuret Pep 1702 pg/mL (0-900) H 03/25/22 10:51 Total Protein 6.6 g/dL (6.3-8.2) 03/24/22 17:26 Albumin 3.9 g/dL (3.9-5) 03/24/22 17:26 Albumin/Globulin Ratio 1.4 % 03/24/22 17:26 Procalcitonin 0.46 ng/mL (<0.15) 03/25/22 13:20 Urine Color Yellow (Yellow) 03/24/22 23:18 Urine Turbidity Clear (Clear) 03/24/22 23:18 Specific [place] (Man) 1.025 (1.003-1.030) 03/24/22 23:18 Ur Protein (Man) 3+ mg/dL (Negative) 03/24/22 23:18 Ur Ketones (Man) 5mg/dl (Negative) 03/24/22 23:18 Ur Nitrite (Man) Negative (Negative) 03/24/22 23:18 Urine Bilirubin (Man) Negative (Negative) 03/24/22 23:18 Leukocyte Esterase (Man) Negative (Negative) 03/24/22 23:18 Urine WBC (Auto) 1.0 /HPF (0.0-6.0) 03/24/22 23:18 Urine RBC (Auto) 1.0 /HPF (0.0-6.0) 03/24/22 23:18 U Epithel Cells (Auto) 1.0 /HPF (0-13.0) 03/24/22 23:18 Urine Bacteria (Auto) 2+ /HPF (Negative) 03/24/22 23:18 Urine RBC (Manual) 3+ (Negative) 03/24/22 23:18 Coronavirus (PCR) Negative (Negative) 03/25/22 11:30 Microbiology: Microbiology 03/24/22 17:26 Peripheral/Venous Blood Culture - Preliminary NO GROWTH AFTER 24 HOURS 03/24/22 17:26 Peripheral/Venous Blood Culture - Preliminary NO GROWTH AFTER 24 HOURS Zamudio/IV: Voiding Method External Female Catheter Active Medications - Current Medications Current Medications: Generic Name Dose Route Start Last Admin Trade Name Freq PRN Reason Stop Dose Admin Acetaminophen 650 mg 03/24/22 22:52 03/25/22 22:49 Acetaminophen 325 Mg Tab PO 650 mg Q4H PRN Administration Pain MILD(1-3)/Fever >100.5/BARBOZA Albuterol 2.5 mg 03/24/22 22:52 Albuterol 2.5 Mg/3 Ml Nebu IH Q4HRT PRN Shortness Of Breath Albuterol/Ipratropium 1 ampul 03/25/22 02:00 03/26/22 08:42 Ipratropium/Albuterol Sulfate 3 Ml Ampul.Neb IH 1 ampul Q6HRT DEBRA Administration Amlodipine Besylate 10 mg 03/25/22 10:00 03/26/22 10:24 Amlodipine 10 Mg Tab PO 10 mg DAILY DEBRA Administration Arformoterol Tartrate 15 mcg 03/25/22 08:00 03/26/22 08:42 Arformoterol 15 Mcg/2 Ml Nebu IH 15 mcg Q12HRT DEBRA Administration Atorvastatin Calcium 40 mg 03/25/22 22:00 03/25/22 22:34 Atorvastatin 40 Mg Tab PO 40 mg QHS DEBRA Administration Budesonide 0.5 mg 03/25/22 08:00 03/26/22 08:42 Budesonide 0.5 Mg/2 Ml Nebu IH 0.5 mg Q12HRT DEBRA Administration Clopidogrel Bisulfate 75 mg 03/25/22 10:00 03/26/22 10:25 Clopidogrel 75 Mg Tab PO 75 mg DAILY DEBRA Administration Dextrose 50 ml 03/24/22 22:52 Dextrose 50% In Water (25gm) 50 Ml Syringe IV Q30MIN PRN Hypoglycemia Protocol Famotidine 20 mg 03/25/22 10:00 03/26/22 10:24 Famotidine 20 Mg Tab PO 20 mg BID DEBRA Administration Vancomycin HCl 1,500 mg/ 530 mls @ 333.333 mls/hr 03/26/22 21:00 Sodium Chloride IV Q24H DEBRA Insulin Human Lispro 0 unit 03/25/22 07:30 03/26/22 10:23 Insulin Lispro 100 Unit/Ml SUB-Q Not Given ACHS DEBRA Protocol Isosorbide Mononitrate 30 mg 03/25/22 10:00 03/26/22 10:24 Isosorbide Mononitrate Er 30 Mg Tab PO 30 mg DAILY DEBRA Administration Levofloxacin 750 mg 03/25/22 10:00 03/26/22 10:24 Levofloxacin 750 Mg Tab PO 750 mg Q24HR DEBRA Administration Protocol Lisinopril 10 mg 03/25/22 10:00 03/26/22 10:24 Lisinopril 10 Mg Tab PO 10 mg QDAY DEBRA Administration Morphine Sulfate 2 mg 03/24/22 22:52 03/25/22 02:37 Morphine 2 Mg/1 Ml Inj IV 2 mg Q4H PRN Administration Pain, Moderate (4-6) Morphine Sulfate 4 mg 03/24/22 22:52 Morphine 4 Mg/1 Ml Inj IV Q4H PRN Pain , Severe (7-10) Ondansetron HCl 4 mg 03/24/22 22:52 03/25/22 22:34 Ondansetron 4 Mg/2 Ml Inj IV 4 mg Q8H PRN Administration Nausea And Vomiting Prednisone 40 mg 03/25/22 10:00 03/26/22 10:25 Prednisone 20 Mg Tab PO 03/29/22 10:01 40 mg QDAY DEBRA Administration Sodium Chloride 10 ml 03/25/22 10:00 03/26/22 10:25 Sodium Chloride 0.9% 10 Ml Flush Syringe IV 10 ml BID DEBRA Administration Sodium Chloride 10 ml 03/24/22 22:52 Sodium Chloride 0.9% 10 Ml Flush Syringe IV PRN PRN LINE FLUSH Nutrition/Malnutrition Assess - Dietary Evaluation Nutrition/Malnutrition Findings: Nutrition Notes Start: 03/25/22 11:09 Freq: Status: Active Protocol: Document 03/25/22 11:09 [facility] (Rec: 03/25/22 11:12 [facility] [id number]) Nutrition Notes Need for Assessment generated from: MD Order,Education Initial or Follow up Brief Note Current Diagnosis COPD,Coronary Artery Disease, Hypertension,Heart Failure Other Pertinent Diagnosis Pneu, COPD exacerbation Current Diet Cardiac/Consistent CHO Labs/Tests BG 341 (03/24) Weight Status Obese Subjective/Other Information RD consulted for diet education. Pt admitted a few months ago with similar symptoms; currently alert and oriented x 2. Nutrition Intervention Follow-Up By: 04/01/22 Additional Comments F/U: intakes, diet education needs
[2022-03-26] MEDS ORDERED: VANCOMYCIN 1,500 MG in SODIUM CHLORIDE 0.9% 500 ML 500 ML IV SCH (21:00)
[2022-03-27] MEDS: IPRATROPIUM/ALBUTEROL SULFATE 3 ML AMPUL.NEB IH SCH ×3 (01:23→14:20)
[2022-03-27 06:10] LABS: Basophils % (Auto) 0.6 % (0.0-1.8); Eosinophils % (Auto) 0.9 % (0.0-4.3); Hematocrit 35.9 % (30.3-42.9); Hemoglobin 11.7 gm/dl (10.1-14.3); Lymphocytes # (Auto) 1.3 K/mm3 (1.2-5.4); Lymphocytes % (Auto) 23.2 % (13.4-35.0); Mean Corpuscular HGB Conc 33 % (30-34); Mean Corpuscular Volume 74 fl (79-97); Monocytes # (Auto) 0.8 K/mm3 (0.0-0.8); Monocytes % (Auto) 15.1 % (0.0-7.3); Platelet Count 215 K/mm3 (140-440); Red Blood Count 4.82 M/mm3 (3.65-5.03); Red Cell Distribution Width 15.9 % (13.2-15.2)
[2022-03-27 06:22] LABS: BUN/Creatinine Ratio 23; Blood Urea Nitrogen 23 mg/dL (7-17); Hemolysis Index 0
[2022-03-27 06:45] VITALS: BP 149/59
[2022-03-27] MEDS: BUDESONIDE 0.5 MG/2 ML NEBU IH SCH (07:32)
[2022-03-27] MEDS: ARFORMOTEROL 15 MCG/2 ML NEBU IH SCH (07:33)
--- NOTE | 2022-03-27 09:04 | Cat Scan Report ---
CT head without contrast HISTORY: Concern for stroke workup. TECHNIQUE: Axial imaging performed from the skull apex through the skull base without the use of con trast. All CT scans at this location are performed using CT dose reduction for ALARA by means of aut omated exposure control. COMPARISON: MRI of the brain from 03/25/2022 FINDINGS: Parenchyma: No acute intracranial hemorrhage or parenchymal abnormality. Periventricular hypodensiti es again noted as well as probable old ischemic change in the left centrum semiovale. Ventricles: There is mild diffuse brain atrophy with commensurate ventricular enlargement which is l ikely age appropriate. Soft tissues: Soft tissues including the orbits appear normal. Bones: No acute osseous abnormality. Sinuses: Sinuses and mastoid air cells are clear. IMPRESSION: No acute abnormality. Signer Name: Ever Mckeon MD Signed: 03/27/2022 9:00 AM Workstation Name: [id number]
[2022-03-27] MEDS: CLOPIDOGREL 75 MG TAB PO SCH (09:29)
[2022-03-27] MEDS: INSULIN LISPRO 100 UNIT/ML SUB-Q SCH (09:30)
[2022-03-27] MEDS: amLODIPine 10 MG TAB PO SCH (09:30)
[2022-03-27] MEDS: FAMOTIDINE 20 MG TAB PO SCH (09:30)
[2022-03-27] MEDS: predniSONE 20 MG TAB PO SCH (09:30)
[2022-03-27] MEDS: levoFLOXacin 750 MG TAB PO SCH (09:30)
[2022-03-27] MEDS: LISINOPRIL 10 MG TAB PO SCH (09:30)
--- NOTE | 2022-03-27 09:42 | Discharge Summary ---
Providers - Providers Date of Admission: 03/24/22 19:05 Date of discharge: 03/27/22 Attending physician: KRZYSZTOF MCGILL MD 03/24/22 22:52 Consult to Dietitian/Nutrition [CONS] Routine Physician Instructions: Reason For Exam: Reason for Consult: Diet education 03/26/22 10:18 Physical Therapy Evaluation and Treat [CONS] Routine Comment: Reason For Exam: generalized weakness 03/26/22 10:19 Occupational Therapy Evaluate and Treat [CONS] Routine Comment: Reason For Exam: weakness Primary care physician: GRACE SCHWARTZ Hospitalization Reason for admission: Multifocal pneumonia, hypoxic respiratory failure, SIRS Condition: Fair Pertinent studies: Reviewed. Procedures: None. 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 Patient describes having approximately 1 week of increased work of breathing. Patient denied sick contacts, recent travel, and she endorses receiving 2 doses of COVID-19 vaccines approximately 1 year ago. In the ED, the patient was found to be hemodynamically stable and febrile to 103.1. Patient's labs were remarkable for WBC 11.2 and sodium 128. Patient underwent chest x-ray revealing multifocal pneumonia. The patient was started on Levaquin 750 mg daily. Patient continued to spike fevers, and they have since resolved with continued IV antibiotics. Patient's blood cultures have been unremarkable to date. Patient's family later endorsed increased metabolic encephalopathy, and the patient was evaluated for possible acute ischemic CVA. Patient underwent CT head noncontrast and MRI brain without contrast were found to be unremarkable. Patient was counseled at length about utilizing her walker in order to avoid her repeated ground-level falls. The patient endorsed not using her walker at all and could not provide a reason as to why. Patient will complete her antibiotic course at home to complete a total 7-day course of antibiotics. Patient is medically clear for discharge. Disposition: 01 HOME / SELF CARE / HOMELESS Final Discharge Diagnosis (Prints w/discharge instructions): Multifocal pneumonia secondary to gram-negative bacteria or atypical bacteria, acute on chronic hypoxic respiratory failure, SIRS with organ failure, acute on chronic COPD exacerbation, acute metabolic encephalopathy, ground-level fall, hyponatremia, hypertension, hyperlipidemia, coronary artery disease, chronic congestive heart failure, insulin-dependent type 2 diabetes mellitus, depression, morbid obesity Time spent for discharge: 45 min Core Measure Documentation - Palliative Care Palliative Care/ Comfort Measures: Not Applicable - Core Measures Any of the following diagnoses?: history only Exam - Constitutional Vitals: Temp Pulse Resp BP Pulse Ox 97.9 F 63 18 149/59 99 03/27/22 06:44 03/27/22 07:32 03/27/22 07:32 03/27/22 06:44 03/27/22 07:32 General appearance: Present: no acute distress, well-nourished, obese - EENT Eyes: Present: PERRL, EOM intact ENT: hearing intact, clear oral mucosa, dentition normal - Neck Neck: Present: supple, normal ROM - Respiratory Respiratory effort: normal Respiratory: bilateral: diminished (3 L nasal cannula (baseline 3 L nasal cannula)) - Cardiovascular Rhythm: regular Heart Sounds: Present: S1 & S2 - Extremities Extremities: no ischemia, pulses intact, pulses symmetrical, No edema, normal temperature, normal color Peripheral Pulses: within normal limits - Abdominal General gastrointestinal: Present: soft, non-tender, non-distended, normal bowel sounds Female genitourinary: Present: deferred - Rectal Rectal Exam: deferred - Integumentary Integumentary: Present: clear, warm, dry - Musculoskeletal Musculoskeletal: strength equal bilaterally, generalized weakness - Psychiatric Psychiatric: appropriate mood/affect, cooperative, other (Limited insight regarding overall medical condition) - Neurologic Neurologic: CNII-XII intact, moves all extremities - Allied Health Allied health notes reviewed: nursing Plan Activity: advance as tolerated Diet: low salt, diabetic Additional Instructions: Patient is a 66-year-old female past medical history of hypertension, hyperlipidemia, prior acute ischemic CVA, CAD complicated by acute DC, history of DVT, GERD, osteoarthritis, depression, COPD complicated by chronic hypoxic respiratory failure (baseline 3 L nasal cannula), insulin- dependent type 2 diabetes mellitus with hyperglycemia, morbid obesity presented to the ED with complaints of productive cough with yellow sputum and shortness of breath. Patient describes having approximately 1 week of increased work of breathing. Patient denied sick contacts, recent travel, and she endorses receiving 2 doses of COVID-19 vaccines approximately 1 year ago. In the ED, the patient was found to be hemodynamically stable and febrile to 103.1. Patient's labs were remarkable for WBC 11.2 and sodium 128. Patient underwent chest x-r ay revealing multifocal pneumonia. The patient was started on Levaquin 750 mg daily. Patient continued to spike fevers, and they have since resolved with continued IV antibiotics. Patient's blood cultures have been unremarkable to date. Patient's family later endorsed increased metabolic encephalopathy, and the patient was evaluated for possible acute ischemic CVA. Patient underwent CT head noncontrast and MRI brain without contrast were found to be unremarkable. Patient was counseled at length about utilizing her walker in order to avoid her repeated ground-level falls. The patient endorsed not using her walker at all and could not provide a reason as to why. Patient will complete her antibiotic course at home to complete a total 7-day course of antibiotics. Patient is medically clear for discharge. Care Plan Goals: Patient is medically clear for discharge. Assessment: Patient is a 66-year-old female past medical history of hypertension, hyperlipidemia, prior acute ischemic CVA, CAD complicated by acute DC, history of DVT, GERD, osteoarthritis, depression, COPD complicated by chronic hypoxic respiratory failure (baseline 3 L nasal cannula), insulin-dependent type 2 diabetes mellitus with hyperglycemia, morbid obesity presented to the ED with complaints of productive cough with yellow sputum and shortness of breath. Orion bronson describes having approximately 1 week of increased work of breathing. Patient denied sick contacts, recent travel, and she endorses receiving 2 doses of COVID-19 vaccines approximately 1 year ago. In the ED, the patient was found to be hemodynamically stable and febrile to 103.1. Patient's labs were remarkable for WBC 11.2 and sodium 128. Patient underwent chest x-ray revealing multifocal pneumonia. The patient was started on Levaquin 750 mg daily. Patient continued to spike fevers, and they have since resolved with continued IV antibiotics. Patient's blood cultures have been unremarkable to date. Patient's family later endorsed increased metabolic encephalopathy, and the patient was evaluated for possible acute ischemic CVA. Patient underwent CT head noncontrast and MRI brain without contrast were found to be unremarkable. Patient was counseled at length about utilizing her walker in order to avoid her repeated ground-level falls. The patient endorsed not using her walker at all and could not provide a reason as to why. Patient will complete her antibiotic course at home to complete a total 7-day course of antibiotics. Patient is medically clear for discharge. Follow up with: GRACE SCHWARTZ MD [Primary Care Provider] - 7 Days Prescriptions: levoFLOXacin [Levaquin TAB] 750 mg PO Q24HR #2 tablet
== END 2022-03-27 14:39 | disposition home or self-care (01) | DRG 177 ==
LOC: ED 15:55 → 3A 19:05
PROVIDERS: ADMIT Hospitalist; ATTEND Student in an Organized Health Care Education/Training Program
DX: J15.6 Pneumonia due to other Gram-negative bacteria (principal); G93.41 Metabolic encephalopathy; J96.21 Acute and chronic respiratory failure with hypoxia; R65.11 Systemic inflammatory response syndrome (SIRS) of non-infectious origin with acute organ dysfunction; J44.0 Chronic obstructive pulmonary disease with (acute) lower respiratory infection; J44.1 Chronic obstructive pulmonary disease with (acute) exacerbation; E87.1 Hypo-osmolality and hyponatremia; Z20.822 Contact with and (suspected) exposure to COVID-19; I11.0 Hypertensive heart disease with heart failure; I50.9 Heart failure, unspecified; M19.90 Unspecified osteoarthritis, unspecified site; K21.9 Gastro-esophageal reflux disease without esophagitis; E11.40 Type 2 diabetes mellitus with diabetic neuropathy, unspecified; F32.A Depression, unspecified; E11.51 Type 2 diabetes mellitus with diabetic peripheral angiopathy without gangrene; I25.10 Atherosclerotic heart disease of native coronary artery without angina pectoris; E11.65 Type 2 diabetes mellitus with hyperglycemia; W18.39XA Other fall on same level, initial encounter; Y93.89 Activity, other specified; Y92.89 Other specified places as the place of occurrence of the external cause; Y99.8 Other external cause status; E66.01 Morbid (severe) obesity due to excess calories; I25.2 Old myocardial infarction; Z71.3 Dietary counseling and surveillance; Z90.710 Acquired absence of both cervix and uterus; Z79.4 Long term (current) use of insulin; Z79.899 Other long term (current) drug therapy; Z86.73 Personal history of transient ischemic attack (TIA), and cerebral infarction without residual deficits
CPT/HCPCS: 36415; 70450; 70551; 71045; 80048; 80053; 81001; 82140; 82805; 82962; 83880; 84145; 84484; 85025; 85379; 87040; 94640; 94644; 94760; 96365; 96366; 99285; G0378; Q9967; J1815; J1940; J1956; J2270; J2405; J3370; J7040; U0003